=== PATIENT | female | born 1935 | race Caucasian/White ===

== ENCOUNTER 2017-11-15 10:00 | Observation (INO) | payer MEDICARE, OTHER ==
[2017-11-15 10:31] LABS: BASOPHILS # (AUTO) 0.1 10^3/uL (0.0-0.1); BASOPHILS % (AUTO) 0.9 %; EOSINOPHILS # (AUTO) 0.2 10^3/uL (0.0-0.7); EOSINOPHILS % (AUTO) 3.2 %; HGB - HEMOGLOBIN 14.6 g/dL (12.0-16.0); LYMPHOCYTES # (AUTO) 1.4 10^3/uL (1.5-3.5); LYMPHOCYTES % (AUTO) 22.5 %; MEAN CORPUSCULAR HEMOGLOBIN 30.9 pg (27.0-31.0); MEAN CORPUSCULAR HGB CONC 33.9 g/dL (32.0-36.0); MEAN PLATELET VOLUME 9.5 fL (7.9-10.8); MONOCYTES # (AUTO) 0.6 10^3/uL (0.0-1.0); MONOCYTES % (AUTO) 8.9 %; NEUTROPHILS % (AUTO) 64.5 %; PLT - PLATELET COUNT 155 10^3/uL (130-450); RED BLOOD COUNT 4.74 10^6/uL (4.20-5.40); RED CELL DISTRIBUTION WIDTH 14.2 % (12.0-15.0); WHITE BLOOD COUNT 6.2 x10^3/uL (4.8-10.8)
[2017-11-15 10:40] LABS: ALBUMIN/GLOBULIN RATIO 1.3 (1.0-2.2); BILIRUBIN,TOTAL 0.7 mg/dL (0.2-1.0); CREATININE 0.8 mg/dL (0.4-1.0)
--- NOTE | 2017-11-15 10:57 | ED Physician Documentation ---
History of Present Illness - Stated complaint Stated Complaint: CHEST PX - Chief complaint Chief Complaint: Cardiac - Additonal information Additional information: hx from pt 82 female hx PVC palp and ablation but not CAD as i understand her has been seen by cardio at [facility] to ER today with CP onset 9 AM initially a slow throb like painful palp then gradually became a steady constant cell attendant like pain to L ant chest lasting about 25-30 min then subsiding now gone no soa no diaphoresis no NV no leg swelling no fever cough Review of Systems Constitutional: denies: Fever, Chills Cardiac: reports: Chest pain / pressure Respiratory: denies: Dyspnea GI: denies: Abdominal Pain, Nausea, Vomiting, Diarrhea Musculoskeletal: denies: Extremity pain, Extremity swelling Endocrine: denies: Easy bruising / bleeding Immunocompromised: denies: Immunocompromised PD PAST MEDICAL HISTORY - Past Medical History Cardiovascular: High cholesterol, Arrhythmia Neuro: TIA - Past Surgical History Past Surgical History: Yes General: Appendectomy Cardiovascular: Cardiac catheterization, Other - Present Medications Home Medications: Ambulatory Orders Medication Instructions Recorded Confirmed Atorvastatin Calcium [Lipitor] 40 mg PO QPM 01/12/15 11/15/17 Clopidogrel Bisulfate [Plavix] 75 mg PO DAILY 01/12/15 11/15/17 Metoprolol Tartrate [Lopressor] 25 mg PO BID 01/12/15 11/15/17 Cholecalciferol (Vitamin D3) 1,000 unit PO DAILY 08/02/16 11/15/17 [Vitamin D3] Glucosam/Chondr-MSM#6/Manganes 1 cap PO DAILY 08/02/16 11/15/17 [Glucosamine-Chondroitin Sftgl] Calcium Carbonate [Tums (Calcium 500 mg PO DAILY 11/15/17 11/15/17 Carbonate 500mg)] FLUoxetine [PROzac] 10 mg PO DAILY 11/15/17 11/15/17 Fluocinolone/Shower Cap 5 drops EACHEAR BID 11/15/17 11/15/17 [Fluocinolone 0.01% Scalp Oil] Nitroglycerin [Nitrostat] 0.4 mg SL Q5MIN PRN #30 tablet 11/15/17 - Allergies Allergies/Adverse Reactions: Allergies Allergy/AdvReac Type Severity Reaction Status Date / Time No Known Drug Allergies Allergy Verified 08/02/16 14:56 - Social History Does the pt smoke?: No Smoking Status: Never smoker Does the pt drink ETOH?: No Does the pt have substance abuse?: No - Immunizations Immunizations are current?: Yes - POLST Patient has POLST: No PD ED PE NORMAL - Vitals Vital signs reviewed: Yes - HEENT HEENT: Atraumatic - Neck Neck: Supple, no meningeal sign - Cardiac Cardiac: RRR - Respiratory Respiratory: No respiratory distress, Clear bilaterally - Abdomen Abdomen: Soft, Non tender - Derm Derm: Normal color - Extremities Extremities: No tenderness to palpate, Normal ROM s pain, No edema, No calf tenderness / cord - Neuro Neuro: Alert and oriented X 3 Results - Vitals Vitals: Vital Signs - 24 hr 11/15/17 10:14 Temperature 36.8 C Heart Rate 58 L Respiratory 13 Rate Blood Pressure 127/70 O2 Saturation 98 Oxygen O2 Source Room air - EKG (time done) 1007 Rate: Rate (enter#) Rhythm: NSR [place]: Normal Intervals: Normal VA QRS: Normal Ischemia: Normal ST segments - Labs Labs: Laboratory Tests 11/15/17 11/15/17 11/15/17 10:15 10:15 10:15 WBC 6.2 RBC 4.74 Hgb 14.6 Hct 43.1 MCV 91.0 MCH 30.9 MCHC 33.9 RDW 14.2 Plt Count 155 MPV 9.5 Neut # 4.0 Lymph # 1.4 L [place] # 0.6 Eos # 0.2 Baso # 0.1 Absolute Nucleated RBC 0.00 Nucleated RBC % 0.0 Sodium 139 Potassium 4.0 Chloride 101 Carbon Dioxide 26 Anion Gap 12.0 BUN 22 H Creatinine 0.8 Estimated GFR (MDRD) 69 L Glucose 75 Calcium 9.0 Total Bilirubin 0.7 AST 23 ALT 17 Alkaline Phosphatase 44 Troponin I < 0.04 Total Protein 7.0 Albumin 4.0 Globulin 3.0 Albumin/Globulin Ratio 1.3 Lipase 32 PD MEDICAL DECISION MAKING - ED course ED course: 82 female with 25-60 min of l sided chest discomfort this Am EKG neg 1st trop neg HEART score 5 will admit tele obs serial trop at 6hr jaiden abd echo pt hoping all will be well and she can be home by this evening as company is coming to visit Departure - Departure Disposition: ED Place in Observation Clinical Impression: Chest pain Qualifiers: Chest pain type: unspecified Qualified Code(s): R07.9 - Chest pain, unspecified Condition: Good Discharge Date/Time: 11/15/17 11:59
[2017-11-15] MEDS ORDERED: ONDANSETRON 4 MG/2 ML VIAL IVP PRN (11:34)
[2017-11-15] MEDS ORDERED: SODIUM CHLORIDE FLUSH 0.9% 10 ML SYRINGE IVP PRN (11:34)
[2017-11-15] MEDS ORDERED: ONDANSETRON ODT 4 MG TABLET TL PRN (11:34)
[2017-11-15] MEDS ORDERED: ACETAMINOPHEN 325 MG TABLET PO PRN (11:34)
--- NOTE | 2017-11-15 11:42 | HISTORY & PHYSICAL EXAMINATION ---
Chief Complaint - Chief Complaint Chief Complaint: chest pain for an hour between 9 am and 10 am History of Present Illness - Admitted From Admitted From:: ER - History Obtained From [facility] History obtained from: patient and Dr. Alains Exam Limitations: none - History of Present Illness HPI Comment/Other: She presents with intermittent chest pain starting late this morning. She has risk factors for coronary artery disease including previous history of stroke, hypertension, hyperlipidemia, a positive family history, and an ex-smoking history. She is never had chest pain or cardiac problems other than SVT with ablation before. She woke up this morning and had her usual breakfast. About an hour later she was playing a card game in the computer. She noticed 5 sharp pinching sensations in her left anterior chest. Each were fleeting. And then went away. About 10 minutes later they happen again. About 20 minutes after that, the chest pain returned, and this time it was described as a very severe squeezing sensation that would last several longer moments, barely fade away, and then returned. Overall this lasted 20 minutes. There were no palpitations , nausea, diaphoresis, left jaw pain, or left arm pain with this. She came to the emergency room for evaluation where she is normotensive, EKG is nonspecific, and initial troponins are negative. She is willing to be placed in observation but states that she has other things that she needs to do this afternoon. She really wants to be discharged by no later than 3:30 this afternoon. History - Past Medical History Cardiovascular: reports: High cholesterol, Arrhythmia (reentry tachycardia with ablation 2002 . on metoprolol. 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 Fluoxetine started 07/13/17) Musculoskeletal: reports: Osteoporosis (with thoracic and neck pain. 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 mom of old age at 97. 4 brothers: 2 with CAD/CABG in their 60's and with alzheimers, 1 with alzheimers only. 1 alive. 3 sisters, 2 with alzheimers. 6 children are healthy without cancer, heart, lung, GI disease. Living arrangement: At home Living Situation: With spouse/s.o. Social History Notes: born in [place], [place] on a [place], no running water. Moved to [facility] age 15. 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 . Met her second , a [employer] Operator and over 40 years. She moved here with 's deployement. 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 Drinks mainly on weekend and is rare if more than 1. Stopped cigs after 18 years of 1/ 2 ppd. No recreational substance ab use. - Substance History Use: Uses substance without health or social issues: NONE (former smoker of 1/2 ppd for 18 years.), Alcohol (1 drink a day) - POLST Patient has POLST: No Meds/Allgy - Home Medications Home Medications: Ambulatory Orders Medication Instructions Recorded Confirmed Atorvastatin Calcium [Lipitor] 40 mg PO QPM 01/12/15 11/15/17 Clopidogrel Bisulfate [Plavix] 75 mg PO DAILY 01/12/15 11/15/17 Metoprolol Tartrate [Lopressor] 25 mg PO BID 01/12/15 11/15/17 Cholecalciferol (Vitamin D3) 1,000 unit PO DAILY 08/02/16 11/15/17 [Vitamin D] Glucosam/Chondr-MSM#6/Manganes 1 cap PO DAILY 08/02/16 11/15/17 [Glucosamine-Chondroitin Sftgl] Calcium Carbonate [Tums (Calcium 500 mg PO DAILY 11/15/17 11/15/17 Carbonate 500mg)] FLUoxetine [PROzac] 10 mg PO DAILY 11/15/17 11/15/17 Fluocinolone/Shower Cap 5 drops EACHEAR BID 11/15/17 11/15/17 [Fluocinolone 0.01% Scalp Oil] - Allergies Allergies/Adverse Reactions: Allergies Allergy/AdvReac Type Severity Reaction Status Date / Time No Known Drug Allergies Allergy Verified 08/02/16 14:56 Review of Systems - Constitutional Constitutional: reports: Other (she cleans her house, does laundry, changes sheets on bed, mops floors, cooks. no change in status for years now.). denies : Fatigue, Fever, Chills - Eyes Eyes: denies: Pain, Irritation, Amaurosis - Ears, Nose & Throat Ears, Nose & Throat: reports: Ear pain (but more like itching), Nasal congestion , Postnasal drainage - Cardiovascular Cariovascular: reports: Irregular heart rate (gone since ablation 2002). denies : Edema, Syncope, Exertional dyspnea, Orthopnea - Respiratory Respiratory: reports: Cough (with her PND but not chronic), Sputum production ( occaa). denies: Wheezing, Snoring, Hemoptysis, Orthopnea, SOB at rest, SOB with exertion - Gastrointestinal Gastrointestinal: denies: Abdominal pain, Abdominal distention, Constipation, Diarrhea, Bloody stools, Nausea - Genitourinary Genitourinary: denies: Dysuria, Frequency, Urgency, Hematuria, Flank pain - Musculoskeletal Musculoskeletal: reports: Stiffness (mild and goes away by late morning). denies: Muscle pain, Back pain, Muscle aches - Integumentary Integumentary: denies: Rash, Pruritis, Lesions, Hair changes - Neurological Neurological: reports: Memory problems (mild). denies: General weakness, Focal weakness, Headache, Dizziness, Numbness, Incoordination, Slurred speech - Psychiatric Psychiatric: reports: Depression. denies: Suicidal, Delusions, Hallucinations - Endocrine Endocrine: denies: Polyuria, Polydypsia, Intolerance to cold, Intolerance to heat - Hematologic/Lymphatic Hematologic/Lymphatic: denies: Anemia, Bruising, Petechiae, Blood clots, Recurrent infections Exam - Vital Signs Reviewed Vital Signs: Yes Vital Signs: Vital Signs x48h Temp Pulse Resp BP Pulse Ox 11/15/17 10:14 36.8 C 58 L 13 127/70 98 - Physical Exam General Appearance: positive: No acute distress, Alert Eyes Bilateral: positive: PERRL, EOMI ENT: positive: Pharynx nml Neck: positive: No JVD. negative: Lymphadenopathy (R), Lymphadenopathy (L), Stiff neck, Carotid bruit Respiratory: positive: Chest non-tender. negative: Wheezes, Rales, Rhonchi Cardiovascular: positive: Regular rate & rhythm, No murmur. negative: Gallop/S4 , Friction rub Peripheral Pulses: positive: 1+ Abdomen: positive: Non-tender, No organomegaly, Nml bowel sounds, No distention Skin: positive: Warm, Dry Extremities: positive: Non-tender, No pedal edema Neurologic/Psychiatric: positive: Oriented x3, CN's nml (2-12), Motor nml Conclusion/Plan - Problem List (1) Chest pain Conclusion/Plan: in a patient who has significant risk factors. History of pain is no typical. Plan observation with tele and freqent nursing exams troponin at 3 pm plan for outpt stress test and I will call Dr. Leiva to update her so we can schedule expeditiously already on plavix, ASA, statin and betablocker. Qualifiers: Chest pain type: unspecified Qualified Code(s): R07.9 - Chest pain, unspecified (2) HTN (hypertension) Conclusion/Plan: controlled. no change in meds Qualifiers: Hypertension type: essential hypertension Qualified Code(s): I10 - Essential (primary) hypertension - Lab Results Fish Bones: 11/15/17 10:15 11/15/17 10:15 - Diagnostic Imaging Results Diagnostic Imaging Results: positive: Final report reviewed (chest with bibasilar opacities, R>L, either early pneumonia or atelectasis. Hypoventilatory.) - EKG Results EKG Interpreted Independently: No EKG Comparison: No prior EKG EKG Findings: NSR with nondiagnostic Q in III. Very stable ST segments. NPT available for comparison. Core Measures - Anticipated LOS I expect patient to be DC'd or transferred within 96 hours.: Yes - DVT/VTE - Prophylaxis VTE/DVT Device ordered at admit?: No Not Ordered - Low Risk: Very low risk
[2017-11-15] MEDS ORDERED: CLOPIDOGREL 75 MG TABLET PO SCH (12:00)
[2017-11-15] MEDS ORDERED: METOPROLOL TARTRATE 25 MG TABLET PO SCH (12:00)
[2017-11-15] MEDS ORDERED: ATORVASTATIN 40 MG TABLET PO SCH (12:00)
--- NOTE | 2017-11-15 12:01 | XRAY Report ---
EXAM: CHEST RADIOGRAPHY EXAM DATE: 11/15/2017 11:32 AM. CLINICAL HISTORY: Chest pain. COMPARISON: None. TECHNIQUE: 1 view. FINDINGS: Lungs/Pleura: Right greater left bibasilar opacities. Lung volumes are low. No pneumothorax . No vasc ular congestion. Mediastinum: Heart size is normal. Aorta is tortuous. Aortic atherosclerosis. Other: None. IMPRESSION: 1. Hypoventilatory changes with bibasilar opacities, right greater left, scar, atelectasis versus ear ly consolidation. [facility] Referring Provider Line: [phone] SITE ID: [id number]
[2017-11-15] MEDS ORDERED: SODIUM CHLORIDE FLUSH 0.9% 10 ML SYRINGE IVP SCH (14:00)
--- NOTE | 2017-11-15 15:19 | Discharge Plan ---
Discharge Plan Disposition: Home, Self Care Condition: Good Prescriptions: Nitroglycerin [Nitrostat] 0.4 mg SL Q5MIN PRN #30 tablet PRN Reason: Chest Pain Diet: Cardiac Activity Restrictions: Activity as Tolerated Shower Restrictions: No Driving Restrictions: No Additional Instructions or Follow Up instructions: You were placed under observation because you had atypical chest pain on the left side of your chest. Your risk factors for heart disease include age, ex- smoking history, high cholesterol, hypertension, and a very positive family history. While here your EKG was negative and 2 blood tests for heart attack were negative as well. Because you are at higher risk than most, I have already called Dr. Leiva, your primary care provider. She is going to be requesting a treadmill test in the next few days. I know that your daughters are visiting, but this stress test is very important to do. Do not delay doing it. Do not put off doing it. I have prescribed a small bottle of sublingual nitroglycerin to take if you get chest pain. If her chest pain comes back and it is not relieved by the sublingual nitroglycerin you must come back to the emergency room. No Smoking: If you smoke, Please STOP! Call for help. Follow-up with: Ayesha Leiva DO [Primary Care Provider] -
[2017-11-15 15:46] VITALS: BP 135/69
--- NOTE | 2017-11-15 20:26 | DISCHARGE SUMMARY ---
Physician: Sobeida Wright MD DATE OF ADMISSION: 11/15/2017 DATE OF DISCHARGE: 11/15/2017 PRIMARY CARE PROVIDER: Vicki Leiva MD DATE OF ADMISSION: 11/15/2017. DATE OF DISCHARGE: 11/15/2017. DISCHARGE DIAGNOSES 1. Chest pain, unspecified. 2. Essential hypertension. DISCHARGE MEDICATIONS 1. Sublingual nitroglycerin 0.4 mg every 5 minutes as needed for chest pain. 2. Lipitor 40 mg at night. 3. Calcium/Tums 500 mg daily p.r.n. indigestion. 4. Vitamin D 1000 units daily. 5. Plavix 75 mg daily. 6. Fluocinolone 5 drops each ear b.i.d. 7. Prozac 10 mg daily. 8. Glucosamine chondroitin 1 capsule daily. 9. Metoprolol 25 mg p.o. b.i.d. PRINCIPAL PROCEDURES 1. Cardiac enzymes x2 less than 0.04. 2. Chest x-ray with hypoventilatory changes of atelectasis, right greater than left. The patient needs to be encouraged for incentive spirometry or deep breathing to avoid pneumonia. HISTORY: The patient was admitted less than 12 hours. Please refer to the history and physical where she is admitted for chest pain. She has significant risk factors. HOSPITAL COURSE: Two sets of cardiac enzymes were negative. The patient was very adamant that she needed to leave because 2 daughters are arriving from out of town and she needs to leave no later than 3:30 to go pick them up and take them both to [place]. The patient remained completely pain free during her stay. She had no further episodes of chest pain. Because of her high risk, I have strongly encouraged her to follow through with getting an exercise treadmill test. I have spoken to Dr. Lee who will make that arrangement for the patient. She is on a beta efe and that will be held for her to do her treadmill test. She was instructed to do so. Silvia from radiology will be calling to reiterate that. The patient was discharged in stable condition. PHYSICAL EXAMINATION VITAL SIGNS: Temperature 36.5, pulse 60, blood pressure 135/69, respirations 18 , 98% on room air. She is a delightful, elderly woman, accompanied by her . Short stature, mildly overweight. NECK: Supple without carotid bruits. LUNGS: Clear and a slightly kyphotic spine. HEART: She has a regular rate and rhythm. ABDOMEN: Obese, soft, nontender with no organomegaly or masses or tenderness. EXTREMITIES: Without edema. She walks without any ataxia. TD: 11/15/2017 20:25 MTDD
[2017-11-16] MEDS ORDERED: POLYETHYLENE GLYCOL 3350 17 GM PACKET PO SCH (09:00)
[2017-11-16] MEDS ORDERED: CHOLECALCIFEROL 1,000 UNIT TABLET PO SCH (09:00)
== END 2017-11-15 16:05 | disposition home or self-care (01) ==
LOC: ED 10:00 → OBS 11:34
PROVIDERS: ADMIT Specialist; ATTEND Specialist
DX: R07.9 Chest pain, unspecified (principal); I10 Essential (primary) hypertension; I25.10 Atherosclerotic heart disease of native coronary artery without angina pectoris; E78.5 Hyperlipidemia, unspecified; Z87.891 Personal history of nicotine dependence; F32.9 Major depressive disorder, single episode, unspecified; M81.0 Age-related osteoporosis without current pathological fracture; Z79.02 Long term (current) use of antithrombotics/antiplatelets; Z79.899 Other long term (current) drug therapy; Z82.49 Family history of ischemic heart disease and other diseases of the circulatory system; R41.3 Other amnesia; Z86.73 Personal history of transient ischemic attack (TIA), and cerebral infarction without residual deficits
CPT/HCPCS: 36415; 71045; 80053; 83690; 84484; 85025; 93005; 99283; 99284; G0378

== ENCOUNTER 2017-11-16 08:40 | Outpatient (CLI) | payer MEDICARE, OTHER ==
[2017-11-16] MEDS ORDERED: REGADENOSON 0.4 MG/5 ML SYRINGE IVP ONE (09:44)
--- NOTE | 2017-11-16 14:46 | Nuclear Medicine Report ---
EXAM: NUCLEAR MEDICINE MYOCARDIAL PERFUSION STRESS AND REST EXAM DATE: 11/16/2017 01:38 PM. CLINICAL HISTORY: CHEST PAIN. COMPARISON: Chest x-ray 11/15/2017. TECHNIQUE: Patient given 10 mCi technetium 99m sestamibi IV for the rest portion of the study. Non-ga adirán cardiac SPECT scintigraphy performed with multiplanar reformats. After an appropriate delay, patient was exercised on a treadmill protocol. Near peak stress, patient given 41.3 mCi technetium 99m sestamibi IV. Cardiac gated SPECT scintigraphy performed multiplanar re formats, wall motion analysis, and left ventricular ejection fraction estimation. FINDINGS: There is a small focus of mild decreased activity in the apical portion of the anteroseptum which is fixed on stress and rest. There are no reversible stress-related perfusion defects. Otherwise uniform activity in the left vent ricular myocardium. Wall motion is uniform. Left ventricular ejection fraction estimated at 85%. IMPRESSION: 1. Small focus mild fixed decreased activity in the apical anteroseptal wall, breast attenuation xenia fact versus old small infarct. 2. No scintigraphic evidence of inducible ischemia. 3. Left ventricular ejection fraction estimated at 85%. [facility] The call report notification system was initiated by Dr. Anastacio Rosas at 14:39 hrs on 11/16/17. The above findings were discussed with Dr. Abbie Dr by Dr. Anastacio Rosas at 14:44 hrs on 11/16. Referring Provider Line: [phone] SITE ID: [id number]
[2017-11-16 16:47] VITALS: BP 138/82
--- NOTE | 2017-11-16 18:36 | CARDIAC PROCEDURE NOTE ---
DATE OF SERVICE: 11/16/2017 Physician: DAVID Rankin DATE OF SERVICE: 11/16/2017. PRIMARY CARE PHYSICIAN: Dr. Vicki Leiva. PROCEDURE: Myocardial perfusion treadmill. PROCEDURE SYMPTOM: Chest pain with ER visit of 11/15/2017. CARDIAC RISK FACTORS: Include age, hypertension, hyperlipidemia, family history , and ex-smoker. No previous cardiac procedures. CURRENT SYMPTOMATOLOGY: None, "I feel fine." CLINICAL HISTORY: An 82-year-old female without known coronary artery disease. INITIAL RESTING VITAL SIGNS: BP 138/82, heart rate 72, height 64 inches, weight 170 pounds. PROCEDURE AND FINDINGS: The patient's identity and date verified. Consent signed. The patient performed treadmill exercise using a modified Sai protocol, completing 6 minutes 45 seconds and completing a VO2 max of 21.55. Cardiolite radioactive tracer was injected intravenously at maximal heart rate and the patient exercised for 60 seconds longer. Maximal blood pressure was 186/70 with a heart rate of 132 beats per minute or 96% of maximum predicted heart rate for age. The blood pressure response to exercise was within normal limits. The patient stopped because of pains in her bilateral hips and thighs. The modified Sai was held at 5 degrees elevation for the final 45 seconds of the test. The resting ECG demonstrated normal sinus rhythm with no abnormality. A high amount of exercise artifact makes portions of the exercise ECG uninterpretable. No ectopy was seen. There were no ECG changes noted in recovery phase. FINAL IMPRESSIONS 1. Uninterpretable stress electrocardiogram for ischemia. 2. Negative stress test clinically for angina. 3. No ectopy nor arrhythmia was noted. 4. VO2 max consistent with "fair" aerobic fitness for age. 5. Await results of myocardial perfusion scan. TD: 11/16/2017 18:34 LAYA
== END 2017-11-16 08:41 | disposition home or self-care (01) ==
LOC: DI 08:40
PROVIDERS: ATTEND Family Medicine
DX: R07.9 Chest pain, unspecified (principal); I10 Essential (primary) hypertension; E78.5 Hyperlipidemia, unspecified; Z87.891 Personal history of nicotine dependence
CPT/HCPCS: 78452; 93017; A9500

== ENCOUNTER 2018-01-10 10:50 | Emergency (ER) | payer MEDICARE, OTHER ==
[2018-01-10 12:07] LABS: BILIRUBIN,URINE NEGATIVE (NEGATIVE); GLUCOSE, URINE (UA) NEGATIVE (NEGATIVE); KETONES,URINE (UA) NEGATIVE (NEGATIVE); LEUKOCYTE ESTERASE, URINE NEGATIVE (NEGATIVE); NITRITE,URINE NEGATIVE (NEGATIVE); OCCULT BLOOD,URINE TRACE-LYSE (NEGATIVE); PH,URINE 5.5 PH (5.0-7.5); PROTEIN,URINE NEGATIVE (NEGATIVE); UROBILINOGEN,URINE 0.2 (NORMAL) E.U./dL (NORMAL)
[2018-01-10 12:30] LABS: CLARITY,URINE CLEAR (CLEAR)
--- NOTE | 2018-01-10 13:21 | ED Physician Documentation ---
History of Present Illness - Stated complaint Stated Complaint: FEMALE - Chief complaint Chief Complaint: General - Additonal information Additional information: hx from pt 82 f was working in the yard her underwear was rubbing a sore spot so after she showered she used a mirror to look at the abrasion and noted a dark blue black discoloration to her labia majorea no injury to area no abd or back otherwise feels well in on a blood thinner she cannot recall the name of no fever or urinary sx Review of Systems Constitutional: denies: Fever GI: denies: Abdominal Pain : denies: Dysuria, Hematuria Skin: reports: Other (discolored) Musculoskeletal: denies: Back pain PD PAST MEDICAL HISTORY - Past Medical History Cardiovascular: High cholesterol, Arrhythmia Respiratory: None Neuro: TIA Endocrine/Autoimmune: None GI: None 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: Other : None HEENT: Other Psych: Depression Musculoskeletal: Osteoporosis, Other Derm: None - Past Surgical History Past Surgical History: Yes General: Appendectomy Cardiovascular: Cardiac catheterization, Other HEENT: Cataracts - Present Medications Home Medications: Ambulatory Orders Medication Instructions Recorded Confirmed Atorvastatin Calcium [Lipitor] 40 mg PO QPM 01/12/15 11/15/17 Clopidogrel Bisulfate [Plavix] 75 mg PO DAILY 01/12/15 11/15/17 Metoprolol Tartrate [Lopressor] 25 mg PO BID 01/12/15 11/15/17 Cholecalciferol (Vitamin D3) 1,000 unit PO DAILY 08/02/16 11/15/17 [Vitamin D3] Glucosam/Chondr-MSM#6/Manganes 1 cap PO DAILY 08/02/16 11/15/17 [Glucosamine-Chondroitin Sftgl] Calcium Carbonate [Tums (Calcium 500 mg PO DAILY 11/15/17 11/15/17 Carbonate 500mg)] FLUoxetine [PROzac] 10 mg PO DAILY 11/15/17 11/15/17 Fluocinolone/Shower Cap 5 drops EACHEAR BID 11/15/17 11/15/17 [Fluocinolone 0.01% Scalp Oil] Nitroglycerin [Nitrostat] 0.4 mg SL Q5MIN PRN #30 tablet 11/15/17 - Allergies Allergies/Adverse Reactions: Allergies Allergy/AdvReac Type Severity Reaction Status Date / Time No Known Drug Allergies Allergy Verified 01/10/18 10:56 - Social History Does the pt smoke?: No Smoking Status: Never smoker Does the pt drink ETOH?: No Does the pt have substance abuse?: No - Immunizations Immunizations are current?: Yes - POLST Patient has POLST: No PD ED PE NORMAL - Vitals Vital signs reviewed: Yes - Cardiac Cardiac: RRR - Respiratory Respiratory: No respiratory distress, Clear bilaterally - Abdomen Abdomen: Soft, Non tender, Other (no ecchymosis) - Female Female : Other (slight brownish dislcolration to vulvar region externally L > R no redness tenderness warmth, bleeding abrasion tears etc) Results - Vitals Vitals: Vital Signs - 24 hr 01/10/18 10:52 Temperature 36.0 C L Heart Rate 63 Respiratory 16 Rate Blood Pressure 137/67 H O2 Saturation 97 Oxygen O2 Source Room air - Labs Labs: Laboratory Tests 01/10/18 11:55 Urine Color YELLOW Urine Clarity CLEAR Urine pH 5.5 Ur Specific [place] >=1.030 H Urine Protein NEGATIVE Urine Glucose (UA) NEGATIVE Urine Ketones NEGATIVE Urine Occult Blood TRACE-LYSE Urine Nitrite NEGATIVE Urine Bilirubin NEGATIVE Urine Urobilinogen 0.2 (NORMAL) Ur Leukocyte Esterase NEGATIVE Ur Microscopic Review NOT INDICATED Urine Culture Comments NOT INDICATED PD MEDICAL DECISION MAKING - ED course ED course: looks like clearing bruises no blue / black now denies blue black clothes that might have trasnsferred color no abd pelvic process to pool dependently seems to be clearing, will dc Departure - Departure Disposition: 01 Home, Self Care Clinical Impression: Ecchymosis Follow-Up: Ayesha Leiva DO [Primary Care Provider] - Comments: The discoloration seems to be fading No injury was found No back or abdominal process was identified to cause blood to pool in the genital area There was no blood in the urine. I think it is safe for you to go home. Follow up PMD as needed Return if worse
[2018-01-10 13:26] VITALS: BP 128/75
== END 2018-01-10 13:40 | disposition home or self-care (01) ==
LOC: ED 10:50
DX: R58 Hemorrhage, not elsewhere classified (principal); Z79.02 Long term (current) use of antithrombotics/antiplatelets; E78.00 Pure hypercholesterolemia, unspecified; Z86.73 Personal history of transient ischemic attack (TIA), and cerebral infarction without residual deficits
CPT/HCPCS: 81001; 81003; 87086; 99281; 99283

== ENCOUNTER 2018-08-22 08:39 | Outpatient (CLI) | payer MEDICARE, OTHER ==
--- NOTE | 2018-08-22 11:50 | CARDIAC PROCEDURE NOTE ---
DATE OF SERVICE: 08/22/2018 Physician: Bre Morales MD, [facility] INDICATIONS: Chest pain. CARDIAC RISK FACTORS: 1. Advanced age. 2. Elevated cholesterol. 3. Family history of heart disease. 4. Remote ex-smoker. SUMMARY: After signing informed consent, the patient performed exercise stress testing on a Sai treadmill protocol along with having Echo images at rest and peak. Resting heart rate 63, peak heart rate 121 (88% predicted maximum heart rate for age). Resting blood pressure 118/62, peak blood pressure 136/60. Patient exercised for 2 minutes and 16 seconds on a Sai protocol. She achieved a peak heart rate of 121 (81% PMHR), 5 METS. Patient had mild to moderate shortness of breath at peak. She had no chest pain during the test. RESTING EKG: Normal sinus rhythm and within normal limits. PEAK EK mm horizontal ST depressions in leads II, III, aVF, and V5, V6. SUMMARY 1. Fair to poor exercise tolerance. 2. EKG criteria for ischemia are present, at an adequately achieved heart rate. 3. Echo images reported separately. cc: Thai Leiva M.D. TD: 08/22/2018 11:43 MTDD
== END 2018-08-22 08:40 | disposition home or self-care (01) ==
LOC: DI 08:39
PROVIDERS: ATTEND Internal Medicine Cardiovascular Disease
DX: R07.9 Chest pain, unspecified (principal)
CPT/HCPCS: 93351

== ENCOUNTER 2018-08-24 08:54 | Outpatient (CLI) | payer MEDICARE, OTHER ==
[2018-08-24 13:19] LABS: BASOPHILS % (AUTO) 0.9 %; EOSINOPHILS # (AUTO) 0.3 10^3/uL (0.0-0.7); EOSINOPHILS % (AUTO) 5.5 %; HGB - HEMOGLOBIN 13.9 g/dL (12.0-16.0); LYMPHOCYTES # (AUTO) 1.4 10^3/uL (1.5-3.5); LYMPHOCYTES % (AUTO) 30.6 %; MEAN CORPUSCULAR HEMOGLOBIN 30.7 pg (27.0-31.0); MEAN CORPUSCULAR HGB CONC 33.9 g/dL (32.0-36.0); MEAN CORPUSCULAR VOLUME 90.3 fL (81.0-99.0); MEAN PLATELET VOLUME 10.4 fL (7.9-10.8); MONOCYTES # (AUTO) 0.4 10^3/uL (0.0-1.0); NEUTROPHILS # (AUTO) 2.5 10^3/uL (1.5-6.6); PLT - PLATELET COUNT 129 10^3/uL (130-450); RED BLOOD COUNT 4.54 10^6/uL (4.20-5.40); RED CELL DISTRIBUTION WIDTH 13.7 % (12.0-15.0); WHITE BLOOD COUNT 4.6 x10^3/uL (4.8-10.8)
[2018-08-24 13:24] LABS: ALBUMIN 3.8 g/dL (3.2-5.5); ALBUMIN/GLOBULIN RATIO 1.4 (1.0-2.2); ALKALINE PHOSPHATASE 50 IU/L (42-121); ALT ALANINE AMINOTRANSFERASE 14 IU/L (10-60); AST ASPARTATE AMINOTRANSFERASE 17 IU/L (10-42); BILIRUBIN,TOTAL 0.8 mg/dL (0.2-1.0); BUN - BLOOD UREA NITROGEN 12 mg/dL (6-20); CALCIUM 8.8 mg/dL (8.5-10.3); CARBON DIOXIDE - CO2 27 mmol/L (21-32); CHLORIDE 106 mmol/L (101-111); CHOL/HDL RATIO 3.4 (<4.4); CHOLESTEROL 176 mg/dL; CREATININE 0.8 mg/dL (0.4-1.0); GFR - MDRD 68 (>89); GLUCOSE 97 mg/dL (70-100); HDL CHOLESTEROL 52 mg/dL; LDL CHOLESTEROL,CALCULATED 92 mg/dL; LDL/HDL RATIO 1.8 (<4.4); SODIUM 141 mmol/L (135-145); TOTAL PROTEIN 6.6 g/dL (6.7-8.2); VLDL CHOLESTEROL 32 mg/dL
== END 2018-08-24 08:55 | disposition home or self-care (01) ==
LOC: LAB.WCP 08:54
PROVIDERS: ATTEND Family Medicine
DX: G45.9 Transient cerebral ischemic attack, unspecified (principal); E78.5 Hyperlipidemia, unspecified
CPT/HCPCS: 36415; 80053; 80061; 83721; 85025

== ENCOUNTER 2018-09-20 08:36 | Outpatient (CLI) | payer MEDICARE, OTHER ==
[2018-09-20] MEDS ORDERED: AMINOPHYLLINE 250 MG/10 ML VIAL IV ONE (08:37)
[2018-09-20] MEDS ORDERED: REGADENOSON 0.4 MG/5 ML SYRINGE IVP ONE ×2 (10:31→15:41)
--- NOTE | 2018-09-20 12:23 | CARDIAC PROCEDURE NOTE ---
DATE OF SERVICE: 09/20/2018 Physician: Bre Morales MD, [facility] CARDIAC PROCEDURE NOTE INDICATION: Chest pain. CARDIAC RISK FACTORS: Advanced age, elevated cholesterol, family history of heart disease, remote ex-smoker. SUMMARY: After signing informed consent, the patient underwent a Lexiscan stress test with nuclear myocardial perfusion imaging. Resting heart rate: 66, peak heart rate: 98. Resting blood pressure: 130/80, peak blood pressure: 140/65. Lexiscan was infused per protocol. The patient developed "rib cage pain," that she label a 10/10, that subsided in 3-4 minutes. She then developed sternal pain that she rated a 5/10 that lasted less than a minute. When she sat up at the completion of the test, she described discomfort across the chest that she labeled a 2/10, which subsided in 1-2 minutes. In recovery, she developed a headache and Aminophylline 50 mg IV x1 was given for reversal of symptoms. RESTING ELECTROCARDIOGRAM: Normal sinus rhythm, within normal limits. ELECTROCARDIOGRAM AT PEAK: No ischemic changes by EKG criteria. IMPRESSION 1. No ischemic changes by EKG criteria on this pharmaceutical stress test. 2. Nuclear images reported separately. cc: Thai Leiva M.D. TD: 09/20/2018 11:58 MTDDylan
--- NOTE | 2018-09-20 16:32 | Nuclear Medicine Report ---
Reason: CHEST PAIN Procedure Date: 09/20/2018 Accession Number: [id number] / [id number] Procedure: NM - Myocardial Perfusion STR/RST CPT Code: FULL RESULT: EXAM: SINGLE-ISOTOPE PHARMACOLOGICAL STRESS TEST WITH REGADENOSON. SINGLE-ISOTOPE AND ONE-DAY REST/STRESS MYOCARDIAL PERFUSION SCANS WITH TOMOGRAPHIC IMAGING, QUANTITATIVE ANALYSIS, WALL MOTION ANALYSIS AND CALCULATION OF EJECTION FRACTION. EXAM DATE: 09/20/2018 03:47 PM. CLINICAL HISTORY: CHEST PAIN. COMPARISON: MYOCARDIAL PERFUSION 11/16/2017 9:26 AM. TECHNIQUE: After the intravenous administration of 10.8 mCi of Tc-99m sestamibi, a rest myocardial perfusion scan was done with tomography. Motion correction was applied when appropriate. After an appropriate delay, pharmacological stress was performed with the infusion of 0.4 mg regadenoson per protocol. According to protocol, 42 mCi of Tc-99m sestamibi was injected for stress myocardial perfusion scan. Motion correction was applied when appropriate. Gated tomographic images were obtained for wall motion analysis and computation of left ventricular ejection fraction. FINDINGS: Images show a mild fixed defect in the distal anterior and anterolateral clemente. No convincing reversible perfusion defects. Computer analysis: Summed stress score 6 Summed rest score 0 Summed difference score 6 Wall motion analysis demonstrates no focal wall motion abnormality. The left ventricular end-diastolic volume is 45 cc. The left ventricular end-systolic volume is 8 cc. The left ventricular ejection fraction is calculated to be 83%. IMPRESSION: 1. On visual analysis, there is a mild fixed defect in the distal anterior and distal anterolateral clemente. No convincing significant reversible perfusion defects. 2. Left ventricular ejection fraction of 83%. 3. Normal segmental and global wall motion. 4. Normal left ventricular cavity size, no change with stress. 5. Based on computer analysis, mildly abnormal study with moderate ischemia. RADIA
== END 2018-09-20 08:37 | disposition home or self-care (01) ==
LOC: DI 08:36
PROVIDERS: ATTEND Internal Medicine Cardiovascular Disease
DX: R07.9 Chest pain, unspecified (principal)
CPT/HCPCS: 78452; 93017; A9500; J2785

== ENCOUNTER 2018-11-07 20:57 | Outpatient (CLI) | payer MEDICARE, OTHER | END 2018-11-07 20:58 | disposition critical access hospital (66) | LOC: EMS 20:57 | PROVIDERS: ATTEND Surgery | DX: R47.02 Dysphasia (principal) | CPT/HCPCS: A0425; A0427 ==

== ENCOUNTER 2018-11-07 21:17 | Emergency (ER) | payer MEDICARE, OTHER ==
--- NOTE | 2018-11-07 21:28 | ED Physician Documentation ---
PD HPI FOCAL NEURO - Stated complaint Stated Complaint: SPEECH DIFFICULTY, HZ OF TIA - Chief complaint Chief Complaint: Neuro - History obtained from History obtained from: Patient - History of Present Illness Timing - onset: How many hours ago (1), Today Timing - duration: Minutes (10-15) Timing - details: Abrupt onset (She is sitting watching TV with her and they were having, and chat while watching. She noted onset of inability to express words coherently abruptly. She got up and was able to walk around. She did not have any facial droop. She denied loss of vision. There is no headache. There is no one-sided weakness. She is able to walk without ataxia. I called the EMS. The symptoms were improving just after EMS arrival and they are starting to the hospital. Patient estimates duration about 15 minutes total. She had a similar episode a week ago and was seen at [facility] and she states she had tests CT and an MRI done in the emergency room. She had another episode 3 months prior to that and was overnight in the hospital a [facility] with test done of her heart. She has been on Plavix for the last 3 months. She was told that a baby aspirin last week. She just saw her primary care yesterday for follow-up.) Weakness: No: Face, Arm, Leg Numbness: No: Face, Arm, Leg Associated symptoms: Other (expressive aphasia for 10-15 minutes) Contributing factors: negative: Vascular dz, Atrial fibrillation Similar symptoms before: Diagnosis (tia) Recently seen: Emergency Dept (1 week ago at [facility] for the same symptoms and prior to that 3 months ago as well. Each episodes was few minutes up to 15 minutes max.) Review of Systems Constitutional: denies: Fever, Chills, Myalgias Nose: denies: Rhinorrhea / runny nose, Congestion Throat: denies: Sore throat Cardiac: denies: Chest pain / pressure, Palpitations Respiratory: denies: Cough GI: denies: Nausea, Vomiting, Diarrhea Neurologic: reports: Difficulty speaking. 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 HEENT: Other Psych: Depression Musculoskeletal: Osteoporosis, Other Derm: None - Past Surgical History Past Surgical History: Yes General: Appendectomy Cardiovascular: Cardiac catheterization, Other HEENT: Cataracts - Present Medications Home Medications: Ambulatory Orders Medication Instructions Recorded Confirmed Clopidogrel Bisulfate [Plavix] 75 mg PO DAILY 01/12/15 11/07/18 Metoprolol Tartrate [Lopressor] 25 mg PO BID 01/12/15 11/07/18 Cholecalciferol (Vitamin D3) 1,000 unit PO DAILY 08/02/16 11/07/18 [Vitamin D3] Glucosam/Chondr-MSM#6/Manganes 1 cap PO DAILY 08/02/16 11/07/18 [Glucosamine-Chondroitin Sftgl] Calcium Carbonate [Tums (Calcium 500 mg PO DAILY 11/15/17 11/07/18 Carbonate 500mg)] Rosuvastatin Calcium 40 mg PO DAILY 11/07/18 11/07/18 - Allergies Allergies/Adverse Reactions: Allergies Allergy/AdvReac Type Severity Reaction Status Date / Time No Known Drug Allergies Allergy Verified 11/07/18 21:23 - Social History Does the pt smoke?: No Smoking Status: Never smoker Does the pt drink ETOH?: No Does the pt have substance abuse?: No - Immunizations Immunizations are current?: Yes - POLST Patient has POLST: No PD ED PE NORMAL - Vitals Vital signs reviewed: Yes - General General: Alert and oriented X 3, No acute distress, Well developed/nourished - HEENT HEENT: Ears normal, Moist mucous membranes, Pharynx benign - Neck Neck: Supple, no meningeal sign, No adenopathy, No JVD, No bruit - Cardiac Cardiac: RRR, No murmur - Respiratory Respiratory: Clear bilaterally - Abdomen Abdomen: Soft, Non tender - Derm Derm: Normal color, Warm and dry - Extremities Extremities: No tenderness to palpate, Normal ROM s pain, No edema, No calf tenderness / cord - Neuro Neuro: Alert and oriented X 3, flexographic press helper 2-12 intact, No motor deficit, No sensory deficit, Normal speech, Other Eye Opening: Spontaneous Motor: Obeys Commands Verbal: Oriented GCS Score: 15 - Psych Psych: Normal mood, Normal affect NIHSS - Level of Consciousness Level of consciousness: (0) Alert, Keenly responsive LOC Questions: (0) Answers both Q's correct LOC Commands: (0) Performs both correctly - Gaze Best Gaze: (0) Normal - Visual Visual: (0) No loss - Facial Palsy Facial Palsy: (0) Normal, symmetrical movement - Motor Arms (both separate) Motor Arm (right): (0) No drift Motor Arm (left): (0) No drift - Motor Legs (both separate) Motor Leg (right): (0) No drift Motor Leg (left): (0) No drift - Limb Ataxia Limb Ataxia: (0) Absent - Sensory Sensory: (0) Normal - Best Language Best Language: (0) No aphasia - Dysarthria Dysarthria: (0) Normal - Extinction and Inattention (formally neg Extinction and inattention: (0) No abnormality - Total Score/Results Total Score/Result: 0 Results - Vitals Vitals: Vital Signs - 24 hr 11/07/18 11/07/18 21:17 21:23 Temperature 36.6 C Heart Rate 65 62 Respiratory 18 14 Rate Blood Pressure 180/64 H 142/74 H O2 Saturation 99 98 Oxygen O2 Source Room air - Tele (time rhythm occurred) 21:20 Telemetry / rhythm strip: NSR - Rads (name of study) head CT Radiology: Prelim report reviewed (no bleeding nor acute process), See rad report PD MEDICAL DECISION MAKING - ED course Complexity details: considered differential (Recurrent TIA with expressive aphasia and recent workup. Check blood sugar and heart rhythm here. CT done to ensure no bleeding. Her symptoms are resolved at this time. No further workup really needed. I talked with her and her about the potential treatments if persistent symptoms and that she would not be a candidate for TPA as would be too harmful be in or down a blood thinner. There is potential endovascular treatments which are applicable only 2 or 3% of the time. However they should return if persistent symptoms lasting more than the tender 15 minutes she has thompson d with prior episodes. She should return if new symptoms other than the aphasia.I conveyed my awareness of current statistics estimating about an 11% chance of stroke in the next 30 days based on her TIA symptoms.), d/w patient Departure - Departure Disposition: 01 Home, Self Care Clinical Impression: Expressive aphasia, TIA (transient ischemic attack) Condition: Stable Record reviewed to determine appropriate education?: Yes Instructions: ED Transient Ischemic Attack Follow-Up: Ayesha Leiva DO [Primary Care Provider] - Comments: Continue your current Plavix and also a baby aspirin daily. Return if you have recurrent prolonged symptoms. You have had a few episodes like this and so he could see if the symptoms just improve over 10 or 15 minutes or so. Return if persistent symptoms or other focal weaknesses. The blood thinner medicines to take her your best chance of trying to prevent a true stroke. These medicines would preclude you from getting the "clot busting" medicines for stroke (which only improves about 12% of people at the best, anyway and causes bleeding about 6% of the time, and that rate is much higher when you are already taking a blood thinner) but there are potential endovascular treatments (meaning done with a catheter through the blood vessels to try to treat the clot) that are a possibility so you would want to return to the ER if persistent symptoms. Stay well-hydrated.
[2018-11-07 23:13] VITALS: BP 146/75
--- NOTE | 2018-11-07 23:42 | CT Report ---
Reason: brief aphasia, improved Procedure Date: 11/07/2018 Accession Number: [id number] / [id number] Procedure: CT - Head W/O CPT Code: FULL RESULT: EXAM: CT HEAD EXAM DATE: 11/07/2018 10:41 PM. CLINICAL HISTORY: Brief aphasia, improved. COMPARISON: MR brain 02/24/2014. TECHNIQUE: Multiaxial CT images were obtained from the foramen magnum to the vertex. Reformats: Sagittal and coronal. IV contrast: None. In accordance with CT protocol optimization, one or more of the following dose reduction techniques were utilized for this exam: automated exposure control, adjustment of mA and/or KV based on patient size, or use of iterative reconstructive technique. FINDINGS: Parenchyma: No intraparenchymal hemorrhage. No evidence of mass, midline shift, or CT findings of infarction. Mcdonough-white differentiation is distinct. Extraaxial Spaces: Normal for age. No subdural or epidural collections identified. Ventricles: Normal in size and position. Sinuses and Orbits: Imaged paranasal sinuses, orbits, and mastoids show no significant abnormality. Bones: No evidence of fracture or calvarial defect. Other: None. IMPRESSION: No acute or focal intracranial abnormality. RADIA
== END 2018-11-07 23:30 | disposition home or self-care (01) ==
LOC: EDUNIT# → ED 21:17
DX: R47.01 Aphasia (principal); G45.9 Transient cerebral ischemic attack, unspecified; E78.00 Pure hypercholesterolemia, unspecified; Z79.01 Long term (current) use of anticoagulants
CPT/HCPCS: 70450; 99283; 99284

== ENCOUNTER 2018-11-14 18:20 | Outpatient (CLI) | payer MEDICARE, OTHER | END 2018-11-14 18:21 | disposition critical access hospital (66) | LOC: EMS 18:20 | PROVIDERS: ATTEND Surgery | DX: R47.9 Unspecified speech disturbances (principal) | CPT/HCPCS: A0425; A0429 ==

== ENCOUNTER 2018-11-14 18:45 | Emergency (ER) | payer MEDICARE, OTHER ==
--- NOTE | 2018-11-14 19:31 | ED Physician Documentation ---
PD HPI FOCAL NEURO - Stated complaint Stated Complaint: DIFFICULTY SPEAKING - Chief complaint Chief Complaint: Neuro - History obtained from History obtained from: Patient - History of Present Illness Timing - onset: Today (she has had general weakness, nausea, less appetite, cough the past 1-2 days. Has some baseline aphasia from prior CVA and it seemed some worse and then abruptly more this afternoon. She says she does "not feel well". Had some diarrhea today as well.) Timing - details: Gradual onset, Still present Severity of deficit: Moderate Weakness: No: Face Numbness: No: Face Associated symptoms: Nausea / vomiting (nausea but not vomiting, and did have some diarrhea today.). No: Headache, Head injury Contributing factors: positive: Anticoagulated, Atrial fibrillation Baseline status: positive: Cane, Other (some expressive aphasia) Similar symptoms before: Diagnosis (aphasia and left weakness with prior CVAs, and worsened aphasia with TIAs in the past. Caregiver (ex- who now lives with her and primary caregiver) says her speech can vary with how tired she is. Usually gets around with use of cane.) Recently seen: Not recently seen Review of Systems Constitutional: reports: Chills, Myalgias, Fatigue (for couple of days). denies: Fever Nose: denies: Rhinorrhea / runny nose, Congestion Throat: denies: Sore throat Cardiac: denies: Chest pain / pressure Respiratory: reports: Cough. denies: Dyspnea GI: reports: Abdominal Pain (mid to upper abd the past couple days. Gets upper abd pain intermittently over the past few months.), Nausea, Diarrhea. 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 HEENT: Other Psych: Depression Musculoskeletal: Osteoporosis, Other Derm: None - Past Surgical History Past Surgical History: Yes General: Appendectomy Cardiovascular: Cardiac catheterization, Other HEENT: Cataracts - Present Medications Home Medications: Ambulatory Orders Medication Instructions Recorded Confirmed Clopidogrel Bisulfate [Plavix] 75 mg PO DAILY 01/12/15 11/07/18 Metoprolol Tartrate [Lopressor] 25 mg PO BID 01/12/15 11/07/18 Cholecalciferol (Vitamin D3) 1,000 unit PO DAILY 08/02/16 11/07/18 [Vitamin D3] Glucosam/Chondr-MSM#6/Manganes 1 cap PO DAILY 08/02/16 11/07/18 [Glucosamine-Chondroitin Sftgl] Calcium Carbonate [Tums (Calcium 500 mg PO DAILY 11/15/17 11/07/18 Carbonate 500mg)] Rosuvastatin Calcium 40 mg PO DAILY 11/07/18 11/07/18 - Allergies Allergies/Adverse Reactions: Allergies Allergy/AdvReac Type Severity Reaction Status Date / Time No Known Drug Allergies Allergy Verified 11/07/18 21:23 - Social History Does the pt smoke?: No Smoking Status: Never smoker Does the pt drink ETOH?: No Does the pt have substance abuse?: No - Immunizations Immunizations are current?: Yes - POLST Patient has POLST: No PD ED PE NORMAL - Vitals Vital signs reviewed: Yes - General General: Alert and oriented X 3, Well developed/nourished - HEENT HEENT: Atraumatic, Pharynx benign - Neck Neck: Supple, no meningeal sign, No adenopathy - Cardiac Cardiac: RRR, No murmur - Respiratory Respiratory: Clear bilaterally - Abdomen Abdomen: Normal bowel sounds, Soft, Non distended, No organomegaly, Other (some tenderness mid abd and epigastric without guarding. ) - Derm Derm: Normal color, Warm and dry - Extremities Extremities: No edema, No calf tenderness / cord - Neuro Neuro: Alert and oriented X 3, No motor deficit. No: Normal speech (slow to get words out, but content is good. ) NIHSS - Level of Consciousness Level of consciousness: (0) Alert, Keenly responsive LOC Questions: (0) Answers both Q's correct LOC Commands: (0) Performs both correctly - Gaze Best Gaze: (0) Normal - Visual Visual: (0) No loss - Facial Palsy Facial Palsy: (0) Normal, symmetrical movement - Motor Arms (both separate) Motor Arm (right): (0) No drift Motor Arm (left): (0) No drift - Motor Legs (both separate) Motor Leg (right): (0) No drift Motor Leg (left): (0) No drift - Limb Ataxia Limb Ataxia: (0) Absent - Sensory Sensory: (0) Normal - Best Language Best Language: (2) Severe aphasia - Dysarthria Dysarthria: (0) Normal - Extinction and Inattention (formally neg Extinction and inattention: (0) No abnormality - Total Score/Results Total Score/Result: 2 Results - Vitals Vitals: Vital Signs - 24 hr 11/14/18 11/14/18 11/14/18 18:48 20:18 20:41 Temperature 36.9 C Heart Rate 65 60 79 Respiratory 16 18 Rate Blood Pressure 143/92 H 122/71 136/76 H O2 Saturation 98 98 97 Oxygen O2 Source Room air - Rads (name of study) head CT Radiology: Prelim report reviewed (no acute bleeding nor acute process), See rad report chest xray Radiology: Prelim report reviewed (no infiltrates) PD MEDICAL DECISION MAKING - ED course Complexity details: re-evaluated patient (improved speech closer to baseline aphasia per patient and family. I think it is illness and not new CVA. Abd not tender on re-exam.), considered differential, d/w patient, d/w family Departure - Departure Disposition: 01 Home, Self Care Clinical Impression: Expressive aphasia, TIA (transient ischemic attack) Condition: Stable Record reviewed to determine appropriate education?: Yes Follow-Up: Ayesha Leiva DO [Primary Care Provider] - Comments: I talked with the neurologist on-call at [place] and he confirmed with the prior neurologist as well that the current medications seem to be the appropriate ones. Give it given the pattern of these, he did not feel that you needed to come to the ER for evaluation if it resolves within a short time. Follow-up with neurology as planned and you could call them tomorrow and see if they have a sooner appointment given the repeat episodes. The neurologist I talked to suggested they may evaluate for other causes such as focal seizures as opposed to TIA, but to stay on the current medications of aspirin and clopidogrel. Discharge Date/Time: 11/14/18 20:41
[2018-11-14 20:41] VITALS: BP 136/76
== END 2018-11-14 20:41 | disposition home or self-care (01) ==
LOC: EDUNIT# → ED 18:45
DX: G45.9 Transient cerebral ischemic attack, unspecified (principal); R10.816 Epigastric abdominal tenderness; R19.7 Diarrhea, unspecified; R11.0 Nausea; I69.320 Aphasia following cerebral infarction; I69.354 Hemiplegia and hemiparesis following cerebral infarction affecting left non-dominant side; I48.91 Unspecified atrial fibrillation; Z79.02 Long term (current) use of antithrombotics/antiplatelets
CPT/HCPCS: 99283

== ENCOUNTER 2019-02-06 11:14 | Outpatient (CLI) | payer MEDICARE, OTHER ==
--- NOTE | 2019-02-07 12:04 | XRAY Report ---
Reason: SCIATICA,LEFT Procedure Date: 02/06/2019 Accession Number: [id number] / [id number] Procedure: WCP - Lumbar Spine 2 View CPT Code: FULL RESULT: EXAM: LUMBOSACRAL SPINE RADIOGRAPHY EXAM DATE: 02/06/2019 11:35 AM. CLINICAL HISTORY: Left radiculopathy. COMPARISONS: None. TECHNIQUE: 2 views. FINDINGS: Alignment: No scoliosis. Grade 1 anterolisthesis of L4 on L5. Bones: Five [id number] lumbar vertebral bodies are present. No acute fracture or bony lesion. Multifocal degenerative osteophyte formation. Disks: Mild multilevel intervertebral disk space narrowing throughout the lumbar spine. Facets: Mild to moderate lumbar facet arthropathy. Sacroiliac Joints: Mild degenerative changes. Soft Tissues: Vascular calcifications. No bowel obstruction. IMPRESSION: 1. Mild multilevel intervertebral disk degenerative changes in the lumbar spine. 2. Grade 1 anterolisthesis of L4 on L5 likely due to facet arthropathy. RADIA
== END 2019-02-06 11:15 | disposition home or self-care (01) ==
LOC: DI.WCP 11:14
PROVIDERS: ATTEND Family Medicine
DX: M51.36 Other intervertebral disc degeneration, lumbar region (principal); M47.9 Spondylosis, unspecified; M43.16 Spondylolisthesis, lumbar region
CPT/HCPCS: 72100

== ENCOUNTER 2019-02-06 11:15 | Outpatient (CLI) | payer MEDICARE, OTHER | END 2019-02-06 11:16 | disposition home or self-care (01) | LOC: DI.WCP 11:15 | PROVIDERS: ATTEND Family Medicine | DX: Z53.9 Procedure and treatment not carried out, unspecified reason (principal) ==

== ENCOUNTER 2019-02-06 11:17 | Outpatient (CLI) | payer MEDICARE, OTHER ==
--- NOTE | 2019-02-07 15:43 | XRAY Report ---
Reason: HIP PAIN Procedure Date: 02/06/2019 Accession Number: [id number] / [id number] Procedure: WCP - Hip BILAT CPT Code: FULL RESULT: EXAM: BILATERAL HIP RADIOGRAPHY EXAM DATE: 02/06/2019 11:35 AM. CLINICAL HISTORY: Chronic pain COMPARISON: None. TECHNIQUE: Single view pelvis and single view each hip. FINDINGS: Bones: Mild apparent bony demineralization diffusely. No acute fracture identified. Right Hip: Mild to moderate degenerative change with narrowing, subchondral sclerosis and small osteophytes. Left Hip: Mild degenerative change with mild narrowing and subchondral sclerosis. Other: Degenerative change also noted at the pubic symphysis, mildly at the SI joints and visualized lower lumbar spine. Soft Tissues: No radiopaque foreign body. IMPRESSION: 1. Mild apparent bony demineralization. No acute fracture identified. 2. Mild to moderate right hip degenerative changes and mild left hip degenerative change. RADIA
== END 2019-02-06 11:18 | disposition home or self-care (01) ==
LOC: DI.WCP 11:17
PROVIDERS: ATTEND Family Medicine
DX: M16.0 Bilateral primary osteoarthritis of hip (principal); M81.0 Age-related osteoporosis without current pathological fracture; M51.36 Other intervertebral disc degeneration, lumbar region; M47.9 Spondylosis, unspecified; M43.16 Spondylolisthesis, lumbar region
CPT/HCPCS: 72100; 73521

== ENCOUNTER 2019-07-24 07:00 | Outpatient (CLI) | payer MEDICARE, OTHER ==
[2019-07-24 12:19] LABS: BASOPHILS # (AUTO) 0.1 10^3/uL (0.0-0.1); BASOPHILS % (AUTO) 1.4 %; EOSINOPHILS # (AUTO) 0.3 10^3/uL (0.0-0.7); EOSINOPHILS % (AUTO) 5.8 %; HGB - HEMOGLOBIN 13.5 g/dL (12.0-16.0); LYMPHOCYTES # (AUTO) 1.7 10^3/uL (1.5-3.5); LYMPHOCYTES % (AUTO) 33.2 %; MEAN CORPUSCULAR HEMOGLOBIN 29.3 pg (27.0-31.0); MEAN CORPUSCULAR HGB CONC 31.7 g/dL (32.0-36.0); MEAN CORPUSCULAR VOLUME 92.4 fL (81.0-99.0); MONOCYTES # (AUTO) 0.4 10^3/uL (0.0-1.0); MONOCYTES % (AUTO) 8.2 %; NEUTROPHILS # (AUTO) 2.6 10^3/uL (1.5-6.6); NEUTROPHILS % (AUTO) 51.2 %; PLT - PLATELET COUNT 136 10^3/uL (130-450); RED BLOOD COUNT 4.61 10^6/uL (4.20-5.40)
[2019-07-24 13:19] LABS: ALBUMIN 3.8 g/dL (3.2-5.5); ALBUMIN/GLOBULIN RATIO 1.3 (1.0-2.2); ALKALINE PHOSPHATASE 50 IU/L (42-121); ALT ALANINE AMINOTRANSFERASE 15 IU/L (10-60); AST ASPARTATE AMINOTRANSFERASE 16 IU/L (10-42); BILIRUBIN,TOTAL 0.8 mg/dL (0.2-1.0); BUN - BLOOD UREA NITROGEN 14 mg/dL (6-20); CALCIUM 8.9 mg/dL (8.5-10.3); CARBON DIOXIDE - CO2 27 mmol/L (21-32); CHLORIDE 106 mmol/L (101-111); CHOL/HDL RATIO 2.7 (<4.4); CHOLESTEROL 150 mg/dL; CREATININE 0.8 mg/dL (0.4-1.0); GFR - MDRD 68 (>89); GLUCOSE 97 mg/dL (70-100); HDL CHOLESTEROL 56 mg/dL; LDL CHOLESTEROL,CALCULATED 66 mg/dL; LDL/HDL RATIO 1.2 (<4.4); SODIUM 141 mmol/L (135-145); TOTAL PROTEIN 6.7 g/dL (6.7-8.2); VLDL CHOLESTEROL 28 mg/dL
== END 2019-07-24 23:59 | disposition home or self-care (01) ==
LOC: LAB.WCP 07:00
PROVIDERS: ATTEND Family Medicine
DX: G45.9 Transient cerebral ischemic attack, unspecified (principal); F32.9 Major depressive disorder, single episode, unspecified; M81.0 Age-related osteoporosis without current pathological fracture; E78.5 Hyperlipidemia, unspecified; K21.9 Gastro-esophageal reflux disease without esophagitis
CPT/HCPCS: 36415; 80053; 80061; 83721; 84443; 85025

== ENCOUNTER 2020-06-02 11:38 | Outpatient (CLI) | payer MEDICARE, OTHER | END 2020-06-02 11:39 | disposition short-term general hospital (02) | LOC: EMS 11:38 | PROVIDERS: ATTEND Surgery | DX: R47.81 Slurred speech (principal) | CPT/HCPCS: A0425; A0427 ==

== ENCOUNTER 2020-06-24 10:00 | Outpatient (CLI) | payer MEDICARE, OTHER | END 2020-06-24 10:01 | disposition home or self-care (01) | LOC: DI 10:00 | PROVIDERS: ATTEND Family Medicine | DX: G45.9 Transient cerebral ischemic attack, unspecified (principal); Z86.79 Personal history of other diseases of the circulatory system; I08.0 Rheumatic disorders of both mitral and aortic valves | CPT/HCPCS: 93306 ==

== ENCOUNTER 2020-08-31 10:55 | Outpatient (CLI) | payer MEDICARE, OTHER | END 2020-08-31 10:56 | disposition critical access hospital (66) | LOC: EMS 10:55 | PROVIDERS: ATTEND Surgery | DX: R20.0 Anesthesia of skin (principal); R29.810 Facial weakness; R47.81 Slurred speech | CPT/HCPCS: A0425; A0427 ==

== ENCOUNTER 2020-08-31 11:12 | Emergency (ER) | payer MEDICARE, OTHER ==
--- NOTE | 2020-08-31 11:46 | ED Physician Documentation ---
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 she called ems immediately and was found to have FS glu 50 on scene. she was given D50 with improvement then brought to the ed as a stroke code. on arrival Patient was AO x3 with mild word finding difficulty that she endorses to be at her baseline.Otherwise without focal neurological deficit. Discussed with Micah Agudelo neurology who agreed that she is not a TPA or thrombectomy candidate. 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 HEENT: Other Psych: Depression Musculoskeletal: Osteoporosis, Other Derm: None - Past Surgical History Past Surgical History: Yes General: Appendectomy Cardiovascular: Cardiac catheterization, Other HEENT: Cataracts - Present Medications Home Medications: Ambulatory Orders Medication Instructions Recorded Confirmed Clopidogrel Bisulfate [Plavix] 75 mg PO DAILY 01/12/15 02/20/20 Metoprolol Tartrate [Lopressor] 25 mg PO BID 01/12/15 02/20/20 Cholecalciferol (Vitamin D3) 1,000 unit PO DAILY 08/02/16 02/20/20 [Vitamin D3] Glucosam/Chondr-Msm6/Manganese 1 cap PO DAILY 08/02/16 02/20/20 [Glucosamine-Chondroitin Sftgl] Rosuvastatin Calcium 40 mg PO DAILY 11/07/18 02/20/20 Aspirin [Aspirin EC] 81 mg PO DAILY 08/15/19 02/20/20 Calcium Carbonate/Vitamin D3 1 tab PO DAILY 08/15/19 02/20/20 [Calcium 600-Vit D3 400 Tablet] - Allergies Allergies/Adverse Reactions: Allergies Allergy/AdvReac Type Severity Reaction Status Date / Time amoxicillin [From Augmentin] Allergy Unknown Verified 08/31/20 15:51 clavulanic acid Allergy Unknown Verified 08/31/20 15:51 [From Augmentin] oxycodone Allergy Nausea Verified 08/31/20 11:38 - Social History Does the pt smoke?: No Smoking Status: Never smoker Does the pt drink ETOH?: No Does the pt have substance abuse?: No - Immunizations Immunizations are current?: Yes - POLST Patient has POLST: No PD ED PE NORMAL - Vitals Vital signs reviewed: Yes - General General: Alert and oriented X 3 - HEENT HEENT: Atraumatic, PERRL, EOMI - Neck Neck: Supple, no meningeal sign - Cardiac Cardiac: RRR - Respiratory Respiratory: No respiratory distress, Clear bilaterally - Abdomen Abdomen: Non tender, Non distended - Female Female : Deferred - Rectal Rectal: Deferred - Back Back: No spinal TTP - Derm Derm: Normal color, Warm and dry - Extremities Extremities: No edema - Neuro Neuro: Alert and oriented 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, 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, No motor deficit, No sensory deficit, Other (mild word finding difficulty) - Psych Psych: Normal mood, Normal affect Results - Vitals Vitals: Vital Signs - 24 hr 08/31/20 08/31/20 08/31/20 11:12 11:38 12:08 Temperature 36.9 C Heart Rate 55 L 56 L 56 L Respiratory 20 16 11 L Rate Blood Pressure 126/43 L 140/119 H 149/68 H O2 Saturation 100 100 98 08/31/20 08/31/20 08/31/20 12:30 13:00 13:30 Temperature Heart Rate 58 L 53 L 59 L Respiratory 17 16 16 Rate Blood Pressure 153/72 H 167/88 H 167/88 H O2 Saturation 100 100 100 08/31/20 08/31/20 14:00 14:30 Temperature 36.2 C L Heart Rate 66 58 L Respiratory 17 16 Rate Blood Pressure 127/114 H 136/67 H O2 Saturation 100 99 Oxygen O2 Source Room air - Labs Labs: Laboratory Tests 08/31/20 08/31/20 08/31/20 11:22 11:43 11:43 WBC 4.8 RBC 4.32 Hgb 13.3 Hct 40.0 MCV 92.6 MCH 30.8 MCHC 33.3 RDW 13.6 Plt Count 135 MPV 10.9 H Neut # (Auto) 2.8 Lymph # (Auto) 1.3 L [place] # (Auto) 0.4 Eos # (Auto) 0.2 Baso # (Auto) 0.0 Absolute Nucleated RBC 0.00 Nucleated RBC % 0.0 PT 13.6 H INR 1.2 APTT 25.6 Sodium Potassium Chloride Carbon Dioxide Anion Gap BUN Creatinine Estimated GFR (MDRD) Glucose Calcium Total Bilirubin AST ALT Alkaline Phosphatase Troponin I High Sens Total Protein Albumin Globulin Albumin/Globulin Ratio Urine Color Urine Clarity Urine pH Ur Specific [place] Urine Protein Urine Glucose (UA) Urine Ketones Urine Occult Blood Urine Nitrite Urine Bilirubin Urine Urobilinogen Ur Leukocyte Esterase Ur Microscopic Review Urine Culture Comments Serum Ketones NEGATIVE 08/31/20 08/31/20 08/31/20 11:43 11:43 13:27 WBC RBC Hgb Hct MCV MCH MCHC RDW Plt Count MPV Neut # (Auto) Lymph # (Auto) [place] # (Auto) Eos # (Auto) Baso # (Auto) Absolute Nucleated RBC Nucleated RBC % PT INR APTT Sodium 135 Potassium 4.2 Chloride 105 Carbon Dioxide 25 Anion Gap 5.0 L BUN 15 Creatinine < 0.3 L Estimated GFR (MDRD) Glucose 79 Calcium 8.3 L Total Bilirubin 0.6 AST 18 ALT 16 Alkaline Phosphatase 38 L Troponin I High Sens 9.9 Total Protein 6.2 L Albumin 3.4 Globulin 2.8 Albumin/Globulin Ratio 1.2 Urine Color YELLOW Urine Clarity CLEAR Urine pH 7.5 Ur Specific [place] 1.010 Urine Protein NEGATIVE Urine Glucose (UA) NEGATIVE Urine Ketones NEGATIVE Urine Occult Blood NEGATIVE Urine Nitrite NEGATIVE Urine Bilirubin NEGATIVE Urine Urobilinogen 0.2 (NORMAL) Ur Leukocyte Esterase NEGATIVE Ur Microscopic Review NOT INDICATED Urine Culture Comments NOT INDICATED Serum Ketones PD MEDICAL DECISION MAKING - ED course ED course: On arrival to ed, patient is without any acute neuro deficits, and fingerstick glucose in 80s. Fingerstick was 52 in field with improvement in neuro symptoms with D50. Given her rapid improvement in mental status she is not a tpa candidate at this time. will have telestroke see her. Telestroke evaluated patient and agreed that she is not a TPA or thrombectomy candidate given given her low NIHSS with no acute symptoms. Discussed with her primary doctor Dr. Keller will see her in clinic this week. Discussed with patient and patient's who is agreeable. Departure - Departure Disposition: 01 Home, Self Care Clinical Impression: Hypoglycemia, Slurred speech, Weakness Condition: Good Instructions: ED Blood Sugar Low Non Diabetic Follow-Up: Ayesha Leiva DO [Primary Care Provider] - Comments: You have been seen in the emergency department for low blood sugar. When EMS took your sugar on scene, it was 53. This improved after giving you dextrose (a sugar solution). This was likely the cause of your weakness, difficulty speaking, and dizziness. It looks like your CT and CTA of the head was normal. I discussed your case with a stroke neurologist who agreed this is likely not a stroke requiring clot busting medication or other intervention. You do not have a urinary tract infection and your blood work also did not show any cause for this episode. I spoke with Dr. Leiva who says you should come in for an appointment this week to investigate further. Please return to the ed for any worsening of symptoms or other concerns. Discharge Date/Time: 08/31/20 14:44
[2020-08-31 11:51] LABS: BASOPHILS % (AUTO) 0.8 %; EOSINOPHILS # (AUTO) 0.2 10^3/uL (0.0-0.7); EOSINOPHILS % (AUTO) 4.6 %; HGB - HEMOGLOBIN 13.3 g/dL (12.0-16.0); LYMPHOCYTES # (AUTO) 1.3 10^3/uL (1.5-3.5); LYMPHOCYTES % (AUTO) 27.4 %; MEAN CORPUSCULAR HEMOGLOBIN 30.8 pg (27.0-31.0); MEAN CORPUSCULAR HGB CONC 33.3 g/dL (32.0-36.0); MEAN CORPUSCULAR VOLUME 92.6 fL (81.0-99.0); MEAN PLATELET VOLUME 10.9 fL (7.9-10.8); MONOCYTES # (AUTO) 0.4 10^3/uL (0.0-1.0); MONOCYTES % (AUTO) 8.3 %; NEUTROPHILS # (AUTO) 2.8 10^3/uL (1.5-6.6); NEUTROPHILS % (AUTO) 58.7 %; PLT - PLATELET COUNT 135 10^3/uL (130-450); RED BLOOD COUNT 4.32 10^6/uL (4.20-5.40); RED CELL DISTRIBUTION WIDTH 13.6 % (12.0-15.0); WHITE BLOOD COUNT 4.8 x10^3/uL (4.8-10.8)
[2020-08-31 12:07] LABS: INR 1.2 (0.8-1.2); PT - PROTHROMBIN TIME 13.6 secs (9.9-12.6)
[2020-08-31 12:15] LABS: PARTIAL THROMBOPLASTIN TIME 25.6 secs (24.9-33.3)
--- NOTE | 2020-08-31 12:21 | CT Report ---
PROCEDURE: ANGIO HEAD W/WO INDICATIONS: weakness, slurred speech CONTRAST: IV CONTRAST: Optiray 320 ml: 100 PO CONTRAST: *NO PO CONTRAST TECHNIQUE: Precontrast 4.5 mm thick angled axial sections acquired from the foramen magnum to the vertex. Afte r the administration of intravenous contrast, 1 mm thick sections acquired through the [place] of [place] is. Postcontrast 4.5 mm thick sections then re-acquired from the foramen magnum to the vertex. 3-di mensional ykesrth-gkxzkemkq-uevumbfvme (MIP) and/or volume rendering reformats were acquired of the c entral intracranial vasculature. For radiation dose reduction, the following was used: automated ex posure control, adjustment of mA and/or kV according to patient size. COMPARISON: CT head 11/07/2018 FINDINGS: Image quality: Excellent. The ventricular system and cortical sulci demonstrate atrophy, consistent for patient's stated age. There are areas of hypodensity in the periventricular and subcortical white matter. There is no acut e intra or extra-axial fluid collection. No acute hemorrhage, mass lesion or midline shift. Brainst em is unremarkable. Globes are symmetrical. Sinuses are aerated. Osseous structures are intact. The posterior circulation demonstrates vertebral artery codominance. Basilar artery and posterior cer ebral arteries demonstrate no areas of hemodynamically significant stenosis, vascular occlusion or an eurysmal dilation. Posterior communicating arteries are within normal limits. No areas of hemodynamically significant stenosis, vascular occlusion or aneurysmal dilation within t he anterior circulation. IMPRESSION: 1. No acute intracranial process. 2. Moderate atrophy and chronic microvascular ischemic changes. 3. No areas of hemodynamically significant stenosis, vascular occlusion or aneurysmal dilation withi n the anterior or posterior circulation. Reviewed by: Lexis Evangelista MD on 08/31/2020 11:19 AM [facility] Approved by: Lexis Evangelista MD on 08/31/2020 11:19 AM [facility] Station ID: [id number]
--- NOTE | 2020-08-31 12:22 | CT Report ---
PROCEDURE: ANGIO NECK W INDICATIONS: stroke code CONTRAST: IV CONTRAST: Optiray 320 ml: 100 PO CONTRAST: *NO PO CONTRAST TECHNIQUE: After the administration of intravenous contrast, 1.5 mm axial sections acquired from the aortic arch to the [place] of [place]. Coronal 3-D maximum intensity projection (MIP) and/or volume rendering ref ormats were then performed. For radiation dose reduction, the following was used: automated exposur e control, adjustment of mA and/or kV according to patient size. COMPARISON: CTA head 08/31/2020 FINDINGS: Image quality: Excellent. The origins of the left and right common, internal and external carotid arteries demonstrate no areas of hemodynamically significant stenosis, vascular occlusion or aneurysmal dilation. Origin of the le ft vertebral artery and right vertebral artery demonstrate no areas of hemodynamically significant st enosis, vascular occlusion or aneurysmal dilation. Aortic arch demonstrates conventional anatomy. Solares ited, visualized portions of the subclavian vasculature are unremarkable. IMPRESSION: 1. There are no areas of hemodynamically significant stenosis, vascular occlusion or aneurysmal dilat ion within the neck vasculature. The estimate of stenosis included in the report of the imaging study was calculated using the NASCET method Reviewed by: Lexis Evangelista MD on 08/31/2020 11:21 AM [facility] Approved by: Lexis Evangelista MD on 08/31/2020 11:21 AM [facility] Station ID: [id number]
[2020-08-31 12:50] LABS: ALBUMIN 3.4 g/dL (3.2-5.5); ALBUMIN/GLOBULIN RATIO 1.2 (1.0-2.2); ALKALINE PHOSPHATASE 38 IU/L (42-121); ALT ALANINE AMINOTRANSFERASE 16 IU/L (10-60); AST ASPARTATE AMINOTRANSFERASE 18 IU/L (10-42); BILIRUBIN,TOTAL 0.6 mg/dL (0.2-1.0); BUN - BLOOD UREA NITROGEN 15 mg/dL (6-20); CALCIUM 8.3 mg/dL (8.5-10.3); CARBON DIOXIDE - CO2 25 mmol/L (21-32); CHLORIDE 105 mmol/L (101-111); GLUCOSE 79 mg/dL (70-100); SODIUM 135 mmol/L (135-145); TOTAL PROTEIN 6.2 g/dL (6.7-8.2)
[2020-08-31 12:51] LABS: CREATININE < 0.3 mg/dL (0.4-1.0)
[2020-08-31 13:44] LABS: BILIRUBIN,URINE NEGATIVE (NEGATIVE); GLUCOSE, URINE (UA) NEGATIVE (NEGATIVE); KETONES,URINE (UA) NEGATIVE (NEGATIVE); LEUKOCYTE ESTERASE, URINE NEGATIVE (NEGATIVE); NITRITE,URINE NEGATIVE (NEGATIVE); OCCULT BLOOD,URINE NEGATIVE (NEGATIVE); PH,URINE 7.5 PH (5.0-7.5); PROTEIN,URINE NEGATIVE (NEGATIVE); UROBILINOGEN,URINE 0.2 (NORMAL) E.U./dL (NORMAL)
[2020-08-31 13:45] LABS: CLARITY,URINE CLEAR (CLEAR)
[2020-08-31 14:33] VITALS: BP 136/67
[2020-08-31] MEDS: IOVERSOL 320 100 ML VIAL IVP ONE (15:05)
== END 2020-08-31 14:44 | disposition home or self-care (01) ==
LOC: EDUNIT# → ED 11:12
DX: E16.2 Hypoglycemia, unspecified (principal); R47.81 Slurred speech; R53.1 Weakness; Z86.73 Personal history of transient ischemic attack (TIA), and cerebral infarction without residual deficits; Z98.61 Coronary angioplasty status
CPT/HCPCS: 70496; 70498; 80053; 81003; 82009; 84484; 85025; 85610; 85730; 93005; 99284; Q9967; 36415; 81001; 87086

== ENCOUNTER 2020-09-04 08:00 | Outpatient (CLI) | payer MEDICARE, OTHER ==
[2020-09-04 13:29] LABS: ALBUMIN 3.9 g/dL (3.2-5.5); ALBUMIN/GLOBULIN RATIO 1.3 (1.0-2.2); ALKALINE PHOSPHATASE 38 IU/L (42-121); ALT ALANINE AMINOTRANSFERASE 15 IU/L (10-60); AST ASPARTATE AMINOTRANSFERASE 15 IU/L (10-42); BILIRUBIN,TOTAL 0.4 mg/dL (0.2-1.0); BUN - BLOOD UREA NITROGEN 19 mg/dL (6-20); CALCIUM 8.4 mg/dL (8.5-10.3); CARBON DIOXIDE - CO2 27 mmol/L (21-32); CHLORIDE 106 mmol/L (101-111); CREATININE 0.8 mg/dL (0.4-1.0); GLUCOSE 92 mg/dL (70-100); SODIUM 137 mmol/L (135-145); TOTAL PROTEIN 6.8 g/dL (6.7-8.2)
[2020-09-04 13:32] LABS: CRP - C-REACTIVE PROTEIN < 1.0 mg/dL (0-1.0)
== END 2020-09-04 23:59 | disposition home or self-care (01) ==
LOC: LAB.WCP 08:00
PROVIDERS: ATTEND Family Medicine
DX: M81.0 Age-related osteoporosis without current pathological fracture (principal); E16.2 Hypoglycemia, unspecified; R51.9 Headache, unspecified
CPT/HCPCS: 36415; 80053; 81599; 83525; 84206; 84681; 85651; 86140

== ENCOUNTER 2020-09-11 13:24 | Outpatient (CLI) | payer MEDICARE, OTHER | END 2020-09-11 13:25 | disposition critical access hospital (66) | LOC: EMS 13:24 | PROVIDERS: ATTEND Surgery | DX: R47.01 Aphasia (principal) | CPT/HCPCS: A0425; A0427 ==

== ENCOUNTER 2020-09-11 13:40 | Observation (INO) | payer MEDICARE, OTHER ==
--- NOTE | 2020-09-11 13:55 | ED Physician Documentation ---
PD HPI FOCAL NEURO - Stated complaint Stated Complaint: poss stroke - Chief complaint Chief Complaint: Neuro - History obtained from History obtained from: Patient, EMS - History of Present Illness Timing - onset: How many hours ago (1) Timing - duration: Hours (1) Timing - details: Abrupt onset Severity of deficit: Moderate Weakness: No: Face, Arm, Hand, Leg, Foot, Right, Left Numbness: No: Face, Arm, Hand, Leg, Foot, Right, Left Associated symptoms: No: Headache, Nausea / vomiting, Seizure, Syncope, Fall, Head injury, Chest pain, Neck pain, Back pain Contributing factors: negative: Anticoagulated Baseline status: positive: A&OX3, ambulatory, indep - Additional information Additional information: 85-year-old female was found to be slurring her speech today. 911 was called for possible stroke. They found her with a blood sugar of 60. They gave her D50 and she is now improving. Similar episode 2 weeks ago. She is not diabetic. She states she is on no medications at home. 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: Other Psych: Depression Musculoskeletal: Osteoporosis, Other Derm: None - Past Surgical History Past Surgical History: Yes General: Appendectomy Cardiovascular: Cardiac catheterization, Other HEENT: Cataracts - Present Medications Home Medications: Ambulatory Orders Medication Instructions Recorded Confirmed Clopidogrel Bisulfate [Plavix] 75 mg PO DAILY 01/12/15 02/20/20 Metoprolol Tartrate [Lopressor] 25 mg PO BID 01/12/15 02/20/20 Cholecalciferol (Vitamin D3) 1,000 unit PO DAILY 08/02/16 02/20/20 [Vitamin D3] Glucosam/Chondr-Msm6/Manganese 1 cap PO DAILY 08/02/16 02/20/20 [Glucosamine-Chondroitin Sftgl] Rosuvastatin Calcium 40 mg PO DAILY 11/07/18 02/20/20 Aspirin [Aspirin EC] 81 mg PO DAILY 08/15/19 02/20/20 Calcium Carbonate/Vitamin D3 1 tab PO DAILY 08/15/19 02/20/20 [Calcium 600-Vit D3 400 Tablet] - Allergies Allergies/Adverse Reactions: Allergies Allergy/AdvReac Type Severity Reaction Status Date / Time amoxicillin [From Augmentin] Allergy Unknown Verified 09/11/20 13:47 clavulanic acid Allergy Unknown Verified 09/11/20 13:47 [From Augmentin] oxycodone Allergy Nausea Verified 09/11/20 13:47 - Social History Does the pt smoke?: No Smoking Status: Never smoker Does the pt drink ETOH?: No Does the pt have substance abuse?: No - Immunizations Immunizations are current?: Yes - POLST Patient has POLST: No PD ED PE NORMAL - Vitals Vital signs reviewed: Yes - General General: Alert and oriented X 3, No acute distress, Well developed/nourished - HEENT HEENT: PERRL, Moist mucous membranes, Other (mild word finding difficulty, patient states this feels normal for her.) - Neck Neck: Supple, no meningeal sign - Cardiac Cardiac: RRR, Strong equal pulses - Respiratory Respiratory: No respiratory distress, Clear bilaterally - Abdomen Abdomen: Soft, Non tender, Non distended - Derm Derm: Warm and dry - Extremities Extremities: No edema, No calf tenderness / cord - Neuro Neuro: Alert and oriented X 3 - Psych Psych: Normal mood, Normal affect NIHSS - Time Time: 13:45 - Level of Consciousness Level of consciousness: (0) Alert, Keenly responsive LOC Questions: (0) Answers both Q's correct LOC Commands: (0) Performs both correctly - Gaze Best Gaze: (0) Normal - Visual Visual: (0) No loss - Facial Palsy Facial Palsy: (0) Normal, symmetrical movement - Motor Arms (both separate) Motor Arm (right): (0) No drift Motor Arm (left): (0) No drift - Motor Legs (both separate) Motor Leg (right): (0) No drift Motor Leg (left): (0) No drift - Limb Ataxia Limb Ataxia: (0) Absent - Sensory Sensory: (0) Normal - Best Language Best Language: (0) No aphasia - Dysarthria Dysarthria: (0) Normal - Extinction and Inattention (formally neg Extinction and inattention: (0) No abnormality - Total Score/Results Total Score/Result: 0 Results - Vitals Vitals: Vital Signs - 24 hr 09/11/20 09/11/20 13:40 14:24 Temperature 36.7 C Heart Rate 62 60 Respiratory 18 15 Rate Blood Pressure 158/77 H 162/78 H O2 Saturation 100 99 Oxygen O2 Source Room air - EKG (time done) 1549 Rate: Rate (enter#) (64) Rhythm: NSR [place]: Normal Intervals: Normal ND QRS: Normal, LVH Ischemia: Normal ST segments - Labs Labs: Laboratory Tests 09/11/20 09/11/20 09/11/20 14:12 14:34 14:34 WBC 5.7 RBC 4.72 Hgb 14.3 Hct 43.3 MCV 91.7 MCH 30.3 MCHC 33.0 RDW 13.6 Plt Count 145 MPV 11.2 H Neut # (Auto) 3.4 Lymph # (Auto) 1.6 [place] # (Auto) 0.4 Eos # (Auto) 0.2 Baso # (Auto) 0.0 Absolute Nucleated RBC 0.00 Nucleated RBC % 0.0 PT 13.3 H INR 1.2 APTT 25.5 Sodium Potassium Chloride Carbon Dioxide Anion Gap BUN Creatinine Estimated GFR (MDRD) Glucose Calcium Total Bilirubin AST ALT Alkaline Phosphatase Total Protein Albumin Globulin Albumin/Globulin Ratio Urine Color YELLOW Urine Clarity CLEAR Urine pH 5.5 Ur Specific [place] 1.020 Urine Protein NEGATIVE Urine Glucose (UA) NEGATIVE Urine Ketones NEGATIVE Urine Occult Blood TRACE-LYSE Urine Nitrite NEGATIVE Urine Bilirubin NEGATIVE Urine Urobilinogen 0.2 (NORMAL) Ur Leukocyte Esterase NEGATIVE Ur Microscopic Review NOT INDICATED Urine Culture Comments NOT INDICATED 09/11/20 14:34 WBC RBC Hgb Hct MCV MCH MCHC RDW Plt Count MPV Neut # (Auto) Lymph # (Auto) [place] # (Auto) Eos # (Auto) Baso # (Auto) Absolute Nucleated RBC Nucleated RBC % PT INR APTT Sodium 139 Potassium 4.1 Chloride 103 Carbon Dioxide 28 Anion Gap 8.0 BUN 19 Creatinine 0.8 Estimated GFR (MDRD) 68 L Glucose 86 Calcium 9.4 Total Bilirubin 0.5 AST 16 ALT 12 Alkaline Phosphatase 40 L Total Protein 7.3 Albumin 4.1 Globulin 3.2 Albumin/Globulin Ratio 1.3 Urine Color Urine Clarity Urine pH Ur Specific [place] Urine Protein Urine Glucose (UA) Urine Ketones Urine Occult Blood Urine Nitrite Urine Bilirubin Urine Urobilinogen Ur Leukocyte Esterase Ur Microscopic Review Urine Culture Comments - Rads (name of study) head cT Radiology: Prelim report reviewed, EMP read contemporaneously, See rad report PD MEDICAL DECISION MAKING - ED course Complexity details: reviewed old records, reviewed results, re-evaluated patient, considered differential, d/w patient, d/w product consultant ED course: Patient is an 85-year-old female who presents to the emergency department with expressive aphasia earlier today. This was accompanied by hypoglycemia. She is not diabetic. She states that this is occurred 6 or 7 times over many years. Most recently was 2 weeks ago. No acute findings on CT angiogram of the head and neck at that point. She did improve with glucose administration with EMS. Unclear if this represents true hypoglycemic aphasia or if there is a stroke/TIA component. 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 She is on Plavix. Currently is back to her normal baseline. Her is diabetic and does take Metformin, she does not believe she has taken any of his pills by mistake. Given her 2 episodes of expressive aphasia within 2 weeks, we will place her in observation for MRI and further work-up. Discussed the case with Dr. Morales, hospitalist who accepts This document was made in part using voice recognition software. While efforts are made to proofread this document, sound alike and grammatical errors may occur. 1. Age-related volume loss and small vessel ischemic change. 2. No evidence acute stroke, hemorrhage, or mass. Departure - Departure Disposition: ED Place in Observation Clinical Impression: Expressive aphasia, Hypoglycemia, TIA (transient ischemic attack) Condition: Stable
--- NOTE | 2020-09-11 14:12 | CT Report ---
PROCEDURE: HEAD WO INDICATIONS: expressive aphasia, resolving. TECHNIQUE: Noncontrast 4.5 mm thick angled axial sections acquired from the foramen magnum to the vertex. For r adiation dose reduction, the following was used: automated exposure control, adjustment of mA and/or kV according to patient size. COMPARISON: CT angiogram of the head and neck dated 08/31/2020, head CT dated 10/11/2018. FINDINGS: Image quality: Excellent. CSF spaces: Basal cisterns are patent. No extra-axial fluid collections. Ventricles are normal in size and shape. Brain: No midline shift. No intracranial masses or hemorrhage. Mcdonough-white matter interface is norm al. Age-related volume loss, mild small vessel ischemic change. Intracranial carotid and vertebral ar rob calcifications. Skull and face: Calvarium and visualized facial bones are intact, without suspicious lesions. Sinuses: Visualized sinuses and mastoids are clear. IMPRESSION: 1. Age-related volume loss and small vessel ischemic change. 2. No evidence acute stroke, hemorrhage, or mass. Reviewed by: Reynaldo Leo MD on 09/11/2020 2:11 PM PST Approved by: Reynaldo Leo MD on 09/11/2020 2:11 PM PST Station ID: [id number]
[2020-09-11 14:18] LABS: BILIRUBIN,URINE NEGATIVE (NEGATIVE); GLUCOSE, URINE (UA) NEGATIVE (NEGATIVE); KETONES,URINE (UA) NEGATIVE (NEGATIVE); LEUKOCYTE ESTERASE, URINE NEGATIVE (NEGATIVE); NITRITE,URINE NEGATIVE (NEGATIVE); OCCULT BLOOD,URINE TRACE-LYSE (NEGATIVE); PH,URINE 5.5 PH (5.0-7.5); PROTEIN,URINE NEGATIVE (NEGATIVE); UROBILINOGEN,URINE 0.2 (NORMAL) E.U./dL (NORMAL)
[2020-09-11 14:20] LABS: CLARITY,URINE CLEAR (CLEAR)
[2020-09-11 14:43] LABS: BASOPHILS % (AUTO) 0.7 %; EOSINOPHILS # (AUTO) 0.2 10^3/uL (0.0-0.7); EOSINOPHILS % (AUTO) 3.4 %; HGB - HEMOGLOBIN 14.3 g/dL (12.0-16.0); LYMPHOCYTES # (AUTO) 1.6 10^3/uL (1.5-3.5); LYMPHOCYTES % (AUTO) 27.5 %; MEAN CORPUSCULAR HEMOGLOBIN 30.3 pg (27.0-31.0); MEAN CORPUSCULAR VOLUME 91.7 fL (81.0-99.0); MEAN PLATELET VOLUME 11.2 fL (7.9-10.8); MONOCYTES # (AUTO) 0.4 10^3/uL (0.0-1.0); MONOCYTES % (AUTO) 7.6 %; NEUTROPHILS # (AUTO) 3.4 10^3/uL (1.5-6.6); NEUTROPHILS % (AUTO) 60.6 %; PLT - PLATELET COUNT 145 10^3/uL (130-450); RED BLOOD COUNT 4.72 10^6/uL (4.20-5.40); RED CELL DISTRIBUTION WIDTH 13.6 % (12.0-15.0); WHITE BLOOD COUNT 5.7 x10^3/uL (4.8-10.8)
[2020-09-11 14:51] LABS: INR 1.2 (0.8-1.2); PT - PROTHROMBIN TIME 13.3 secs (9.9-12.6)
[2020-09-11 14:58] LABS: PARTIAL THROMBOPLASTIN TIME 25.5 secs (24.9-33.3)
[2020-09-11 15:00] LABS: ALBUMIN 4.1 g/dL (3.2-5.5); ALBUMIN/GLOBULIN RATIO 1.3 (1.0-2.2); BILIRUBIN,TOTAL 0.5 mg/dL (0.2-1.0); CALCIUM 9.4 mg/dL (8.5-10.3); CREATININE 0.8 mg/dL (0.4-1.0); TOTAL PROTEIN 7.3 g/dL (6.7-8.2)
[2020-09-11] MEDS ORDERED: SODIUM CHLORIDE FLUSH 0.9% 10 ML SYRINGE IVP PRN (16:55)
[2020-09-11] MEDS ORDERED: ONDANSETRON 4 MG/2 ML VIAL IVP PRN (16:55)
[2020-09-11] MEDS ORDERED: ACETAMINOPHEN 325 MG TABLET PO PRN (16:55)
[2020-09-11] MEDS ORDERED: ASPIRIN CHEW 81 MG TABLET PO SCH (17:06)
[2020-09-11] MEDS ORDERED: CLOPIDOGREL 75 MG TABLET PO SCH (17:07)
--- NOTE | 2020-09-11 17:10 | HISTORY & PHYSICAL EXAMINATION ---
Chief Complaint - Chief Complaint Chief Complaint: expressive aphasia History of Present Illness - Admitted From Admitted From:: ER - History Obtained From Records Reviewed: [facility] History obtained from: pt - History of Present Illness HPI Comment/Other: This is an 85-year-old female with a PMH significant for Hypertension, hyperlipidemia, CAD with cardiac stent, arrhythmia, history of hypoglycemia, TIA who presents to the emergency department complain of expressive aphasia earlier today. At the time Patient was found to have 64 glucose in the ER. But She is not diabetic. She report she had Most recently event which was 2 weeks ago, expressive aphasia with hypoglycemia. She states that this is occurred 7-8 times over recently two years. after pt's glucose was up to 112 in today. She did improve with her expressive aphasia. pt also report she had right arm number with whole mouth numbness as well on today. she report she had expressive aphasia two weeks ago with left arm numbness with left mouth numbness and left facial numbness. she state her expressive aphasia remained about 3-5 minutes. It is Unclear if this represents true hypoglycemic aphasia or there is a stroke/TIA component. CT Of head show no evidence acute stroke, hemorrhage, or mass. Routine laboratory testing in the ER was unremarkable. Patient is afebrile, slightly elevated blood pressure in ER. Patient denies chest pain, palpitation, fever, shortness breathing, headache. Given pt's two episodes of expressive aphasia within two weeks, we will place her in observation for MRI and other TIA work-up. 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 mom of old age at 97. 4 brothers: 2 with CAD/CABG in their 60's and with alzheimers, 1 with alzheimers only. 1 alive. 3 sisters, 2 with alzheimers. 6 children are healthy without cancer, heart, lung, GI disease. Social History Notes: born in [place], [place] on a farm, no running water. Moved to [facility] age 15. 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 . 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 She moved here with [place] [employer]. 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 Drinks mainly on weekend and is rare if more than 1. Stopped cigs after 18 years of 1/2 ppd. No recreational substance ab use. - Substance History Use: Uses substance without health or social issues: NONE (former smoker of 1/2 ppd for 18 years.), Alcohol (1 drink a day) - POLST Patient has POLST: No Meds/Allgy - Home Medications Home Medications: Ambulatory Orders Medication Instructions Recorded Confirmed Metoprolol Tartrate [Lopressor] 25 mg PO BID 01/12/15 02/20/20 Rosuvastatin Calcium 40 mg PO QPM 11/07/18 02/20/20 Aspirin [Aspirin EC] 81 mg PO DAILY 08/15/19 02/20/20 Clopidogrel [Plavix] 75 mg ORAL DAILY 09/11/20 - Allergies Allergies/Adverse Reactions: Allergies Allergy/AdvReac Type Severity Reaction Status Date / Time amoxicillin [From Augmentin] Allergy Unknown Verified 09/11/20 13:47 clavulanic acid Allergy Unknown Verified 09/11/20 13:47 [From Augmentin] oxycodone Allergy Nausea Verified 09/11/20 13:47 Review of Systems - Constitutional Constitutional: denies: Fatigue, Fever, Chills, Weakness, Poor appetite, Diapho resis, Night sweats - Eyes Eyes: denies: Pain, Blurred vision, Field loss, Vision loss, Dipolpia - Ears, Nose & Throat Ears, Nose & Throat: denies: Ear pain, Vertigo, Nosebleeds, Sore throat, Bleeding gums - Cardiovascular Cariovascular: denies: Irregular heart rate, Palpitations, Chest pain, Edema, Lightheadedness, Syncope, Exertional dyspnea, Decr. exercise tolerance - Respiratory Respiratory: denies: Cough, Sputum production, Hemoptysis, Orthopnea, SOB at rest, SOB with exertion - Gastrointestinal Gastrointestinal: denies: Abdominal pain, Diarrhea, Rectal bleeding, Black stools, Bloody stools, Nausea, Vomiting - Genitourinary Genitourinary: denies: Dysuria, Urgency, Incontinence - Musculoskeletal Musculoskeletal: denies: Muscle pain, Muscle aches, Limited range of motion - Integumentary Integumentary: denies: Rash, Lesions, Lumps - Neurological Neurological: reports: Slurred speech. denies: General weakness, Focal weakness, Headache, Dizziness, Numbness, Memory problems, Pre-existing deficit, Seizures, Incoordination - Psychiatric Psychiatric: denies: Depression, Suicidal, Delusions, Hallucinations - Endocrine Endocrine: denies: Polyuria, Polyphagia - Hematologic/Lymphatic Hematologic/Lymphatic: denies: Anemia, Blood clots Exam - Vital Signs Vital Signs: Vital Signs x48h Temp Pulse Resp BP Pulse Ox 09/11/20 16:00 67 18 112/70 99 09/11/20 14:24 60 15 162/78 H 99 09/11/20 13:40 36.7 C 62 18 158/77 H 100 - Physical Exam General Appearance: positive: No acute distress, Alert. negative: Lethargic Eyes Bilateral: positive: Normal inspection, PERRL, No lid inflammation ENT: positive: ENT inspection nml, No signs of dehydration. negative: Purulent nasal drainage, Dry mucous membranes Neck: positive: Nml inspection, Thyroid nml, Trachea midline. negative: Thyromegaly, Tracheal deviation Respiratory: positive: Chest non-tender, No respiratory distress, Breath sounds nml. negative: Wheezes, Rales, Rhonchi Cardiovascular: positive: Regular rate & rhythm, No murmur. negative: Tachycardia, Bradycardia, Systolic murmur, Diastolic murmur Peripheral Pulses: positive: 2+ Abdomen: positive: Non-tender, Nml bowel sounds, No distention. negative: Tenderness, Guarding, Rebound Back: positive: Nml inspection Skin: positive: Color nml, No rash, Warm, Dry. negative: Cyanosis, Diaphoresis, Pallor Extremities: positive: Non-tender, Full ROM, Nml appearance. negative: Calf tenderness Neurologic/Psychiatric: positive: Oriented x3, Motor nml, Sensation nml, Mood/affect nml. negative: Weakness, Sensory loss, Facial droop, Slurred/abnml speech, Depressed mood/affect Conclusion/Plan - Problem List (1) Expressive aphasia Conclusion/Plan: This had twice Expressive aphasia in 2 weeks, at the same time patient had hypoglycemia. pt had similar 7-8 times episodes in two years. Patient E xpressive aphasia is resolved now, and remain about 3-5 minutes which also happened with hypoglycemia at the same time. It is unclear if it is due to hypoglycemia or true TIA. Given repeat happens in 2 weeks we will have TIA work- up. We will order MRI of the brain, CTA of the neck and head, and echo. start aspirin, add statin, resume home meds after confirmed by pharmacy. Lipid panel test, Allow to rise of patient blood pressure. (2) Hypoglycemia Conclusion/Plan: it is Unclear why patient has repeated hypoglycemia although has no hx of diabetes, we will check A1c, we will have consult of steelscope operator (3) HTN (hypertension) Conclusion/Plan: Stable, we will allow blood pressure to rise now. Vital signs monitor Qualifiers: Hypertension type: essential hypertension Qualified Code(s): I10 - Essential (primary) hypertension (4) HLD (hyperlipidemia) Conclusion/Plan: We will have statin for pt and Check lipid panel (5) History of palpitations Conclusion/Plan: Patient reported she has history of severe symptomatic palpitation, She did have cardiac ablation in the past. She reported she take twice daily metoprolol in the home. we will resume her home meds Metoprolol, and pharmacy will confirm - Lab Results Fish Bones: 09/11/20 14:34 09/11/20 14:34 Core Measures - Anticipated LOS I expect patient to be DC'd or transferred within 96 hours.: Yes - DVT/VTE - Prophylaxis VTE/DVT Device ordered at admit?: Yes VTE/DVT Prophylaxis med ordered at admit?: Yes
[2020-09-11] MEDS ORDERED: IOVERSOL 320 100 ML VIAL IVP ONE ×2 (17:17→17:29)
[2020-09-11 17:43] LABS: C. PNEUMONIAE- RESP PCR PANEL NOT DETECTED
[2020-09-11] MEDS ORDERED: hydrALAZINE INJ 20 MG/ML VIAL IVP PRN (18:29)
--- NOTE | 2020-09-11 18:39 | CT Report ---
PROCEDURE: ANGIO HEAD W/WO INDICATIONS: TIA CONTRAST: IV CONTRAST: Optiray 320 ml: 80 PO CONTRAST: *NO PO CONTRAST TECHNIQUE: Precontrast 4.5 mm thick angled axial sections acquired from the foramen magnum to the vertex. Afte r the administration of intravenous contrast, 1 mm thick sections acquired through the [place] of [place] is. Postcontrast 4.5 mm thick sections then re-acquired from the foramen magnum to the vertex. 3-di mensional fbjblrz-arbzyvfuj-cqmofxyxjk (MIP) and/or volume rendering reformats were acquired of the c entral intracranial vasculature. For radiation dose reduction, the following was used: automated ex posure control, adjustment of mA and/or kV according to patient size. COMPARISON: Correlation is made with the accompanying neck angiogram, 09/11/2020. Comparison is made to prior brain head CT examinations, 08/31/2020, 10/11/2018. Correlation is also made with brain MRI, 02/21/2014. FINDINGS: Image quality: Diagnostic Anterior circulation: Intracranial internal carotid arteries demonstrate generalized atherosclerotic calcification and irregularity, with approximately 50% narrowing on each side. The flow within the p aired anterior cerebral arteries is normal and symmetric. The flow within the middle cerebral arteri es is normal and symmetric. The anterior communicating artery is seen. No aneurysms are seen. Posterior circulation: Visualized portions of the vertebral arteries demonstrate normal caliber, and join to form a normal appearing basilar artery. Incidental note is made of a prominent right consultant intern ior communicating artery, with a diminutive right P1 segment. 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 Flow within the posterior cerebral arteries is normal and symmetric. No aneurysms are seen. CSF spaces: Ventricles are normal in size and shape. Basal cisterns are patent. No extra-axial flu id collections. Brain: No midline shift. No intracranial bleeds or masses. Mcdonough-white matter interface appears int act. Skull and face: Calvarium and facial bones appear intact, without suspicious lesions. Hyperostosis frontalis is incidentally noted, which is not frankly abnormal for a female patient of this age. Sinuses: Visualized sinuses and mastoids are clear. Bilateral estelita bullosa are incidentally noted . IMPRESSION: No intracranial hemorrhage is seen. No significant intracranial abnormality is seen. No significant intracranial arterial abnormalities are seen. Reviewed by: Wilberto Hernandez MD on 09/11/2020 5:37 PM [facility] Approved by: Wilberto Hernandez MD on 09/11/2020 5:37 PM [facility] Station ID: [id number]
--- NOTE | 2020-09-11 18:41 | CT Report ---
PROCEDURE: ANGIO NECK W INDICATIONS: TIA CONTRAST: IV CONTRAST: Optiray 320 ml: 80 PO CONTRAST: *NO PO CONTRAST TECHNIQUE: After the administration of intravenous contrast, 1.5 mm axial sections acquired from the aortic arch to the [place]. Coronal 3-D maximum intensity projection (MIP) and/or volume rendering ref ormats were then performed. For radiation dose reduction, the following was used: automated exposur e control, adjustment of mA and/or kV according to patient size. COMPARISON: Prior neck CT angiogram, 08/31/2020. Correlation is made with accompanying head CT ang iogram, 09/11/2020. FINDINGS: Image quality: Excellent. Carotid system: The great vessels demonstrate a conventional anatomy as they arise from the aortic a rch. The origins of the common carotid arteries appear patent. The common carotid arteries demonstr ate normal calibers and courses. The bifurcation regions appear normal bilaterally. The internal ca rotid arteries demonstrate normal caliber and course. Posterior circulation: The origins of the vertebral arteries appear patent. The more superior porti ons of the vertebral arteries demonstrate normal course and caliber. They join to form a normal appe aring basilar artery. Soft tissues: Visualized neck soft tissues demonstrate no suspicious abnormalities. The thyroid gla nd is normal in size. Bones: No suspicious bony lesions. Relatively prominent lower cervical spine degenerative changes a re seen. IMPRESSION: No hemodynamically significant stenosis can be seen within the arteries of the neck. No significant change from the prior. Lower cervical spine degenerative changes are noted. The estimate of stenosis included in the report of the imaging study was calculated using the NASCET method Reviewed by: Wilberto Hernandez MD on 09/11/2020 5:40 PM [facility] Approved by: Wilberto Hernandez MD on 09/11/2020 5:40 PM [facility] Station ID: [id number]
--- NOTE | 2020-09-11 18:55 | PHARMACY PROGRESS NOTE ---
- Best Possible Medication History Admit Date and Time: 09/11/20 1738 Processed by: Pharmacy Medication History completed: Yes Patient Interview: Completed Secondary Source(s): Physician records (PATIENT INTERVIEWED BY PHARMACY. PATIENT ABLE TO CONFIRM HOME MEDICATIONS ), Pharmacy records, Insurance records As the person ultimately responsible for medication therapy, providers are able to order a medication from an existing home medication list in [facility] via the "Reconcile Routine" prior to Confirmation of that medication by product support rep. Such practice is discouraged except when the physician, in their clinical judgment, deems that a medical need exists for a medication without regard to previous use.
[2020-09-11] MEDS: SODIUM CHLORIDE FLUSH 0.9% 10 ML SYRINGE IVP SCH (19:00)
[2020-09-11 19:40] LABS: HEMOGLOBIN A1c% 5.5 % (4.27-6.07)
[2020-09-11] MEDS: METOPROLOL TARTRATE 25 MG TABLET PO SCH (20:35)
[2020-09-11] MEDS ORDERED: ATORVASTATIN 40 MG TABLET PO SCH (21:00)
[2020-09-12] MEDS: SODIUM CHLORIDE FLUSH 0.9% 10 ML SYRINGE IVP SCH ×2 (00:42→09:55)
[2020-09-12 05:16] LABS: BASOPHILS % (AUTO) 0.7 %; EOSINOPHILS # (AUTO) 0.3 10^3/uL (0.0-0.7); EOSINOPHILS % (AUTO) 4.9 %; HGB - HEMOGLOBIN 13.2 g/dL (12.0-16.0); LYMPHOCYTES # (AUTO) 1.9 10^3/uL (1.5-3.5); LYMPHOCYTES % (AUTO) 35.3 %; MEAN CORPUSCULAR HEMOGLOBIN 29.6 pg (27.0-31.0); MEAN CORPUSCULAR HGB CONC 32.4 g/dL (32.0-36.0); MEAN CORPUSCULAR VOLUME 91.5 fL (81.0-99.0); MEAN PLATELET VOLUME 11.5 fL (7.9-10.8); MONOCYTES # (AUTO) 0.5 10^3/uL (0.0-1.0); MONOCYTES % (AUTO) 8.4 %; NEUTROPHILS # (AUTO) 2.7 10^3/uL (1.5-6.6); NEUTROPHILS % (AUTO) 50.3 %; PLT - PLATELET COUNT 141 10^3/uL (130-450); RED BLOOD COUNT 4.46 10^6/uL (4.20-5.40); RED CELL DISTRIBUTION WIDTH 13.6 % (12.0-15.0); WHITE BLOOD COUNT 5.4 x10^3/uL (4.8-10.8)
[2020-09-12 05:26] LABS: CALCIUM 8.8 mg/dL (8.5-10.3); CREATININE 0.8 mg/dL (0.4-1.0); MAGNESIUM 1.9 mg/dL (1.7-2.8); PHOSPHORUS 3.5 mg/dL (2.5-4.6)
[2020-09-12 05:30] LABS: CHOL/HDL RATIO 3.2 (<4.4); CHOLESTEROL 164 mg/dL; HDL CHOLESTEROL 51 mg/dL; LDL CHOLESTEROL,CALCULATED 96 mg/dL; LDL/HDL RATIO 1.9 (<4.4); VLDL CHOLESTEROL 17 mg/dL
[2020-09-12] MEDS ORDERED: PANTOPRAZOLE 40 MG TABLET PO SCH (07:00)
[2020-09-12 08:51] VITALS: BP 121/61
[2020-09-12] MEDS ORDERED: CLOPIDOGREL 75 MG TABLET PO SCH (09:00)
[2020-09-12] MEDS ORDERED: ENOXAPARIN 40 MG/0.4 ML SYRINGE SUBQ SCH (09:00)
[2020-09-12] MEDS: METOPROLOL TARTRATE 25 MG TABLET PO SCH (09:54)
--- NOTE | 2020-09-12 12:59 | MRI Report ---
PROCEDURE: Brain W/O INDICATIONS: TIA TECHNIQUE: Noncontrast axial T1 spin echo, axial T2 fast spin echo, sagittal and axial FLAIR, coronal T2 fast sp in echo, axial gradient echo, axial diffusion and ADC through the brain. COMPARISON: Prior brain MRI 02/24/2014. Correlation is made with CT head and neck imaging, 020, 08/31/2020, 11/08/2018. FINDINGS: Image quality: Diagnostic, with note made of motion artifact. CSF Spaces: Basal cisterns are patent. No extra-axial fluid collections. Ventricles are normal in size and shape. Brain: No intracranial masses or hemorrhage. Mcdonough/white matter interface is normal. Brainstem appe ars normal. Diffusion-weighted images demonstrate no acute ischemic insult. No chronic ischemic ins ults. Normal intravascular flow voids are present. Skull and face: Calvarium has normal marrow signal. Orbits appear normal. Incidental note is made of bilateral lens replacements. Sinuses: Sinuses and mastoids are clear. IMPRESSION: No findings of acute or subacute infarction are seen. Age-appropriate brain parenchymal volume loss and chronic small vessel ischemic change can be seen. Reviewed by: Wilberto Hernandez MD on 09/12/2020 11:58 AM [facility] Approved by: Wilberto Hernandez MD on 09/12/2020 11:58 AM [facility] Station ID: [id number]
--- NOTE | 2020-09-12 13:42 | Discharge Plan ---
Discharge Plan Problem Reviewed?: Yes Disposition: Home, Self Care Condition: Fair Diet: Regular Activity Restrictions: Activity as Tolerated Shower Restrictions: No Driving Restrictions: Yes (No driving until these episodes of cannot speak are evaluated by Neurology) Instruction Topics: ED Cervical Radiculopathy, TIA Health Concerns: You were in Observation status to evaluate if your symptoms were a stroke. The brain MRI showed no evidence of a stroke and no prior stroke. Your symptom of inability to speak are probably TIAs (mini strokes that resolve and cuase no brain damage). The vice-like pain in both arms is not a TIA, it is possibly symptoms of a pinched nerve in your neck. You should have your CP refer you to a Neurologist (brain and lean specialist) to evaluate these recurrent symptoms. Plan of Treatment: Resume all your usual medications. Make sure you are not taking somebody's Diabetic medicines. Please see your Primary Care Provider in the next 5 to 10 days; you need a referral to a Neurology specialist. Care Goals: Improvement in symptoms and stabilization are the goals. Assessment: Written instructions were provided at discharge for a reminder. No Smoking: If you smoke, Please STOP! Call for help. Follow-up with: Ayesha Leiva DO [Primary Care Provider] -
--- NOTE | 2020-09-12 13:45 | DISCHARGE SUMMARY ---
Discharge Summary Admit Date: 09/11/20 Discharge Date: 09/12/20 Discharging Provider: Dr Bre Morales Primary Care Provider: Dr Ayesha Leiva Code Status: Attempt Resuscitation Condition at Discharge: Fair Discharge Disposition: 01 Home, Self Care - HPI History of Present Illness: From the admission H&P of Gus Frost NP: This is an 85-year-old female with a PMH significant for Hypertension, hyperlipidemia, CAD with cardiac stent, arrhythmia, history of hypoglycemia, TIA who presents to the emergency department complain of expressive aphasia earlier today. At the time Patient was found to have 64 glucose in the ER. But She is not diabetic. She report she had Most recently event which was 2 weeks ago, expressive aphasia with hypoglycemia. She states that this is occurred 7-8 times over recently two years. after pt's glucose was up to 112 in today. She did improve with her expressive aphasia. pt also report she had right arm number with whole mouth numbness as well on today. she report she had expressive aphasia two weeks ago with left arm numbness with left mouth numbness and left facial numbness. she state her expressive aphasia remained about 3-5 minutes. It is Unclear if this represents true hypoglycemic aphasia or there is a stroke/TIA component. CT Of head show no evidence acute stroke, hemorrhage, or mass. Routine laboratory testing in the ER was unremarkable. Patient is afebrile, slightly elevated blood pressure in ER. Patient denies chest pain, palpitation, fever, shortness breathing, headache. Given pt's two episodes of expressive aphasia within two weeks, we will place her in observation for MRI and other TIA work-up. Discussed the care goal with the patient, patient request full code - HOSPITAL COURSE Hospital Course: (1) Expressive aphasia This pt had expressive aphasia twice in 2 weeks, at the same time patient had hypoglycemia. She had similar 7-8 times episodes over two years. The current expressive aphasia resolved and did not recur while here. It is still unclear if this is due to hypoglycemia or a true TIA. CTA of the neck and head were unremarkable. She had a brain MRI that also showed no acute or old stroke. We continued her anti-platelet meds and resumed home meds. She did not undergo an Echo (there is no Echo services available here on the weekend and she was admitted Monday night and discharged Monday afternoon). Neurology evaluation was advised. (2) Hypoglycemia It is unclear why patient has repeated hypoglycemia episodes, with no hx of diabetes. Her A1c was 5.5. We requested consult of air surveillance operator, but there is no air surveillance operator available here Monday night and into Monday. She was advised repeatedly to be sure she is not taking her 's diabetic treatment. Consider Endocrine evaluation. (3) Arm pain She told the discharging Hospitalist that her episodes of expressive aphasia are associated with vice-like pain in one arm or the other. Pain is not a stroke- like symptom; this was explained to the patient. She may have a pinched nerve. C-spine evaluation was advised. (4) HTN (hypertension) We continued her home meds. BP was stable. (5) HLD (hyperlipidemia) We continued statin and checked a lipid panel that showed good control. (6) History of palpitations Patient reported she has history of severe symptomatic palpitation, and she did have cardiac ablation in the past. She reported she takes twice daily metoprolol in the home, we continued that. No dysrhythmias on telemetry, specifically no A. fib - ALLERGIES Allergies/Adverse Reactions: Allergies Allergy/AdvReac Type Severity Reaction Status Date / Time amoxicillin [From Augmentin] Allergy Unknown Verified 09/11/20 13:47 clavulanic acid Allergy Unknown Verified 09/11/20 13:47 [From Augmentin] cyanocobalamin (vitamin B12) Allergy Rash Verified 09/11/20 20:36 oxycodone Allergy Nausea Verified 09/11/20 13:47 - MEDICATIONS Home Medications: Ambulatory Orders Medication Instructions Recorded Confirmed Metoprolol Tartrate [Lopressor] 25 mg PO BID 01/12/15 09/11/20 Rosuvastatin Calcium 40 mg PO QPM 11/07/18 09/11/20 Aspirin [Aspirin EC] 81 mg PO DAILY 08/15/19 09/11/20 Clopidogrel [Plavix] 75 mg ORAL DAILY 09/11/20 09/11/20 - PHYSICAL EXAM AT DISCHARGE General Appearance: positive: No acute distress, Alert Eyes Bilateral: positive: Normal inspection, EOMI ENT: positive: ENT inspection nml, No signs of dehydration Neck: positive: Nml inspection, No JVD Respiratory: positive: No respiratory distress, Breath sounds nml Cardiovascular: positive: Regular rate & rhythm, No murmur Abdomen: positive: Non-tender, Nml bowel sounds, No distention Skin: positive: Warm, Dry Extremities: positive: No pedal edema Neurologic/Psychiatric: positive: CN's nml (2-12), Motor nml - LABS Result Diagrams: 09/12/20 04:47 09/12/20 04:47 - DIAGNOSTIC IMAGING Diagnostic Imaging Results: Final report reviewed - FOLLOW UP Follow Up: See PCP for referral to Neurology, also consider back specialist and endocrinology. - TIME SPENT Time Spent in Discharge (Minutes): 35
== END 2020-09-12 14:40 | disposition home or self-care (01) ==
LOC: EDUNIT# → ED 13:40 → MS2 17:38
PROVIDERS: ADMIT Nurse Practitioner Gerontology; ATTEND Internal Medicine
DX: R47.01 Aphasia (principal); E16.2 Hypoglycemia, unspecified; R20.0 Anesthesia of skin; M79.602 Pain in left arm; M79.601 Pain in right arm; I10 Essential (primary) hypertension; E78.5 Hyperlipidemia, unspecified; Z86.73 Personal history of transient ischemic attack (TIA), and cerebral infarction without residual deficits; I25.10 Atherosclerotic heart disease of native coronary artery without angina pectoris; Z95.5 Presence of coronary angioplasty implant and graft; Z87.891 Personal history of nicotine dependence; Z86.79 Personal history of other diseases of the circulatory system; Z79.899 Other long term (current) drug therapy
CPT/HCPCS: 36415; 70450; 70496; 70498; 70551; 80048; 80053; 80061; 81003; 83036; 83735; 84100; 85025; 85610; 85730; 87631; 93005; 99285; A9270; Q9967; 0202U; 81001; 83721; 87086

== ENCOUNTER 2020-12-15 08:00 | Outpatient (CLI) | payer MEDICARE, OTHER ==
[2020-12-15 18:04] LABS: BASOPHILS % (AUTO) 0.5 %; EOSINOPHILS # (AUTO) 0.2 10^3/uL (0.0-0.7); EOSINOPHILS % (AUTO) 3.5 %; HCT - HEMATOCRIT 41.3 % (37.0-47.0); HGB - HEMOGLOBIN 13.3 g/dL (12.0-16.0); LYMPHOCYTES # (AUTO) 2.3 10^3/uL (1.5-3.5); LYMPHOCYTES % (AUTO) 36.7 %; MEAN CORPUSCULAR HGB CONC 32.2 g/dL (32.0-36.0); MEAN PLATELET VOLUME 11.6 fL (7.9-10.8); MONOCYTES # (AUTO) 0.6 10^3/uL (0.0-1.0); MONOCYTES % (AUTO) 9.2 %; NEUTROPHILS # (AUTO) 3.1 10^3/uL (1.5-6.6); NEUTROPHILS % (AUTO) 49.8 %; PLT - PLATELET COUNT 142 10^3/uL (130-450); RED BLOOD COUNT 4.44 10^6/uL (4.20-5.40); RED CELL DISTRIBUTION WIDTH 13.2 % (12.0-15.0); WHITE BLOOD COUNT 6.2 x10^3/uL (4.8-10.8)
[2020-12-15 18:38] LABS: ALBUMIN 3.9 g/dL (3.2-5.5); ALBUMIN/GLOBULIN RATIO 1.7 (1.0-2.2); ALKALINE PHOSPHATASE 44 IU/L (42-121); ALT ALANINE AMINOTRANSFERASE 15 IU/L (10-60); AST ASPARTATE AMINOTRANSFERASE 19 IU/L (10-42); BILIRUBIN,TOTAL 0.7 mg/dL (0.2-1.0); BUN - BLOOD UREA NITROGEN 20 mg/dL (6-20); CALCIUM 9.1 mg/dL (8.5-10.3); CARBON DIOXIDE - CO2 26 mmol/L (21-32); CHLORIDE 105 mmol/L (101-111); CHOL/HDL RATIO 2.7 (<4.4); CHOLESTEROL 144 mg/dL; CREATININE 0.8 mg/dL (0.4-1.0); GFR - MDRD 68 (>89); GLUCOSE 70 mg/dL (70-100); HDL CHOLESTEROL 53 mg/dL; LDL CHOLESTEROL,CALCULATED 43 mg/dL; LDL/HDL RATIO 0.8 (<4.4); POTASSIUM 4.3 mmol/L (3.5-5.0); SODIUM 139 mmol/L (135-145); TOTAL PROTEIN 6.2 g/dL (6.7-8.2); TRIGLYCERIDES 240 mg/dL; VLDL CHOLESTEROL 48 mg/dL
== END 2020-12-15 23:59 | disposition home or self-care (01) ==
LOC: LAB.WCP 08:00
PROVIDERS: ATTEND Family Medicine
DX: R07.89 Other chest pain (principal)
CPT/HCPCS: 36415; 80053; 80061; 83721; 84484; 85025

== ENCOUNTER 2021-07-09 08:35 | Outpatient (CLI) | payer MEDICARE, OTHER ==
[2021-07-09 12:07] LABS: BASOPHILS % (AUTO) 0.9 %; EOSINOPHILS # (AUTO) 0.2 10^3/uL (0.0-0.7); EOSINOPHILS % (AUTO) 4.8 %; HCT - HEMATOCRIT 39.4 % (37.0-47.0); HGB - HEMOGLOBIN 12.2 g/dL (12.0-16.0); LYMPHOCYTES # (AUTO) 1.7 10^3/uL (1.5-3.5); LYMPHOCYTES % (AUTO) 37.8 %; MEAN CORPUSCULAR VOLUME 90.4 fL (81.0-99.0); MEAN PLATELET VOLUME 12.5 fL (7.9-10.8); MONOCYTES # (AUTO) 0.3 10^3/uL (0.0-1.0); MONOCYTES % (AUTO) 7.6 %; NEUTROPHILS # (AUTO) 2.1 10^3/uL (1.5-6.6); NEUTROPHILS % (AUTO) 48.7 %; PLT - PLATELET COUNT 158 10^3/uL (130-450); RED BLOOD COUNT 4.36 10^6/uL (4.20-5.40); RED CELL DISTRIBUTION WIDTH 14.9 % (12.0-15.0); WHITE BLOOD COUNT 4.4 x10^3/uL (4.8-10.8)
[2021-07-09 12:18] LABS: ALBUMIN 3.9 g/dL (3.2-5.5); ALBUMIN/GLOBULIN RATIO 1.4 (1.0-2.2); ALKALINE PHOSPHATASE 55 IU/L (42-121); ALT ALANINE AMINOTRANSFERASE 14 IU/L (10-60); AST ASPARTATE AMINOTRANSFERASE 16 IU/L (10-42); BILIRUBIN,TOTAL 0.8 mg/dL (0.2-1.0); BUN - BLOOD UREA NITROGEN 14 mg/dL (6-20); CARBON DIOXIDE - CO2 27 mmol/L (21-32); CHLORIDE 106 mmol/L (101-111); CHOL/HDL RATIO 2.7 (<4.4); CHOLESTEROL 151 mg/dL; CREATININE 0.9 mg/dL (0.4-1.0); GFR - MDRD 59 (>89); GLUCOSE 93 mg/dL (70-100); HDL CHOLESTEROL 55 mg/dL; LDL CHOLESTEROL,CALCULATED 73 mg/dL; LDL/HDL RATIO 1.3 (<4.4); POTASSIUM 4.1 mmol/L (3.5-5.0); SODIUM 141 mmol/L (135-145); TOTAL PROTEIN 6.6 g/dL (6.7-8.2); TRIGLYCERIDES 113 mg/dL; VLDL CHOLESTEROL 23 mg/dL
== END 2021-07-09 23:59 | disposition home or self-care (01) ==
LOC: LAB.WCP 08:35
PROVIDERS: ATTEND Family Medicine
DX: G45.9 Transient cerebral ischemic attack, unspecified (principal)
CPT/HCPCS: 36415; 80053; 80061; 83721; 85025

== ENCOUNTER 2021-07-21 15:01 | Outpatient (CLI) | payer MEDICARE, OTHER ==
--- NOTE | 2021-07-21 16:33 | XRAY Report ---
PROCEDURE: Knee 4 View RT INDICATIONS: R KNEE PX TECHNIQUE: 4 views of the right knee(s) were acquired. COMPARISON: None. FINDINGS: Bones: No fractures or dislocations. Moderate medial femoral tibial compartment osteoarthritic iniguez ges are noted. No suspicious bony lesions. Soft tissues: Small to moderate suprapatellar joint effusion is seen. No suspicious soft tissue calc ifications. IMPRESSION: Moderate medial femoral tibial compartment osteophyte is. No right knee fracture or disl ocation. Small to moderate joint effusion. Reviewed by: Chilango Almanzar MD on 07/21/2021 4:32 PM PDT Approved by: Chilango Almanzar MD on 07/21/2021 4:32 PM PDT Station ID: [id number]
== END 2021-07-21 15:02 | disposition home or self-care (01) ==
LOC: DI.N 15:01
PROVIDERS: ATTEND Family Medicine
DX: M25.761 Osteophyte, right knee (principal); M25.461 Effusion, right knee

== ENCOUNTER 2021-11-16 12:09 | Outpatient (CLI) | payer MEDICARE, OTHER ==
--- NOTE | 2021-11-16 16:33 | XRAY Report ---
PROCEDURE: Cervical Spine 2 View INDICATIONS: NECK AND ARM PX TECHNIQUE: 3 view(s) of the cervical spine were acquired. COMPARISON: September 28, 2017. FINDINGS: Bones: No fractures or dislocations to the C7 level. The lateral masses of C1 appear intact on the odontoid view. Redemonstrated fusion of C2-3 with rudimentary disc. Minimal grade 1 anterolisthesis a t C4-5. Moderate disc height loss with endplate osteophytosis at C5 7. No suspicious bony lesions. Soft tissues: No prevertebral soft tissue swelling. IMPRESSION: Degeneration of the cervical spine as detailed above. Reviewed by: Lee Bryson MD on 11/16/2021 4:32 PM [facility] Approved by: Lee Bryson MD on 11/16/2021 4:32 PM [facility] Station ID: [id number]
--- NOTE | 2021-11-16 16:34 | XRAY Report ---
PROCEDURE: Thoracic Spine 2 View INDICATIONS: BACK AND ARM PX TECHNIQUE: 3 views of the thoracic spine were acquired. COMPARISON: None. FINDINGS: Bones: No fractures or dislocations. No suspicious bony lesions. Multilevel disc space narrowing an d endplate osteophyte formation. Visualized ribs are intact. Soft tissues: No paravertebral stripe t hickening. IMPRESSION: Multilevel degenerative disc disease. No acute fracture. No osseous lesion. If symptoms and/or clinic al suspicion for pathology continue, further assessment with repeat plain films, or advanced imaging (e.g., CT, MRI, or bone scan) is recommended for further assessment. Reviewed by: Dwight Sierra MD on 11/16/2021 4:33 PM PST Approved by: Dwight Sierra MD on 11/16/2021 4:33 PM PST Station ID: [id number]
== END 2021-11-16 12:10 | disposition home or self-care (01) ==
LOC: DI.N 12:09
PROVIDERS: ATTEND Nurse Practitioner Family
DX: M51.34 Other intervertebral disc degeneration, thoracic region (principal); M50.321 Other cervical disc degeneration at C4-C5 level; M43.12 Spondylolisthesis, cervical region; Z98.1 Arthrodesis status

== ENCOUNTER 2021-12-07 09:13 | Outpatient (CLI) | payer MEDICARE, OTHER ==
--- NOTE | 2021-12-07 16:13 | MRI Report ---
PROCEDURE: Thoracic Spine W/O INDICATIONS: DEGENERATIVE DISC DISEASE THORACIC AND TECHNIQUE: Noncontrast sagittal T1 spine echo and T2 fast spin echo, sagittal STIR, axial T1 and T2 fast spin ec ho through the thoracic spine. COMPARISON: X-ray thoracic spine 11/16/2021 FINDINGS: Image quality: Excellent. Alignment and Curvature: There is normal bony alignment. Bone Marrow: Marrow is of normal overall signal. No acute vertebral body compression fractures. Spinal Cord: Visualized spinal cord is normal in size and signal. Paraspinous Soft Tissues: No paravertebral masses. Bilateral simple renal cysts are present most ugarte ggestive of parapelvic cysts. Focus of increased T2 signal measuring 5 mm noted within the posterior liver most suggestive of cyst. Miscellaneous: On axial images, central canal and foramina appear widely patent at all scanned level s. Multilevel disc desiccation is present. Multiple levels demonstrate increased T2 signal within th e exiting nerve roots most severe on the left at T6-7, bilateral T9-10. Minimal disc bulge is present at T6-7, T7-8, T10-11, T11-12. IMPRESSION: Multilevel minimal disc bulges. No spinal stenosis. Multilevel increased T2 signal within the exiting nerve roots suggestive of nerve root sleeve cysts. Schwannomas cannot be definitively excluded and as clinically indicated, further evaluation with cont rast study may be obtained. Reviewed by: Lexis Evangelista MD on 12/07/2021 4:12 PM PST Approved by: Lexis Evangelista MD on 12/07/2021 4:12 PM PST Station ID: [id number]
--- NOTE | 2021-12-07 17:48 | MRI Report ---
PROCEDURE: Cervical Spine W/O INDICATIONS: DEGENERATIVE DISC DISEASE THORACIC AND TECHNIQUE: Noncontrast sagittal T1 spin echo and T2 fast spin echo, sagittal STIR, foraminal oblique sagittal T2 fast spin echo, and axial gradient echo or T2 fast spin echo through the cervical spine. COMPARISON: Cervical spine x-ray series 11/16/2021. FINDINGS: Image quality: Excellent. Alignment and Curvature: There is normal bony alignment. Bones: Near-complete C2-C3 vertebral body fusion. There is partial posterior left fusion of the C7 an d T1 vertebral bodies. Modic type I reactive endplate changes noted adjacent to the CT finding-C6 dis c. Modic type II reactive endplate changes noted adjacent to the C4-C5 and C6-7 C7 disc. Benign, intr aosseous hemangioma noted in the T7 vertebral body. Spinal Cord: Visualized spinal cord has normal size and signal. No cerebellar tonsillar herniation. Paraspinous Soft Tissues: No paravertebral masses. Prevertebral soft tissues are normal in thicknes s. C2-C3: Complete loss of disc substance with vertebral body fusion. No central stenosis. No neural for aminal narrowing. No neural compression. C3-C4: Loss of disc signal. Minimal, diffuse disc bulge. Mild right and moderate left facet hypertrop hy. Mild ligamentum flavum flavum hypertrophy. Mild narrowing of the central canal. Severe right and mild left neural foraminal narrowing with compression of the exiting right C4 nerve root. C4-C5: Loss of disc signal. Mild to moderate diffuse disc bulge. Mild ligamentum flavum hypertrophy. Moderate right and mild left facet hypertrophy. Mild right uncovertebral joint hypertrophy. Mild narr owing of the central canal. Severe right and mild left neural foraminal narrowing with compression of the exiting right C5 nerve root. C5-C6: Loss of disc signal and height. Moderate, diffuse disc bulge. Mild bilateral facet hypertrophy . Moderate right uncovertebral joint hypertrophy. Severe narrowing of the central canal with compress ion of the cervical spinal cord. Severe right neural foraminal narrowing with compression of the exit ing right C6 nerve root. C6-C7: Loss of disc signal and height. Moderate, diffuse disc bulge. Mild bilateral facet hypertrophy . Moderate bilateral uncovertebral joint hypertrophy. Severe narrowing of the central canal with slig ht compression of the cervical spinal cord. Severe bilateral neural foraminal narrowing with compress ion of the C7 nerve roots. C7-T1: Near-complete loss of disc substance with partial vertebral body fusion. Mild bilateral facet hypertrophy. No central stenosis. No neural foraminal narrowing. No neural compression. IMPRESSION: 1. Multilevel degenerative disc disease. 2. Multilevel facet and uncovertebral arthropathy. 3. Severe C5-C6 and C6-7 C7 central canal narrowing with mild compression of the cervical spinal cord . 4. Severe right C4-C5 and C5-C6 neural foraminal narrowing with compression of the exiting right C5 a nd C6 nerve roots. Severe bilateral C6-7 C7 neural foraminal narrowing with compression of the exitin g bilateral C7 nerve roots. Reviewed by: Justine Swift MD, PhD on 12/07/2021 5:46 PM PST Approved by: Justine Swift MD, PhD on 12/07/2021 5:46 PM PST Station ID: [id number]
== END 2021-12-07 09:14 | disposition home or self-care (01) ==
LOC: DI 09:13
PROVIDERS: ATTEND Nurse Practitioner Family
DX: M51.34 Other intervertebral disc degeneration, thoracic region (principal); M50.11 Cervical disc disorder with radiculopathy, high cervical region; M48.02 Spinal stenosis, cervical region; M47.22 Other spondylosis with radiculopathy, cervical region

== ENCOUNTER 2021-12-07 19:01 | Emergency (ER) | payer MEDICARE, OTHER ==
--- NOTE | 2021-12-07 21:18 | ED Physician Documentation ---
History of Present Illness - Stated complaint Stated Complaint: BODY PX - Chief complaint Chief Complaint: Abd Pain - History obtained from History obtained from: Patient - History of Present Illness Timing: How many weeks ago (3) Pain level now: 8 Improved by: no ameliorating factors Worsened by: sometimes exacerbated with movement but not reliably/predictably - Additonal information Additional information: chief complaint is back and neck pain, ongoing for at least 3 weeks , no trauma. she also c/o generalized headache. She says symptoms began approximately 3 weeks ago with left arm pain, both forearm and upper arm, has progressed to pain in neck and upper/mid back (worst in upper/mid back but she goes on to say my whole back hurts). She has had recent tests performed, including in [facility] ED as well as outpatient setting, with testing including cardiac-oriented testing and xrays of cervical and throacic spine followed by recent MRI of cervical and thoracic spine (which shows multilevel cervical foraminal narrowing, cervical nerve compression, and mild central cervical compression). She presents at this time due to increased pain in mid/upper back and neck Review of Systems Constitutional: reports: Reviewed and negative Cardiac: reports: Reviewed and negative Respiratory: reports: Reviewed and negative GI: reports: Reviewed and negative : denies: Unable to Void, Incontinent Musculoskeletal: reports: Neck pain, Back pain Neurologic: reports: Headache. 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 HEENT: Other Psych: Depression Musculoskeletal: Osteoporosis, Other Derm: None - Past Surgical History Past Surgical History: Yes General: Appendectomy Cardiovascular: Cardiac catheterization, Other HEENT: Cataracts - Present Medications Home Medications: Ambulatory Orders Medication Instructions Recorded Confirmed Metoprolol Tartrate [Lopressor] 25 mg PO BID 01/12/15 12/07/21 Rosuvastatin Calcium 40 mg PO QPM 11/07/18 12/07/21 Aspirin [Aspirin EC] 81 mg PO DAILY 08/15/19 12/07/21 Clopidogrel [Plavix] 75 mg ORAL DAILY 09/11/20 12/07/21 Gabapentin [Neurontin] 100 mg PO DAILY #20 cap 12/07/21 traMADol [Ultram] 50 mg PO Q6H PRN #14 tablet 12/07/21 - Allergies Allergies/Adverse Reactions: Allergies Allergy/AdvReac Type Severity Reaction Status Date / Time amoxicillin [From Augmentin] Allergy Unknown Verified 12/07/21 19:21 clavulanic acid Allergy Unknown Verified 12/07/21 19:21 [From Augmentin] cyanocobalamin (vitamin B12) Allergy Rash Verified 12/07/21 19:21 oxycodone Allergy Nausea Verified 12/07/21 19:21 - Social History Does the pt smoke?: No Smoking Status: Never smoker Does the pt drink ETOH?: No Does the pt have substance abuse?: No - Immunizations Immunizations are current?: Yes - POLST Patient has POLST: No PD ED PE NORMAL - Vitals Vital signs reviewed: Yes - General General: Alert and oriented X 3, No acute distress, Well developed/nourished - HEENT HEENT: PERRL, EOMI - Neck Neck: Supple, no meningeal sign, No bony TTP - Cardiac Cardiac: RRR - Respiratory Respiratory: No respiratory distress, Clear bilaterally - Abdomen Abdomen: Soft, Non tender - Back Back: No spinal TTP - Neuro Neuro: Alert and oriented X 3, 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, No motor deficit (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 strength bilateral 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 intern, bilateral dorsi/plantarflexion), No sensory deficit (LTS intact BUE, BLE), Normal speech, Other (2+/4 DTR bilateral bicep, bilateral patela without clonus) Eye Opening: Spontaneous Motor: Obeys Commands Verbal: Oriented GCS Score: 15 Results - Vitals Vitals: Oxygen O2 Source Room air PD MEDICAL DECISION MAKING - ED course Complexity details: reviewed results (reviewed recent MRI results (outpatient)), considered differential, d/w patient, d/w family ( (in ED at bedside)) ED course: After extensive discussion with both patient and her spouse (in ED at bedside), it seems there are no new symptoms and that patients chief concern for this visit is inadequate pain control for her ongoing symptoms (neck and back pain). The work up for etiology of this pain is ongoing and she has had a recent MRI of cerrvical/thoracic spine with findings that might suggest a contributing or causative etiology (multi-level foramanel narrowing with nerve impingement as well as central narrowing with mild cord impingement). However, she has no weakness or numbness on exam and is able to stand and ambulate without assistance. She denies bowel/bladder incontinence. At this time , emegent testing, emergent consult and/or transfer is not indicated. will focus on pain control until she can be reevaluated in outpatient setting. She is on a very low dose gabapentin (100mg PO QHS), and I will increase this to BID dosing as well as adding short course of tramadol. She is also given a one-time dose of decadron in ED. She is in NAD at time of discharge. Departure - Departure Disposition: Home, Self Care Clinical Impression: Chronic neck and back pain Condition: Good Instructions: ED Neck Back Pain General Follow-Up: Patsy aBker ARNP [Primary Care Provider] - Prescriptions: Gabapentin [Neurontin] 100 mg PO DAILY #20 cap traMADol [Ultram] 50 mg PO Q6H PRN #14 tablet PRN Reason: Pain Comments: Prescriptions for gabapentin and tramadol have been electronically submitted to the [facility] pharmacy in [place]. Continue the gabapentin one tablet by mouth each night, but I want you to also take one tablet by mouth each morning (the new prescription is for the morning dose; use your current prescription for the evening dose). Discharge Date/Time: 12/07/21 23:36
[2021-12-07] MEDS ORDERED: DEXAMETHASONE 10 MG/ML VIAL PO STA (21:43)
[2021-12-07] MEDS ORDERED: CHERRY SYRUP 10 ML UDC PO ONE (21:43)
[2021-12-07] MEDS ORDERED: traMADol 50 MG TABLET PO STA (21:43)
[2021-12-07] MEDS ORDERED: GABAPENTIN 100 MG CAPSULE PO STA (21:44)
[2021-12-07 23:36] VITALS: BP 128/76
== END 2021-12-07 23:36 | disposition home or self-care (01) ==
LOC: ED 19:01
DX: M51.34 Other intervertebral disc degeneration, thoracic region (principal); M50.11 Cervical disc disorder with radiculopathy, high cervical region; M48.02 Spinal stenosis, cervical region; M47.22 Other spondylosis with radiculopathy, cervical region; G89.29 Other chronic pain
CPT/HCPCS: 72141; 72146; 99282; 99284; A9270

== ENCOUNTER 2022-02-24 09:11 | Outpatient (CLI) | payer MEDICARE, OTHER ==
[2022-02-24 12:05] LABS: BASOPHILS # (AUTO) 0.1 10^3/uL (0.0-0.1); BASOPHILS % (AUTO) 1.3 %; EOSINOPHILS # (AUTO) 0.1 10^3/uL (0.0-0.7); EOSINOPHILS % (AUTO) 3.5 %; HCT - HEMATOCRIT 30.3 % (37.0-47.0); HGB - HEMOGLOBIN 8.8 g/dL (12.0-16.0); LYMPHOCYTES # (AUTO) 1.3 10^3/uL (1.5-3.5); LYMPHOCYTES % (AUTO) 33.2 %; MEAN CORPUSCULAR HEMOGLOBIN 21.1 pg (27.0-31.0); MEAN CORPUSCULAR VOLUME 72.7 fL (81.0-99.0); MEAN PLATELET VOLUME 11.6 fL (7.9-10.8); MONOCYTES # (AUTO) 0.4 10^3/uL (0.0-1.0); MONOCYTES % (AUTO) 8.9 %; NEUTROPHILS # (AUTO) 2.1 10^3/uL (1.5-6.6); NEUTROPHILS % (AUTO) 52.8 %; PLT - PLATELET COUNT 213 10^3/uL (130-450); RED BLOOD COUNT 4.17 10^6/uL (4.20-5.40); RED CELL DISTRIBUTION WIDTH 18.2 % (12.0-15.0)
[2022-02-24 12:27] LABS: ALBUMIN 3.8 g/dL (3.2-5.5); ALBUMIN/GLOBULIN RATIO 1.3 (1.0-2.2); BILIRUBIN,TOTAL 0.7 mg/dL (0.2-1.0); CALCIUM 8.9 mg/dL (8.5-10.3); CREATININE 0.9 mg/dL (0.4-1.0); POTASSIUM 4.1 mmol/L (3.5-5.0); TOTAL PROTEIN 6.8 g/dL (6.7-8.2)
[2022-02-25 09:39] LABS: % IRON SATURATION 3 % (20-50); IRON 16 ug/dL (28-170); TOTAL IRON BINDING CAPACITY 466 ug/dL (250-450); TRANSFERRIN 333 mg/dL (192-382)
== END 2022-02-24 09:12 | disposition home or self-care (01) ==
LOC: LAB.N 09:11
PROVIDERS: ATTEND Nurse Practitioner Family
DX: E55.9 Vitamin D deficiency, unspecified (principal); D50.9 Iron deficiency anemia, unspecified; Z79.899 Other long term (current) drug therapy
CPT/HCPCS: 36415; 80053; 82306; 82728; 83540; 83735; 84466; 85025

== ENCOUNTER 2022-08-26 07:00 | Outpatient (CLI) | payer MEDICARE, OTHER ==
[2022-08-29 09:03] LABS: FECAL OCCULT BLOOD (FIT) POSITIVE (NEGATIVE)
== END 2022-08-26 23:59 | disposition home or self-care (01) ==
LOC: LAB.WCP 07:00
PROVIDERS: ATTEND Nurse Practitioner Family
DX: Z12.11 Encounter for screening for malignant neoplasm of colon (principal)
CPT/HCPCS: 82274

== ENCOUNTER 2022-10-01 12:27 | Emergency (ER) | payer MEDICARE, OTHER ==
[2022-10-01 13:14] VITALS: BP 108/86
[2022-10-01 14:00] LABS: BASOPHILS # (AUTO) 0.1 10^3/uL (0.0-0.1); BASOPHILS % (AUTO) 1.2 %; EOSINOPHILS # (AUTO) 0.2 10^3/uL (0.0-0.7); EOSINOPHILS % (AUTO) 2.6 %; HCT - HEMATOCRIT 31.2 % (37.0-47.0); HGB - HEMOGLOBIN 9.2 g/dL (12.0-16.0); LYMPHOCYTES # (AUTO) 1.7 10^3/uL (1.5-3.5); LYMPHOCYTES % (AUTO) 30.5 %; MEAN CORPUSCULAR HEMOGLOBIN 20.9 pg (27.0-31.0); MEAN CORPUSCULAR HGB CONC 29.5 g/dL (32.0-36.0); MEAN CORPUSCULAR VOLUME 70.7 fL (81.0-99.0); MEAN PLATELET VOLUME 10.6 fL (7.9-10.8); MONOCYTES # (AUTO) 0.5 10^3/uL (0.0-1.0); MONOCYTES % (AUTO) 9.3 %; NEUTROPHILS # (AUTO) 3.2 10^3/uL (1.5-6.6); PLT - PLATELET COUNT 255 10^3/uL (130-450); RED BLOOD COUNT 4.41 10^6/uL (4.20-5.40); RED CELL DISTRIBUTION WIDTH 21.9 % (12.0-15.0); WHITE BLOOD COUNT 5.7 x10^3/uL (4.8-10.8)
[2022-10-01 14:03] LABS: SLIDE REVIEW? Indicated
[2022-10-01 14:06] LABS: BILIRUBIN,URINE NEGATIVE (NEGATIVE); GLUCOSE, URINE (UA) NEGATIVE (NEGATIVE); KETONES,URINE (UA) NEGATIVE (NEGATIVE); LEUKOCYTE ESTERASE, URINE NEGATIVE (NEGATIVE); NITRITE,URINE NEGATIVE (NEGATIVE); OCCULT BLOOD,URINE NEGATIVE (NEGATIVE); PROTEIN,URINE NEGATIVE (NEGATIVE); UROBILINOGEN,URINE 0.2 (NORMAL) E.U./dL (NORMAL)
[2022-10-01 14:09] LABS: CLARITY,URINE CLEAR (CLEAR)
[2022-10-01 14:13] LABS: ALBUMIN 3.8 g/dL (3.2-5.5); ALBUMIN/GLOBULIN RATIO 1.3 (1.0-2.2); BILIRUBIN,TOTAL 0.7 mg/dL (0.2-1.0); CALCIUM 8.9 mg/dL (8.5-10.3); CREATININE 0.8 mg/dL (0.4-1.0); POTASSIUM 4.2 mmol/L (3.5-5.0); TOTAL PROTEIN 6.8 g/dL (6.7-8.2)
[2022-10-01 15:09] LABS: PLATELET ESTIMATE, MANUAL NORMAL (130-450,000) (NORMAL); PLATELET MORPHOLOGY NORMAL APPEARANCE (NORMAL); WBC MORPHOLOGY (MULTIPLE) NORMAL APPEARANCE (NORMAL)
[2022-10-01] MEDS ORDERED: iohexoL-300 100 ML VIAL ONE (16:12)
[2022-10-01] MEDS ORDERED: iohexoL-300 100 ML VIAL IVP ONE (16:45)
--- NOTE | 2022-10-01 16:47 | ED Physician Documentation ---
History of Present Illness - Stated complaint Stated Complaint: ABD PX - Chief complaint Chief Complaint: Abd Pain - Additonal information Additional information: 87-year-old female presents to the emergency department for concerns of anemia and abdominal pain. She reports that yesterday she had a sharp pain in her upper abdomen and then began to get bloated. She called the nurse advice line who advised her to come to the ER if the symptoms did not improve. Overnight the symptoms got better but again today she had the same pain though this time lower in her abdomen. She denies any melena or hematochezia. No chest pain or shortness of air. No urinary symptoms. She has previously been seen by Dr. Frost for iron deficiency anemia and has received INFeD in March. She also has a positive stool guaiac and has been referred for colonoscopy on November 07 at [facility]. Review of Systems Constitutional: reports: Reviewed and negative Nose: reports: Reviewed and negative Throat: reports: Reviewed and negative Cardiac: reports: Reviewed and negative Respiratory: reports: Reviewed and negative GI: reports: Abdominal Pain. 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 HEENT: Other Psych: Depression Musculoskeletal: Osteoporosis, Other Derm: None - Past Surgical History Past Surgical History: Yes General: Appendectomy Cardiovascular: Cardiac catheterization, Other HEENT: Cataracts - Present Medications Home Medications: Ambulatory Orders Medication Instructions Recorded Confirmed Metoprolol Tartrate [Lopressor] 25 mg PO BID 01/12/15 09/27/22 Rosuvastatin Calcium 40 mg PO QPM 11/07/18 09/27/22 Aspirin [Aspirin EC] 81 mg PO DAILY 08/15/19 09/27/22 Clopidogrel [Plavix] 75 mg ORAL DAILY 09/11/20 09/27/22 traMADol [Ultram] 50 mg PO Q6H PRN #14 tablet 12/07/21 09/27/22 Cholecalciferol (Vitamin D3) 1,000 mcg PO DAILY 03/10/22 09/27/22 [Vitamin D3] Magnesium 250 mg PO DAILY 03/10/22 09/27/22 Gabapentin [Neurontin] 100 mg PO BID 09/27/22 09/27/22 methocarbamoL [Methocarbamol] 500 mg PO DAILY 09/27/22 09/27/22 - Allergies Allergies/Adverse Reactions: Allergies Allergy/AdvReac Type Severity Reaction Status Date / Time amoxicillin [From Augmentin] Allergy Unknown Verified 03/10/22 09:34 clavulanic acid Allergy Unknown Verified 03/10/22 09:34 [From Augmentin] cyanocobalamin (vitamin B12) Allergy Rash Verified 03/10/22 09:34 oxycodone Allergy Nausea Verified 03/10/22 09:34 - Social History Does the pt smoke?: No Smoking Status: Never smoker Does the pt drink ETOH?: No Does the pt have substance abuse?: No - Immunizations Immunizations are current?: Yes - POLST Patient has POLST: No PD ED PE NORMAL - General General: Alert and oriented X 3, No acute distress - HEENT HEENT: Atraumatic, Ears normal - Neck Neck: Supple, no meningeal sign, No adenopathy - Cardiac Cardiac: RRR, No murmur (2/6 systolic murmur), Strong equal pulses - Respiratory Respiratory: No respiratory distress, Clear bilaterally - Abdomen Abdomen: Normal bowel sounds, Soft. No: Non tender (Mild tenderness elicited with palpation of the left lower abdomen. No guarding or rebound. Negative McBurney's. 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 Eye Opening: Spontaneous Motor: Obeys Commands Verbal: Oriented GCS Score: 15 Results - Vitals Vitals: Vital Signs - 24 hr 10/01/22 13:12 Temperature 37.0 C Heart Rate 63 Respiratory 22 Rate Blood Pressure 108/86 H O2 Saturation 98 Oxygen O2 Source Room air - Labs Labs: Laboratory Tests 10/01/22 10/01/22 10/01/22 13:45 13:51 13:51 WBC 5.7 RBC 4.41 Hgb 9.2 L Hct 31.2 L MCV 70.7 L MCH 20.9 L MCHC 29.5 L RDW 21.9 H Plt Count 255 MPV 10.6 Neut # (Auto) 3.2 Lymph # (Auto) 1.7 [place] # (Auto) 0.5 Eos # (Auto) 0.2 Baso # (Auto) 0.1 Absolute Nucleated RBC 0.00 Nucleated RBC % 0.0 Manual Slide Review Indicated WBC Morphology NORMAL APPEARANCE Platelet Estimate NORMAL (130-450,000) Platelet Morphology NORMAL APPEARANCE RBC Morph Micro Appear 1+ OVALOCYTES Sodium 137 Potassium 4.2 Chloride 104 Carbon Dioxide 25 Anion Gap 8.0 BUN 17 Creatinine 0.8 Estimated GFR (MDRD) 68 L Glucose 91 Calcium 8.9 Total Bilirubin 0.7 AST 14 ALT 10 Alkaline Phosphatase 58 Total Protein 6.8 Albumin 3.8 Globulin 3.0 Albumin/Globulin Ratio 1.3 Lipase 39 Urine Color YELLOW Urine Clarity CLEAR Urine pH 6.0 Ur Specific [place] 1.010 Urine Protein NEGATIVE Urine Glucose (UA) NEGATIVE Urine Ketones NEGATIVE Urine Occult Blood NEGATIVE Urine Nitrite NEGATIVE Urine Bilirubin NEGATIVE Urine Urobilinogen 0.2 (NORMAL) Ur Leukocyte Esterase NEGATIVE Ur Microscopic Review NOT INDICATED Urine Culture Comments NOT INDICATED - Rads (name of study) CT abd Radiology: Final report received (No significant bowel abnormality seen. 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 Thickened endometrial stripe.) PD Medical Decision Making - ED course Complexity details: reviewed results, considered differential, d/w patient ED course: 87-year-old female who has a known history of iron deficiency anemia as well as a positive stool guaiac who is scheduled for colonoscopy at the end of October presents to the ER with some abdominal pain that has come and gone for the last 24 hours. She does report some bloating. There have been no fevers or vomiting. No melena or hematochezia. Here in the emergency department we did obtain a CBC which shows a persistent anemia though improved from recent with a hemoglobin today of 9.2. No worrisome leukocytosis or thrombocytopenia. Her electrolytes did not show any worrisome findings. We did elect to do a CT of the abdomen with contrast. There were no acute intra-abdominal abnormalities noted however there were a number of incidental findings which include a 2.6 cm mid abdominal aortic aneurysm without findings to suggest dissection. Incidental finding is made of a liver cyst as well as a thickened endometrial stripe. I have discussed these findings with the patient. She is advised to follow closely with her primary care provider. She should obtain referral to a vascular surgeon for longer-term evaluation of this aneurysm. The thickened en dometrial stripe could be concerning for uterine cancer and is advised close follow-up with a pelvic ultrasound as an outpatient and consideration of referral to [facility]. I discussed these findings with the patient and her . She is discharged home in stable condition. Departure - Departure Disposition: 01 Home, Self Care Clinical Impression: Abdominal aneurysm, Liver cyst, Thickened endometrium Iron deficiency anemia Qualifiers: Iron deficiency anemia type: chronic blood loss Qualified Code(s): D50.0 - Iron deficiency anemia secondary to blood loss (chronic) Condition: Stable Record reviewed to determine appropriate education?: Yes Instructions: Aneurysm Abdominal Aortic Comments: You were seen today in the emergency department because you have had some abdominal pain and bloating for the last few days. You also have a history of iron deficiency anemia and are scheduled to undergo a colonoscopy on November 07. Your hemoglobin today is 9.2. Though it is low it is better than it was a few days ago. We did do a CT of your abdomen and do make note of multiple incidental findings. The first is a large liver cyst. This is not affecting your liver function at all and you need no further evaluation or treatment of it. The second incidental finding today was a 2.6 cm saccular aneurysm of your abdominal aorta. Typically aneurysms less than 5 cm are simply followed with routine repeat imaging every 6 months to a year. I encourage you to discuss this finding with your primary care doctor. If at any point you find that you have sudden severe back pain or a tearing sensation in your chest you should return immediately to the ER. Third incidental finding today was that of a thickened endometrium within your uterus. This can be concerning for uterine cancer in postmenopausal women. To know for certain you should have a pelvic ultrasound performed as an outpatient and based on those results may need referral to a funeral director and embalmer/oncologist.
--- NOTE | 2022-10-01 17:04 | CT Report ---
PROCEDURE: ABDOMEN/PELVIS W INDICATIONS: lower abd pain CONTRAST: 100ml omni 300 TECHNIQUE: After the administration of IV contrast, 5 mm thick sections acquired from the diaphragms to the symp hysis. 5 mm thick coronal and sagittal reformats were acquired. For radiation dose reduction, the f ollowing was used: automated exposure control, adjustment of mA and/or kV according to patient size. COMPARISON: None. FINDINGS: Image quality: Excellent. ABDOMEN: Lung bases: Streaky opacities are seen at the lung bases. Heart size is normal. Solid organs: A nonenhancing water density cyst measuring 9 cm is seen at the inferior aspect of the right liver. Smaller presumed cysts are seen elsewhere within the liver. The liver demonstrates norm al size and demonstrates no suspicious lesions. Gallbladder wall does not appear thickened. Biliary system is non dilated. Pancreas enhances norm ally. The spleen demonstrates normal size and demonstrates no suspicious lesions. No adrenal nodules . Kidneys demonstrate normal size and enhancement, without hydronephrosis. Peritoneum and bowel: Bowel loops demonstrate normal wall thickness and caliber. No free fluid or a ir. Nodes and vessels: No retroperitoneal or mesenteric adenopathy by size criteria. Aorta and inferior vena cava are normal in size. However, there is a mild saccular type aneurysm seen involving the mi d aorta on the right, as on series 3 image 36 and on series 6 image 29, measuring up to 2.6 cm. Ather osclerotic calcification is seen. Miscellaneous: No ventral hernias. PELVIS: Genitourinary: Bladder wall thickness is normal. The endometrial stripe appears thickened, as seen on series 7 image 41, measuring 7 mm. No adnexal masses are seen. Miscellaneous: No inguinal hernias or adenopathy. Bones: No suspicious bony lesions. No vertebral body compression fractures. Mild levoconvex scolio tic curvature is seen. Age-appropriate degenerative changes are seen. IMPRESSION: No significant bowel abnormality is seen. There is a 2.6 cm saccular mid abdominal aortic aneurysm. Note is made of a thickened endometrial stripe. In this postmenopausal woman, differential diagnosis includes endometrial hyperplasia and endometrial neoplasm. Please consider a follow-up pelvic ultraso und for further evaluation. Nonspecific streaky opacities are seen at the lung bases, which have the appearance of scarring versu s atelectasis. Reviewed by: Wilberto Hernandez MD on 10/01/2022 4:03 PM [facility] Approved by: Wilberto Hernandez MD on 10/01/2022 4:03 PM [facility] Station ID: [id number]
== END 2022-10-01 17:39 | disposition home or self-care (01) ==
LOC: ED 12:27
DX: D50.0 Iron deficiency anemia secondary to blood loss (chronic) (principal); I71.40 Abdominal aortic aneurysm, without rupture, unspecified; K76.89 Other specified diseases of liver
CPT/HCPCS: 36415; 74177; 80053; 81003; 83690; 85025; 99284; Q9967; 81001; 87086

== ENCOUNTER 2022-11-21 08:16 | Outpatient (CLI) | payer MEDICARE, OTHER | END 2022-11-21 08:17 | disposition home or self-care (01) | LOC: LAB.N 08:16 | PROVIDERS: ATTEND Internal Medicine Hematology & Oncology | DX: Z53.9 Procedure and treatment not carried out, unspecified reason (principal) ==

== ENCOUNTER 2023-03-09 13:28 | Emergency (ER) | payer MEDICARE, OTHER ==
[2023-03-09 13:35] VITALS: BP 132/73
--- OUTSIDE RECORDS SUMMARY | 2023-03-09 13:49 | EXTERNAL MEDICAL SUMMARY RPT | Continuity of Care Document ---
Author Name Unknown Address [address] [place] [address] Phone Organization [place] Address [address] [place] [address] Phone Care Team Providers Care Cae Engineer Name Role Phone Unavailable Unavailable Unavailable Ayesha Leiva Unavailable Unavailable Allergies and Intolerances date description facility type (no date) Opioids - Morphine Analogues [facility] (unknown) (no date) amoxicillin [facility] (unknown) (no date) clavulanic acid [facility] (unknown) Problems date description facility 2022-12-10 16:00 Malignant neoplasm of ascending colon [facility] 2022-12-10 16:00 Malignant neoplasm of colon, un specified [facility] 2022-12-10 16:00 Unspecified intestin al obstruction, unspecified as to [facility] 2022-12-10 16:00 Ileus, unspecified [facility] 2022-12-10 16:00 Other postprocedural complications and disorders of [facility] 2022-12-13 10:32 Malignant neoplasm of ascending colon [facility] 2022-12-13 10:32 Malignant neoplasm of colon, un specified [facility] 2022-12-13 10:32 Unspecified intestin al obstruction, unspecified as to [facility] 2022-12-13 10:32 Ileus, unspecified [facility] 2022-12-13 10:32 Other postprocedural complications and disorders of [facility] 2022-12-13 10:59 Malignant neoplasm of ascending colon [facility] 2022-12-13 10:59 Malignant neoplasm of colon, un specified [facility] 2022-12-13 10:59 Unspecified intestin al obstruction, unspecified as to [facility] 2022-12-13 10:59 Ileus, unspecified [facility] 2022-12-13 10:59 Other postprocedural complications and disorders of [facility] 2022-12-13 11:28 Malignant neoplasm of ascending colon [facility] 2022-12-13 11:28 Malignant neoplasm of colon, un specified [facility] 2022-12-13 11:28 Unspecified intestin al obstruction, unspecified as to [facility] 2022-12-13 11:28 Ileus, unspecified [facility] 2022-12-13 11:28 Other postprocedural complications and disorders of [facility] 2022-12-13 13:30 Malignant neoplasm of ascending colon [facility] 2022-12-13 13:30 Malignant neoplasm of colon, un specified [facility] 2022-12-13 13:30 Unspecified intestin al obstruction, unspecified as to [facility] 2022-12-13 13:30 Ileus, unspecified [facility] 2022-12-13 13:30 Other postprocedural complications and disorders of [facility] 2022-12-15 09:55 Malignant neoplasm of ascending colon [facility] 2022-12-15 09:55 Malignant neoplasm of colon, un specified [facility] 2022-12-15 09:55 Unspecified intestin al obstruction, unspecified as to [facility] 2022-12-15 09:55 Ileus, unspecified [facility] 2022-12-15 09:55 Other postprocedural complications and disorders of [facility] 2023-02-07 11:08 Malignant neoplasm of ascending colon [facility] 2023-02-07 11:08 Malignant neoplasm of colon, un specified [facility] 2023-02-07 11:08 Unspecified intestin al obstruction, unspecified as to [facility] 2023-02-07 11:08 Ileus, unspecified [facility] 2023-02-07 11:08 Other specified diseases of [facility] 2023-02-07 11:08 Other postprocedural complications and disorders of [facility] 2023-02-07 11:08 Encounter for follow -up examination after completed treatment for conditions other than malignant neoplasm [facility] Procedures date description facility 2022-12-09 00:00 X-ray of chest, single [facility] Results/Labs test date author facility value unit interpretation Result panel 1 (unknown) (no date) (unknown) [facility] (no value) (units unknown) (unknown) Result panel 2 (unknown) (no date) (unknown) [facility] (no value) (units unknown) (unknown) Result panel 3 (unknown) (no date) (unknown) [facility] (no value) (units unknown) (unknown) Result panel 4 (unknown) (no date) (unknown) [facility] (no value) (units unknown) (unknown) Result panel 5 (unknown) (no date) (unknown) [facility] (no value) (units unknown) (unknown) Result panel 6 (unknown) (no date) (unknown) [facility] (no value) (units unknown) (unknown) Result panel 7 (unknown) (no date) (unknown) [facility] (no value) (units unknown) (unknown) Result panel 8 (unknown) (no date) (unknown) [facility] (no value) (units unknown) (unknown) Result panel 9 (unknown) (no date) (unknown) [facility] (no value) (units unknown) (unknown) Result panel 10 (unknown) (no date) (unknown) [facility] (no value) (units unknown) (unknown) Result panel 11 (unknown) (no date) (unknown) [facility] (no value) (units unknown) (unknown) Result panel 12 (unknown) (no date) (unknown) [facility] (no value) (units unknown) (unknown) Result panel 13 (unknown) (no date) (unknown) [facility] (no value) (units unknown) (unknown) Result panel 14 (unknown) (no date) (unknown) [facility] (no value) (units unknown) (unknown) Result panel 15 (unknown) (no date) (unknown) [facility] (no value) (units unknown) (unknown) Result panel 16 (unknown) (no date) (unknown) [facility] (no value) (units unknown) (unknown) Result panel 17 (unknown) (no date) (unknown) [facility] (no value) (units unknown) (unknown) Result panel 18 (unknown) (no date) (unknown) [facility] (no value) (units unknown) (unknown) Result panel 19 (unknown) (no date) (unknown) [facility] (no value) (units unknown) (unknown) Result panel 20 (unknown) (no date) (unknown) [facility] (no value) (units unknown) (unknown) Result panel 21 (unknown) (no date) (unknown) [facility] (no value) (units unknown) (unknown) Result panel 22 (unknown) (no date) (unknown) [facility] (no value) (units unknown) (unknown) Result panel 23 (unknown) (no date) (unknown) [facility] (no value) (units unknown) (unknown) Result panel 24 (unknown) (no date) (unknown) [facility] (no value) (units unknown) (unknown) Result panel 25 (unknown) (no date) (unknown) [facility] (no value) (units unknown) (unknown) Result panel 26 (unknown) (no date) (unknown) [facility] (no value) (units unknown) (unknown) Result panel 27 (unknown) (no date) (unknown) [facility] (no value) (units unknown) (unknown) Result panel 28 (unknown) (no date) (unknown) [facility] (no value) (units unknown) (unknown) Result panel 29 (unknown) (no date) (unknown) [facility] (no value) (units unknown) (unknown) Result panel 30 (unknown) (no date) (unknown) [facility] (no value) (units unknown) (unknown) Result panel 31 (unknown) (no date) (unknown) [facility] (no value) (units unknown) (unknown) Result panel 32 (unknown) (no date) (unknown) [facility] (no value) (units unknown) (unknown) Result panel 33 (unknown) (no date) (unknown) [facility] (no value) (units unknown) (unknown) Result panel 34 (unknown) (no date) (unknown) [facility] (no value) (units unknown) (unknown) Result panel 35 (unknown) (no date) (unknown) [facility] (no value) (units unknown) (unknown) Result panel 36 (unknown) (no date) (unknown) [facility] (no value) (units unknown) (unknown) Result panel 37 (unknown) (no date) (unknown) [facility] (no value) (units unknown) (unknown) Result panel 38 (unknown) (no date) (unknown) [facility] (no value) (units unknown) (unknown) Result panel 39 (unknown) (no date) (unknown) [facility] (no value) (units unknown) (unknown) Result panel 40 (unknown) (no date) (unknown) [facility] (no value) (units unknown) (unknown) Result panel 41 (unknown) (no date) (unknown) [facility] (no value) (units unknown) (unknown) Result panel 42 (unknown) (no date) (unknown) [facility] (no value) (units unknown) (unknown) Result panel 43 (unknown) (no date) (unknown) [facility] (no value) (units unknown) (unknown) Result panel 44 (unknown) (no date) (unknown) [facility] (no value) (units unknown) (unknown) Result panel 45 (unknown) (no date) (unknown) [facility] (no value) (units unknown) (unknown) Result panel 46 (unknown) (no date) (unknown) [facility] (no value) (units unknown) (unknown) Result panel 47 (unknown) (no date) (unknown) [facility] (no value) (units unknown) (unknown) Result panel 48 (unknown) (no date) (unknown) [facility] (no value) (units unknown) (unknown) Result panel 49 (unknown) (no date) (unknown) [facility] (no value) (units unknown) (unknown) Result panel 50 (unknown) (no date) (unknown) [facility] (no value) (units unknown) (unknown) Result panel 51 (unknown) (no date) (unknown) [facility] (no value) (units unknown) (unknown) Result panel 52 (unknown) (no date) (unknown) [facility] (no value) (units unknown) (unknown) Result panel 53 (unknown) (no date) (unknown) [facility] (no value) (units unknown) (unknown) Result panel 54 (unknown) (no date) (unknown) [facility] (no value) (units unknown) (unknown) Result panel 55 (unknown) (no date) (unknown) [facility] (no value) (units unknown) (unknown) Result panel 56 (unknown) (no date) (unknown) [facility] (no value) (units unknown) (unknown) Result panel 57 (unknown) (no date) (unknown) [facility] (no value) (units unknown) (unknown) Result panel 58 (unknown) (no date) (unknown) [facility] (no value) (units unknown) (unknown) Result panel 59 (unknown) (no date) (unknown) [facility] (no value) (units unknown) (unknown) Result panel 60 (unknown) (no date) (unknown) [facility] (no value) (units unknown) (unknown) Result panel 61 (unknown) (no date) (unknown) [facility] (no value) (units unknown) (unknown) Result panel 62 (unknown) (no date) (unknown) [facility] (no value) (units unknown) (unknown) Result panel 63 (unknown) (no date) (unknown) [facility] (no value) (units unknown) (unknown) Result panel 64 (unknown) (no date) (unknown) [facility] (no value) (units unknown) (unknown) Result panel 65 (unknown) (no date) (unknown) [facility] (no value) (units unknown) (unknown) Result panel 66 (unknown) (no date) (unknown) [facility] (no value) (units unknown) (unknown) Result panel 67 (unknown) (no date) (unknown) [facility] (no value) (units unknown) (unknown) Result panel 68 (unknown) (no date) (unknown) [facility] (no value) (units unknown) (unknown) Result panel 69 (unknown) (no date) (unknown) [facility] (no value) (units unknown) (unknown) Result panel 70 (unknown) (no date) (unknown) [facility] (no value) (units unknown) (unknown) Result panel 71 (unknown) (no date) (unknown) [facility] (no value) (units unknown) (unknown) Result panel 72 (unknown) (no date) (unknown) [facility] (no value) (units unknown) (unknown) Result panel 73 (unknown) (no date) (unknown) [facility] (no value) (units unknown) (unknown) Result panel 74 (unknown) (no date) (unknown) [facility] (no value) (units unknown) (unknown) Result panel 75 (unknown) (no date) (unknown) [facility] (no value) (units unknown) (unknown) Result panel 76 (unknown) (no date) (unknown) [facility] (no value) (units unknown) (unknown) Result panel 77 (unknown) (no date) (unknown) [facility] (no value) (units unknown) (unknown) Result panel 78 (unknown) (no date) (unknown) [facility] (no value) (units unknown) (unknown) Result panel 79 (unknown) (no date) (unknown) [facility] (no value) (units unknown) (unknown) Result panel 80 (unknown) (no date) (unknown) [facility] (no value) (units unknown) (unknown) Result panel 81 (unknown) (no date) (unknown) [facility] (no value) (units unknown) (unknown) Result panel 82 (unknown) (no date) (unknown) [facility] (no value) (units unknown) (unknown) Result panel 83 (unknown) (no date) (unknown) [facility] (no value) (units unknown) (unknown) Result panel 84 (unknown) (no date) (unknown) [facility] (no value) (units unknown) (unknown) Result panel 85 (unknown) (no date) (unknown) [facility] (no value) (units unknown) (unknown) Result panel 86 (unknown) (no date) (unknown) [facility] (no value) (units unknown) (unknown) Result panel 87 (unknown) (no date) (unknown) [facility] (no value) (units unknown) (unknown) Result panel 88 (unknown) (no date) (unknown) [facility] (no value) (units unknown) (unknown) Result panel 89 (unknown) (no date) (unknown) [facility] (no value) (units unknown) (unknown) Result panel 90 (unknown) (no date) (unknown) [facility] (no value) (units unknown) (unknown) Result panel 91 (unknown) (no date) (unknown) [facility] (no value) (units unknown) (unknown) Result panel 92 (unknown) (no date) (unknown) [facility] (no value) (units unknown) (unknown) Result panel 93 (unknown) (no date) (unknown) [facility] (no value) (units unknown) (unknown) Result panel 94 (unknown) (no date) (unknown) [facility] (no value) (units unknown) (unknown) Result panel 95 (unknown) (no date) (unknown) [facility] (no value) (units unknown) (unknown) Result panel 96 (unknown) (no date) (unknown) [facility] (no value) (units unknown) (unknown) Result panel 97 (unknown) (no date) (unknown) [facility] (no value) (units unknown) (unknown) Result panel 98 (unknown) (no date) (unknown) [facility] (no value) (units unknown) (unknown) Result panel 99 (unknown) (no date) (unknown) [facility] (no value) (units unknown) (unknown) Result panel 100 (unknown) (no date) (unknown) [facility] (no value) (units unknown) (unknown) Result panel 101 (unknown) (no date) (unknown) [facility] (no value) (units unknown) (unknown) Result panel 102 (unknown) (no date) (unknown) [facility] (no value) (units unknown) (unknown) Result panel 103 (unknown) (no date) (unknown) [facility] (no value) (units unknown) (unknown) Result panel 104 (unknown) (no date) (unknown) [facility] (no value) (units unknown) (unknown) Result panel 105 (unknown) (no date) (unknown) [facility] (no value) (units unknown) (unknown) Result panel 106 (unknown) (no date) (unknown) [facility] (no value) (units unknown) (unknown) Result panel 107 (unknown) (no date) (unknown) [facility] (no value) (units unknown) (unknown) Result panel 108 (unknown) (no date) (unknown) [facility] (no value) (units unknown) (unknown) Result panel 109 (unknown) (no date) (unknown) [facility] (no value) (units unknown) (unknown) Result panel 110 (unknown) (no date) (unknown) [facility] (no value) (units unknown) (unknown) Result panel 111 (unknown) (no date) (unknown) [facility] (no value) (units unknown) (unknown) Result panel 112 (unknown) (no date) (unknown) [facility] (no value) (units unknown) (unknown) Result panel 113 (unknown) (no date) (unknown) [facility] (no value) (units unknown) (unknown) Result panel 114 (unknown) (no date) (unknown) [facility] (no value) (units unknown) (unknown) Result panel 115 (unknown) (no date) (unknown) [facility] (no value) (units unknown) (unknown) Result panel 116 (unknown) (no date) (unknown) [facility] (no value) (units unknown) (unknown) Result panel 117 (unknown) (no date) (unknown) [facility] (no value) (units unknown) (unknown) Result panel 118 (unknown) (no date) (unknown) [facility] (no value) (units unknown) (unknown) Result panel 119 (unknown) (no date) (unknown) [facility] (no value) (units unknown) (unknown) Result panel 120 (unknown) (no date) (unknown) [facility] (no value) (units unknown) (unknown) Result panel 121 (unknown) (no date) (unknown) [facility] (no value) (units unknown) (unknown) Result panel 122 (unknown) (no date) (unknown) [facility] (no value) (units unknown) (unknown) Result panel 123 (unknown) (no date) (unknown) [facility] (no value) (units unknown) (unknown) Result panel 124 (unknown) (no date) (unknown) [facility] (no value) (units unknown) (unknown) Result panel 125 (unknown) (no date) (unknown) [facility] (no value) (units unknown) (unknown) Result panel 126 (unknown) (no date) (unknown) [facility] (no value) (units unknown) (unknown) Result panel 127 (unknown) (no date) (unknown) [facility] (no value) (units unknown) (unknown) Result panel 128 (unknown) (no date) (unknown) [facility] (no value) (units unknown) (unknown) Result panel 129 (unknown) (no date) (unknown) [facility] (no value) (units unknown) (unknown) Result panel 130 (unknown) (no date) (unknown) [facility] (no value) (units unknown) (unknown) Result panel 131 (unknown) (no date) (unknown) [facility] (no value) (units unknown) (unknown) Result panel 132 (unknown) (no date) (unknown) [facility] (no value) (units unknown) (unknown) Result panel 133 (unknown) (no date) (unknown) [facility] (no value) (units unknown) (unknown) Result panel 134 (unknown) (no date) (unknown) [facility] (no value) (units unknown) (unknown) Result panel 135 (unknown) (no date) (unknown) [facility] (no value) (units unknown) (unknown) Result panel 136 (unknown) (no date) (unknown) [facility] (no value) (units unknown) (unknown) Result panel 137 (unknown) (no date) (unknown) [facility] (no value) (units unknown) (unknown) Result panel 138 (unknown) (no date) (unknown) [facility] (no value) (units unknown) (unknown) Result panel 139 (unknown) (no date) (unknown) [facility] (no value) (units unknown) (unknown) Result panel 140 (unknown) (no date) (unknown) [facility] (no value) (units unknown) (unknown) Result panel 141 (unknown) (no date) (unknown) [facility] (no value) (units unknown) (unknown) Result panel 142 (unknown) (no date) (unknown) [facility] (no value) (units unknown) (unknown) Result panel 143 (unknown) (no date) (unknown) [facility] (no value) (units unknown) (unknown) Result panel 144 (unknown) (no date) (unknown) [facility] (no value) (units unknown) (unknown) Result panel 145 (unknown) (no date) (unknown) [facility] (no value) (units unknown) (unknown) Result panel 146 (unknown) (no date) (unknown) [facility] (no value) (units unknown) (unknown) Result panel 147 (unknown) (no date) (unknown) [facility] (no value) (units unknown) (unknown) Result panel 148 (unknown) (no date) (unknown) [facility] (no value) (units unknown) (unknown) Result panel 149 (unknown) (no date) (unknown) [facility] (no value) (units unknown) (unknown) Result panel 150 (unknown) (no date) (unknown) [facility] (no value) (units unknown) (unknown) Result panel 151 (unknown) (no date) (unknown) [facility] (no value) (units unknown) (unknown) Result panel 152 (unknown) (no date) (unknown) [facility] (no value) (units unknown) (unknown) Result panel 153 (unknown) (no date) (unknown) [facility] (no value) (units unknown) (unknown) Result panel 154 (unknown) (no date) (unknown) [facility] (no value) (units unknown) (unknown) Result panel 155 (unknown) (no date) (unknown) [facility] (no value) (units unknown) (unknown) Result panel 156 (unknown) (no date) (unknown) [facility] (no value) (units unknown) (unknown) Result panel 157 (unknown) (no date) (unknown) [facility] (no value) (units unknown) (unknown) Result panel 158 (unknown) (no date) (unknown) [facility] (no value) (units unknown) (unknown) Result panel 159 (unknown) (no date) (unknown) [facility] (no value) (units unknown) (unknown) Result panel 160 (unknown) (no date) (unknown) [facility] (no value) (units unknown) (unknown) Result panel 161 (unknown) (no date) (unknown) [facility] (no value) (units unknown) (unknown) Result panel 162 (unknown) (no date) (unknown) [facility] (no value) (units unknown) (unknown) Result panel 163 (unknown) (no date) (unknown) [facility] (no value) (units unknown) (unknown) Result panel 164 (unknown) (no date) (unknown) [facility] (no value) (units unknown) (unknown) Result panel 165 (unknown) (no date) (unknown) [facility] (no value) (units unknown) (unknown) Result panel 166 (unknown) (no date) (unknown) [facility] (no value) (units unknown) (unknown) Result panel 167 (unknown) (no date) (unknown) [facility] (no value) (units unknown) (unknown) Result panel 168 (unknown) (no date) (unknown) [facility] (no value) (units unknown) (unknown) Result panel 169 (unknown) (no date) (unknown) [facility] (no value) (units unknown) (unknown) Result panel 170 (unknown) (no date) (unknown) [facility] (no value) (units unknown) (unknown) Result panel 171 (unknown) (no date) (unknown) [facility] (no value) (units unknown) (unknown) Result panel 172 (unknown) (no date) (unknown) [facility] (no value) (units unknown) (unknown) Result panel 173 (unknown) (no date) (unknown) [facility] (no value) (units unknown) (unknown) Result panel 174 (unknown) (no date) (unknown) [facility] (no value) (units unknown) (unknown) Result panel 175 (unknown) (no date) (unknown) [facility] (no value) (units unknown) (unknown) Result panel 176 (unknown) (no date) (unknown) [facility] (no value) (units unknown) (unknown) Result panel 177 (unknown) (no date) (unknown) [facility] (no value) (units unknown) (unknown) Result panel 178 (unknown) (no date) (unknown) [facility] (no value) (units unknown) (unknown) Result panel 179 (unknown) (no date) (unknown) [facility] (no value) (units unknown) (unknown) Result panel 180 (unknown) (no date) (unknown) [facility] (no value) (units unknown) (unknown) Result panel 181 (unknown) (no date) (unknown) [facility] (no value) (units unknown) (unknown) Result panel 182 (unknown) (no date) (unknown) [facility] (no value) (units unknown) (unknown) Result panel 183 (unknown) (no date) (unknown) [facility] (no value) (units unknown) (unknown) Result panel 184 (unknown) (no date) (unknown) [facility] (no value) (units unknown) (unknown) Result panel 185 (unknown) (no date) (unknown) [facility] (no value) (units unknown) (unknown) Result panel 186 (unknown) (no date) (unknown) [facility] (no value) (units unknown) (unknown) Result panel 187 (unknown) (no date) (unknown) [facility] (no value) (units unknown) (unknown) Result panel 188 (unknown) (no date) (unknown) [facility] (no value) (units unknown) (unknown) Result panel 189 (unknown) (no date) (unknown) [facility] (no value) (units unknown) (unknown) Result panel 190 (unknown) (no date) (unknown) [facility] (no value) (units unknown) (unknown) Result panel 191 (unknown) (no date) (unknown) [facility] (no value) (units unknown) (unknown) Result panel 192 (unknown) (no date) (unknown) [facility] (no value) (units unknown) (unknown) Result panel 193 (unknown) (no date) (unknown) [facility] (no value) (units unknown) (unknown) Result panel 194 (unknown) (no date) (unknown) [facility] (no value) (units unknown) (unknown) Result panel 195 (unknown) (no date) (unknown) [facility] (no value) (units unknown) (unknown) Result panel 196 (unknown) (no date) (unknown) [facility] (no value) (units unknown) (unknown) Result panel 197 (unknown) (no date) (unknown) [facility] (no value) (units unknown) (unknown) Result panel 198 (unknown) (no date) (unknown) [facility] (no value) (units unknown) (unknown) Result panel 199 (unknown) (no date) (unknown) (unknown) 0 /ul (unknown ) (unknown) (no date) (unknown) (unknown) 0.6 % (unknown ) (unknown) (no date) (unknown) (unknown) 100 /ul (unknown ) (unknown) (no date) (unknown) (unknown) 150 x10 3/ul (unknow n) (unknown) (no date) (unknown) (unknown) 16.0 % (unknown ) (unknown) (no date) (unknown) (unknown) 2.6 % (unknown ) (unknown) (no date) (unknown) (unknown) 26.6 % (unknown ) (unknown) (no date) (unknown) (unknown) 27.8 pg (unknown ) (unknown) (no date) (unknown) (unknown) 28.8 % (unknown ) (unknown) (no date) (unknown) (unknown) 3.49 x10 6/ul (unknow n) (unknown) (no date) (unknown) (unknown) 33.7 % (unknown ) (unknown) (no date) (unknown) (unknown) 3500 /ul (unknown ) (unknown) (no date) (unknown) (unknown) 4.9 x10 3/ul (unknow n) (unknown) (no date) (unknown) (unknown) 400 /ul (unknown ) (unknown) (no date) (unknown) (unknown) 72.4 % (unknown ) (unknown) (no date) (unknown) (unknown) 8.4 % (unknown ) (unknown) (no date) (unknown) (unknown) 800 /ul (unknown ) (unknown) (no date) (unknown) (unknown) 82.5 fl (unknown ) (unknown) (no date) (unknown) (unknown) 9.7 g/dl (unknown ) Result panel 200 (unknown) (no date) (unknown) (unknown) 0 /ul (unknown ) (unknown) (no date) (unknown) (unknown) 0.6 % (unknown ) (unknown) (no date) (unknown) (unknown) 1 (units unknown) (unknown) (unknown) (no date) (unknown) (unknown) 100 /ul (unknown ) (unknown) (no date) (unknown) (unknown) 150 x10 3/ul (unknow n) (unknown) (no date) (unknown) (unknown) 16.0 % (unknown ) (unknown) (no date) (unknown) (unknown) 2 (units unknown) (unknown) (unknown) (no date) (unknown) (unknown) 2.6 % (unknown ) (unknown) (no date) (unknown) (unknown) 26.6 % (unknown ) (unknown) (no date) (unknown) (unknown) 27.8 pg (unknown ) (unknown) (no date) (unknown) (unknown) 28.8 % (unknown ) (unknown) (no date) (unknown) (unknown) 3.49 x10 6/ul (unknow n) (unknown) (no date) (unknown) (unknown) 33.7 % (unknown ) (unknown) (no date) (unknown) (unknown) 3500 /ul (unknown ) (unknown) (no date) (unknown) (unknown) 4.9 x10 3/ul (unknow n) (unknown) (no date) (unknown) (unknown) 400 /ul (unknown ) (unknown) (no date) (unknown) (unknown) 72.4 % (unknown ) (unknown) (no date) (unknown) (unknown) 8.4 % (unknown ) (unknown) (no date) (unknown) (unknown) 800 /ul (unknown ) (unknown) (no date) (unknown) (unknown) 82.5 fl (unknown ) (unknown) (no date) (unknown) (unknown) 9.7 g/dl (unknown ) (unknown) (no date) (unknown) (unknown) See Below (units unknown) (unknown) Result panel 201 (unknown) (no date) (unknown) (unknown) > 60 ml/min (unknown ) (unknown) (no date) (unknown) (unknown) > 60 ml/min (unknown ) (unknown) (no date) (unknown) (unknown) 0.50 mg/dl (unknown ) (unknown) (no date) (unknown) (unknown) 1.8 mg/dl (unknown ) (unknown) (no date) (unknown) (unknown) 10.0 (units unknown) (unknown) (unknown) (no date) (unknown) (unknown) 104 mmol/l (unknown ) (unknown) (no date) (unknown) (unknown) 135 mmol/l (unknown ) (unknown) (no date) (unknown) (unknown) 26 mmol/l (unknown ) (unknown) (no date) (unknown) (unknown) 3.5 mmol/l (unknown ) (unknown) (no date) (unknown) (unknown) 5 mg/dl (unknown ) (unknown) (no date) (unknown) (unknown) 7.5 mg/dl (unknown ) (unknown) (no date) (unknown) (unknown) 83 mg/dl (unknown ) (unknown) (no date) (unknown) (unknown) 83 mg/dl (unknown ) Result panel 202 (unknown) (no date) (unknown) (unknown) (no value) (units unknown) (unknown) (unknown) (no date) (unknown) (unknown) [id number] (units unknown) (unknown) (unknown) (no date) (unknown) (unknown) 12/09/22 (units unknown) (unknown) (unknown) (no date) (unknown) (unknown) [address] [place] [address] (un its unknown) (unknown) (unknown) (no date) (unknown) (unknown) Accession Numb er: [id number] (units unknown) (unknown) (unknown) (no date) (unknown) (unknown) Age/Sex: 87 / F Date of Service: (units unknown) (unknown) (unknown) (no date) (unknown) (unknown) YULIA Mccoy [id number] (units unknown) (unknown) (unknown) (no date) (unknown) (unknown) Approved by: Spencer Sierra M.D. on 12/09/2022 at 13:11 (units unknown) (unknown) (unknown) (no date) (unknown) (unknown) Bones and ches t wall: No suspicious bony lesions. Overlying soft tissues (units unknown) (unknown) (unknown) (no date) (unknown) (unknown) COMPARISON: [facility], CR, XR CHEST 1V, 11/15/2021, 12:44. (units unknown) (unknown) (unknown) (no date) (unknown) (unknown) : 4 Acct:[id number] (units unknown) (unknown) (unknown) (no date) (unknown) (unknown) Dictated by: Spencer Sierra M.D. on 12/09/2022 at 13:11 (units unknown) (unknown) (unknown) (no date) (unknown) (unknown) FINDINGS: (units unknown) (unknown) (unknown) (no date) (unknown) (unknown) IMPRESSION: Bibasilar atelectasis versus pneumonia. (units unknown) (unknown) (unknown) (no date) (unknown) (unknown) INDICATIONS: N G tube placement. (units unknown) (unknown) (unknown) (no date) (unknown) (unknown) [facility] (uni ts unknown) (unknown) (unknown) (no date) (unknown) (unknown) Loc: AC 211-1 (units unknown) (unknown) (unknown) (no date) (unknown) (unknown) Lungs and pleu ra: There is mild bibasilar airspace opacity. No pleural (units unknown) (unknown) (unknown) (no date) (unknown) (unknown) Mediastinum: Mediastinal contours appear normal. Heart size is normal. (units unknown) (unknown) (unknown) (no date) (unknown) (unknown) Ordering Provi lionel: Presley Oliver MD (units unknown) (unknown) (unknown) (no date) (unknown) (unknown) PROCEDURE: XR CHEST 1V (units unknown) (unknown) (unknown) (no date) (unknown) (unknown) Patient: Patricia Castañeda MR#: [id number] (units unknown) (unknown) (unknown) (no date) (unknown) (unknown) Procedure: XR chest 1V (units unknown) (unknown) (unknown) (no date) (unknown) (unknown) Signed (units unknown) (unknown) (unknown) (no date) (unknown) (unknown) Surgical campos es and devices: NGT is present, tip of which is in the gastric (units unknown) (unknown) (unknown) (no date) (unknown) (unknown) TECHNIQUE: One view of the chest was acquired. (units unknown) (unknown) (unknown) (no date) (unknown) (unknown) XRay Report (units unknown) (unknown) (unknown) (no date) (unknown) (unknown) appear (units unknown) (unknown) (unknown) (no date) (unknown) (unknown) effusions or (units unknown) (unknown) (unknown) (no date) (unknown) (unknown) lumen. (units unknown) (unknown) (unknown) (no date) (unknown) (unknown) pneumothorax. (units unknown) (unknown) (unknown) (no date) (unknown) (unknown) unremarkable. (units unknown) (unknown) Result panel 203 (unknown) (no date) (unknown) (unknown) (no value) (units unknown) (unknown) (unknown) (no date) (unknown) (unknown) (past 8 hours): (uni ts unknown) (unknown) (unknown) (no date) (unknown) (unknown) 12/09/22 12/09/22 (u nits unknown) (unknown) (unknown) (no date) (unknown) (unknown) 12/09/22 05:44 (unit s unknown) (unknown) (unknown) (no date) (unknown) (unknown) 12/09/22 (units unknown) (unknown) (unknown) (no date) (unknown) (unknown) 05:44 05:44 (units unknown) (unknown) (unknown) (no date) (unknown) (unknown) 09:00 12/09/22 (unit s unknown) (unknown) (unknown) (no date) (unknown) (unknown) 09:27 12/09/22 (unit s unknown) (unknown) (unknown) (no date) (unknown) (unknown) 13:00 (units unknown) (unknown) (unknown) (no date) (unknown) (unknown) [id number] (units unknown) (unknown) (unknown) (no date) (unknown) (unknown) 87-year-old wo man 1 week status post laparoscopic assisted right hemicolectomy (units unknown) (unknown) (unknown) (no date) (unknown) (unknown) Age/Sex: 87 / F (uni ts unknown) (unknown) (unknown) (no date) (unknown) (unknown) Anisocytosis 2+ H (u nits unknown) (unknown) (unknown) (no date) (unknown) (unknown) Assessment + Plan (u nits unknown) (unknown) (unknown) (no date) (unknown) (unknown) BUN 5 L (units unknown) (unknown) (unknown) (no date) (unknown) (unknown) BUN/Creatinine Ratio 10.0 (units unknown) (unknown) (unknown) (no date) (unknown) (unknown) Back pain (units unknown) (unknown) (unknown) (no date) (unknown) (unknown) Baso # (Auto) 0 (uni ts unknown) (unknown) (unknown) (no date) (unknown) (unknown) Baso % (Auto) 0.6 (u nits unknown) (unknown) (unknown) (no date) (unknown) (unknown) Blood Pressure 152/71 H (units unknown) (unknown) (unknown) (no date) (unknown) (unknown) Blood Pressure 158/67 H (units unknown) (unknown) (unknown) (no date) (unknown) (unknown) Calcium 7.5 L (units unknown) (unknown) (unknown) (no date) (unknown) (unknown) Carbon Dioxide 26 (u nits unknown) (unknown) (unknown) (no date) (unknown) (unknown) Cataract (units unknown) (unknown) (unknown) (no date) (unknown) (unknown) Chloride 104 (units unknown) (unknown) (unknown) (no date) (unknown) (unknown) Creatinine 0.50 L (u nits unknown) (unknown) (unknown) (no date) (unknown) (unknown) Critical Care time: (units unknown) (unknown) (unknown) (no date) (unknown) (unknown) : 4 Acct:[id number] (units unknown) (unknown) (unknown) (no date) (unknown) (unknown) Date Patient S een: 12/09/22 (units unknown) (unknown) (unknown) (no date) (unknown) (unknown) Date of Servic e: 12/07/22 (units unknown) (unknown) (unknown) (no date) (unknown) (unknown) Deep Vein Thrombosis/Pulmonar y Embolism Present on Admission: No (units unknown) (unknown) (unknown) (no date) (unknown) (unknown) Eos # (Auto) 100 (un its unknown) (unknown) (unknown) (no date) (unknown) (unknown) Eos % (Auto) 2.6 (un its unknown) (unknown) (unknown) (no date) (unknown) (unknown) Estimated GFR > 60 ( units unknown) (unknown) (unknown) (no date) (unknown) (unknown) Exam (units unknown) (unknown) (unknown) (no date) (unknown) (unknown) Family History (units unknown) (unknown) (unknown) (no date) (unknown) (unknown) Father d Pedestrian crushed by rolling stock (units unknown) (unknown) (unknown) (no date) (unknown) (unknown) Finger amputat ion, traumatic (units unknown) (unknown) (unknown) (no date) (unknown) (unknown) Glucose 83 (units unknown) (unknown) (unknown) (no date) (unknown) (unknown) H/O prior abla tion treatment (units unknown) (unknown) (unknown) (no date) (unknown) (unknown) Hct 28.8 L (units unknown) (unknown) (unknown) (no date) (unknown) (unknown) Hgb 9.7 L (units unknown) (unknown) (unknown) (no date) (unknown) (unknown) History of appendectomy (units unknown) (unknown) (unknown) (no date) (unknown) (unknown) History of radiofrequency ablation procedure for cardiac arrhythmia (units unknown) (unknown) (unknown) (no date) (unknown) (unknown) Hx of bilatera l cataract extraction (units unknown) (unknown) (unknown) (no date) (unknown) (unknown) Hyperlipemia (units unknown) (unknown) (unknown) (no date) (unknown) (unknown) Hypertension (units unknown) (unknown) (unknown) (no date) (unknown) (unknown) I spent a tota l of [] minutes of critical care time on this patient's care (units unknown) (unknown) (unknown) (no date) (unknown) (unknown) Interval history: (u nits unknown) (unknown) (unknown) (no date) (unknown) (unknown) [facility] [address] [place] [id number] (units unknown) (unknown) (unknown) (no date) (unknown) (unknown) Laboratory Res ults - last 24 hr (units unknown) (unknown) (unknown) (no date) (unknown) (unknown) Labs (units unknown) (unknown) (unknown) (no date) (unknown) (unknown) Labs: (units unknown) (unknown) (unknown) (no date) (unknown) (unknown) Lymph # (Auto) 800 L (units unknown) (unknown) (unknown) (no date) (unknown) (unknown) Lymph % (Auto) 16.0 L (units unknown) (unknown) (unknown) (no date) (unknown) (unknown) MCH 27.8 (units unknown) (unknown) (unknown) (no date) (unknown) (unknown) MCHC 33.7 (units unknown) (unknown) (unknown) (no date) (unknown) (unknown) MCV 82.5 (units unknown) (unknown) (unknown) (no date) (unknown) (unknown) Magnesium 1.8 (units unknown) (unknown) (unknown) (no date) (unknown) (unknown) Medical Histor y (units unknown) (unknown) (unknown) (no date) (unknown) (unknown) Ferry # (Auto) 400 (u nits unknown) (unknown) (unknown) (no date) (unknown) (unknown) Ferry % (Auto) 8.4 (u nits unknown) (unknown) (unknown) (no date) (unknown) (unknown) Mother d Old age (units unknown) (unknown) (unknown) (no date) (unknown) (unknown) Neut # (Auto) 3500 ( units unknown) (unknown) (unknown) (no date) (unknown) (unknown) Neut % (Auto) 72.4 ( units unknown) (unknown) (unknown) (no date) (unknown) (unknown) Objective (units unknown) (unknown) (unknown) (no date) (unknown) (unknown) Ovalocytes 1+ H (uni ts unknown) (unknown) (unknown) (no date) (unknown) (unknown) Oxygen Deliver y Method Room Air Room Air (units unknown) (unknown) (unknown) (no date) (unknown) (unknown) Oxygen Deliver y Method Room Air (units unknown) (unknown) (unknown) (no date) (unknown) (unknown) Oxygen Deliver y Method (units unknown) (unknown) (unknown) (no date) (unknown) (unknown) Oxygen Flow Rate 0 ( units unknown) (unknown) (unknown) (no date) (unknown) (unknown) PFSH (units unknown) (unknown) (unknown) (no date) (unknown) (unknown) PVC's (prematu re ventricular contractions) (units unknown) (unknown) (unknown) (no date) (unknown) (unknown) Patient: Patricia Castañeda MR#: [id number] (units unknown) (unknown) (unknown) (no date) (unknown) (unknown) Plt Count 150 (units unknown) (unknown) (unknown) (no date) (unknown) (unknown) Poikilocytosis 1+ H (units unknown) (unknown) (unknown) (no date) (unknown) (unknown) Potassium 3.5 (units unknown) (unknown) (unknown) (no date) (unknown) (unknown) Progress Note (units unknown) (unknown) (unknown) (no date) (unknown) (unknown) Provider: Presley Oliver MD (units unknown) (unknown) (unknown) (no date) (unknown) (unknown) Pulse Oximetry 96 (u nits unknown) (unknown) (unknown) (no date) (unknown) (unknown) Pulse Rate 76 (units unknown) (unknown) (unknown) (no date) (unknown) (unknown) Pulse Rate 97 H (uni ts unknown) (unknown) (unknown) (no date) (unknown) (unknown) Quality (units unknown) (unknown) (unknown) (no date) (unknown) (unknown) RBC 3.49 L (units unknown) (unknown) (unknown) (no date) (unknown) (unknown) RBC Morphology See below (units unknown) (unknown) (unknown) (no date) (unknown) (unknown) RDW 26.6 H (units unknown) (unknown) (unknown) (no date) (unknown) (unknown) Respiratory Rate 16 (units unknown) (unknown) (unknown) (no date) (unknown) (unknown) Respiratory Rate 18 (units unknown) (unknown) (unknown) (no date) (unknown) (unknown) Signed By: (units unknown) (unknown) (unknown) (no date) (unknown) (unknown) Smoking Status : Former smoker (units unknown) (unknown) (unknown) (no date) (unknown) (unknown) Social History (units unknown) (unknown) (unknown) (no date) (unknown) (unknown) Sodium 135 L (units unknown) (unknown) (unknown) (no date) (unknown) (unknown) Subjective (units unknown) (unknown) (unknown) (no date) (unknown) (unknown) Surgical Histo ry (units unknown) (unknown) (unknown) (no date) (unknown) (unknown) TIA (transient ischemic attack) (units unknown) (unknown) (unknown) (no date) (unknown) (unknown) Temperature 98.7 F ( units unknown) (unknown) (unknown) (no date) (unknown) (unknown) Temperature 98.8 F ( units unknown) (unknown) (unknown) (no date) (unknown) (unknown) Time Patient S een: 14:54 (units unknown) (unknown) (unknown) (no date) (unknown) (unknown) Time Spent Wit h Patient (units unknown) (unknown) (unknown) (no date) (unknown) (unknown) VTE (units unknown) (unknown) (unknown) (no date) (unknown) (unknown) Vital Signs (units unknown) (unknown) (unknown) (no date) (unknown) (unknown) WBC 4.9 (units unknown) (unknown) (unknown) (no date) (unknown) (unknown) [Embedded Imag e Not Available] (units unknown) (unknown) (unknown) (no date) (unknown) (unknown) alcohol intake : current (units unknown) (unknown) (unknown) (no date) (unknown) (unknown) colon cancer. She is readmitted with a postoperative ileus. She continues to (units unknown) (unknown) (unknown) (no date) (unknown) (unknown) have significa nt abdominal pain despite having some bowel function and is not (units unknown) (unknown) (unknown) (no date) (unknown) (unknown) household memb ers: spouse (units unknown) (unknown) (unknown) (no date) (unknown) (unknown) lives independently: Yes (units unknown) (unknown) (unknown) (no date) (unknown) (unknown) marital status : (units unknown) (unknown) (unknown) (no date) (unknown) (unknown) substance use type: does not use (units unknown) (unknown) (unknown) (no date) (unknown) (unknown) today; this ti me is exclusive of procedural time. (units unknown) (unknown) (unknown) (no date) (unknown) (unknown) tolerating rigoberto ar liquids. (units unknown) (unknown) Result panel 204 (unknown) (no date) (unknown) (unknown) (no value) (units unknown) (unknown) (unknown) (no date) (unknown) (unknown) (1) Ileus, postoperative: (units unknown) (unknown) (unknown) (no date) (unknown) (unknown) (past 8 hours): (uni ts unknown) (unknown) (unknown) (no date) (unknown) (unknown) -NPO until abdominal bloating improves (units unknown) (unknown) (unknown) (no date) (unknown) (unknown) -await complet e return of bowel function (units unknown) (unknown) (unknown) (no date) (unknown) (unknown) -nasogastric t ube and IV fluids (units unknown) (unknown) (unknown) (no date) (unknown) (unknown) -okay for sips of clears and ice chips. (units unknown) (unknown) (unknown) (no date) (unknown) (unknown) -trial of Regl an to improve motility (units unknown) (unknown) (unknown) (no date) (unknown) (unknown) 12/09/22 12/09/22 (u nits unknown) (unknown) (unknown) (no date) (unknown) (unknown) 12/09/22 05:44 (unit s unknown) (unknown) (unknown) (no date) (unknown) (unknown) 12/09/22 1505 (units unknown) (unknown) (unknown) (no date) (unknown) (unknown) 12/09/22 (units unknown) (unknown) (unknown) (no date) (unknown) (unknown) 05:44 05:44 (units unknown) (unknown) (unknown) (no date) (unknown) (unknown) 09:00 12/09/22 (unit s unknown) (unknown) (unknown) (no date) (unknown) (unknown) 09:27 12/09/22 (unit s unknown) (unknown) (unknown) (no date) (unknown) (unknown) 13:00 (units unknown) (unknown) (unknown) (no date) (unknown) (unknown) [id number] (units unknown) (unknown) (unknown) (no date) (unknown) (unknown) 87-year-old wo man 1 week status post laparoscopic assisted right hemicolectomy (units unknown) (unknown) (unknown) (no date) (unknown) (unknown) 87-year-old wo man status post recent laparoscopic right hemicolectomy with (units unknown) (unknown) (unknown) (no date) (unknown) (unknown) Abdomen disten ded no peritonitis (units unknown) (unknown) (unknown) (no date) (unknown) (unknown) Age/Sex: 87 / F (uni ts unknown) (unknown) (unknown) (no date) (unknown) (unknown) Anisocytosis 2+ H (u nits unknown) (unknown) (unknown) (no date) (unknown) (unknown) Assessment + P ana narrative: (units unknown) (unknown) (unknown) (no date) (unknown) (unknown) Assessment + Plan (u nits unknown) (unknown) (unknown) (no date) (unknown) (unknown) Assessment and plan (units unknown) (unknown) (unknown) (no date) (unknown) (unknown) BUN 5 L (units unknown) (unknown) (unknown) (no date) (unknown) (unknown) BUN/Creatinine Ratio 10.0 (units unknown) (unknown) (unknown) (no date) (unknown) (unknown) Back pain (units unknown) (unknown) (unknown) (no date) (unknown) (unknown) Baso # (Auto) 0 (uni ts unknown) (unknown) (unknown) (no date) (unknown) (unknown) Baso % (Auto) 0.6 (u nits unknown) (unknown) (unknown) (no date) (unknown) (unknown) Blood Pressure 152/71 H (units unknown) (unknown) (unknown) (no date) (unknown) (unknown) Blood Pressure 158/67 H (units unknown) (unknown) (unknown) (no date) (unknown) (unknown) Calcium 7.5 L (units unknown) (unknown) (unknown) (no date) (unknown) (unknown) Carbon Dioxide 26 (u nits unknown) (unknown) (unknown) (no date) (unknown) (unknown) Cataract (units unknown) (unknown) (unknown) (no date) (unknown) (unknown) Chloride 104 (units unknown) (unknown) (unknown) (no date) (unknown) (unknown) Creatinine 0.50 L (u nits unknown) (unknown) (unknown) (no date) (unknown) (unknown) Critical Care time: (units unknown) (unknown) (unknown) (no date) (unknown) (unknown) : 4 Acct:[id number] (units unknown) (unknown) (unknown) (no date) (unknown) (unknown) Date Patient S een: 12/09/22 (units unknown) (unknown) (unknown) (no date) (unknown) (unknown) Date of Servic e: 12/07/22 (units unknown) (unknown) (unknown) (no date) (unknown) (unknown) Deep Vein Thrombosis/Pulmonar y Embolism Present on Admission: No (units unknown) (unknown) (unknown) (no date) (unknown) (unknown) Eos # (Auto) 100 (un its unknown) (unknown) (unknown) (no date) (unknown) (unknown) Eos % (Auto) 2.6 (un its unknown) (unknown) (unknown) (no date) (unknown) (unknown) Estimated GFR > 60 ( units unknown) (unknown) (unknown) (no date) (unknown) (unknown) Exam Narrative: (uni ts unknown) (unknown) (unknown) (no date) (unknown) (unknown) Exam (units unknown) (unknown) (unknown) (no date) (unknown) (unknown) Family History (units unknown) (unknown) (unknown) (no date) (unknown) (unknown) Father d Pedestrian crushed by rolling stock (units unknown) (unknown) (unknown) (no date) (unknown) (unknown) Finger amputat ion, traumatic (units unknown) (unknown) (unknown) (no date) (unknown) (unknown) General elderl y woman alert oriented no acute distress (units unknown) (unknown) (unknown) (no date) (unknown) (unknown) Glucose 83 (units unknown) (unknown) (unknown) (no date) (unknown) (unknown) H/O prior abla tion treatment (units unknown) (unknown) (unknown) (no date) (unknown) (unknown) Hct 28.8 L (units unknown) (unknown) (unknown) (no date) (unknown) (unknown) Hgb 9.7 L (units unknown) (unknown) (unknown) (no date) (unknown) (unknown) History of appendectomy (units unknown) (unknown) (unknown) (no date) (unknown) (unknown) History of radiofrequency ablation procedure for cardiac arrhythmia (units unknown) (unknown) (unknown) (no date) (unknown) (unknown) Hx of bilatera l cataract extraction (units unknown) (unknown) (unknown) (no date) (unknown) (unknown) Hyperlipemia (units unknown) (unknown) (unknown) (no date) (unknown) (unknown) Hypertension (units unknown) (unknown) (unknown) (no date) (unknown) (unknown) I spent a tota l of [] minutes of critical care time on this patient's care (units unknown) (unknown) (unknown) (no date) (unknown) (unknown) Interval history: (u nits unknown) (unknown) (unknown) (no date) (unknown) (unknown) [address] [address] (units unknown) (unknown) (unknown) (no date) (unknown) (unknown) Laboratory Res ults - last 24 hr (units unknown) (unknown) (unknown) (no date) (unknown) (unknown) Laboratory doris dies and CT abdomen pelvis personally reviewed. She is without (units unknown) (unknown) (unknown) (no date) (unknown) (unknown) Labs (units unknown) (unknown) (unknown) (no date) (unknown) (unknown) Labs: (units unknown) (unknown) (unknown) (no date) (unknown) (unknown) Lymph # (Auto) 800 L (units unknown) (unknown) (unknown) (no date) (unknown) (unknown) Lymph % (Auto) 16.0 L (units unknown) (unknown) (unknown) (no date) (unknown) (unknown) MCH 27.8 (units unknown) (unknown) (unknown) (no date) (unknown) (unknown) MCHC 33.7 (units unknown) (unknown) (unknown) (no date) (unknown) (unknown) MCV 82.5 (units unknown) (unknown) (unknown) (no date) (unknown) (unknown) Magnesium 1.8 (units unknown) (unknown) (unknown) (no date) (unknown) (unknown) Medical Histor y (units unknown) (unknown) (unknown) (no date) (unknown) (unknown) Ferry # (Auto) 400 (u nits unknown) (unknown) (unknown) (no date) (unknown) (unknown) Ferry % (Auto) 8.4 (u nits unknown) (unknown) (unknown) (no date) (unknown) (unknown) Mother d Old age (units unknown) (unknown) (unknown) (no date) (unknown) (unknown) Narrative (units unknown) (unknown) (unknown) (no date) (unknown) (unknown) Neut # (Auto) 3500 ( units unknown) (unknown) (unknown) (no date) (unknown) (unknown) Neut % (Auto) 72.4 ( units unknown) (unknown) (unknown) (no date) (unknown) (unknown) Objective (units unknown) (unknown) (unknown) (no date) (unknown) (unknown) Out of bed and ambulate as able (units unknown) (unknown) (unknown) (no date) (unknown) (unknown) Ovalocytes 1+ H (uni ts unknown) (unknown) (unknown) (no date) (unknown) (unknown) Oxygen Deliver y Method Room Air Room Air (units unknown) (unknown) (unknown) (no date) (unknown) (unknown) Oxygen Deliver y Method Room Air (units unknown) (unknown) (unknown) (no date) (unknown) (unknown) Oxygen Deliver y Method (units unknown) (unknown) (unknown) (no date) (unknown) (unknown) Oxygen Flow Rate 0 ( units unknown) (unknown) (unknown) (no date) (unknown) (unknown) PFSH (units unknown) (unknown) (unknown) (no date) (unknown) (unknown) PVC's (prematu re ventricular contractions) (units unknown) (unknown) (unknown) (no date) (unknown) (unknown) Patient: Patricia Castañeda MR#: [id number] (units unknown) (unknown) (unknown) (no date) (unknown) (unknown) Plt Count 150 (units unknown) (unknown) (unknown) (no date) (unknown) (unknown) Poikilocytosis 1+ H (units unknown) (unknown) (unknown) (no date) (unknown) (unknown) Potassium 3.5 (units unknown) (unknown) (unknown) (no date) (unknown) (unknown) Problem details: (un its unknown) (unknown) (unknown) (no date) (unknown) (unknown) Progress Note (units unknown) (unknown) (unknown) (no date) (unknown) (unknown) Provider: Presley Oliver MD (units unknown) (unknown) (unknown) (no date) (unknown) (unknown) Pulse Oximetry 96 (u nits unknown) (unknown) (unknown) (no date) (unknown) (unknown) Pulse Rate 76 (units unknown) (unknown) (unknown) (no date) (unknown) (unknown) Pulse Rate 97 H (uni ts unknown) (unknown) (unknown) (no date) (unknown) (unknown) Quality (units unknown) (unknown) (unknown) (no date) (unknown) (unknown) RBC 3.49 L (units unknown) (unknown) (unknown) (no date) (unknown) (unknown) RBC Morphology See below (units unknown) (unknown) (unknown) (no date) (unknown) (unknown) RDW 26.6 H (units unknown) (unknown) (unknown) (no date) (unknown) (unknown) Respiratory Rate 16 (units unknown) (unknown) (unknown) (no date) (unknown) (unknown) Respiratory Rate 18 (units unknown) (unknown) (unknown) (no date) (unknown) (unknown) Signed By:<Electronically signed by Presley Oliver MD> (units unknown) (unknown) (unknown) (no date) (unknown) (unknown) Smoking Status : Former smoker (units unknown) (unknown) (unknown) (no date) (unknown) (unknown) Social History (units unknown) (unknown) (unknown) (no date) (unknown) (unknown) Sodium 135 L (units unknown) (unknown) (unknown) (no date) (unknown) (unknown) Status: Acute (units unknown) (unknown) (unknown) (no date) (unknown) (unknown) Subjective (units unknown) (unknown) (unknown) (no date) (unknown) (unknown) Surgical Histo ry (units unknown) (unknown) (unknown) (no date) (unknown) (unknown) TIA (transient ischemic attack) (units unknown) (unknown) (unknown) (no date) (unknown) (unknown) Temperature 98.7 F ( units unknown) (unknown) (unknown) (no date) (unknown) (unknown) Temperature 98.8 F ( units unknown) (unknown) (unknown) (no date) (unknown) (unknown) Time Patient S een: 14:54 (units unknown) (unknown) (unknown) (no date) (unknown) (unknown) Time Spent Wit h Patient (units unknown) (unknown) (unknown) (no date) (unknown) (unknown) VTE (units unknown) (unknown) (unknown) (no date) (unknown) (unknown) Vital Signs (units unknown) (unknown) (unknown) (no date) (unknown) (unknown) WBC 4.9 (units unknown) (unknown) (unknown) (no date) (unknown) (unknown) [Embedded Imag e Not Available] (units unknown) (unknown) (unknown) (no date) (unknown) (unknown) abdominal absc ess. She does have dilated small bowel but she is having bowel (units unknown) (unknown) (unknown) (no date) (unknown) (unknown) alcohol intake : current (units unknown) (unknown) (unknown) (no date) (unknown) (unknown) colon cancer. She is readmitted with a postoperative ileus. She continues to (units unknown) (unknown) (unknown) (no date) (unknown) (unknown) for colon canc er pT3 N0. She is readmitted to the hospital for a postoperative (units unknown) (unknown) (unknown) (no date) (unknown) (unknown) have significa nt abdominal pain despite having some bowel function and is not (units unknown) (unknown) (unknown) (no date) (unknown) (unknown) household memb ers: spouse (units unknown) (unknown) (unknown) (no date) (unknown) (unknown) hypokalemia wh ich contributed to her ileus. (units unknown) (unknown) (unknown) (no date) (unknown) (unknown) ileus. (units unknown) (unknown) (unknown) (no date) (unknown) (unknown) lives independently: Yes (units unknown) (unknown) (unknown) (no date) (unknown) (unknown) marital status : (units unknown) (unknown) (unknown) (no date) (unknown) (unknown) movements and this picture is consistent with postoperative ileus more likely (units unknown) (unknown) (unknown) (no date) (unknown) (unknown) peritonitis, n o leukocytosis and no evidence of anastomotic leak or intra (units unknown) (unknown) (unknown) (no date) (unknown) (unknown) postoperative ileus. (units unknown) (unknown) (unknown) (no date) (unknown) (unknown) substance use type: does not use (units unknown) (unknown) (unknown) (no date) (unknown) (unknown) than a small-b owel obstruction. I suspect her ongoing diarrhea resulted in (units unknown) (unknown) (unknown) (no date) (unknown) (unknown) today; this ti me is exclusive of procedural time. (units unknown) (unknown) (unknown) (no date) (unknown) (unknown) tolerating rigoberto ar liquids. (units unknown) (unknown) Result panel 205 (unknown) (no date) (unknown) (unknown) (no value) (units unknown) (unknown) (unknown) (no date) (unknown) (unknown) (past 8 hours): (uni ts unknown) (unknown) (unknown) (no date) (unknown) (unknown) - likely due t o volume losses. (units unknown) (unknown) (unknown) (no date) (unknown) (unknown) -NG tube place d per surgery, failed CLD yesterday. (units unknown) (unknown) (unknown) (no date) (unknown) (unknown) -appreciate ge neral surgery assistance. (units unknown) (unknown) (unknown) (no date) (unknown) (unknown) -hold anti-hypertensives for now, possible restart tomorrow depending on BP. (units unknown) (unknown) (unknown) (no date) (unknown) (unknown) -hold anti-dena telet medications for now, if improving tomorrow can resume. (units unknown) (unknown) (unknown) (no date) (unknown) (unknown) -hold statin f or now (units unknown) (unknown) (unknown) (no date) (unknown) (unknown) -management an d follow up per surgery (units unknown) (unknown) (unknown) (no date) (unknown) (unknown) 12/09/22 12/09/22 (u nits unknown) (unknown) (unknown) (no date) (unknown) (unknown) 12/09/22 05:44 (unit s unknown) (unknown) (unknown) (no date) (unknown) (unknown) 12/09/22 1518 (units unknown) (unknown) (unknown) (no date) (unknown) (unknown) 12/09/22 (units unknown) (unknown) (unknown) (no date) (unknown) (unknown) 05:44 05:44 (units unknown) (unknown) (unknown) (no date) (unknown) (unknown) 09:00 12/09/22 (unit s unknown) (unknown) (unknown) (no date) (unknown) (unknown) 09:27 12/09/22 (unit s unknown) (unknown) (unknown) (no date) (unknown) (unknown) 1. Possible sm all bowel obstruction or post op ileus (units unknown) (unknown) (unknown) (no date) (unknown) (unknown) 13:00 (units unknown) (unknown) (unknown) (no date) (unknown) (unknown) [id number] (units unknown) (unknown) (unknown) (no date) (unknown) (unknown) 2. Colonic adenocarcinoma s/p lap hemicolectomy (units unknown) (unknown) (unknown) (no date) (unknown) (unknown) 4. TIA (units unknown) (unknown) (unknown) (no date) (unknown) (unknown) 5. HTN (units unknown) (unknown) (unknown) (no date) (unknown) (unknown) 6. HLD (units unknown) (unknown) (unknown) (no date) (unknown) (unknown) 7. Hypokalemia (unit s unknown) (unknown) (unknown) (no date) (unknown) (unknown) 87 F with post operative ileus. Did not tolerate clears overnight. (units unknown) (unknown) (unknown) (no date) (unknown) (unknown) ABD: soft, distended moreso in upper quadrants, tender in right lower quadrant (units unknown) (unknown) (unknown) (no date) (unknown) (unknown) Age/Sex: 87 / F (uni ts unknown) (unknown) (unknown) (no date) (unknown) (unknown) Anisocytosis 2+ H (u nits unknown) (unknown) (unknown) (no date) (unknown) (unknown) Assessment + P ana narrative: (units unknown) (unknown) (unknown) (no date) (unknown) (unknown) Assessment + Plan (u nits unknown) (unknown) (unknown) (no date) (unknown) (unknown) BUN 5 L (units unknown) (unknown) (unknown) (no date) (unknown) (unknown) BUN/Creatinine Ratio 10.0 (units unknown) (unknown) (unknown) (no date) (unknown) (unknown) Back pain (units unknown) (unknown) (unknown) (no date) (unknown) (unknown) Baso # (Auto) 0 (uni ts unknown) (unknown) (unknown) (no date) (unknown) (unknown) Baso % (Auto) 0.6 (u nits unknown) (unknown) (unknown) (no date) (unknown) (unknown) Blood Pressure 152/71 H (units unknown) (unknown) (unknown) (no date) (unknown) (unknown) Blood Pressure 158/67 H (units unknown) (unknown) (unknown) (no date) (unknown) (unknown) CODE: Full (units unknown) (unknown) (unknown) (no date) (unknown) (unknown) CV: regular ra te and rhythm, no murmurs (units unknown) (unknown) (unknown) (no date) (unknown) (unknown) Calcium 7.5 L (units unknown) (unknown) (unknown) (no date) (unknown) (unknown) Carbon Dioxide 26 (u nits unknown) (unknown) (unknown) (no date) (unknown) (unknown) Cataract (units unknown) (unknown) (unknown) (no date) (unknown) (unknown) Chloride 104 (units unknown) (unknown) (unknown) (no date) (unknown) (unknown) Creatinine 0.50 L (u nits unknown) (unknown) (unknown) (no date) (unknown) (unknown) Critical Care time: (units unknown) (unknown) (unknown) (no date) (unknown) (unknown) : 4 Acct:[id number] (units unknown) (unknown) (unknown) (no date) (unknown) (unknown) Date of Servic e: 12/07/22 (units unknown) (unknown) (unknown) (no date) (unknown) (unknown) Deep Vein Thrombosis/Pulmonar y Embolism Present on Admission: No (units unknown) (unknown) (unknown) (no date) (unknown) (unknown) Discussed with patient's surgeon today. (units unknown) (unknown) (unknown) (no date) (unknown) (unknown) Dispo: probabl e home when tolerating a diet without additional pain, suspect 1-2 (units unknown) (unknown) (unknown) (no date) (unknown) (unknown) EXT: warm and well perfused with no edema (units unknown) (unknown) (unknown) (no date) (unknown) (unknown) Eos # (Auto) 100 (un its unknown) (unknown) (unknown) (no date) (unknown) (unknown) Eos % (Auto) 2.6 (un its unknown) (unknown) (unknown) (no date) (unknown) (unknown) Estimated GFR > 60 ( units unknown) (unknown) (unknown) (no date) (unknown) (unknown) Exam Narrative: (uni ts unknown) (unknown) (unknown) (no date) (unknown) (unknown) Exam (units unknown) (unknown) (unknown) (no date) (unknown) (unknown) Family History (units unknown) (unknown) (unknown) (no date) (unknown) (unknown) Father d Pedestrian crushed by rolling stock (units unknown) (unknown) (unknown) (no date) (unknown) (unknown) Finger amputat ion, traumatic (units unknown) (unknown) (unknown) (no date) (unknown) (unknown) GEN: appears t o be in distress from pain (units unknown) (unknown) (unknown) (no date) (unknown) (unknown) Glucose 83 (units unknown) (unknown) (unknown) (no date) (unknown) (unknown) H/O prior abla tion treatment (units unknown) (unknown) (unknown) (no date) (unknown) (unknown) HEENT: moist m ucous membranes, PERRL (units unknown) (unknown) (unknown) (no date) (unknown) (unknown) Hct 28.8 L (units unknown) (unknown) (unknown) (no date) (unknown) (unknown) Hgb 9.7 L (units unknown) (unknown) (unknown) (no date) (unknown) (unknown) History of appendectomy (units unknown) (unknown) (unknown) (no date) (unknown) (unknown) History of radiofrequency ablation procedure for cardiac arrhythmia (units unknown) (unknown) (unknown) (no date) (unknown) (unknown) Hx of bilatera l cataract extraction (units unknown) (unknown) (unknown) (no date) (unknown) (unknown) Hyperlipemia (units unknown) (unknown) (unknown) (no date) (unknown) (unknown) Hypertension (units unknown) (unknown) (unknown) (no date) (unknown) (unknown) I spent a tota l of [] minutes of critical care time on this patient's care (units unknown) (unknown) (unknown) (no date) (unknown) (unknown) Interval history: (u nits unknown) (unknown) (unknown) (no date) (unknown) (unknown) [address] [place] [address] (units unknown) (unknown) (unknown) (no date) (unknown) (unknown) Laboratory Res ults - last 24 hr (units unknown) (unknown) (unknown) (no date) (unknown) (unknown) Labs (units unknown) (unknown) (unknown) (no date) (unknown) (unknown) Labs: (units unknown) (unknown) (unknown) (no date) (unknown) (unknown) Lymph # (Auto) 800 L (units unknown) (unknown) (unknown) (no date) (unknown) (unknown) Lymph % (Auto) 16.0 L (units unknown) (unknown) (unknown) (no date) (unknown) (unknown) MCH 27.8 (units unknown) (unknown) (unknown) (no date) (unknown) (unknown) MCHC 33.7 (units unknown) (unknown) (unknown) (no date) (unknown) (unknown) MCV 82.5 (units unknown) (unknown) (unknown) (no date) (unknown) (unknown) Magnesium 1.8 (units unknown) (unknown) (unknown) (no date) (unknown) (unknown) Medical Histor y (units unknown) (unknown) (unknown) (no date) (unknown) (unknown) [place]erry # (Auto) 400 (u nits unknown) (unknown) (unknown) (no date) (unknown) (unknown) [place] % (Auto) 8.4 (u nits unknown) (unknown) (unknown) (no date) (unknown) (unknown) Mother d Old age (units unknown) (unknown) (unknown) (no date) (unknown) (unknown) NECK: trachea midline, no JVD (units unknown) (unknown) (unknown) (no date) (unknown) (unknown) NEURO: awake, alert, oriented, no focal deficits (units unknown) (unknown) (unknown) (no date) (unknown) (unknown) Narrative (units unknown) (unknown) (unknown) (no date) (unknown) (unknown) Neut # (Auto) 3500 ( units unknown) (unknown) (unknown) (no date) (unknown) (unknown) Neut % (Auto) 72.4 ( units unknown) (unknown) (unknown) (no date) (unknown) (unknown) Objective (units unknown) (unknown) (unknown) (no date) (unknown) (unknown) Ovalocytes 1+ H (uni ts unknown) (unknown) (unknown) (no date) (unknown) (unknown) Oxygen Deliver y Method Room Air Room Air (units unknown) (unknown) (unknown) (no date) (unknown) (unknown) Oxygen Deliver y Method Room Air (units unknown) (unknown) (unknown) (no date) (unknown) (unknown) Oxygen Deliver y Method (units unknown) (unknown) (unknown) (no date) (unknown) (unknown) Oxygen Flow Rate 0 ( units unknown) (unknown) (unknown) (no date) (unknown) (unknown) PFSH (units unknown) (unknown) (unknown) (no date) (unknown) (unknown) PULM: clear bilaterally, no wheezes, rhonchi, rales (units unknown) (unknown) (unknown) (no date) (unknown) (unknown) PVC's (prematu re ventricular contractions) (units unknown) (unknown) (unknown) (no date) (unknown) (unknown) Patient: Patricia Castañeda MR#: [id number] (units unknown) (unknown) (unknown) (no date) (unknown) (unknown) Plt Count 150 (units unknown) (unknown) (unknown) (no date) (unknown) (unknown) Poikilocytosis 1+ H (units unknown) (unknown) (unknown) (no date) (unknown) (unknown) Potassium 3.5 (units unknown) (unknown) (unknown) (no date) (unknown) (unknown) Progress Note (units unknown) (unknown) (unknown) (no date) (unknown) (unknown) Provider: Antoine Poole D.O. (units unknown) (unknown) (unknown) (no date) (unknown) (unknown) Proxy: yina De La Cruz (units unknown) (unknown) (unknown) (no date) (unknown) (unknown) Pulse Oximetry 96 (u nits unknown) (unknown) (unknown) (no date) (unknown) (unknown) Pulse Rate 76 (units unknown) (unknown) (unknown) (no date) (unknown) (unknown) Pulse Rate 97 H (uni ts unknown) (unknown) (unknown) (no date) (unknown) (unknown) Quality (units unknown) (unknown) (unknown) (no date) (unknown) (unknown) RBC 3.49 L (units unknown) (unknown) (unknown) (no date) (unknown) (unknown) RBC Morphology See below (units unknown) (unknown) (unknown) (no date) (unknown) (unknown) RDW 26.6 H (units unknown) (unknown) (unknown) (no date) (unknown) (unknown) Respiratory Rate 16 (units unknown) (unknown) (unknown) (no date) (unknown) (unknown) Respiratory Rate 18 (units unknown) (unknown) (unknown) (no date) (unknown) (unknown) Signed By:<Electronically signed by Antoine Poole D.O.> (units unknown) (unknown) (unknown) (no date) (unknown) (unknown) Smoking Status : Former smoker (units unknown) (unknown) (unknown) (no date) (unknown) (unknown) Social History (units unknown) (unknown) (unknown) (no date) (unknown) (unknown) Sodium 135 L (units unknown) (unknown) (unknown) (no date) (unknown) (unknown) Subjective (units unknown) (unknown) (unknown) (no date) (unknown) (unknown) Surgical Histo ry (units unknown) (unknown) (unknown) (no date) (unknown) (unknown) TIA (transient ischemic attack) (units unknown) (unknown) (unknown) (no date) (unknown) (unknown) Temperature 98.7 F ( units unknown) (unknown) (unknown) (no date) (unknown) (unknown) Temperature 98.8 F ( units unknown) (unknown) (unknown) (no date) (unknown) (unknown) Time Spent Wit h Patient (units unknown) (unknown) (unknown) (no date) (unknown) (unknown) VTE (units unknown) (unknown) (unknown) (no date) (unknown) (unknown) Vital Signs (units unknown) (unknown) (unknown) (no date) (unknown) (unknown) WBC 4.9 (units unknown) (unknown) (unknown) (no date) (unknown) (unknown) [Embedded Imag e Not Available] (units unknown) (unknown) (unknown) (no date) (unknown) (unknown) alcohol intake : current (units unknown) (unknown) (unknown) (no date) (unknown) (unknown) and central abdomen, no rebound/guarding (units unknown) (unknown) (unknown) (no date) (unknown) (unknown) days. (units unknown) (unknown) (unknown) (no date) (unknown) (unknown) household memb ers: spouse (units unknown) (unknown) (unknown) (no date) (unknown) (unknown) lives independently: Yes (units unknown) (unknown) (unknown) (no date) (unknown) (unknown) marital status : (units unknown) (unknown) (unknown) (no date) (unknown) (unknown) substance use type: does not use (units unknown) (unknown) (unknown) (no date) (unknown) (unknown) today; this ti me is exclusive of procedural time. (units unknown) (unknown) Result panel 206 (unknown) (no date) (unknown) (unknown) 0 /ul (unknown ) (unknown) (no date) (unknown) (unknown) 0 /ul (unknown ) (unknown) (no date) (unknown) (unknown) 0.5 % (unknown ) (unknown) (no date) (unknown) (unknown) 0.7 % (unknown ) (unknown) (no date) (unknown) (unknown) 10.8 g/dl (unknown ) (unknown) (no date) (unknown) (unknown) 180 x10 3/ul (unknow n) (unknown) (no date) (unknown) (unknown) 26.3 % (unknown ) (unknown) (no date) (unknown) (unknown) 28.2 pg (unknown ) (unknown) (no date) (unknown) (unknown) 3.84 x10 6/ul (unknow n) (unknown) (no date) (unknown) (unknown) 31.8 % (unknown ) (unknown) (no date) (unknown) (unknown) 34.1 % (unknown ) (unknown) (no date) (unknown) (unknown) 500 /ul (unknown ) (unknown) (no date) (unknown) (unknown) 5600 /ul (unknown ) (unknown) (no date) (unknown) (unknown) 6.8 x10 3/ul (unknow n) (unknown) (no date) (unknown) (unknown) 600 /ul (unknown ) (unknown) (no date) (unknown) (unknown) 7.3 % (unknown ) (unknown) (no date) (unknown) (unknown) 82.5 % (unknown ) (unknown) (no date) (unknown) (unknown) 82.6 fl (unknown ) (unknown) (no date) (unknown) (unknown) 9.0 % (unknown ) Result panel 207 (unknown) (no date) (unknown) (unknown) > 60 ml/min (unknown ) (unknown) (no date) (unknown) (unknown) > 60 ml/min (unknown ) (unknown) (no date) (unknown) (unknown) 0.56 mg/dl (unknown ) (unknown) (no date) (unknown) (unknown) 1.9 mg/dl (unknown ) (unknown) (no date) (unknown) (unknown) 103 mmol/l (unknown ) (unknown) (no date) (unknown) (unknown) 138 mmol/l (unknown ) (unknown) (no date) (unknown) (unknown) 16.1 (units unknown) (unknown) (unknown) (no date) (unknown) (unknown) 25 mmol/l (unknown ) (unknown) (no date) (unknown) (unknown) 3.3 mmol/l (unknown ) (unknown) (no date) (unknown) (unknown) 7.9 mg/dl (unknown ) (unknown) (no date) (unknown) (unknown) 72 mg/dl (unknown ) (unknown) (no date) (unknown) (unknown) 72 mg/dl (unknown ) (unknown) (no date) (unknown) (unknown) 9 mg/dl (unknown ) Result panel 208 (unknown) (no date) (unknown) (unknown) 0 /ul (unknown ) (unknown) (no date) (unknown) (unknown) 0 /ul (unknown ) (unknown) (no date) (unknown) (unknown) 0.5 % (unknown ) (unknown) (no date) (unknown) (unknown) 0.7 % (unknown ) (unknown) (no date) (unknown) (unknown) 1 (units unknown) (unknown) (unknown) (no date) (unknown) (unknown) 10.8 g/dl (unknown ) (unknown) (no date) (unknown) (unknown) 180 x10 3/ul (unknow n) (unknown) (no date) (unknown) (unknown) 2 (units unknown) (unknown) (unknown) (no date) (unknown) (unknown) 26.3 % (unknown ) (unknown) (no date) (unknown) (unknown) 28.2 pg (unknown ) (unknown) (no date) (unknown) (unknown) 3.84 x10 6/ul (unknow n) (unknown) (no date) (unknown) (unknown) 31.8 % (unknown ) (unknown) (no date) (unknown) (unknown) 34.1 % (unknown ) (unknown) (no date) (unknown) (unknown) 500 /ul (unknown ) (unknown) (no date) (unknown) (unknown) 5600 /ul (unknown ) (unknown) (no date) (unknown) (unknown) 6.8 x10 3/ul (unknow n) (unknown) (no date) (unknown) (unknown) 600 /ul (unknown ) (unknown) (no date) (unknown) (unknown) 7.3 % (unknown ) (unknown) (no date) (unknown) (unknown) 82.5 % (unknown ) (unknown) (no date) (unknown) (unknown) 82.6 fl (unknown ) (unknown) (no date) (unknown) (unknown) 9.0 % (unknown ) Result panel 209 (unknown) (no date) (unknown) (unknown) (no value) (units unknown) (unknown) (unknown) (no date) (unknown) (unknown) (past 8 hours): (uni ts unknown) (unknown) (unknown) (no date) (unknown) (unknown) 12/10/22 12/10/22 (u nits unknown) (unknown) (unknown) (no date) (unknown) (unknown) 12/10/22 05:45 (unit s unknown) (unknown) (unknown) (no date) (unknown) (unknown) 12/10/22 (units unknown) (unknown) (unknown) (no date) (unknown) (unknown) 04:00 12/10/22 (unit s unknown) (unknown) (unknown) (no date) (unknown) (unknown) 05:00 12/10/22 (unit s unknown) (unknown) (unknown) (no date) (unknown) (unknown) 05:45 05:45 (units unknown) (unknown) (unknown) (no date) (unknown) (unknown) 09:00 (units unknown) (unknown) (unknown) (no date) (unknown) (unknown) [id number] (units unknown) (unknown) (unknown) (no date) (unknown) (unknown) 87 F with post operative ileus. Nursing concerned for coffee ground emesis. (units unknown) (unknown) (unknown) (no date) (unknown) (unknown) ABD: soft, distended moreso in upper quadrants, tender in right lower quadrant (units unknown) (unknown) (unknown) (no date) (unknown) (unknown) Advise to test for blood and will start IV protonix 40 mg BID. (units unknown) (unknown) (unknown) (no date) (unknown) (unknown) Age/Sex: 87 / F (uni ts unknown) (unknown) (unknown) (no date) (unknown) (unknown) Anisocytosis 2+ H (u nits unknown) (unknown) (unknown) (no date) (unknown) (unknown) Assessment + Plan (u nits unknown) (unknown) (unknown) (no date) (unknown) (unknown) BUN 9 (units unknown) (unknown) (unknown) (no date) (unknown) (unknown) BUN/Creatinine Ratio 16.1 (units unknown) (unknown) (unknown) (no date) (unknown) (unknown) Back pain (units unknown) (unknown) (unknown) (no date) (unknown) (unknown) Baso # (Auto) 0 (uni ts unknown) (unknown) (unknown) (no date) (unknown) (unknown) Baso % (Auto) 0.5 (u nits unknown) (unknown) (unknown) (no date) (unknown) (unknown) Blood Pressure 146/78 H (units unknown) (unknown) (unknown) (no date) (unknown) (unknown) CV: regular ra te and rhythm, no murmurs (units unknown) (unknown) (unknown) (no date) (unknown) (unknown) Calcium 7.9 L (units unknown) (unknown) (unknown) (no date) (unknown) (unknown) Carbon Dioxide 25 (u nits unknown) (unknown) (unknown) (no date) (unknown) (unknown) Cataract (units unknown) (unknown) (unknown) (no date) (unknown) (unknown) Chloride 103 (units unknown) (unknown) (unknown) (no date) (unknown) (unknown) Creatinine 0.56 (uni ts unknown) (unknown) (unknown) (no date) (unknown) (unknown) Critical Care time: (units unknown) (unknown) (unknown) (no date) (unknown) (unknown) : 4 Acct:[id number] (units unknown) (unknown) (unknown) (no date) (unknown) (unknown) Date of Servic e: 12/07/22 (units unknown) (unknown) (unknown) (no date) (unknown) (unknown) Deep Vein Thrombosis/Pulmonar y Embolism Present on Admission: No (units unknown) (unknown) (unknown) (no date) (unknown) (unknown) EXT: warm and well perfused with no edema (units unknown) (unknown) (unknown) (no date) (unknown) (unknown) Eos # (Auto) 0 (unit s unknown) (unknown) (unknown) (no date) (unknown) (unknown) Eos % (Auto) 0.7 L ( units unknown) (unknown) (unknown) (no date) (unknown) (unknown) Estimated GFR > 60 ( units unknown) (unknown) (unknown) (no date) (unknown) (unknown) Exam Narrative: (uni ts unknown) (unknown) (unknown) (no date) (unknown) (unknown) Exam (units unknown) (unknown) (unknown) (no date) (unknown) (unknown) Family History (units unknown) (unknown) (unknown) (no date) (unknown) (unknown) Father d Pedestrian crushed by rolling stock (units unknown) (unknown) (unknown) (no date) (unknown) (unknown) Finger amputat ion, traumatic (units unknown) (unknown) (unknown) (no date) (unknown) (unknown) GEN: appears t o be in distress from pain (units unknown) (unknown) (unknown) (no date) (unknown) (unknown) Glucose 72 L (units unknown) (unknown) (unknown) (no date) (unknown) (unknown) H/O prior abla tion treatment (units unknown) (unknown) (unknown) (no date) (unknown) (unknown) HEENT: moist m ucous membranes, PERRL (units unknown) (unknown) (unknown) (no date) (unknown) (unknown) Hct 31.8 L (units unknown) (unknown) (unknown) (no date) (unknown) (unknown) Hgb 10.8 L (units unknown) (unknown) (unknown) (no date) (unknown) (unknown) History of appendectomy (units unknown) (unknown) (unknown) (no date) (unknown) (unknown) History of radiofrequency ablation procedure for cardiac arrhythmia (units unknown) (unknown) (unknown) (no date) (unknown) (unknown) Hx of bilatera l cataract extraction (units unknown) (unknown) (unknown) (no date) (unknown) (unknown) Hyperlipemia (units unknown) (unknown) (unknown) (no date) (unknown) (unknown) Hypertension (units unknown) (unknown) (unknown) (no date) (unknown) (unknown) I spent a tota l of [] minutes of critical care time on this patient's care (units unknown) (unknown) (unknown) (no date) (unknown) (unknown) Interval history: (u nits unknown) (unknown) (unknown) (no date) (unknown) (unknown) [address] [address] (units unknown) (unknown) (unknown) (no date) (unknown) (unknown) Laboratory Res ults - last 24 hr (units unknown) (unknown) (unknown) (no date) (unknown) (unknown) Labs (units unknown) (unknown) (unknown) (no date) (unknown) (unknown) Labs: (units unknown) (unknown) (unknown) (no date) (unknown) (unknown) Lymph # (Auto) 600 L (units unknown) (unknown) (unknown) (no date) (unknown) (unknown) Lymph % (Auto) 9.0 L (units unknown) (unknown) (unknown) (no date) (unknown) (unknown) MCH 28.2 (units unknown) (unknown) (unknown) (no date) (unknown) (unknown) MCHC 34.1 (units unknown) (unknown) (unknown) (no date) (unknown) (unknown) MCV 82.6 (units unknown) (unknown) (unknown) (no date) (unknown) (unknown) Magnesium 1.9 (units unknown) (unknown) (unknown) (no date) (unknown) (unknown) Medical Histor y (units unknown) (unknown) (unknown) (no date) (unknown) (unknown) Ferry # (Auto) 500 (u nits unknown) (unknown) (unknown) (no date) (unknown) (unknown) Ferry % (Auto) 7.3 (u nits unknown) (unknown) (unknown) (no date) (unknown) (unknown) Mother d Old age (units unknown) (unknown) (unknown) (no date) (unknown) (unknown) NECK: trachea midline, no JVD (units unknown) (unknown) (unknown) (no date) (unknown) (unknown) NEURO: awake, alert, oriented, no focal deficits (units unknown) (unknown) (unknown) (no date) (unknown) (unknown) Narrative (units unknown) (unknown) (unknown) (no date) (unknown) (unknown) Neut # (Auto) 5600 ( units unknown) (unknown) (unknown) (no date) (unknown) (unknown) Neut % (Auto) 82.5 H (units unknown) (unknown) (unknown) (no date) (unknown) (unknown) Objective (units unknown) (unknown) (unknown) (no date) (unknown) (unknown) Oxygen Deliver y Method Room Air Room Air (units unknown) (unknown) (unknown) (no date) (unknown) (unknown) Oxygen Deliver y Method Room Air (units unknown) (unknown) (unknown) (no date) (unknown) (unknown) Oxygen Flow Ra te 0 0 (units unknown) (unknown) (unknown) (no date) (unknown) (unknown) Oxygen Flow Rate 0 ( units unknown) (unknown) (unknown) (no date) (unknown) (unknown) PFSH (units unknown) (unknown) (unknown) (no date) (unknown) (unknown) PULM: clear bilaterally, no wheezes, rhonchi, rales (units unknown) (unknown) (unknown) (no date) (unknown) (unknown) PVC's (prematu re ventricular contractions) (units unknown) (unknown) (unknown) (no date) (unknown) (unknown) Patient: Patricia Castañeda MR#: [id number] (units unknown) (unknown) (unknown) (no date) (unknown) (unknown) Plt Count 180 (units unknown) (unknown) (unknown) (no date) (unknown) (unknown) Poikilocytosis 1+ H (units unknown) (unknown) (unknown) (no date) (unknown) (unknown) Polychromasia 1+ H ( units unknown) (unknown) (unknown) (no date) (unknown) (unknown) Potassium 3.3 L (uni ts unknown) (unknown) (unknown) (no date) (unknown) (unknown) Progress Note (units unknown) (unknown) (unknown) (no date) (unknown) (unknown) Provider: Taya Galicia MD (units unknown) (unknown) (unknown) (no date) (unknown) (unknown) Pulse Oximetry 96 96 96 (units unknown) (unknown) (unknown) (no date) (unknown) (unknown) Pulse Rate 85 (units unknown) (unknown) (unknown) (no date) (unknown) (unknown) Quality (units unknown) (unknown) (unknown) (no date) (unknown) (unknown) RBC 3.84 L (units unknown) (unknown) (unknown) (no date) (unknown) (unknown) RBC Morphology Not Reportable (units unknown) (unknown) (unknown) (no date) (unknown) (unknown) RDW 26.3 H (units unknown) (unknown) (unknown) (no date) (unknown) (unknown) Respiratory Rate 18 (units unknown) (unknown) (unknown) (no date) (unknown) (unknown) Signed By: (units unknown) (unknown) (unknown) (no date) (unknown) (unknown) Smoking Status : Former smoker (units unknown) (unknown) (unknown) (no date) (unknown) (unknown) Social History (units unknown) (unknown) (unknown) (no date) (unknown) (unknown) Sodium 138 (units unknown) (unknown) (unknown) (no date) (unknown) (unknown) Subjective (units unknown) (unknown) (unknown) (no date) (unknown) (unknown) Surgical Histo ry (units unknown) (unknown) (unknown) (no date) (unknown) (unknown) TIA (transient ischemic attack) (units unknown) (unknown) (unknown) (no date) (unknown) (unknown) Temperature 98.4 F ( units unknown) (unknown) (unknown) (no date) (unknown) (unknown) Time Spent Wit h Patient (units unknown) (unknown) (unknown) (no date) (unknown) (unknown) VTE (units unknown) (unknown) (unknown) (no date) (unknown) (unknown) Vital Signs (units unknown) (unknown) (unknown) (no date) (unknown) (unknown) WBC 6.8 (units unknown) (unknown) (unknown) (no date) (unknown) (unknown) [Embedded Imag e Not Available] (units unknown) (unknown) (unknown) (no date) (unknown) (unknown) alcohol intake : current (units unknown) (unknown) (unknown) (no date) (unknown) (unknown) and central abdomen, no rebound/guarding (units unknown) (unknown) (unknown) (no date) (unknown) (unknown) household memb ers: spouse (units unknown) (unknown) (unknown) (no date) (unknown) (unknown) lives independently: Yes (units unknown) (unknown) (unknown) (no date) (unknown) (unknown) marital status : (units unknown) (unknown) (unknown) (no date) (unknown) (unknown) substance use type: does not use (units unknown) (unknown) (unknown) (no date) (unknown) (unknown) today; this ti me is exclusive of procedural time. (units unknown) (unknown) Result panel 210 (unknown) (no date) (unknown) (unknown) (no value) (units unknown) (unknown) (unknown) (no date) (unknown) (unknown) (past 8 hours): (uni ts unknown) (unknown) (unknown) (no date) (unknown) (unknown) 12/10/22 12/10/22 (u nits unknown) (unknown) (unknown) (no date) (unknown) (unknown) 12/10/22 05:45 (unit s unknown) (unknown) (unknown) (no date) (unknown) (unknown) 12/10/22 (units unknown) (unknown) (unknown) (no date) (unknown) (unknown) 04:00 12/10/22 (unit s unknown) (unknown) (unknown) (no date) (unknown) (unknown) 05:00 12/10/22 (unit s unknown) (unknown) (unknown) (no date) (unknown) (unknown) 05:45 05:45 (units unknown) (unknown) (unknown) (no date) (unknown) (unknown) 09:00 (units unknown) (unknown) (unknown) (no date) (unknown) (unknown) [id number] (units unknown) (unknown) (unknown) (no date) (unknown) (unknown) ABD: soft, distended more so in upper quadrants, tender in right lower quadrant (units unknown) (unknown) (unknown) (no date) (unknown) (unknown) Age/Sex: 87 / F (uni ts unknown) (unknown) (unknown) (no date) (unknown) (unknown) Anisocytosis 2+ H (u nits unknown) (unknown) (unknown) (no date) (unknown) (unknown) Assessment + Plan (u nits unknown) (unknown) (unknown) (no date) (unknown) (unknown) BUN 9 (units unknown) (unknown) (unknown) (no date) (unknown) (unknown) BUN/Creatinine Ratio 16.1 (units unknown) (unknown) (unknown) (no date) (unknown) (unknown) Back pain (units unknown) (unknown) (unknown) (no date) (unknown) (unknown) Baso # (Auto) 0 (uni ts unknown) (unknown) (unknown) (no date) (unknown) (unknown) Baso % (Auto) 0.5 (u nits unknown) (unknown) (unknown) (no date) (unknown) (unknown) Blood Pressure 146/78 H (units unknown) (unknown) (unknown) (no date) (unknown) (unknown) CV: regular ra te and rhythm, no murmurs (units unknown) (unknown) (unknown) (no date) (unknown) (unknown) Calcium 7.9 L (units unknown) (unknown) (unknown) (no date) (unknown) (unknown) Carbon Dioxide 25 (u nits unknown) (unknown) (unknown) (no date) (unknown) (unknown) Cataract (units unknown) (unknown) (unknown) (no date) (unknown) (unknown) Chloride 103 (units unknown) (unknown) (unknown) (no date) (unknown) (unknown) Creatinine 0.56 (uni ts unknown) (unknown) (unknown) (no date) (unknown) (unknown) Critical Care time: (units unknown) (unknown) (unknown) (no date) (unknown) (unknown) : 4 Acct:[id number] (units unknown) (unknown) (unknown) (no date) (unknown) (unknown) Date of Servic e: 12/07/22 (units unknown) (unknown) (unknown) (no date) (unknown) (unknown) Deep Vein Thrombosis/Pulmonar y Embolism Present on Admission: No (units unknown) (unknown) (unknown) (no date) (unknown) (unknown) EXT: warm and well perfused with no edema (units unknown) (unknown) (unknown) (no date) (unknown) (unknown) Eos # (Auto) 0 (unit s unknown) (unknown) (unknown) (no date) (unknown) (unknown) Eos % (Auto) 0.7 L ( units unknown) (unknown) (unknown) (no date) (unknown) (unknown) Estimated GFR > 60 ( units unknown) (unknown) (unknown) (no date) (unknown) (unknown) Exam Narrative: (uni ts unknown) (unknown) (unknown) (no date) (unknown) (unknown) Exam (units unknown) (unknown) (unknown) (no date) (unknown) (unknown) Family History (units unknown) (unknown) (unknown) (no date) (unknown) (unknown) Father d Pedestrian crushed by rolling stock (units unknown) (unknown) (unknown) (no date) (unknown) (unknown) Finger amputat ion, traumatic (units unknown) (unknown) (unknown) (no date) (unknown) (unknown) GEN: appears t o be in distress from pain (units unknown) (unknown) (unknown) (no date) (unknown) (unknown) Glucose 72 L (units unknown) (unknown) (unknown) (no date) (unknown) (unknown) H/O prior abla tion treatment (units unknown) (unknown) (unknown) (no date) (unknown) (unknown) HEENT: moist m ucous membranes, PERRL, NG inplace and draining dark fluid (units unknown) (unknown) (unknown) (no date) (unknown) (unknown) Hct 31.8 L (units unknown) (unknown) (unknown) (no date) (unknown) (unknown) Hgb 10.8 L (units unknown) (unknown) (unknown) (no date) (unknown) (unknown) History of appendectomy (units unknown) (unknown) (unknown) (no date) (unknown) (unknown) History of radiofrequency ablation procedure for cardiac arrhythmia (units unknown) (unknown) (unknown) (no date) (unknown) (unknown) Hx of bilatera l cataract extraction (units unknown) (unknown) (unknown) (no date) (unknown) (unknown) Hyperlipemia (units unknown) (unknown) (unknown) (no date) (unknown) (unknown) Hypertension (units unknown) (unknown) (unknown) (no date) (unknown) (unknown) I spent a tota l of [] minutes of critical care time on this patient's care (units unknown) (unknown) (unknown) (no date) (unknown) (unknown) Interval history: (u nits unknown) (unknown) (unknown) (no date) (unknown) (unknown) [address] [address] (units unknown) (unknown) (unknown) (no date) (unknown) (unknown) Laboratory Res ults - last 24 hr (units unknown) (unknown) (unknown) (no date) (unknown) (unknown) Labs (units unknown) (unknown) (unknown) (no date) (unknown) (unknown) Labs: (units unknown) (unknown) (unknown) (no date) (unknown) (unknown) Lymph # (Auto) 600 L (units unknown) (unknown) (unknown) (no date) (unknown) (unknown) Lymph % (Auto) 9.0 L (units unknown) (unknown) (unknown) (no date) (unknown) (unknown) MCH 28.2 (units unknown) (unknown) (unknown) (no date) (unknown) (unknown) MCHC 34.1 (units unknown) (unknown) (unknown) (no date) (unknown) (unknown) MCV 82.6 (units unknown) (unknown) (unknown) (no date) (unknown) (unknown) Magnesium 1.9 (units unknown) (unknown) (unknown) (no date) (unknown) (unknown) Medical Histor y (units unknown) (unknown) (unknown) (no date) (unknown) (unknown) Ferry # (Auto) 500 (u nits unknown) (unknown) (unknown) (no date) (unknown) (unknown) Ferry % (Auto) 7.3 (u nits unknown) (unknown) (unknown) (no date) (unknown) (unknown) Mother d Old age (units unknown) (unknown) (unknown) (no date) (unknown) (unknown) Ms. Castañeda is a n 87-year-old woman who is status post laparoscopic assisted (units unknown) (unknown) (unknown) (no date) (unknown) (unknown) NECK: trachea midline, no JVD (units unknown) (unknown) (unknown) (no date) (unknown) (unknown) NEURO: awake, alert, oriented, no focal deficits (units unknown) (unknown) (unknown) (no date) (unknown) (unknown) Narrative (units unknown) (unknown) (unknown) (no date) (unknown) (unknown) Neut # (Auto) 5600 ( units unknown) (unknown) (unknown) (no date) (unknown) (unknown) Neut % (Auto) 82.5 H (units unknown) (unknown) (unknown) (no date) (unknown) (unknown) Objective (units unknown) (unknown) (unknown) (no date) (unknown) (unknown) Oxygen Deliver y Method Room Air Room Air (units unknown) (unknown) (unknown) (no date) (unknown) (unknown) Oxygen Deliver y Method Room Air (units unknown) (unknown) (unknown) (no date) (unknown) (unknown) Oxygen Flow Ra te 0 0 (units unknown) (unknown) (unknown) (no date) (unknown) (unknown) Oxygen Flow Rate 0 ( units unknown) (unknown) (unknown) (no date) (unknown) (unknown) PFSH (units unknown) (unknown) (unknown) (no date) (unknown) (unknown) PULM: clear bilaterally, no wheezes, rhonchi, rales (units unknown) (unknown) (unknown) (no date) (unknown) (unknown) PVC's (prematu re ventricular contractions) (units unknown) (unknown) (unknown) (no date) (unknown) (unknown) Patient: Patricia Castañeda MR#: [id number] (units unknown) (unknown) (unknown) (no date) (unknown) (unknown) Plt Count 180 (units unknown) (unknown) (unknown) (no date) (unknown) (unknown) Poikilocytosis 1+ H (units unknown) (unknown) (unknown) (no date) (unknown) (unknown) Polychromasia 1+ H ( units unknown) (unknown) (unknown) (no date) (unknown) (unknown) Potassium 3.3 L (uni ts unknown) (unknown) (unknown) (no date) (unknown) (unknown) Progress Note (units unknown) (unknown) (unknown) (no date) (unknown) (unknown) Provider: Taya Galicia MD (units unknown) (unknown) (unknown) (no date) (unknown) (unknown) Pulse Oximetry 96 96 96 (units unknown) (unknown) (unknown) (no date) (unknown) (unknown) Pulse Rate 85 (units unknown) (unknown) (unknown) (no date) (unknown) (unknown) Quality (units unknown) (unknown) (unknown) (no date) (unknown) (unknown) RBC 3.84 L (units unknown) (unknown) (unknown) (no date) (unknown) (unknown) RBC Morphology Not Reportable (units unknown) (unknown) (unknown) (no date) (unknown) (unknown) RDW 26.3 H (units unknown) (unknown) (unknown) (no date) (unknown) (unknown) Respiratory Rate 18 (units unknown) (unknown) (unknown) (no date) (unknown) (unknown) Signed By: (units unknown) (unknown) (unknown) (no date) (unknown) (unknown) Smoking Status : Former smoker (units unknown) (unknown) (unknown) (no date) (unknown) (unknown) Social History (units unknown) (unknown) (unknown) (no date) (unknown) (unknown) Sodium 138 (units unknown) (unknown) (unknown) (no date) (unknown) (unknown) Subjective (units unknown) (unknown) (unknown) (no date) (unknown) (unknown) Surgical Histo ry (units unknown) (unknown) (unknown) (no date) (unknown) (unknown) TIA (transient ischemic attack) (units unknown) (unknown) (unknown) (no date) (unknown) (unknown) Temperature 98.4 F ( units unknown) (unknown) (unknown) (no date) (unknown) (unknown) Time Spent Wit h Patient (units unknown) (unknown) (unknown) (no date) (unknown) (unknown) VTE (units unknown) (unknown) (unknown) (no date) (unknown) (unknown) Vital Signs (units unknown) (unknown) (unknown) (no date) (unknown) (unknown) WBC 6.8 (units unknown) (unknown) (unknown) (no date) (unknown) (unknown) [Embedded Imag e Not Available] (units unknown) (unknown) (unknown) (no date) (unknown) (unknown) alcohol intake : current (units unknown) (unknown) (unknown) (no date) (unknown) (unknown) and central abdomen, no rebound/guarding (units unknown) (unknown) (unknown) (no date) (unknown) (unknown) blood and will start IV protonix 40 mg BID. (units unknown) (unknown) (unknown) (no date) (unknown) (unknown) household memb ers: spouse (units unknown) (unknown) (unknown) (no date) (unknown) (unknown) lives independently: Yes (units unknown) (unknown) (unknown) (no date) (unknown) (unknown) marital status : (units unknown) (unknown) (unknown) (no date) (unknown) (unknown) right hemicole ctomy for colon cancer pT3 N0. Has a ileus with NG tube. Concern (units unknown) (unknown) (unknown) (no date) (unknown) (unknown) substance use type: does not use (units unknown) (unknown) (unknown) (no date) (unknown) (unknown) today from [facility] about coffec grounds in NG tube. Advised nursing to test for (units unknown) (unknown) (unknown) (no date) (unknown) (unknown) today; this ti me is exclusive of procedural time. (units unknown) (unknown) Result panel 211 (unknown) (no date) (unknown) (unknown) (no value) (units unknown) (unknown) (unknown) (no date) (unknown) (unknown) (past 8 hours): (uni ts unknown) (unknown) (unknown) (no date) (unknown) (unknown) - Magic mouth wash prn every 4 hours (units unknown) (unknown) (unknown) (no date) (unknown) (unknown) -NG tube place d per surgery, failed CLD.. (units unknown) (unknown) (unknown) (no date) (unknown) (unknown) -appreciate ge neral surgery assistance. (units unknown) (unknown) (unknown) (no date) (unknown) (unknown) -hold anti-hypertensives for now initially, restarted metoprolol today (units unknown) (unknown) (unknown) (no date) (unknown) (unknown) -hold anti-dena telet medications for now, concern for old blood in NG drainage. (units unknown) (unknown) (unknown) (no date) (unknown) (unknown) -hold statin f or now (units unknown) (unknown) (unknown) (no date) (unknown) (unknown) -management an d follow up per surgery (units unknown) (unknown) (unknown) (no date) (unknown) (unknown) 12/10/22 12/10/22 (u nits unknown) (unknown) (unknown) (no date) (unknown) (unknown) 12/10/22 05:45 (unit s unknown) (unknown) (unknown) (no date) (unknown) (unknown) 12/10/22 1244 (units unknown) (unknown) (unknown) (no date) (unknown) (unknown) 12/10/22 (units unknown) (unknown) (unknown) (no date) (unknown) (unknown) 04:00 12/10/22 (unit s unknown) (unknown) (unknown) (no date) (unknown) (unknown) 05:00 12/10/22 (unit s unknown) (unknown) (unknown) (no date) (unknown) (unknown) 05:45 05:45 (units unknown) (unknown) (unknown) (no date) (unknown) (unknown) 09:00 (units unknown) (unknown) (unknown) (no date) (unknown) (unknown) 1. Possible sm all bowel obstruction or post op ileus (units unknown) (unknown) (unknown) (no date) (unknown) (unknown) [id number] (units unknown) (unknown) (unknown) (no date) (unknown) (unknown) 2. Colonic adenocarcinoma s/p lap hemicolectomy (units unknown) (unknown) (unknown) (no date) (unknown) (unknown) 4. TIA (units unknown) (unknown) (unknown) (no date) (unknown) (unknown) 5. HTN (units unknown) (unknown) (unknown) (no date) (unknown) (unknown) 6. HLD (units unknown) (unknown) (unknown) (no date) (unknown) (unknown) 7. Hypokalemia (unit s unknown) (unknown) (unknown) (no date) (unknown) (unknown) 8. Complaint o f irritated throat (units unknown) (unknown) (unknown) (no date) (unknown) (unknown) ?- likely due to volume losses. Pharmacy replacing (units unknown) (unknown) (unknown) (no date) (unknown) (unknown) ABD: soft, distended more so in upper quadrants, tender in right lower quadrant (units unknown) (unknown) (unknown) (no date) (unknown) (unknown) Age/Sex: 87 / F (uni ts unknown) (unknown) (unknown) (no date) (unknown) (unknown) Anisocytosis 2+ H (u nits unknown) (unknown) (unknown) (no date) (unknown) (unknown) Assessment + P ana narrative: (units unknown) (unknown) (unknown) (no date) (unknown) (unknown) Assessment + Plan (u nits unknown) (unknown) (unknown) (no date) (unknown) (unknown) BUN 9 (units unknown) (unknown) (unknown) (no date) (unknown) (unknown) BUN/Creatinine Ratio 16.1 (units unknown) (unknown) (unknown) (no date) (unknown) (unknown) Back pain (units unknown) (unknown) (unknown) (no date) (unknown) (unknown) Baso # (Auto) 0 (uni ts unknown) (unknown) (unknown) (no date) (unknown) (unknown) Baso % (Auto) 0.5 (u nits unknown) (unknown) (unknown) (no date) (unknown) (unknown) Blood Pressure 146/78 H (units unknown) (unknown) (unknown) (no date) (unknown) (unknown) CODE: Full (units unknown) (unknown) (unknown) (no date) (unknown) (unknown) CV: regular ra te and rhythm, no murmurs (units unknown) (unknown) (unknown) (no date) (unknown) (unknown) Calcium 7.9 L (units unknown) (unknown) (unknown) (no date) (unknown) (unknown) Carbon Dioxide 25 (u nits unknown) (unknown) (unknown) (no date) (unknown) (unknown) Cataract (units unknown) (unknown) (unknown) (no date) (unknown) (unknown) Chloride 103 (units unknown) (unknown) (unknown) (no date) (unknown) (unknown) Creatinine 0.56 (uni ts unknown) (unknown) (unknown) (no date) (unknown) (unknown) Critical Care time: (units unknown) (unknown) (unknown) (no date) (unknown) (unknown) : 4 Acct:[id number] (units unknown) (unknown) (unknown) (no date) (unknown) (unknown) Date of Servic e: 12/07/22 (units unknown) (unknown) (unknown) (no date) (unknown) (unknown) Deep Vein Thrombosis/Pulmonar y Embolism Present on Admission: No (units unknown) (unknown) (unknown) (no date) (unknown) (unknown) Discussed with patient's surgeon rounding today. (units unknown) (unknown) (unknown) (no date) (unknown) (unknown) Dispo: probabl e home when tolerating a diet without additional pain, suspect 1-2 (units unknown) (unknown) (unknown) (no date) (unknown) (unknown) EXT: warm and well perfused with no edema (units unknown) (unknown) (unknown) (no date) (unknown) (unknown) Eos # (Auto) 0 (unit s unknown) (unknown) (unknown) (no date) (unknown) (unknown) Eos % (Auto) 0.7 L ( units unknown) (unknown) (unknown) (no date) (unknown) (unknown) Estimated GFR > 60 ( units unknown) (unknown) (unknown) (no date) (unknown) (unknown) Exam Narrative: (uni ts unknown) (unknown) (unknown) (no date) (unknown) (unknown) Exam (units unknown) (unknown) (unknown) (no date) (unknown) (unknown) Family History (units unknown) (unknown) (unknown) (no date) (unknown) (unknown) Father d Pedestrian crushed by rolling stock (units unknown) (unknown) (unknown) (no date) (unknown) (unknown) Finger amputat ion, traumatic (units unknown) (unknown) (unknown) (no date) (unknown) (unknown) Follow labs an d clinically. (units unknown) (unknown) (unknown) (no date) (unknown) (unknown) GEN: appears t o be in distress from pain (units unknown) (unknown) (unknown) (no date) (unknown) (unknown) Glucose 72 L (units unknown) (unknown) (unknown) (no date) (unknown) (unknown) H/O prior abla tion treatment (units unknown) (unknown) (unknown) (no date) (unknown) (unknown) HEENT: moist m ucous membranes, PERRL, NG inplace and draining dark fluid (units unknown) (unknown) (unknown) (no date) (unknown) (unknown) Hct 31.8 L (units unknown) (unknown) (unknown) (no date) (unknown) (unknown) Hgb 10.8 L (units unknown) (unknown) (unknown) (no date) (unknown) (unknown) History of appendectomy (units unknown) (unknown) (unknown) (no date) (unknown) (unknown) History of radiofrequency ablation procedure for cardiac arrhythmia (units unknown) (unknown) (unknown) (no date) (unknown) (unknown) Hx of bilatera l cataract extraction (units unknown) (unknown) (unknown) (no date) (unknown) (unknown) Hyperlipemia (units unknown) (unknown) (unknown) (no date) (unknown) (unknown) Hypertension (units unknown) (unknown) (unknown) (no date) (unknown) (unknown) I spent a tota l of [] minutes of critical care time on this patient's care (units unknown) (unknown) (unknown) (no date) (unknown) (unknown) Interval history: (u nits unknown) (unknown) (unknown) (no date) (unknown) (unknown) [address] [address] (units unknown) (unknown) (unknown) (no date) (unknown) (unknown) Laboratory Res ults - last 24 hr (units unknown) (unknown) (unknown) (no date) (unknown) (unknown) Labs (units unknown) (unknown) (unknown) (no date) (unknown) (unknown) Labs: (units unknown) (unknown) (unknown) (no date) (unknown) (unknown) Lymph # (Auto) 600 L (units unknown) (unknown) (unknown) (no date) (unknown) (unknown) Lymph % (Auto) 9.0 L (units unknown) (unknown) (unknown) (no date) (unknown) (unknown) MCH 28.2 (units unknown) (unknown) (unknown) (no date) (unknown) (unknown) MCHC 34.1 (units unknown) (unknown) (unknown) (no date) (unknown) (unknown) MCV 82.6 (units unknown) (unknown) (unknown) (no date) (unknown) (unknown) Magnesium 1.9 (units unknown) (unknown) (unknown) (no date) (unknown) (unknown) Medical Histor y (units unknown) (unknown) (unknown) (no date) (unknown) (unknown) Ferry # (Auto) 500 (u nits unknown) (unknown) (unknown) (no date) (unknown) (unknown) Ferry % (Auto) 7.3 (u nits unknown) (unknown) (unknown) (no date) (unknown) (unknown) Mother d Old age (units unknown) (unknown) (unknown) (no date) (unknown) (unknown) Ms. Castañeda is a n 87-year-old woman who is status post laparoscopic assisted (units unknown) (unknown) (unknown) (no date) (unknown) (unknown) NECK: trachea midline, no JVD (units unknown) (unknown) (unknown) (no date) (unknown) (unknown) NEURO: awake, alert, oriented, no focal deficits (units unknown) (unknown) (unknown) (no date) (unknown) (unknown) Narrative (units unknown) (unknown) (unknown) (no date) (unknown) (unknown) Neut # (Auto) 5600 ( units unknown) (unknown) (unknown) (no date) (unknown) (unknown) Neut % (Auto) 82.5 H (units unknown) (unknown) (unknown) (no date) (unknown) (unknown) Objective (units unknown) (unknown) (unknown) (no date) (unknown) (unknown) Oxygen Deliver y Method Room Air Room Air (units unknown) (unknown) (unknown) (no date) (unknown) (unknown) Oxygen Deliver y Method Room Air (units unknown) (unknown) (unknown) (no date) (unknown) (unknown) Oxygen Flow Ra te 0 0 (units unknown) (unknown) (unknown) (no date) (unknown) (unknown) Oxygen Flow Rate 0 ( units unknown) (unknown) (unknown) (no date) (unknown) (unknown) PFSH (units unknown) (unknown) (unknown) (no date) (unknown) (unknown) PULM: clear bilaterally, no wheezes, rhonchi, rales (units unknown) (unknown) (unknown) (no date) (unknown) (unknown) PVC's (prematu re ventricular contractions) (units unknown) (unknown) (unknown) (no date) (unknown) (unknown) Patient: Patricia Castañeda MR#: [id number] (units unknown) (unknown) (unknown) (no date) (unknown) (unknown) Plt Count 180 (units unknown) (unknown) (unknown) (no date) (unknown) (unknown) Poikilocytosis 1+ H (units unknown) (unknown) (unknown) (no date) (unknown) (unknown) Polychromasia 1+ H ( units unknown) (unknown) (unknown) (no date) (unknown) (unknown) Potassium 3.3 L (uni ts unknown) (unknown) (unknown) (no date) (unknown) (unknown) Progress Note (units unknown) (unknown) (unknown) (no date) (unknown) (unknown) Provider: Taya Galicia MD (units unknown) (unknown) (unknown) (no date) (unknown) (unknown) Proxy: Ahmet Castañeda, (units unknown) (unknown) (unknown) (no date) (unknown) (unknown) Pulse Oximetry 96 96 96 (units unknown) (unknown) (unknown) (no date) (unknown) (unknown) Pulse Rate 85 (units unknown) (unknown) (unknown) (no date) (unknown) (unknown) Quality (units unknown) (unknown) (unknown) (no date) (unknown) (unknown) RBC 3.84 L (units unknown) (unknown) (unknown) (no date) (unknown) (unknown) RBC Morphology Not Reportable (units unknown) (unknown) (unknown) (no date) (unknown) (unknown) RDW 26.3 H (units unknown) (unknown) (unknown) (no date) (unknown) (unknown) Respiratory Rate 18 (units unknown) (unknown) (unknown) (no date) (unknown) (unknown) Signed By:<Electronically signed by Taya Galicia MD> (units unknown) (unknown) (unknown) (no date) (unknown) (unknown) Smoking Status : Former smoker (units unknown) (unknown) (unknown) (no date) (unknown) (unknown) Social History (units unknown) (unknown) (unknown) (no date) (unknown) (unknown) Sodium 138 (units unknown) (unknown) (unknown) (no date) (unknown) (unknown) Subjective (units unknown) (unknown) (unknown) (no date) (unknown) (unknown) Surgical Histo ry (units unknown) (unknown) (unknown) (no date) (unknown) (unknown) TIA (transient ischemic attack) (units unknown) (unknown) (unknown) (no date) (unknown) (unknown) Temperature 98.4 F ( units unknown) (unknown) (unknown) (no date) (unknown) (unknown) Time Spent Wit h Patient (units unknown) (unknown) (unknown) (no date) (unknown) (unknown) VTE (units unknown) (unknown) (unknown) (no date) (unknown) (unknown) Vital Signs (units unknown) (unknown) (unknown) (no date) (unknown) (unknown) WBC 6.8 (units unknown) (unknown) (unknown) (no date) (unknown) (unknown) [Embedded Imag e Not Available] (units unknown) (unknown) (unknown) (no date) (unknown) (unknown) alcohol intake : current (units unknown) (unknown) (unknown) (no date) (unknown) (unknown) and central abdomen, no rebound/guarding (units unknown) (unknown) (unknown) (no date) (unknown) (unknown) blood and will start IV protonix 40 mg BID. Complaining of irritated throt. (units unknown) (unknown) (unknown) (no date) (unknown) (unknown) days. (units unknown) (unknown) (unknown) (no date) (unknown) (unknown) household memb ers: spouse (units unknown) (unknown) (unknown) (no date) (unknown) (unknown) lives independently: Yes (units unknown) (unknown) (unknown) (no date) (unknown) (unknown) marital status : (units unknown) (unknown) (unknown) (no date) (unknown) (unknown) right hemicole ctomy for colon cancer pT3 N0. Has a ileus with NG tube. Concern (units unknown) (unknown) (unknown) (no date) (unknown) (unknown) substance use type: does not use (units unknown) (unknown) (unknown) (no date) (unknown) (unknown) today from [facility] about coffec grounds in NG tube. Advised nursing to test for (units unknown) (unknown) (unknown) (no date) (unknown) (unknown) today; this ti me is exclusive of procedural time. (units unknown) (unknown) Result panel 212 (unknown) (no date) (unknown) (unknown) (no value) (units unknown) (unknown) (unknown) (no date) (unknown) (unknown) (1) Ileus, postoperative: (units unknown) (unknown) (unknown) (no date) (unknown) (unknown) (2) Colon cancer: (u nits unknown) (unknown) (unknown) (no date) (unknown) (unknown) (past 8 hours): (uni ts unknown) (unknown) (unknown) (no date) (unknown) (unknown) -NPO until abdominal bloating improves (units unknown) (unknown) (unknown) (no date) (unknown) (unknown) -trial of Regl an to improve motility (units unknown) (unknown) (unknown) (no date) (unknown) (unknown) 12/10/22 12/10/22 (u nits unknown) (unknown) (unknown) (no date) (unknown) (unknown) 12/10/22 05:45 (unit s unknown) (unknown) (unknown) (no date) (unknown) (unknown) 12/10/22 (units unknown) (unknown) (unknown) (no date) (unknown) (unknown) 05:45 05:45 (units unknown) (unknown) (unknown) (no date) (unknown) (unknown) 08:00 12/10/22 (unit s unknown) (unknown) (unknown) (no date) (unknown) (unknown) 09:00 12/10/22 (unit s unknown) (unknown) (unknown) (no date) (unknown) (unknown) 12:34 (units unknown) (unknown) (unknown) (no date) (unknown) (unknown) 13:00 (units unknown) (unknown) (unknown) (no date) (unknown) (unknown) [id number] (units unknown) (unknown) (unknown) (no date) (unknown) (unknown) 87-year-old wo man 1 week status post laparoscopic assisted right hemicolectomy (units unknown) (unknown) (unknown) (no date) (unknown) (unknown) Age/Sex: 87 / F (uni ts unknown) (unknown) (unknown) (no date) (unknown) (unknown) Anisocytosis 2+ H (u nits unknown) (unknown) (unknown) (no date) (unknown) (unknown) Assessment + P ana narrative: (units unknown) (unknown) (unknown) (no date) (unknown) (unknown) Assessment + Plan (u nits unknown) (unknown) (unknown) (no date) (unknown) (unknown) Assessment and plan (units unknown) (unknown) (unknown) (no date) (unknown) (unknown) BUN 9 (units unknown) (unknown) (unknown) (no date) (unknown) (unknown) BUN/Creatinine Ratio 16.1 (units unknown) (unknown) (unknown) (no date) (unknown) (unknown) Back pain (units unknown) (unknown) (unknown) (no date) (unknown) (unknown) Baso # (Auto) 0 (uni ts unknown) (unknown) (unknown) (no date) (unknown) (unknown) Baso % (Auto) 0.5 (u nits unknown) (unknown) (unknown) (no date) (unknown) (unknown) Blood Pressure 139/74 147/79 H (units unknown) (unknown) (unknown) (no date) (unknown) (unknown) Blood Pressure (unit s unknown) (unknown) (unknown) (no date) (unknown) (unknown) Calcium 7.9 L (units unknown) (unknown) (unknown) (no date) (unknown) (unknown) Carbon Dioxide 25 (u nits unknown) (unknown) (unknown) (no date) (unknown) (unknown) Cataract (units unknown) (unknown) (unknown) (no date) (unknown) (unknown) Chloride 103 (units unknown) (unknown) (unknown) (no date) (unknown) (unknown) Colon location : ascending Qualified Code(s): C18.2 - Malignant neoplasm (units unknown) (unknown) (unknown) (no date) (unknown) (unknown) Creatinine 0.56 (uni ts unknown) (unknown) (unknown) (no date) (unknown) (unknown) Critical Care time: (units unknown) (unknown) (unknown) (no date) (unknown) (unknown) : 4 Acct:[id number] (units unknown) (unknown) (unknown) (no date) (unknown) (unknown) Date of Servic e: 12/07/22 (units unknown) (unknown) (unknown) (no date) (unknown) (unknown) Deep Vein Thrombosis/Pulmonar y Embolism Present on Admission: No (units unknown) (unknown) (unknown) (no date) (unknown) (unknown) Eos # (Auto) 0 (unit s unknown) (unknown) (unknown) (no date) (unknown) (unknown) Eos % (Auto) 0.7 L ( units unknown) (unknown) (unknown) (no date) (unknown) (unknown) Estimated GFR > 60 ( units unknown) (unknown) (unknown) (no date) (unknown) (unknown) Exam Narrative: (uni ts unknown) (unknown) (unknown) (no date) (unknown) (unknown) Exam (units unknown) (unknown) (unknown) (no date) (unknown) (unknown) Family History (units unknown) (unknown) (unknown) (no date) (unknown) (unknown) Father d Pedestrian crushed by rolling stock (units unknown) (unknown) (unknown) (no date) (unknown) (unknown) Finger amputat ion, traumatic (units unknown) (unknown) (unknown) (no date) (unknown) (unknown) Glucose 72 L (units unknown) (unknown) (unknown) (no date) (unknown) (unknown) H/O prior abla tion treatment (units unknown) (unknown) (unknown) (no date) (unknown) (unknown) Hct 31.8 L (units unknown) (unknown) (unknown) (no date) (unknown) (unknown) Her abdomen is soft and tender around the incision and especially tender in the (units unknown) (unknown) (unknown) (no date) (unknown) (unknown) Hgb 10.8 L (units unknown) (unknown) (unknown) (no date) (unknown) (unknown) History of appendectomy (units unknown) (unknown) (unknown) (no date) (unknown) (unknown) History of radiofrequency ablation procedure for cardiac arrhythmia (units unknown) (unknown) (unknown) (no date) (unknown) (unknown) Hx of bilatera l cataract extraction (units unknown) (unknown) (unknown) (no date) (unknown) (unknown) Hyperlipemia (units unknown) (unknown) (unknown) (no date) (unknown) (unknown) Hypertension (units unknown) (unknown) (unknown) (no date) (unknown) (unknown) I spent a tota l of [] minutes of critical care time on this patient's care (units unknown) (unknown) (unknown) (no date) (unknown) (unknown) Interval history: (u nits unknown) (unknown) (unknown) (no date) (unknown) (unknown) [address] [address] (units unknown) (unknown) (unknown) (no date) (unknown) (unknown) Laboratory Res ults - last 24 hr (units unknown) (unknown) (unknown) (no date) (unknown) (unknown) Laboratory doris dies and CT abdomen pelvis personally reviewed. She is without (units unknown) (unknown) (unknown) (no date) (unknown) (unknown) Labs (units unknown) (unknown) (unknown) (no date) (unknown) (unknown) Labs: (units unknown) (unknown) (unknown) (no date) (unknown) (unknown) Lymph # (Auto) 600 L (units unknown) (unknown) (unknown) (no date) (unknown) (unknown) Lymph % (Auto) 9.0 L (units unknown) (unknown) (unknown) (no date) (unknown) (unknown) MCH 28.2 (units unknown) (unknown) (unknown) (no date) (unknown) (unknown) MCHC 34.1 (units unknown) (unknown) (unknown) (no date) (unknown) (unknown) MCV 82.6 (units unknown) (unknown) (unknown) (no date) (unknown) (unknown) Magnesium 1.9 (units unknown) (unknown) (unknown) (no date) (unknown) (unknown) [place] of c[place] (units unknown) (unknown) (unknown) (no date) (unknown) (unknown) Medical Histor y (Updated 12/10/22 @ 14:15 by Safia Champagne MD) (units unknown) (unknown) (unknown) (no date) (unknown) (unknown) Mild edema of the extremities (units unknown) (unknown) (unknown) (no date) (unknown) (unknown) Ferry # (Auto) 500 (u nits unknown) (unknown) (unknown) (no date) (unknown) (unknown) Ferry % (Auto) 7.3 (u nits unknown) (unknown) (unknown) (no date) (unknown) (unknown) Mother d Old age (units unknown) (unknown) (unknown) (no date) (unknown) (unknown) Ms. Castañeda is a n 87-year-old female who has a T3 N0 colon cancer status post (units unknown) (unknown) (unknown) (no date) (unknown) (unknown) Narrative (units unknown) (unknown) (unknown) (no date) (unknown) (unknown) Neut # (Auto) 5600 ( units unknown) (unknown) (unknown) (no date) (unknown) (unknown) Neut % (Auto) 82.5 H (units unknown) (unknown) (unknown) (no date) (unknown) (unknown) No new complai nts today. She still is having pain in her abdomen and around her (units unknown) (unknown) (unknown) (no date) (unknown) (unknown) Objective (units unknown) (unknown) (unknown) (no date) (unknown) (unknown) Out of bed and ambulate as able (units unknown) (unknown) (unknown) (no date) (unknown) (unknown) Oxygen Deliver y Method Room Air (units unknown) (unknown) (unknown) (no date) (unknown) (unknown) Oxygen Flow Ra te 0 0 (units unknown) (unknown) (unknown) (no date) (unknown) (unknown) Oxygen Flow Rate 0 ( units unknown) (unknown) (unknown) (no date) (unknown) (unknown) PFSH (units unknown) (unknown) (unknown) (no date) (unknown) (unknown) PVC's (prematu re ventricular contractions) (units unknown) (unknown) (unknown) (no date) (unknown) (unknown) Patient is jas ke alert and oriented. She seems tired and is supine in bed. (units unknown) (unknown) (unknown) (no date) (unknown) (unknown) Patient: Patricia Castañeda MR#: [id number] (units unknown) (unknown) (unknown) (no date) (unknown) (unknown) Plt Count 180 (units unknown) (unknown) (unknown) (no date) (unknown) (unknown) Poikilocytosis 1+ H (units unknown) (unknown) (unknown) (no date) (unknown) (unknown) Polychromasia 1+ H ( units unknown) (unknown) (unknown) (no date) (unknown) (unknown) Potassium 3.3 L (uni ts unknown) (unknown) (unknown) (no date) (unknown) (unknown) Problem details: (un its unknown) (unknown) (unknown) (no date) (unknown) (unknown) Progress Note (units unknown) (unknown) (unknown) (no date) (unknown) (unknown) Provider: Pretty Champagne (units unknown) (unknown) (unknown) (no date) (unknown) (unknown) Pulse Oximetry 95 (u nits unknown) (unknown) (unknown) (no date) (unknown) (unknown) Pulse Oximetry 96 95 95 (units unknown) (unknown) (unknown) (no date) (unknown) (unknown) Pulse Rate 84 86 (un its unknown) (unknown) (unknown) (no date) (unknown) (unknown) Pulse Rate (units unknown) (unknown) (unknown) (no date) (unknown) (unknown) Qualifiers: (units unknown) (unknown) (unknown) (no date) (unknown) (unknown) Quality (units unknown) (unknown) (unknown) (no date) (unknown) (unknown) RBC 3.84 L (units unknown) (unknown) (unknown) (no date) (unknown) (unknown) RBC Morphology Not Reportable (units unknown) (unknown) (unknown) (no date) (unknown) (unknown) RDW 26.3 H (units unknown) (unknown) (unknown) (no date) (unknown) (unknown) Respiratory Ra te 18 17 (units unknown) (unknown) (unknown) (no date) (unknown) (unknown) Respiratory Rate (un its unknown) (unknown) (unknown) (no date) (unknown) (unknown) She has an NG tube in her left naris that has bloody output. The amount of (units unknown) (unknown) (unknown) (no date) (unknown) (unknown) Signed By: (units unknown) (unknown) (unknown) (no date) (unknown) (unknown) Smoking Status : Former smoker (units unknown) (unknown) (unknown) (no date) (unknown) (unknown) Social History (units unknown) (unknown) (unknown) (no date) (unknown) (unknown) Sodium 138 (units unknown) (unknown) (unknown) (no date) (unknown) (unknown) Status: Acute (units unknown) (unknown) (unknown) (no date) (unknown) (unknown) Subjective (units unknown) (unknown) (unknown) (no date) (unknown) (unknown) Surgical Histo ry (units unknown) (unknown) (unknown) (no date) (unknown) (unknown) TIA (transient ischemic attack) (units unknown) (unknown) (unknown) (no date) (unknown) (unknown) Temperature 98.6 F ( units unknown) (unknown) (unknown) (no date) (unknown) (unknown) Temperature (units unknown) (unknown) (unknown) (no date) (unknown) (unknown) Time Spent Wit h Patient (units unknown) (unknown) (unknown) (no date) (unknown) (unknown) VTE (units unknown) (unknown) (unknown) (no date) (unknown) (unknown) Vital Signs (units unknown) (unknown) (unknown) (no date) (unknown) (unknown) WBC 6.8 (units unknown) (unknown) (unknown) (no date) (unknown) (unknown) [Embedded Imag e Not Available] (units unknown) (unknown) (unknown) (no date) (unknown) (unknown) abdominal absc ess. She does have dilated small bowel but she is having bowel (units unknown) (unknown) (unknown) (no date) (unknown) (unknown) alcohol intake : current (units unknown) (unknown) (unknown) (no date) (unknown) (unknown) distended. (units unknown) (unknown) (unknown) (no date) (unknown) (unknown) for colon canc er pT3 N0. She is readmitted to the hospital for a postoperative (units unknown) (unknown) (unknown) (no date) (unknown) (unknown) household memb ers: spouse (units unknown) (unknown) (unknown) (no date) (unknown) (unknown) hue to it toda y. He is not had any bowel movement and denies passing flatus. (units unknown) (unknown) (unknown) (no date) (unknown) (unknown) hypokalemia wh ich contributed to her ileus. (units unknown) (unknown) (unknown) (no date) (unknown) (unknown) ileus. (units unknown) (unknown) (unknown) (no date) (unknown) (unknown) incisions she has an NG-tube in place and is complaining of some pain in her (units unknown) (unknown) (unknown) (no date) (unknown) (unknown) lives independently: Yes (units unknown) (unknown) (unknown) (no date) (unknown) (unknown) marital status : (units unknown) (unknown) (unknown) (no date) (unknown) (unknown) movements and this picture is consistent with postoperative ileus more likely (units unknown) (unknown) (unknown) (no date) (unknown) (unknown) of ascending colon ( units unknown) (unknown) (unknown) (no date) (unknown) (unknown) output appears to be a decent amount. (units unknown) (unknown) (unknown) (no date) (unknown) (unknown) peritonitis, n o leukocytosis and no evidence of anastomotic leak or intra (units unknown) (unknown) (unknown) (no date) (unknown) (unknown) resection. (units unknown) (unknown) (unknown) (no date) (unknown) (unknown) right lower quadrant there are no peritoneal signs. The abdomen is mildly (units unknown) (unknown) (unknown) (no date) (unknown) (unknown) substance use type: does not use (units unknown) (unknown) (unknown) (no date) (unknown) (unknown) than a small-b owel obstruction. 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 (units unknown) (unknown) Result panel 213 (unknown) (no date) (unknown) (unknown) (no value) (units unknown) (unknown) (unknown) (no date) (unknown) (unknown) (1) Ileus, postoperative: (units unknown) (unknown) (unknown) (no date) (unknown) (unknown) (2) Colon cancer: (u nits unknown) (unknown) (unknown) (no date) (unknown) (unknown) (past 8 hours): (uni ts unknown) (unknown) (unknown) (no date) (unknown) (unknown) -NPO until abdominal bloating improves (units unknown) (unknown) (unknown) (no date) (unknown) (unknown) -trial of Regl an to improve motility (units unknown) (unknown) (unknown) (no date) (unknown) (unknown) 12/10/22 12/10/22 (u nits unknown) (unknown) (unknown) (no date) (unknown) (unknown) 12/10/22 05:45 (unit s unknown) (unknown) (unknown) (no date) (unknown) (unknown) 12/10/22 (units unknown) (unknown) (unknown) (no date) (unknown) (unknown) 05:45 05:45 (units unknown) (unknown) (unknown) (no date) (unknown) (unknown) 08:00 12/10/22 (unit s unknown) (unknown) (unknown) (no date) (unknown) (unknown) 09:00 12/10/22 (unit s unknown) (unknown) (unknown) (no date) (unknown) (unknown) 12:34 (units unknown) (unknown) (unknown) (no date) (unknown) (unknown) 13:00 (units unknown) (unknown) (unknown) (no date) (unknown) (unknown) [id number] (units unknown) (unknown) (unknown) (no date) (unknown) (unknown) 87-year-old wo man 1 week status post laparoscopic assisted right hemicolectomy (units unknown) (unknown) (unknown) (no date) (unknown) (unknown) Age/Sex: 87 / F (uni ts unknown) (unknown) (unknown) (no date) (unknown) (unknown) Anisocytosis 2+ H (u nits unknown) (unknown) (unknown) (no date) (unknown) (unknown) Assessment + P ana narrative: (units unknown) (unknown) (unknown) (no date) (unknown) (unknown) Assessment + Plan (u nits unknown) (unknown) (unknown) (no date) (unknown) (unknown) Assessment and plan (units unknown) (unknown) (unknown) (no date) (unknown) (unknown) BUN 9 (units unknown) (unknown) (unknown) (no date) (unknown) (unknown) BUN/Creatinine Ratio 16.1 (units unknown) (unknown) (unknown) (no date) (unknown) (unknown) Back pain (units unknown) (unknown) (unknown) (no date) (unknown) (unknown) Baso # (Auto) 0 (uni ts unknown) (unknown) (unknown) (no date) (unknown) (unknown) Baso % (Auto) 0.5 (u nits unknown) (unknown) (unknown) (no date) (unknown) (unknown) Blood Pressure 139/74 147/79 H (units unknown) (unknown) (unknown) (no date) (unknown) (unknown) Blood Pressure (unit s unknown) (unknown) (unknown) (no date) (unknown) (unknown) Calcium 7.9 L (units unknown) (unknown) (unknown) (no date) (unknown) (unknown) Carbon Dioxide 25 (u nits unknown) (unknown) (unknown) (no date) (unknown) (unknown) Cataract (units unknown) (unknown) (unknown) (no date) (unknown) (unknown) Chloride 103 (units unknown) (unknown) (unknown) (no date) (unknown) (unknown) Colon location : ascending Qualified Code(s): C18.2 - Malignant neoplasm (units unknown) (unknown) (unknown) (no date) (unknown) (unknown) Creatinine 0.56 (uni ts unknown) (unknown) (unknown) (no date) (unknown) (unknown) Critical Care time: (units unknown) (unknown) (unknown) (no date) (unknown) (unknown) : 4 Acct:[id number] (units unknown) (unknown) (unknown) (no date) (unknown) (unknown) Date of Servic e: 12/07/22 (units unknown) (unknown) (unknown) (no date) (unknown) (unknown) Deep Vein Thrombosis/Pulmonar y Embolism Present on Admission: No (units unknown) (unknown) (unknown) (no date) (unknown) (unknown) Eos # (Auto) 0 (unit s unknown) (unknown) (unknown) (no date) (unknown) (unknown) Eos % (Auto) 0.7 L ( units unknown) (unknown) (unknown) (no date) (unknown) (unknown) Estimated GFR > 60 ( units unknown) (unknown) (unknown) (no date) (unknown) (unknown) Exam Narrative: (uni ts unknown) (unknown) (unknown) (no date) (unknown) (unknown) Exam (units unknown) (unknown) (unknown) (no date) (unknown) (unknown) Family History (units unknown) (unknown) (unknown) (no date) (unknown) (unknown) Father d Pedestrian crushed by rolling stock (units unknown) (unknown) (unknown) (no date) (unknown) (unknown) Finger amputat ion, traumatic (units unknown) (unknown) (unknown) (no date) (unknown) (unknown) Glucose 72 L (units unknown) (unknown) (unknown) (no date) (unknown) (unknown) H/O prior abla tion treatment (units unknown) (unknown) (unknown) (no date) (unknown) (unknown) Hct 31.8 L (units unknown) (unknown) (unknown) (no date) (unknown) (unknown) Her abdomen is soft and tender around the incision and especially tender in the (units unknown) (unknown) (unknown) (no date) (unknown) (unknown) Hgb 10.8 L (units unknown) (unknown) (unknown) (no date) (unknown) (unknown) History of appendectomy (units unknown) (unknown) (unknown) (no date) (unknown) (unknown) History of radiofrequency ablation procedure for cardiac arrhythmia (units unknown) (unknown) (unknown) (no date) (unknown) (unknown) Hx of bilatera l cataract extraction (units unknown) (unknown) (unknown) (no date) (unknown) (unknown) Hyperlipemia (units unknown) (unknown) (unknown) (no date) (unknown) (unknown) Hypertension (units unknown) (unknown) (unknown) (no date) (unknown) (unknown) I spent a tota l of [] minutes of critical care time on this patient's care (units unknown) (unknown) (unknown) (no date) (unknown) (unknown) Interval history: (u nits unknown) (unknown) (unknown) (no date) (unknown) (unknown) [place] [id number] [place] [id number] (units unknown) (unknown) (unknown) (no date) (unknown) (unknown) Laboratory Res ults - last 24 hr (units unknown) (unknown) (unknown) (no date) (unknown) (unknown) Laboratory doris dies and CT abdomen pelvis personally reviewed. She is without (units unknown) (unknown) (unknown) (no date) (unknown) (unknown) Labs (units unknown) (unknown) (unknown) (no date) (unknown) (unknown) Labs: (units unknown) (unknown) (unknown) (no date) (unknown) (unknown) Lymph # (Auto) 600 L (units unknown) (unknown) (unknown) (no date) (unknown) (unknown) Lymph % (Auto) 9.0 L (units unknown) (unknown) (unknown) (no date) (unknown) (unknown) MCH 28.2 (units unknown) (unknown) (unknown) (no date) (unknown) (unknown) MCHC 34.1 (units unknown) (unknown) (unknown) (no date) (unknown) (unknown) MCV 82.6 (units unknown) (unknown) (unknown) (no date) (unknown) (unknown) Magnesium 1.9 (units unknown) (unknown) (unknown) (no date) (unknown) (unknown) [place] of c[place] (units unknown) (unknown) (unknown) (no date) (unknown) (unknown) Medical Histor y (Updated 12/10/22 @ 14:15 by Safia Champagne MD) (units unknown) (unknown) (unknown) (no date) (unknown) (unknown) Mild edema of the extremities (units unknown) (unknown) (unknown) (no date) (unknown) (unknown) Ferry # (Auto) 500 (u nits unknown) (unknown) (unknown) (no date) (unknown) (unknown) Ferry % (Auto) 7.3 (u nits unknown) (unknown) (unknown) (no date) (unknown) (unknown) Mother d Old age (units unknown) (unknown) (unknown) (no date) (unknown) (unknown) Ms. Castañeda is a n 87-year-old female who has a T3 N0 colon cancer status post (units unknown) (unknown) (unknown) (no date) (unknown) (unknown) Narrative (units unknown) (unknown) (unknown) (no date) (unknown) (unknown) Neut # (Auto) 5600 ( units unknown) (unknown) (unknown) (no date) (unknown) (unknown) Neut % (Auto) 82.5 H (units unknown) (unknown) (unknown) (no date) (unknown) (unknown) No new complai nts today. She still is having pain in her abdomen and around her (units unknown) (unknown) (unknown) (no date) (unknown) (unknown) Objective (units unknown) (unknown) (unknown) (no date) (unknown) (unknown) Out of bed and ambulate as able (units unknown) (unknown) (unknown) (no date) (unknown) (unknown) Oxygen Deliver y Method Room Air (units unknown) (unknown) (unknown) (no date) (unknown) (unknown) Oxygen Flow Ra te 0 0 (units unknown) (unknown) (unknown) (no date) (unknown) (unknown) Oxygen Flow Rate 0 ( units unknown) (unknown) (unknown) (no date) (unknown) (unknown) PFSH (units unknown) (unknown) (unknown) (no date) (unknown) (unknown) PVC's (prematu re ventricular contractions) (units unknown) (unknown) (unknown) (no date) (unknown) (unknown) Patient is jas ke alert and oriented. She seems tired and is supine in bed. (units unknown) (unknown) (unknown) (no date) (unknown) (unknown) Patient: Patricia Castañeda MR#: [id number] (units unknown) (unknown) (unknown) (no date) (unknown) (unknown) Plt Count 180 (units unknown) (unknown) (unknown) (no date) (unknown) (unknown) Poikilocytosis 1+ H (units unknown) (unknown) (unknown) (no date) (unknown) (unknown) Polychromasia 1+ H ( units unknown) (unknown) (unknown) (no date) (unknown) (unknown) Potassium 3.3 L (uni ts unknown) (unknown) (unknown) (no date) (unknown) (unknown) Problem details: (un its unknown) (unknown) (unknown) (no date) (unknown) (unknown) Progress Note (units unknown) (unknown) (unknown) (no date) (unknown) (unknown) Provider: Pretty Champagne (units unknown) (unknown) (unknown) (no date) (unknown) (unknown) Pulse Oximetry 95 (u nits unknown) (unknown) (unknown) (no date) (unknown) (unknown) Pulse Oximetry 96 95 95 (units unknown) (unknown) (unknown) (no date) (unknown) (unknown) Pulse Rate 84 86 (un its unknown) (unknown) (unknown) (no date) (unknown) (unknown) Pulse Rate (units unknown) (unknown) (unknown) (no date) (unknown) (unknown) Qualifiers: (units unknown) (unknown) (unknown) (no date) (unknown) (unknown) Quality (units unknown) (unknown) (unknown) (no date) (unknown) (unknown) RBC 3.84 L (units unknown) (unknown) (unknown) (no date) (unknown) (unknown) RBC Morphology Not Reportable (units unknown) (unknown) (unknown) (no date) (unknown) (unknown) RDW 26.3 H (units unknown) (unknown) (unknown) (no date) (unknown) (unknown) Respiratory Ra te 18 17 (units unknown) (unknown) (unknown) (no date) (unknown) (unknown) Respiratory Rate (un its unknown) (unknown) (unknown) (no date) (unknown) (unknown) She has an NG tube in her left naris that has bloody output. The amount of (units unknown) (unknown) (unknown) (no date) (unknown) (unknown) Signed By: (units unknown) (unknown) (unknown) (no date) (unknown) (unknown) Smoking Status : Former smoker (units unknown) (unknown) (unknown) (no date) (unknown) (unknown) Social History (units unknown) (unknown) (unknown) (no date) (unknown) (unknown) Sodium 138 (units unknown) (unknown) (unknown) (no date) (unknown) (unknown) Status: Acute (units unknown) (unknown) (unknown) (no date) (unknown) (unknown) Subjective (units unknown) (unknown) (unknown) (no date) (unknown) (unknown) Surgical Histo ry (units unknown) (unknown) (unknown) (no date) (unknown) (unknown) TIA (transient ischemic attack) (units unknown) (unknown) (unknown) (no date) (unknown) (unknown) Temperature 98.6 F ( units unknown) (unknown) (unknown) (no date) (unknown) (unknown) Temperature (units unknown) (unknown) (unknown) (no date) (unknown) (unknown) Time Spent Wit h Patient (units unknown) (unknown) (unknown) (no date) (unknown) (unknown) VTE (units unknown) (unknown) (unknown) (no date) (unknown) (unknown) Vital Signs (units unknown) (unknown) (unknown) (no date) (unknown) (unknown) WBC 6.8 (units unknown) (unknown) (unknown) (no date) (unknown) (unknown) [Embedded Imag e Not Available] (units unknown) (unknown) (unknown) (no date) (unknown) (unknown) abdominal absc ess. She does have dilated small bowel but she is having bowel (units unknown) (unknown) (unknown) (no date) (unknown) (unknown) alcohol intake : current (units unknown) (unknown) (unknown) (no date) (unknown) (unknown) distended. (units unknown) (unknown) (unknown) (no date) (unknown) (unknown) for colon canc er pT3 N0. She is readmitted to the hospital for a postoperative (units unknown) (unknown) (unknown) (no date) (unknown) (unknown) household memb ers: spouse (units unknown) (unknown) (unknown) (no date) (unknown) (unknown) hue to it toda y. He is not had any bowel movement and denies passing flatus. (units unknown) (unknown) (unknown) (no date) (unknown) (unknown) hypokalemia wh ich contributed to her ileus. (units unknown) (unknown) (unknown) (no date) (unknown) (unknown) ileus. (units unknown) (unknown) (unknown) (no date) (unknown) (unknown) incisions she has an NG-tube in place and is complaining of some pain in her (units unknown) (unknown) (unknown) (no date) (unknown) (unknown) lives independently: Yes (units unknown) (unknown) (unknown) (no date) (unknown) (unknown) marital status : (units unknown) (unknown) (unknown) (no date) (unknown) (unknown) movements and this picture is consistent with postoperative ileus more likely (units unknown) (unknown) (unknown) (no date) (unknown) (unknown) of ascending colon ( units unknown) (unknown) (unknown) (no date) (unknown) (unknown) output appears to be a decent amount. (units unknown) (unknown) (unknown) (no date) (unknown) (unknown) peritonitis, n o leukocytosis and no evidence of anastomotic leak or intra (units unknown) (unknown) (unknown) (no date) (unknown) (unknown) resection. (units unknown) (unknown) (unknown) (no date) (unknown) (unknown) right lower quadrant there are no peritoneal signs. The abdomen is mildly (units unknown) (unknown) (unknown) (no date) (unknown) (unknown) substance use type: does not use (units unknown) (unknown) (unknown) (no date) (unknown) (unknown) than a small-b owel obstruction. 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 (units unknown) (unknown) Result panel 214 (unknown) (no date) (unknown) (unknown) (no value) (units unknown) (unknown) (unknown) (no date) (unknown) (unknown) (1) Ileus, postoperative: (units unknown) (unknown) (unknown) (no date) (unknown) (unknown) (2) Colon cancer: (u nits unknown) (unknown) (unknown) (no date) (unknown) (unknown) (past 8 hours): (uni ts unknown) (unknown) (unknown) (no date) (unknown) (unknown) -NPO until abdominal bloating improves (units unknown) (unknown) (unknown) (no date) (unknown) (unknown) -trial of Regl an to improve motility (units unknown) (unknown) (unknown) (no date) (unknown) (unknown) 12/10/22 12/10/22 (u nits unknown) (unknown) (unknown) (no date) (unknown) (unknown) 12/10/22 05:45 (unit s unknown) (unknown) (unknown) (no date) (unknown) (unknown) 12/10/22 (units unknown) (unknown) (unknown) (no date) (unknown) (unknown) 05:45 05:45 (units unknown) (unknown) (unknown) (no date) (unknown) (unknown) 08:00 12/10/22 (unit s unknown) (unknown) (unknown) (no date) (unknown) (unknown) 09:00 12/10/22 (unit s unknown) (unknown) (unknown) (no date) (unknown) (unknown) 12:34 (units unknown) (unknown) (unknown) (no date) (unknown) (unknown) 13:00 (units unknown) (unknown) (unknown) (no date) (unknown) (unknown) [id number] (units unknown) (unknown) (unknown) (no date) (unknown) (unknown) 87-year-old wo man 1 week status post laparoscopic assisted right hemicolectomy (units unknown) (unknown) (unknown) (no date) (unknown) (unknown) Age/Sex: 87 / F (uni ts unknown) (unknown) (unknown) (no date) (unknown) (unknown) Anisocytosis 2+ H (u nits unknown) (unknown) (unknown) (no date) (unknown) (unknown) Assessment + P ana narrative: (units unknown) (unknown) (unknown) (no date) (unknown) (unknown) Assessment + Plan (u nits unknown) (unknown) (unknown) (no date) (unknown) (unknown) Assessment and plan (units unknown) (unknown) (unknown) (no date) (unknown) (unknown) BUN 9 (units unknown) (unknown) (unknown) (no date) (unknown) (unknown) BUN/Creatinine Ratio 16.1 (units unknown) (unknown) (unknown) (no date) (unknown) (unknown) Back pain (units unknown) (unknown) (unknown) (no date) (unknown) (unknown) Baso # (Auto) 0 (uni ts unknown) (unknown) (unknown) (no date) (unknown) (unknown) Baso % (Auto) 0.5 (u nits unknown) (unknown) (unknown) (no date) (unknown) (unknown) Blood Pressure 139/74 147/79 H (units unknown) (unknown) (unknown) (no date) (unknown) (unknown) Blood Pressure (unit s unknown) (unknown) (unknown) (no date) (unknown) (unknown) Calcium 7.9 L (units unknown) (unknown) (unknown) (no date) (unknown) (unknown) Carbon Dioxide 25 (u nits unknown) (unknown) (unknown) (no date) (unknown) (unknown) Cataract (units unknown) (unknown) (unknown) (no date) (unknown) (unknown) Chloride 103 (units unknown) (unknown) (unknown) (no date) (unknown) (unknown) Colon location : ascending Qualified Code(s): C18.2 - Malignant neoplasm (units unknown) (unknown) (unknown) (no date) (unknown) (unknown) Creatinine 0.56 (uni ts unknown) (unknown) (unknown) (no date) (unknown) (unknown) Critical Care time: (units unknown) (unknown) (unknown) (no date) (unknown) (unknown) : 4 Acct:[id number] (units unknown) (unknown) (unknown) (no date) (unknown) (unknown) Date of Servic e: 12/07/22 (units unknown) (unknown) (unknown) (no date) (unknown) (unknown) Deep Vein Thrombosis/Pulmonar y Embolism Present on Admission: No (units unknown) (unknown) (unknown) (no date) (unknown) (unknown) Eos # (Auto) 0 (unit s unknown) (unknown) (unknown) (no date) (unknown) (unknown) Eos % (Auto) 0.7 L ( units unknown) (unknown) (unknown) (no date) (unknown) (unknown) Estimated GFR > 60 ( units unknown) (unknown) (unknown) (no date) (unknown) (unknown) Exam Narrative: (uni ts unknown) (unknown) (unknown) (no date) (unknown) (unknown) Exam (units unknown) (unknown) (unknown) (no date) (unknown) (unknown) Family History (units unknown) (unknown) (unknown) (no date) (unknown) (unknown) Father d Pedestrian crushed by rolling stock (units unknown) (unknown) (unknown) (no date) (unknown) (unknown) Finger amputat ion, traumatic (units unknown) (unknown) (unknown) (no date) (unknown) (unknown) Glucose 72 L (units unknown) (unknown) (unknown) (no date) (unknown) (unknown) H/O prior abla tion treatment (units unknown) (unknown) (unknown) (no date) (unknown) (unknown) Hct 31.8 L (units unknown) (unknown) (unknown) (no date) (unknown) (unknown) Her abdomen is soft and tender around the incision and especially tender in the (units unknown) (unknown) (unknown) (no date) (unknown) (unknown) Hgb 10.8 L (units unknown) (unknown) (unknown) (no date) (unknown) (unknown) History of appendectomy (units unknown) (unknown) (unknown) (no date) (unknown) (unknown) History of radiofrequency ablation procedure for cardiac arrhythmia (units unknown) (unknown) (unknown) (no date) (unknown) (unknown) Hx of bilatera l cataract extraction (units unknown) (unknown) (unknown) (no date) (unknown) (unknown) Hyperlipemia (units unknown) (unknown) (unknown) (no date) (unknown) (unknown) Hypertension (units unknown) (unknown) (unknown) (no date) (unknown) (unknown) I spent a tota l of [] minutes of critical care time on this patient's care (units unknown) (unknown) (unknown) (no date) (unknown) (unknown) Interval history: (u nits unknown) (unknown) (unknown) (no date) (unknown) (unknown) [address] [address] (units unknown) (unknown) (unknown) (no date) (unknown) (unknown) Laboratory Res ults - last 24 hr (units unknown) (unknown) (unknown) (no date) (unknown) (unknown) Laboratory doris dies and CT abdomen pelvis personally reviewed. She is without (units unknown) (unknown) (unknown) (no date) (unknown) (unknown) Labs (units unknown) (unknown) (unknown) (no date) (unknown) (unknown) Labs: (units unknown) (unknown) (unknown) (no date) (unknown) (unknown) Lymph # (Auto) 600 L (units unknown) (unknown) (unknown) (no date) (unknown) (unknown) Lymph % (Auto) 9.0 L (units unknown) (unknown) (unknown) (no date) (unknown) (unknown) MCH 28.2 (units unknown) (unknown) (unknown) (no date) (unknown) (unknown) MCHC 34.1 (units unknown) (unknown) (unknown) (no date) (unknown) (unknown) MCV 82.6 (units unknown) (unknown) (unknown) (no date) (unknown) (unknown) Magnesium 1.9 (units unknown) (unknown) (unknown) (no date) (unknown) (unknown) Mass of c[place]um (units unknown) (unknown) (unknown) (no date) (unknown) (unknown) Medical Histor y (Updated 12/10/22 @ 14:15 by Safia Champagne MD) (units unknown) (unknown) (unknown) (no date) (unknown) (unknown) Mild edema of the extremities (units unknown) (unknown) (unknown) (no date) (unknown) (unknown) Ferry # (Auto) 500 (u nits unknown) (unknown) (unknown) (no date) (unknown) (unknown) Ferry % (Auto) 7.3 (u nits unknown) (unknown) (unknown) (no date) (unknown) (unknown) Mother d Old age (units unknown) (unknown) (unknown) (no date) (unknown) (unknown) Ms. Castañeda is a n 87-year-old female who has a T3 N0 colon cancer status post (units unknown) (unknown) (unknown) (no date) (unknown) (unknown) Narrative (units unknown) (unknown) (unknown) (no date) (unknown) (unknown) Neut # (Auto) 5600 ( units unknown) (unknown) (unknown) (no date) (unknown) (unknown) Neut % (Auto) 82.5 H (units unknown) (unknown) (unknown) (no date) (unknown) (unknown) No new complai nts today. She still is having pain in her abdomen and around her (units unknown) (unknown) (unknown) (no date) (unknown) (unknown) Objective (units unknown) (unknown) (unknown) (no date) (unknown) (unknown) Out of bed and ambulate as able (units unknown) (unknown) (unknown) (no date) (unknown) (unknown) Oxygen Deliver y Method Room Air (units unknown) (unknown) (unknown) (no date) (unknown) (unknown) Oxygen Flow Ra te 0 0 (units unknown) (unknown) (unknown) (no date) (unknown) (unknown) Oxygen Flow Rate 0 ( units unknown) (unknown) (unknown) (no date) (unknown) (unknown) PFSH (units unknown) (unknown) (unknown) (no date) (unknown) (unknown) PVC's (prematu re ventricular contractions) (units unknown) (unknown) (unknown) (no date) (unknown) (unknown) Patient is jas ke alert and oriented. She seems tired and is supine in bed. (units unknown) (unknown) (unknown) (no date) (unknown) (unknown) Patient: Patricia Castañeda MR#: [id number] (units unknown) (unknown) (unknown) (no date) (unknown) (unknown) Plt Count 180 (units unknown) (unknown) (unknown) (no date) (unknown) (unknown) Poikilocytosis 1+ H (units unknown) (unknown) (unknown) (no date) (unknown) (unknown) Polychromasia 1+ H ( units unknown) (unknown) (unknown) (no date) (unknown) (unknown) Potassium 3.3 L (uni ts unknown) (unknown) (unknown) (no date) (unknown) (unknown) Problem details: (un its unknown) (unknown) (unknown) (no date) (unknown) (unknown) Progress Note (units unknown) (unknown) (unknown) (no date) (unknown) (unknown) Provider: Pretty Champagne (units unknown) (unknown) (unknown) (no date) (unknown) (unknown) Pulse Oximetry 95 (u nits unknown) (unknown) (unknown) (no date) (unknown) (unknown) Pulse Oximetry 96 95 95 (units unknown) (unknown) (unknown) (no date) (unknown) (unknown) Pulse Rate 84 86 (un its unknown) (unknown) (unknown) (no date) (unknown) (unknown) Pulse Rate (units unknown) (unknown) (unknown) (no date) (unknown) (unknown) Qualifiers: (units unknown) (unknown) (unknown) (no date) (unknown) (unknown) Quality (units unknown) (unknown) (unknown) (no date) (unknown) (unknown) RBC 3.84 L (units unknown) (unknown) (unknown) (no date) (unknown) (unknown) RBC Morphology Not Reportable (units unknown) (unknown) (unknown) (no date) (unknown) (unknown) RDW 26.3 H (units unknown) (unknown) (unknown) (no date) (unknown) (unknown) Respiratory Ra te 18 17 (units unknown) (unknown) (unknown) (no date) (unknown) (unknown) Respiratory Rate (un its unknown) (unknown) (unknown) (no date) (unknown) (unknown) She has an NG tube in her left naris that has bloody output. The amount of (units unknown) (unknown) (unknown) (no date) (unknown) (unknown) Signed By: (units unknown) (unknown) (unknown) (no date) (unknown) (unknown) Smoking Status : Former smoker (units unknown) (unknown) (unknown) (no date) (unknown) (unknown) Social History (units unknown) (unknown) (unknown) (no date) (unknown) (unknown) Sodium 138 (units unknown) (unknown) (unknown) (no date) (unknown) (unknown) Status: Acute (units unknown) (unknown) (unknown) (no date) (unknown) (unknown) Subjective (units unknown) (unknown) (unknown) (no date) (unknown) (unknown) Surgical Histo ry (units unknown) (unknown) (unknown) (no date) (unknown) (unknown) TIA (transient ischemic attack) (units unknown) (unknown) (unknown) (no date) (unknown) (unknown) Temperature 98.6 F ( units unknown) (unknown) (unknown) (no date) (unknown) (unknown) Temperature (units unknown) (unknown) (unknown) (no date) (unknown) (unknown) Time Spent Wit h Patient (units unknown) (unknown) (unknown) (no date) (unknown) (unknown) VTE (units unknown) (unknown) (unknown) (no date) (unknown) (unknown) Vital Signs (units unknown) (unknown) (unknown) (no date) (unknown) (unknown) WBC 6.8 (units unknown) (unknown) (unknown) (no date) (unknown) (unknown) [Embedded Imag e Not Available] (units unknown) (unknown) (unknown) (no date) (unknown) (unknown) abdominal absc ess. She does have dilated small bowel but she is having bowel (units unknown) (unknown) (unknown) (no date) (unknown) (unknown) alcohol intake : current (units unknown) (unknown) (unknown) (no date) (unknown) (unknown) distended. (units unknown) (unknown) (unknown) (no date) (unknown) (unknown) for colon canc er pT3 N0. She is readmitted to the hospital for a postoperative (units unknown) (unknown) (unknown) (no date) (unknown) (unknown) household memb ers: spouse (units unknown) (unknown) (unknown) (no date) (unknown) (unknown) hue to it toda y. He is not had any bowel movement and denies passing flatus. (units unknown) (unknown) (unknown) (no date) (unknown) (unknown) hypokalemia wh ich contributed to her ileus. (units unknown) (unknown) (unknown) (no date) (unknown) (unknown) ileus. (units unknown) (unknown) (unknown) (no date) (unknown) (unknown) incisions she has an NG-tube in place and is complaining of some pain in her (units unknown) (unknown) (unknown) (no date) (unknown) (unknown) lives independently: Yes (units unknown) (unknown) (unknown) (no date) (unknown) (unknown) marital status : (units unknown) (unknown) (unknown) (no date) (unknown) (unknown) movements and this picture is consistent with postoperative ileus more likely (units unknown) (unknown) (unknown) (no date) (unknown) (unknown) of ascending colon ( units unknown) (unknown) (unknown) (no date) (unknown) (unknown) output appears to be a decent amount. (units unknown) (unknown) (unknown) (no date) (unknown) (unknown) peritonitis, n o leukocytosis and no evidence of anastomotic leak or intra (units unknown) (unknown) (unknown) (no date) (unknown) (unknown) resection on 11/30/22. She was (units unknown) (unknown) (unknown) (no date) (unknown) (unknown) right lower quadrant there are no peritoneal signs. The abdomen is mildly (units unknown) (unknown) (unknown) (no date) (unknown) (unknown) substance use type: does not use (units unknown) (unknown) (unknown) (no date) (unknown) (unknown) than a small-b owel obstruction. 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 (units unknown) (unknown) Result panel 215 (unknown) (no date) (unknown) (unknown) (no value) (units unknown) (unknown) (unknown) (no date) (unknown) (unknown) (1) Ileus, postoperative: (units unknown) (unknown) (unknown) (no date) (unknown) (unknown) (2) Colon cancer: (u nits unknown) (unknown) (unknown) (no date) (unknown) (unknown) (past 8 hours): (uni ts unknown) (unknown) (unknown) (no date) (unknown) (unknown) -NPO until abdominal bloating improves (units unknown) (unknown) (unknown) (no date) (unknown) (unknown) -trial of Regl an to improve motility (units unknown) (unknown) (unknown) (no date) (unknown) (unknown) 12/10/22 12/10/22 (u nits unknown) (unknown) (unknown) (no date) (unknown) (unknown) 12/10/22 05:45 (unit s unknown) (unknown) (unknown) (no date) (unknown) (unknown) 12/10/22 (units unknown) (unknown) (unknown) (no date) (unknown) (unknown) 05:45 05:45 (units unknown) (unknown) (unknown) (no date) (unknown) (unknown) 08:00 12/10/22 (unit s unknown) (unknown) (unknown) (no date) (unknown) (unknown) 09:00 12/10/22 (unit s unknown) (unknown) (unknown) (no date) (unknown) (unknown) 12:34 (units unknown) (unknown) (unknown) (no date) (unknown) (unknown) 13:00 (units unknown) (unknown) (unknown) (no date) (unknown) (unknown) [id number] (units unknown) (unknown) (unknown) (no date) (unknown) (unknown) 87-year-old wo man 1 week status post laparoscopic assisted right hemicolectomy (units unknown) (unknown) (unknown) (no date) (unknown) (unknown) Age/Sex: 87 / F (uni ts unknown) (unknown) (unknown) (no date) (unknown) (unknown) Anisocytosis 2+ H (u nits unknown) (unknown) (unknown) (no date) (unknown) (unknown) Assessment + P ana narrative: (units unknown) (unknown) (unknown) (no date) (unknown) (unknown) Assessment + Plan (u nits unknown) (unknown) (unknown) (no date) (unknown) (unknown) Assessment and plan (units unknown) (unknown) (unknown) (no date) (unknown) (unknown) BUN 9 (units unknown) (unknown) (unknown) (no date) (unknown) (unknown) BUN/Creatinine Ratio 16.1 (units unknown) (unknown) (unknown) (no date) (unknown) (unknown) Back pain (units unknown) (unknown) (unknown) (no date) (unknown) (unknown) Baso # (Auto) 0 (uni ts unknown) (unknown) (unknown) (no date) (unknown) (unknown) Baso % (Auto) 0.5 (u nits unknown) (unknown) (unknown) (no date) (unknown) (unknown) Blood Pressure 139/74 147/79 H (units unknown) (unknown) (unknown) (no date) (unknown) (unknown) Blood Pressure (unit s unknown) (unknown) (unknown) (no date) (unknown) (unknown) Calcium 7.9 L (units unknown) (unknown) (unknown) (no date) (unknown) (unknown) Carbon Dioxide 25 (u nits unknown) (unknown) (unknown) (no date) (unknown) (unknown) Cataract (units unknown) (unknown) (unknown) (no date) (unknown) (unknown) Chloride 103 (units unknown) (unknown) (unknown) (no date) (unknown) (unknown) Colon location : ascending Qualified Code(s): C18.2 - Malignant neoplasm (units unknown) (unknown) (unknown) (no date) (unknown) (unknown) Creatinine 0.56 (uni ts unknown) (unknown) (unknown) (no date) (unknown) (unknown) Critical Care time: (units unknown) (unknown) (unknown) (no date) (unknown) (unknown) : 4 Acct:[id number] (units unknown) (unknown) (unknown) (no date) (unknown) (unknown) Date of Servic e: 12/07/22 (units unknown) (unknown) (unknown) (no date) (unknown) (unknown) Deep Vein Thrombosis/Pulmonar y Embolism Present on Admission: No (units unknown) (unknown) (unknown) (no date) (unknown) (unknown) Eos # (Auto) 0 (unit s unknown) (unknown) (unknown) (no date) (unknown) (unknown) Eos % (Auto) 0.7 L ( units unknown) (unknown) (unknown) (no date) (unknown) (unknown) Estimated GFR > 60 ( units unknown) (unknown) (unknown) (no date) (unknown) (unknown) Exam Narrative: (uni ts unknown) (unknown) (unknown) (no date) (unknown) (unknown) Exam (units unknown) (unknown) (unknown) (no date) (unknown) (unknown) Family History (units unknown) (unknown) (unknown) (no date) (unknown) (unknown) Father d Pedestrian crushed by rolling stock (units unknown) (unknown) (unknown) (no date) (unknown) (unknown) Finger amputat ion, traumatic (units unknown) (unknown) (unknown) (no date) (unknown) (unknown) Glucose 72 L (units unknown) (unknown) (unknown) (no date) (unknown) (unknown) H/O prior abla tion treatment (units unknown) (unknown) (unknown) (no date) (unknown) (unknown) Hct 31.8 L (units unknown) (unknown) (unknown) (no date) (unknown) (unknown) Her abdomen is soft and tender around the incision and especially tender in the (units unknown) (unknown) (unknown) (no date) (unknown) (unknown) Hgb 10.8 L (units unknown) (unknown) (unknown) (no date) (unknown) (unknown) History of appendectomy (units unknown) (unknown) (unknown) (no date) (unknown) (unknown) History of radiofrequency ablation procedure for cardiac arrhythmia (units unknown) (unknown) (unknown) (no date) (unknown) (unknown) Hx of bilatera l cataract extraction (units unknown) (unknown) (unknown) (no date) (unknown) (unknown) Hyperlipemia (units unknown) (unknown) (unknown) (no date) (unknown) (unknown) Hypertension (units unknown) (unknown) (unknown) (no date) (unknown) (unknown) I spent a tota l of [] minutes of critical care time on this patient's care (units unknown) (unknown) (unknown) (no date) (unknown) (unknown) Interval history: (u nits unknown) (unknown) (unknown) (no date) (unknown) (unknown) Semaj Abernathy [address] [place] [id number] (units unknown) (unknown) (unknown) (no date) (unknown) (unknown) Laboratory Res ults - last 24 hr (units unknown) (unknown) (unknown) (no date) (unknown) (unknown) Laboratory doris dies and CT abdomen pelvis personally reviewed. She is without (units unknown) (unknown) (unknown) (no date) (unknown) (unknown) Labs (units unknown) (unknown) (unknown) (no date) (unknown) (unknown) Labs: (units unknown) (unknown) (unknown) (no date) (unknown) (unknown) Lymph # (Auto) 600 L (units unknown) (unknown) (unknown) (no date) (unknown) (unknown) Lymph % (Auto) 9.0 L (units unknown) (unknown) (unknown) (no date) (unknown) (unknown) MCH 28.2 (units unknown) (unknown) (unknown) (no date) (unknown) (unknown) MCHC 34.1 (units unknown) (unknown) (unknown) (no date) (unknown) (unknown) MCV 82.6 (units unknown) (unknown) (unknown) (no date) (unknown) (unknown) Magnesium 1.9 (units unknown) (unknown) (unknown) (no date) (unknown) (unknown) Mass of cecum (units unknown) (unknown) (unknown) (no date) (unknown) (unknown) Medical Histor y (Updated 12/10/22 @ 14:15 by Safia Champagne MD) (units unknown) (unknown) (unknown) (no date) (unknown) (unknown) Mild edema of the extremities (units unknown) (unknown) (unknown) (no date) (unknown) (unknown) Ferry # (Auto) 500 (u nits unknown) (unknown) (unknown) (no date) (unknown) (unknown) Ferry % (Auto) 7.3 (u nits unknown) (unknown) (unknown) (no date) (unknown) (unknown) Mother d Old age (units unknown) (unknown) (unknown) (no date) (unknown) (unknown) Ms. Castañeda is a n 87-year-old female who has a T3 N0 colon cancer status post (units unknown) (unknown) (unknown) (no date) (unknown) (unknown) Narrative (units unknown) (unknown) (unknown) (no date) (unknown) (unknown) Neut # (Auto) 5600 ( units unknown) (unknown) (unknown) (no date) (unknown) (unknown) Neut % (Auto) 82.5 H (units unknown) (unknown) (unknown) (no date) (unknown) (unknown) No new complai nts today. She still is having pain in her abdomen and around her (units unknown) (unknown) (unknown) (no date) (unknown) (unknown) Objective (units unknown) (unknown) (unknown) (no date) (unknown) (unknown) Out of bed and ambulate as able (units unknown) (unknown) (unknown) (no date) (unknown) (unknown) Oxygen Deliver y Method Room Air (units unknown) (unknown) (unknown) (no date) (unknown) (unknown) Oxygen Flow Ra te 0 0 (units unknown) (unknown) (unknown) (no date) (unknown) (unknown) Oxygen Flow Rate 0 ( units unknown) (unknown) (unknown) (no date) (unknown) (unknown) PFSH (units unknown) (unknown) (unknown) (no date) (unknown) (unknown) PVC's (prematu re ventricular contractions) (units unknown) (unknown) (unknown) (no date) (unknown) (unknown) Patient is jas ke alert and oriented. She seems tired and is supine in bed. (units unknown) (unknown) (unknown) (no date) (unknown) (unknown) Patient: Patricia Castañeda MR#: [id number] (units unknown) (unknown) (unknown) (no date) (unknown) (unknown) Plt Count 180 (units unknown) (unknown) (unknown) (no date) (unknown) (unknown) Poikilocytosis 1+ H (units unknown) (unknown) (unknown) (no date) (unknown) (unknown) Polychromasia 1+ H ( units unknown) (unknown) (unknown) (no date) (unknown) (unknown) Potassium 3.3 L (uni ts unknown) (unknown) (unknown) (no date) (unknown) (unknown) Problem details: (un its unknown) (unknown) (unknown) (no date) (unknown) (unknown) Progress Note (units unknown) (unknown) (unknown) (no date) (unknown) (unknown) Provider: Pretty Champagne (units unknown) (unknown) (unknown) (no date) (unknown) (unknown) Pulse Oximetry 95 (u nits unknown) (unknown) (unknown) (no date) (unknown) (unknown) Pulse Oximetry 96 95 95 (units unknown) (unknown) (unknown) (no date) (unknown) (unknown) Pulse Rate 84 86 (un its unknown) (unknown) (unknown) (no date) (unknown) (unknown) Pulse Rate (units unknown) (unknown) (unknown) (no date) (unknown) (unknown) Qualifiers: (units unknown) (unknown) (unknown) (no date) (unknown) (unknown) Quality (units unknown) (unknown) (unknown) (no date) (unknown) (unknown) RBC 3.84 L (units unknown) (unknown) (unknown) (no date) (unknown) (unknown) RBC Morphology Not Reportable (units unknown) (unknown) (unknown) (no date) (unknown) (unknown) RDW 26.3 H (units unknown) (unknown) (unknown) (no date) (unknown) (unknown) Respiratory Ra te 18 17 (units unknown) (unknown) (unknown) (no date) (unknown) (unknown) Respiratory Rate (un its unknown) (unknown) (unknown) (no date) (unknown) (unknown) She has an NG tube in her left naris that has bloody output. The amount of (units unknown) (unknown) (unknown) (no date) (unknown) (unknown) Signed By: (units unknown) (unknown) (unknown) (no date) (unknown) (unknown) Smoking Status : Former smoker (units unknown) (unknown) (unknown) (no date) (unknown) (unknown) Social History (units unknown) (unknown) (unknown) (no date) (unknown) (unknown) Sodium 138 (units unknown) (unknown) (unknown) (no date) (unknown) (unknown) Status: Acute (units unknown) (unknown) (unknown) (no date) (unknown) (unknown) Subjective (units unknown) (unknown) (unknown) (no date) (unknown) (unknown) Surgical Histo ry (units unknown) (unknown) (unknown) (no date) (unknown) (unknown) TIA (transient ischemic attack) (units unknown) (unknown) (unknown) (no date) (unknown) (unknown) Temperature 98.6 F ( units unknown) (unknown) (unknown) (no date) (unknown) (unknown) Temperature (units unknown) (unknown) (unknown) (no date) (unknown) (unknown) Time Spent Wit h Patient (units unknown) (unknown) (unknown) (no date) (unknown) (unknown) VTE (units unknown) (unknown) (unknown) (no date) (unknown) (unknown) Vital Signs (units unknown) (unknown) (unknown) (no date) (unknown) (unknown) WBC 6.8 (units unknown) (unknown) (unknown) (no date) (unknown) (unknown) [Embedded Imag e Not Available] (units unknown) (unknown) (unknown) (no date) (unknown) (unknown) abdominal absc ess. She does have dilated small bowel but she is having bowel (units unknown) (unknown) (unknown) (no date) (unknown) (unknown) alcohol intake : current (units unknown) (unknown) (unknown) (no date) (unknown) (unknown) distended. (units unknown) (unknown) (unknown) (no date) (unknown) (unknown) for colon canc er pT3 N0. She is readmitted to the hospital for a postoperative (units unknown) (unknown) (unknown) (no date) (unknown) (unknown) for illeus and was nauseated asn vomiting and had an NGT placed 12/09/22. (units unknown) (unknown) (unknown) (no date) (unknown) (unknown) household memb ers: spouse (units unknown) (unknown) (unknown) (no date) (unknown) (unknown) hue to it toda y. He is not had any bowel movement and denies passing flatus. (units unknown) (unknown) (unknown) (no date) (unknown) (unknown) hypokalemia wh ich contributed to her ileus. (units unknown) (unknown) (unknown) (no date) (unknown) (unknown) ileus. (units unknown) (unknown) (unknown) (no date) (unknown) (unknown) incisions she has an NG-tube in place and is complaining of some pain in her (units unknown) (unknown) (unknown) (no date) (unknown) (unknown) lives independently: Yes (units unknown) (unknown) (unknown) (no date) (unknown) (unknown) marital status : (units unknown) (unknown) (unknown) (no date) (unknown) (unknown) movements and this picture is consistent with postoperative ileus more likely (units unknown) (unknown) (unknown) (no date) (unknown) (unknown) of ascending colon ( units unknown) (unknown) (unknown) (no date) (unknown) (unknown) output appears to be a decent amount. (units unknown) (unknown) (unknown) (no date) (unknown) (unknown) peritonitis, n o leukocytosis and no evidence of anastomotic leak or intra (units unknown) (unknown) (unknown) (no date) (unknown) (unknown) resection on 11/30/22. She was discharged on 12/05 from that hospitalization. She (units unknown) (unknown) (unknown) (no date) (unknown) (unknown) returned to [facility] ER on 12/07 with abdominal pain and distension. She was treated (units unknown) (unknown) (unknown) (no date) (unknown) (unknown) right lower quadrant there are no peritoneal signs. The abdomen is mildly (units unknown) (unknown) (unknown) (no date) (unknown) (unknown) substance use type: does not use (units unknown) (unknown) (unknown) (no date) (unknown) (unknown) than a small-b owel obstruction. I suspect her ongoing diarrhea resulted in (units unknown) (unknown) (unknown) (no date) (unknown) (unknown) throat with [facility] staff pharmacist hospital notes that the output from the NG tube has a bloody (units unknown) (unknown) (unknown) (no date) (unknown) (unknown) today; this ti me is exclusive of procedural time. (units unknown) (unknown) Result panel 216 (unknown) (no date) (unknown) (unknown) (no value) (units unknown) (unknown) (unknown) (no date) (unknown) (unknown) (1) Ileus, postoperative: (units unknown) (unknown) (unknown) (no date) (unknown) (unknown) (2) Colon cancer: (u nits unknown) (unknown) (unknown) (no date) (unknown) (unknown) (past 8 hours): (uni ts unknown) (unknown) (unknown) (no date) (unknown) (unknown) -NPO until abdominal bloating improves (units unknown) (unknown) (unknown) (no date) (unknown) (unknown) -trial of Regl an to improve motility (units unknown) (unknown) (unknown) (no date) (unknown) (unknown) 12/10/22 12/10/22 (u nits unknown) (unknown) (unknown) (no date) (unknown) (unknown) 12/10/22 05:45 (unit s unknown) (unknown) (unknown) (no date) (unknown) (unknown) 12/10/22 (units unknown) (unknown) (unknown) (no date) (unknown) (unknown) 05:45 05:45 (units unknown) (unknown) (unknown) (no date) (unknown) (unknown) 08:00 12/10/22 (unit s unknown) (unknown) (unknown) (no date) (unknown) (unknown) 09:00 12/10/22 (unit s unknown) (unknown) (unknown) (no date) (unknown) (unknown) 12:34 (units unknown) (unknown) (unknown) (no date) (unknown) (unknown) 13:00 (units unknown) (unknown) (unknown) (no date) (unknown) (unknown) [id number] (units unknown) (unknown) (unknown) (no date) (unknown) (unknown) 87-year-old wo man 1 week status post laparoscopic assisted right hemicolectomy (units unknown) (unknown) (unknown) (no date) (unknown) (unknown) Age/Sex: 87 / F (uni ts unknown) (unknown) (unknown) (no date) (unknown) (unknown) Anisocytosis 2+ H (u nits unknown) (unknown) (unknown) (no date) (unknown) (unknown) Assessment + P ana narrative: (units unknown) (unknown) (unknown) (no date) (unknown) (unknown) Assessment + Plan (u nits unknown) (unknown) (unknown) (no date) (unknown) (unknown) Assessment and plan (units unknown) (unknown) (unknown) (no date) (unknown) (unknown) BUN 9 (units unknown) (unknown) (unknown) (no date) (unknown) (unknown) BUN/Creatinine Ratio 16.1 (units unknown) (unknown) (unknown) (no date) (unknown) (unknown) Back pain (units unknown) (unknown) (unknown) (no date) (unknown) (unknown) Baso # (Auto) 0 (uni ts unknown) (unknown) (unknown) (no date) (unknown) (unknown) Baso % (Auto) 0.5 (u nits unknown) (unknown) (unknown) (no date) (unknown) (unknown) Blood Pressure 139/74 147/79 H (units unknown) (unknown) (unknown) (no date) (unknown) (unknown) Blood Pressure (unit s unknown) (unknown) (unknown) (no date) (unknown) (unknown) Calcium 7.9 L (units unknown) (unknown) (unknown) (no date) (unknown) (unknown) Carbon Dioxide 25 (u nits unknown) (unknown) (unknown) (no date) (unknown) (unknown) Cataract (units unknown) (unknown) (unknown) (no date) (unknown) (unknown) Chloride 103 (units unknown) (unknown) (unknown) (no date) (unknown) (unknown) Colon location : ascending Qualified Code(s): C18.2 - Malignant neoplasm (units unknown) (unknown) (unknown) (no date) (unknown) (unknown) Creatinine 0.56 (uni ts unknown) (unknown) (unknown) (no date) (unknown) (unknown) Critical Care time: (units unknown) (unknown) (unknown) (no date) (unknown) (unknown) : 4 Acct:[id number] (units unknown) (unknown) (unknown) (no date) (unknown) (unknown) Date of Servic e: 12/07/22 (units unknown) (unknown) (unknown) (no date) (unknown) (unknown) Deep Vein Thrombosis/Pulmonar y Embolism Present on Admission: No (units unknown) (unknown) (unknown) (no date) (unknown) (unknown) Eos # (Auto) 0 (unit s unknown) (unknown) (unknown) (no date) (unknown) (unknown) Eos % (Auto) 0.7 L ( units unknown) (unknown) (unknown) (no date) (unknown) (unknown) Estimated GFR > 60 ( units unknown) (unknown) (unknown) (no date) (unknown) (unknown) Exam Narrative: (uni ts unknown) (unknown) (unknown) (no date) (unknown) (unknown) Exam (units unknown) (unknown) (unknown) (no date) (unknown) (unknown) Family History (units unknown) (unknown) (unknown) (no date) (unknown) (unknown) Father d Pedestrian crushed by rolling stock (units unknown) (unknown) (unknown) (no date) (unknown) (unknown) Finger amputat ion, traumatic (units unknown) (unknown) (unknown) (no date) (unknown) (unknown) Glucose 72 L (units unknown) (unknown) (unknown) (no date) (unknown) (unknown) H/O prior abla tion treatment (units unknown) (unknown) (unknown) (no date) (unknown) (unknown) Hct 31.8 L (units unknown) (unknown) (unknown) (no date) (unknown) (unknown) Her abdomen is soft and tender around the incision and especially tender in the (units unknown) (unknown) (unknown) (no date) (unknown) (unknown) Hgb 10.8 L (units unknown) (unknown) (unknown) (no date) (unknown) (unknown) History of appendectomy (units unknown) (unknown) (unknown) (no date) (unknown) (unknown) History of radiofrequency ablation procedure for cardiac arrhythmia (units unknown) (unknown) (unknown) (no date) (unknown) (unknown) Hx of bilatera l cataract extraction (units unknown) (unknown) (unknown) (no date) (unknown) (unknown) Hyperlipemia (units unknown) (unknown) (unknown) (no date) (unknown) (unknown) Hypertension (units unknown) (unknown) (unknown) (no date) (unknown) (unknown) I spent a tota l of [] minutes of critical care time on this patient's care (units unknown) (unknown) (unknown) (no date) (unknown) (unknown) Interval history: (u nits unknown) (unknown) (unknown) (no date) (unknown) (unknown) [facility] [address] [place] [id number] (units unknown) (unknown) (unknown) (no date) (unknown) (unknown) Laboratory Res ults - last 24 hr (units unknown) (unknown) (unknown) (no date) (unknown) (unknown) Laboratory doris dies and CT abdomen pelvis personally reviewed. She is without (units unknown) (unknown) (unknown) (no date) (unknown) (unknown) Labs (units unknown) (unknown) (unknown) (no date) (unknown) (unknown) Labs: (units unknown) (unknown) (unknown) (no date) (unknown) (unknown) Lymph # (Auto) 600 L (units unknown) (unknown) (unknown) (no date) (unknown) (unknown) Lymph % (Auto) 9.0 L (units unknown) (unknown) (unknown) (no date) (unknown) (unknown) MCH 28.2 (units unknown) (unknown) (unknown) (no date) (unknown) (unknown) MCHC 34.1 (units unknown) (unknown) (unknown) (no date) (unknown) (unknown) MCV 82.6 (units unknown) (unknown) (unknown) (no date) (unknown) (unknown) Magnesium 1.9 (units unknown) (unknown) (unknown) (no date) (unknown) (unknown) Mass of cecum (units unknown) (unknown) (unknown) (no date) (unknown) (unknown) Medical Histor y (Updated 12/10/22 @ 14:15 by Safia Champagne MD) (units unknown) (unknown) (unknown) (no date) (unknown) (unknown) Mild edema of the extremities (units unknown) (unknown) (unknown) (no date) (unknown) (unknown) Ferry # (Auto) 500 (u nits unknown) (unknown) (unknown) (no date) (unknown) (unknown) Ferry % (Auto) 7.3 (u nits unknown) (unknown) (unknown) (no date) (unknown) (unknown) Mother d Old age (units unknown) (unknown) (unknown) (no date) (unknown) (unknown) Ms. Castañeda is a n 87-year-old female who has a T3 N0 colon cancer status post (units unknown) (unknown) (unknown) (no date) (unknown) (unknown) Narrative (units unknown) (unknown) (unknown) (no date) (unknown) (unknown) Neut # (Auto) 5600 ( units unknown) (unknown) (unknown) (no date) (unknown) (unknown) Neut % (Auto) 82.5 H (units unknown) (unknown) (unknown) (no date) (unknown) (unknown) No new complai nts today. She still is having pain in her abdomen and around her (units unknown) (unknown) (unknown) (no date) (unknown) (unknown) Objective (units unknown) (unknown) (unknown) (no date) (unknown) (unknown) Out of bed and ambulate as able (units unknown) (unknown) (unknown) (no date) (unknown) (unknown) Oxygen Deliver y Method Room Air (units unknown) (unknown) (unknown) (no date) (unknown) (unknown) Oxygen Flow Ra te 0 0 (units unknown) (unknown) (unknown) (no date) (unknown) (unknown) Oxygen Flow Rate 0 ( units unknown) (unknown) (unknown) (no date) (unknown) (unknown) PFSH (units unknown) (unknown) (unknown) (no date) (unknown) (unknown) PVC's (prematu re ventricular contractions) (units unknown) (unknown) (unknown) (no date) (unknown) (unknown) Patient is jas ke alert and oriented. She seems tired and is supine in bed. (units unknown) (unknown) (unknown) (no date) (unknown) (unknown) Patient: Patricia Castañeda MR#: [id number] (units unknown) (unknown) (unknown) (no date) (unknown) (unknown) Plt Count 180 (units unknown) (unknown) (unknown) (no date) (unknown) (unknown) Poikilocytosis 1+ H (units unknown) (unknown) (unknown) (no date) (unknown) (unknown) Polychromasia 1+ H ( units unknown) (unknown) (unknown) (no date) (unknown) (unknown) Potassium 3.3 L (uni ts unknown) (unknown) (unknown) (no date) (unknown) (unknown) Problem details: (un its unknown) (unknown) (unknown) (no date) (unknown) (unknown) Progress Note (units unknown) (unknown) (unknown) (no date) (unknown) (unknown) Provider: Pretty Champagne (units unknown) (unknown) (unknown) (no date) (unknown) (unknown) Pulse Oximetry 95 (u nits unknown) (unknown) (unknown) (no date) (unknown) (unknown) Pulse Oximetry 96 95 95 (units unknown) (unknown) (unknown) (no date) (unknown) (unknown) Pulse Rate 84 86 (un its unknown) (unknown) (unknown) (no date) (unknown) (unknown) Pulse Rate (units unknown) (unknown) (unknown) (no date) (unknown) (unknown) Qualifiers: (units unknown) (unknown) (unknown) (no date) (unknown) (unknown) Quality (units unknown) (unknown) (unknown) (no date) (unknown) (unknown) RBC 3.84 L (units unknown) (unknown) (unknown) (no date) (unknown) (unknown) RBC Morphology Not Reportable (units unknown) (unknown) (unknown) (no date) (unknown) (unknown) RDW 26.3 H (units unknown) (unknown) (unknown) (no date) (unknown) (unknown) Respiratory Ra te 18 17 (units unknown) (unknown) (unknown) (no date) (unknown) (unknown) Respiratory Rate (un its unknown) (unknown) (unknown) (no date) (unknown) (unknown) She has an NG tube in her left naris that has bloody output. The amount of (units unknown) (unknown) (unknown) (no date) (unknown) (unknown) Signed By: (units unknown) (unknown) (unknown) (no date) (unknown) (unknown) Smoking Status : Former smoker (units unknown) (unknown) (unknown) (no date) (unknown) (unknown) Social History (units unknown) (unknown) (unknown) (no date) (unknown) (unknown) Sodium 138 (units unknown) (unknown) (unknown) (no date) (unknown) (unknown) Status: Acute (units unknown) (unknown) (unknown) (no date) (unknown) (unknown) Subjective (units unknown) (unknown) (unknown) (no date) (unknown) (unknown) Surgical Histo ry (units unknown) (unknown) (unknown) (no date) (unknown) (unknown) TIA (transient ischemic attack) (units unknown) (unknown) (unknown) (no date) (unknown) (unknown) Temperature 98.6 F ( units unknown) (unknown) (unknown) (no date) (unknown) (unknown) Temperature (units unknown) (unknown) (unknown) (no date) (unknown) (unknown) Time Spent Wit h Patient (units unknown) (unknown) (unknown) (no date) (unknown) (unknown) VTE (units unknown) (unknown) (unknown) (no date) (unknown) (unknown) Vital Signs (units unknown) (unknown) (unknown) (no date) (unknown) (unknown) WBC 6.8 (units unknown) (unknown) (unknown) (no date) (unknown) (unknown) [Embedded Imag e Not Available] (units unknown) (unknown) (unknown) (no date) (unknown) (unknown) abdominal absc ess. She does have dilated small bowel but she is having bowel (units unknown) (unknown) (unknown) (no date) (unknown) (unknown) alcohol intake : current (units unknown) (unknown) (unknown) (no date) (unknown) (unknown) distended. (units unknown) (unknown) (unknown) (no date) (unknown) (unknown) for colon canc er pT3 N0. She is readmitted to the hospital for a postoperative (units unknown) (unknown) (unknown) (no date) (unknown) (unknown) having diarrhe a and was hypokalemic. She was treated for illeus and was (units unknown) (unknown) (unknown) (no date) (unknown) (unknown) household memb ers: spouse (units unknown) (unknown) (unknown) (no date) (unknown) (unknown) hue to it tonick y. He is not had any bowel movement and denies passing flatus. (units unknown) (unknown) (unknown) (no date) (unknown) (unknown) hypokalemia wh ich contributed to her ileus. (units unknown) (unknown) (unknown) (no date) (unknown) (unknown) ileus. (units unknown) (unknown) (unknown) (no date) (unknown) (unknown) incisions she has an NG-tube in place and is complaining of some pain in her (units unknown) (unknown) (unknown) (no date) (unknown) (unknown) lives independently: Yes (units unknown) (unknown) (unknown) (no date) (unknown) (unknown) marital status : (units unknown) (unknown) (unknown) (no date) (unknown) (unknown) movements and this picture is consistent with postoperative ileus more likely (units unknown) (unknown) (unknown) (no date) (unknown) (unknown) nauseated vomi ting and had an NGT placed 12/09/22. (units unknown) (unknown) (unknown) (no date) (unknown) (unknown) of ascending colon ( units unknown) (unknown) (unknown) (no date) (unknown) (unknown) output appears to be a decent amount. (units unknown) (unknown) (unknown) (no date) (unknown) (unknown) peritonitis, n o leukocytosis and no evidence of anastomotic leak or intra (units unknown) (unknown) (unknown) (no date) (unknown) (unknown) resection on 11/30/22. She was discharged on 12/05 from that hospitalization. She (units unknown) (unknown) (unknown) (no date) (unknown) (unknown) returned to [facility] ER on 12/07 with abdominal pain and distension. She had been (units unknown) (unknown) (unknown) (no date) (unknown) (unknown) right lower quadrant there are no peritoneal signs. The abdomen is mildly (units unknown) (unknown) (unknown) (no date) (unknown) (unknown) substance use type: does not use (units unknown) (unknown) (unknown) (no date) (unknown) (unknown) than a small-b owel obstruction. 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 (units unknown) (unknown) Result panel 217 (unknown) (no date) (unknown) (unknown) (no value) (units unknown) (unknown) (unknown) (no date) (unknown) (unknown) (1) Ileus, postoperative: (units unknown) (unknown) (unknown) (no date) (unknown) (unknown) (2) Colon cancer: (u nits unknown) (unknown) (unknown) (no date) (unknown) (unknown) (past 8 hours): (uni ts unknown) (unknown) (unknown) (no date) (unknown) (unknown) -NPO until abdominal bloating improves (units unknown) (unknown) (unknown) (no date) (unknown) (unknown) -trial of Regl an to improve motility (units unknown) (unknown) (unknown) (no date) (unknown) (unknown) 12/10/22 12/10/22 (u nits unknown) (unknown) (unknown) (no date) (unknown) (unknown) 12/10/22 05:45 (unit s unknown) (unknown) (unknown) (no date) (unknown) (unknown) 12/10/22 1446 (units unknown) (unknown) (unknown) (no date) (unknown) (unknown) 12/10/22 (units unknown) (unknown) (unknown) (no date) (unknown) (unknown) 05:45 05:45 (units unknown) (unknown) (unknown) (no date) (unknown) (unknown) 08:00 12/10/22 (unit s unknown) (unknown) (unknown) (no date) (unknown) (unknown) 09:00 12/10/22 (unit s unknown) (unknown) (unknown) (no date) (unknown) (unknown) 12:34 (units unknown) (unknown) (unknown) (no date) (unknown) (unknown) 13:00 (units unknown) (unknown) (unknown) (no date) (unknown) (unknown) [id number] (units unknown) (unknown) (unknown) (no date) (unknown) (unknown) 87-year-old wo man 1 week status post laparoscopic assisted right hemicolectomy (units unknown) (unknown) (unknown) (no date) (unknown) (unknown) Additionally t taiwo there is not leukocytosis, there is a left shift today. He (units unknown) (unknown) (unknown) (no date) (unknown) (unknown) Age/Sex: 87 / F (uni ts unknown) (unknown) (unknown) (no date) (unknown) (unknown) Anisocytosis 2+ H (u nits unknown) (unknown) (unknown) (no date) (unknown) (unknown) Assessment + P ana narrative: (units unknown) (unknown) (unknown) (no date) (unknown) (unknown) Assessment + Plan (u nits unknown) (unknown) (unknown) (no date) (unknown) (unknown) Assessment and plan (units unknown) (unknown) (unknown) (no date) (unknown) (unknown) BUN 9 (units unknown) (unknown) (unknown) (no date) (unknown) (unknown) BUN/Creatinine Ratio 16.1 (units unknown) (unknown) (unknown) (no date) (unknown) (unknown) Back pain (units unknown) (unknown) (unknown) (no date) (unknown) (unknown) Baso # (Auto) 0 (uni ts unknown) (unknown) (unknown) (no date) (unknown) (unknown) Baso % (Auto) 0.5 (u nits unknown) (unknown) (unknown) (no date) (unknown) (unknown) Blood Pressure 139/74 147/79 H (units unknown) (unknown) (unknown) (no date) (unknown) (unknown) Blood Pressure (unit s unknown) (unknown) (unknown) (no date) (unknown) (unknown) Calcium 7.9 L (units unknown) (unknown) (unknown) (no date) (unknown) (unknown) Carbon Dioxide 25 (u nits unknown) (unknown) (unknown) (no date) (unknown) (unknown) Cataract (units unknown) (unknown) (unknown) (no date) (unknown) (unknown) Chloride 103 (units unknown) (unknown) (unknown) (no date) (unknown) (unknown) Colon location : ascending Qualified Code(s): C18.2 - Malignant neoplasm (units unknown) (unknown) (unknown) (no date) (unknown) (unknown) Creatinine 0.56 (uni ts unknown) (unknown) (unknown) (no date) (unknown) (unknown) Critical Care time: (units unknown) (unknown) (unknown) (no date) (unknown) (unknown) : 4 Acct:[id number] (units unknown) (unknown) (unknown) (no date) (unknown) (unknown) Date of Servic e: 12/07/22 (units unknown) (unknown) (unknown) (no date) (unknown) (unknown) Deep Vein Thrombosis/Pulmonar y Embolism Present on Admission: No (units unknown) (unknown) (unknown) (no date) (unknown) (unknown) Eos # (Auto) 0 (unit s unknown) (unknown) (unknown) (no date) (unknown) (unknown) Eos % (Auto) 0.7 L ( units unknown) (unknown) (unknown) (no date) (unknown) (unknown) Estimated GFR > 60 ( units unknown) (unknown) (unknown) (no date) (unknown) (unknown) Exam Narrative: (uni ts unknown) (unknown) (unknown) (no date) (unknown) (unknown) Exam (units unknown) (unknown) (unknown) (no date) (unknown) (unknown) Family History (units unknown) (unknown) (unknown) (no date) (unknown) (unknown) Father d Pedestrian crushed by rolling stock (units unknown) (unknown) (unknown) (no date) (unknown) (unknown) Finger amputat ion, traumatic (units unknown) (unknown) (unknown) (no date) (unknown) (unknown) Glucose 72 L (units unknown) (unknown) (unknown) (no date) (unknown) (unknown) H/O prior abla tion treatment (units unknown) (unknown) (unknown) (no date) (unknown) (unknown) Hct 31.8 L (units unknown) (unknown) (unknown) (no date) (unknown) (unknown) Her abdomen is soft and tender around the incision and especially tender in the (units unknown) (unknown) (unknown) (no date) (unknown) (unknown) Hgb 10.8 L (units unknown) (unknown) (unknown) (no date) (unknown) (unknown) History of appendectomy (units unknown) (unknown) (unknown) (no date) (unknown) (unknown) History of radiofrequency ablation procedure for cardiac arrhythmia (units unknown) (unknown) (unknown) (no date) (unknown) (unknown) Hx of bilatera l cataract extraction (units unknown) (unknown) (unknown) (no date) (unknown) (unknown) Hyperlipemia (units unknown) (unknown) (unknown) (no date) (unknown) (unknown) Hypertension (units unknown) (unknown) (unknown) (no date) (unknown) (unknown) I spent a tota l of [] minutes of critical care time on this patient's care (units unknown) (unknown) (unknown) (no date) (unknown) (unknown) If she has liq uid BM, should send for c.diff. Continue IVF, NGT and DVT ppx. (units unknown) (unknown) (unknown) (no date) (unknown) (unknown) Interval history: (u nits unknown) (unknown) (unknown) (no date) (unknown) (unknown) [address] [address] (units unknown) (unknown) (unknown) (no date) (unknown) (unknown) Laboratory Res ults - last 24 hr (units unknown) (unknown) (unknown) (no date) (unknown) (unknown) Laboratory doris dies and CT abdomen pelvis personally reviewed. She is without (units unknown) (unknown) (unknown) (no date) (unknown) (unknown) Labs (units unknown) (unknown) (unknown) (no date) (unknown) (unknown) Labs: (units unknown) (unknown) (unknown) (no date) (unknown) (unknown) Lymph # (Auto) 600 L (units unknown) (unknown) (unknown) (no date) (unknown) (unknown) Lymph % (Auto) 9.0 L (units unknown) (unknown) (unknown) (no date) (unknown) (unknown) MCH 28.2 (units unknown) (unknown) (unknown) (no date) (unknown) (unknown) MCHC 34.1 (units unknown) (unknown) (unknown) (no date) (unknown) (unknown) MCV 82.6 (units unknown) (unknown) (unknown) (no date) (unknown) (unknown) Magnesium 1.9 (units unknown) (unknown) (unknown) (no date) (unknown) (unknown) Mass of cecum (units unknown) (unknown) (unknown) (no date) (unknown) (unknown) Medical Histor y (Updated 12/10/22 @ 14:15 by Safia Champagne MD) (units unknown) (unknown) (unknown) (no date) (unknown) (unknown) Mild edema of the extremities (units unknown) (unknown) (unknown) (no date) (unknown) (unknown) Ferry # (Auto) 500 (u nits unknown) (unknown) (unknown) (no date) (unknown) (unknown) [place]erry % (Auto) 7.3 (u nits unknown) (unknown) (unknown) (no date) (unknown) (unknown) Mother d Old age (units unknown) (unknown) (unknown) (no date) (unknown) (unknown) Ms. Castañeda is a n 87-year-old female who has a T3 N0 colon cancer status post (units unknown) (unknown) (unknown) (no date) (unknown) (unknown) NGT output is bloody and I suspect stress gastritis. Starting protonix and (units unknown) (unknown) (unknown) (no date) (unknown) (unknown) Narrative (units unknown) (unknown) (unknown) (no date) (unknown) (unknown) Neut # (Auto) 5600 ( units unknown) (unknown) (unknown) (no date) (unknown) (unknown) Neut % (Auto) 82.5 H (units unknown) (unknown) (unknown) (no date) (unknown) (unknown) No new complai nts today. She still is having pain in her abdomen and around her (units unknown) (unknown) (unknown) (no date) (unknown) (unknown) Objective (units unknown) (unknown) (unknown) (no date) (unknown) (unknown) Out of bed and ambulate as able (units unknown) (unknown) (unknown) (no date) (unknown) (unknown) Oxygen Deliver y Method Room Air (units unknown) (unknown) (unknown) (no date) (unknown) (unknown) Oxygen Flow Ra te 0 0 (units unknown) (unknown) (unknown) (no date) (unknown) (unknown) Oxygen Flow Rate 0 ( units unknown) (unknown) (unknown) (no date) (unknown) (unknown) PFSH (units unknown) (unknown) (unknown) (no date) (unknown) (unknown) PVC's (prematu re ventricular contractions) (units unknown) (unknown) (unknown) (no date) (unknown) (unknown) Patient is jas ke alert and oriented. She seems tired and is supine in bed. (units unknown) (unknown) (unknown) (no date) (unknown) (unknown) Patient: Patricia Castañeda MR#: [id number] (units unknown) (unknown) (unknown) (no date) (unknown) (unknown) Plt Count 180 (units unknown) (unknown) (unknown) (no date) (unknown) (unknown) Poikilocytosis 1+ H (units unknown) (unknown) (unknown) (no date) (unknown) (unknown) Polychromasia 1+ H ( units unknown) (unknown) (unknown) (no date) (unknown) (unknown) Potassium 3.3 L (uni ts unknown) (unknown) (unknown) (no date) (unknown) (unknown) Problem details: (un its unknown) (unknown) (unknown) (no date) (unknown) (unknown) Progress Note (units unknown) (unknown) (unknown) (no date) (unknown) (unknown) Provider: Pretty Champagne (units unknown) (unknown) (unknown) (no date) (unknown) (unknown) Pulse Oximetry 95 (u nits unknown) (unknown) (unknown) (no date) (unknown) (unknown) Pulse Oximetry 96 95 95 (units unknown) (unknown) (unknown) (no date) (unknown) (unknown) Pulse Rate 84 86 (un its unknown) (unknown) (unknown) (no date) (unknown) (unknown) Pulse Rate (units unknown) (unknown) (unknown) (no date) (unknown) (unknown) Qualifiers: (units unknown) (unknown) (unknown) (no date) (unknown) (unknown) Quality (units unknown) (unknown) (unknown) (no date) (unknown) (unknown) RBC 3.84 L (units unknown) (unknown) (unknown) (no date) (unknown) (unknown) RBC Morphology Not Reportable (units unknown) (unknown) (unknown) (no date) (unknown) (unknown) RDW 26.3 H (units unknown) (unknown) (unknown) (no date) (unknown) (unknown) Respiratory Ra te 18 17 (units unknown) (unknown) (unknown) (no date) (unknown) (unknown) Respiratory Rate (un its unknown) (unknown) (unknown) (no date) (unknown) (unknown) She has an NG tube in her left naris that has bloody output. The amount of (units unknown) (unknown) (unknown) (no date) (unknown) (unknown) Signed By:<Electronically signed by Safia Champagne> (units unknown) (unknown) (unknown) (no date) (unknown) (unknown) Smoking Status : Former smoker (units unknown) (unknown) (unknown) (no date) (unknown) (unknown) Social History (units unknown) (unknown) (unknown) (no date) (unknown) (unknown) Sodium 138 (units unknown) (unknown) (unknown) (no date) (unknown) (unknown) Status: Acute (units unknown) (unknown) (unknown) (no date) (unknown) (unknown) Subjective (units unknown) (unknown) (unknown) (no date) (unknown) (unknown) Surgical Histo ry (units unknown) (unknown) (unknown) (no date) (unknown) (unknown) TIA (transient ischemic attack) (units unknown) (unknown) (unknown) (no date) (unknown) (unknown) Temperature 98.6 F ( units unknown) (unknown) (unknown) (no date) (unknown) (unknown) Temperature (units unknown) (unknown) (unknown) (no date) (unknown) (unknown) Time Spent Wit h Patient (units unknown) (unknown) (unknown) (no date) (unknown) (unknown) Today she has some hypokalemia that has been treated by hospital service. (units unknown) (unknown) (unknown) (no date) (unknown) (unknown) VTE (units unknown) (unknown) (unknown) (no date) (unknown) (unknown) Vital Signs (units unknown) (unknown) (unknown) (no date) (unknown) (unknown) WBC 6.8 (units unknown) (unknown) (unknown) (no date) (unknown) (unknown) Will follow. (units unknown) (unknown) (unknown) (no date) (unknown) (unknown) [Embedded Imag e Not Available] (units unknown) (unknown) (unknown) (no date) (unknown) (unknown) abdominal absc ess. She does have dilated small bowel but she is having bowel (units unknown) (unknown) (unknown) (no date) (unknown) (unknown) alcohol intake : current (units unknown) (unknown) (unknown) (no date) (unknown) (unknown) distended. (units unknown) (unknown) (unknown) (no date) (unknown) (unknown) for colon canc er pT3 N0. She is readmitted to the hospital for a postoperative (units unknown) (unknown) (unknown) (no date) (unknown) (unknown) having diarrhe a and was hypokalemic. She was treated for illeus and was (units unknown) (unknown) (unknown) (no date) (unknown) (unknown) household memb ers: spouse (units unknown) (unknown) (unknown) (no date) (unknown) (unknown) hue to it toda y. He is not had any bowel movement and denies passing flatus. (units unknown) (unknown) (unknown) (no date) (unknown) (unknown) hypokalemia wh ich contributed to her ileus. (units unknown) (unknown) (unknown) (no date) (unknown) (unknown) ileus. (units unknown) (unknown) (unknown) (no date) (unknown) (unknown) incisions she has an NG-tube in place and is complaining of some pain in her (units unknown) (unknown) (unknown) (no date) (unknown) (unknown) lives independently: Yes (units unknown) (unknown) (unknown) (no date) (unknown) (unknown) marital status : (units unknown) (unknown) (unknown) (no date) (unknown) (unknown) monitoring. (units unknown) (unknown) (unknown) (no date) (unknown) (unknown) movements and this picture is consistent with postoperative ileus more likely (units unknown) (unknown) (unknown) (no date) (unknown) (unknown) nauseated and not tolerating clear liquids so an NGT placed 12/09/22. (units unknown) (unknown) (unknown) (no date) (unknown) (unknown) of ascending colon ( units unknown) (unknown) (unknown) (no date) (unknown) (unknown) output appears to be a decent amount. (units unknown) (unknown) (unknown) (no date) (unknown) (unknown) peritonitis, n o leukocytosis and no evidence of anastomotic leak or intra (units unknown) (unknown) (unknown) (no date) (unknown) (unknown) resection on 11/30/22. She was discharged on 12/05 from that hospitalization. She (units unknown) (unknown) (unknown) (no date) (unknown) (unknown) returned to [facility] ER on 12/07 with abdominal pain and distension. She had been (units unknown) (unknown) (unknown) (no date) (unknown) (unknown) right lower quadrant there are no peritoneal signs. The abdomen is mildly (units unknown) (unknown) (unknown) (no date) (unknown) (unknown) substance use type: does not use (units unknown) (unknown) (unknown) (no date) (unknown) (unknown) than a small-b owel obstruction. I suspect her ongoing diarrhea resulted in (units unknown) (unknown) (unknown) (no date) (unknown) (unknown) throat with at staff pharmacist hospital notes that the output from the NG tube has a bloody (units unknown) (unknown) (unknown) (no date) (unknown) (unknown) today; this ti me is exclusive of procedural time. (units unknown) (unknown) Result panel 218 (unknown) (no date) (unknown) (unknown) 0 /ul (unknown ) (unknown) (no date) (unknown) (unknown) 0.6 % (unknown ) (unknown) (no date) (unknown) (unknown) 10.4 g/dl (unknown ) (unknown) (no date) (unknown) (unknown) 12.8 % (unknown ) (unknown) (no date) (unknown) (unknown) 2.5 % (unknown ) (unknown) (no date) (unknown) (unknown) 200 /ul (unknown ) (unknown) (no date) (unknown) (unknown) 200 x10 3/ul (unknow n) (unknown) (no date) (unknown) (unknown) 25.5 % (unknown ) (unknown) (no date) (unknown) (unknown) 28.0 pg (unknown ) (unknown) (no date) (unknown) (unknown) 3.70 x10 6/ul (unknow n) (unknown) (no date) (unknown) (unknown) 31.2 % (unknown ) (unknown) (no date) (unknown) (unknown) 33.2 % (unknown ) (unknown) (no date) (unknown) (unknown) 400 /ul (unknown ) (unknown) (no date) (unknown) (unknown) 4600 /ul (unknown ) (unknown) (no date) (unknown) (unknown) 6.0 x10 3/ul (unknow n) (unknown) (no date) (unknown) (unknown) 7.0 % (unknown ) (unknown) (no date) (unknown) (unknown) 77.1 % (unknown ) (unknown) (no date) (unknown) (unknown) 800 /ul (unknown ) (unknown) (no date) (unknown) (unknown) 84.2 fl (unknown ) Result panel 219 (unknown) (no date) (unknown) (unknown) > 60 ml/min (unknown ) (unknown) (no date) (unknown) (unknown) > 60 ml/min (unknown ) (unknown) (no date) (unknown) (unknown) 0.60 mg/dl (unknown ) (unknown) (no date) (unknown) (unknown) 1.8 mg/dl (unknown ) (unknown) (no date) (unknown) (unknown) 10 mg/dl (unknown ) (unknown) (no date) (unknown) (unknown) 105 mmol/l (unknown ) (unknown) (no date) (unknown) (unknown) 138 mmol/l (unknown ) (unknown) (no date) (unknown) (unknown) 16.7 (units unknown) (unknown) (unknown) (no date) (unknown) (unknown) 25 mmol/l (unknown ) (unknown) (no date) (unknown) (unknown) 3.5 mmol/l (unknown ) (unknown) (no date) (unknown) (unknown) 7.8 mg/dl (unknown ) (unknown) (no date) (unknown) (unknown) 78 mg/dl (unknown ) (unknown) (no date) (unknown) (unknown) 78 mg/dl (unknown ) Result panel 220 (unknown) (no date) (unknown) (unknown) 0 /ul (unknown ) (unknown) (no date) (unknown) (unknown) 0.6 % (unknown ) (unknown) (no date) (unknown) (unknown) 1 (units unknown) (unknown) (unknown) (no date) (unknown) (unknown) 10.4 g/dl (unknown ) (unknown) (no date) (unknown) (unknown) 12.8 % (unknown ) (unknown) (no date) (unknown) (unknown) 2 (units unknown) (unknown) (unknown) (no date) (unknown) (unknown) 2.5 % (unknown ) (unknown) (no date) (unknown) (unknown) 200 /ul (unknown ) (unknown) (no date) (unknown) (unknown) 200 x10 3/ul (unknow n) (unknown) (no date) (unknown) (unknown) 25.5 % (unknown ) (unknown) (no date) (unknown) (unknown) 28.0 pg (unknown ) (unknown) (no date) (unknown) (unknown) 3.70 x10 6/ul (unknow n) (unknown) (no date) (unknown) (unknown) 31.2 % (unknown ) (unknown) (no date) (unknown) (unknown) 33.2 % (unknown ) (unknown) (no date) (unknown) (unknown) 400 /ul (unknown ) (unknown) (no date) (unknown) (unknown) 4600 /ul (unknown ) (unknown) (no date) (unknown) (unknown) 6.0 x10 3/ul (unknow n) (unknown) (no date) (unknown) (unknown) 7.0 % (unknown ) (unknown) (no date) (unknown) (unknown) 77.1 % (unknown ) (unknown) (no date) (unknown) (unknown) 800 /ul (unknown ) (unknown) (no date) (unknown) (unknown) 84.2 fl (unknown ) Result panel 221 (unknown) (no date) (unknown) (unknown) (no value) (units unknown) (unknown) (unknown) (no date) (unknown) (unknown) (past 8 hours): (uni ts unknown) (unknown) (unknown) (no date) (unknown) (unknown) 12/11/22 12/11/22 (u nits unknown) (unknown) (unknown) (no date) (unknown) (unknown) 12/11/22 07:06 (unit s unknown) (unknown) (unknown) (no date) (unknown) (unknown) 12/11/22 (units unknown) (unknown) (unknown) (no date) (unknown) (unknown) 05:00 12/11/22 (unit s unknown) (unknown) (unknown) (no date) (unknown) (unknown) 06:50 12/11/22 (unit s unknown) (unknown) (unknown) (no date) (unknown) (unknown) 07:06 07:06 (units unknown) (unknown) (unknown) (no date) (unknown) (unknown) 08:46 (units unknown) (unknown) (unknown) (no date) (unknown) (unknown) [id number] (units unknown) (unknown) (unknown) (no date) (unknown) (unknown) ?Ms. Castañeda is an 87-year-old woman who is status post laparoscopic assisted (units unknown) (unknown) (unknown) (no date) (unknown) (unknown) ABD: soft, min imal distention. Bowel sounds are scant but present. Minimal (units unknown) (unknown) (unknown) (no date) (unknown) (unknown) Age/Sex: 87 / F (uni ts unknown) (unknown) (unknown) (no date) (unknown) (unknown) Anisocytosis 2+ H (u nits unknown) (unknown) (unknown) (no date) (unknown) (unknown) Assessment + Plan (u nits unknown) (unknown) (unknown) (no date) (unknown) (unknown) BUN 10 (units unknown) (unknown) (unknown) (no date) (unknown) (unknown) BUN/Creatinine Ratio 16.7 (units unknown) (unknown) (unknown) (no date) (unknown) (unknown) Back pain (units unknown) (unknown) (unknown) (no date) (unknown) (unknown) Baso # (Auto) 0 (uni ts unknown) (unknown) (unknown) (no date) (unknown) (unknown) Baso % (Auto) 0.6 (u nits unknown) (unknown) (unknown) (no date) (unknown) (unknown) Blood Pressure 161/77 H 165/77 H (units unknown) (unknown) (unknown) (no date) (unknown) (unknown) CV: regular ra te and rhythm, no murmurs (units unknown) (unknown) (unknown) (no date) (unknown) (unknown) Calcium 7.8 L (units unknown) (unknown) (unknown) (no date) (unknown) (unknown) Carbon Dioxide 25 (u nits unknown) (unknown) (unknown) (no date) (unknown) (unknown) Cataract (units unknown) (unknown) (unknown) (no date) (unknown) (unknown) Chloride 105 (units unknown) (unknown) (unknown) (no date) (unknown) (unknown) Creatinine 0.60 (uni ts unknown) (unknown) (unknown) (no date) (unknown) (unknown) Critical Care time: (units unknown) (unknown) (unknown) (no date) (unknown) (unknown) : 4 Acct:[id number] (units unknown) (unknown) (unknown) (no date) (unknown) (unknown) Date of Servic e: 12/07/22 (units unknown) (unknown) (unknown) (no date) (unknown) (unknown) Deep Vein Thrombosis/Pulmonar y Embolism Present on Admission: No (units unknown) (unknown) (unknown) (no date) (unknown) (unknown) EXT: warm and well perfused with no edema (units unknown) (unknown) (unknown) (no date) (unknown) (unknown) Eos # (Auto) 200 (un its unknown) (unknown) (unknown) (no date) (unknown) (unknown) Eos % (Auto) 2.5 (un its unknown) (unknown) (unknown) (no date) (unknown) (unknown) Estimated GFR > 60 ( units unknown) (unknown) (unknown) (no date) (unknown) (unknown) Exam Narrative: (uni ts unknown) (unknown) (unknown) (no date) (unknown) (unknown) Exam (units unknown) (unknown) (unknown) (no date) (unknown) (unknown) Family History (units unknown) (unknown) (unknown) (no date) (unknown) (unknown) Father d Pedestrian crushed by rolling stock (units unknown) (unknown) (unknown) (no date) (unknown) (unknown) Finger amputat ion, traumatic (units unknown) (unknown) (unknown) (no date) (unknown) (unknown) GEN: appears t o be in distress from pain (units unknown) (unknown) (unknown) (no date) (unknown) (unknown) Glucose 78 L (units unknown) (unknown) (unknown) (no date) (unknown) (unknown) H/O prior abla tion treatment (units unknown) (unknown) (unknown) (no date) (unknown) (unknown) HEENT: moist m ucous membranes, PERRL, NG inplace and fluid typical of stomach (units unknown) (unknown) (unknown) (no date) (unknown) (unknown) Hct 31.2 L (units unknown) (unknown) (unknown) (no date) (unknown) (unknown) Hgb 10.4 L (units unknown) (unknown) (unknown) (no date) (unknown) (unknown) History of appendectomy (units unknown) (unknown) (unknown) (no date) (unknown) (unknown) History of radiofrequency ablation procedure for cardiac arrhythmia (units unknown) (unknown) (unknown) (no date) (unknown) (unknown) Hx of bilatera l cataract extraction (units unknown) (unknown) (unknown) (no date) (unknown) (unknown) Hyperlipemia (units unknown) (unknown) (unknown) (no date) (unknown) (unknown) Hypertension (units unknown) (unknown) (unknown) (no date) (unknown) (unknown) I spent a tota l of [] minutes of critical care time on this patient's care (units unknown) (unknown) (unknown) (no date) (unknown) (unknown) Interval history: (u nits unknown) (unknown) (unknown) (no date) (unknown) (unknown) [address] [address] (units unknown) (unknown) (unknown) (no date) (unknown) (unknown) Laboratory Res ults - last 24 hr (units unknown) (unknown) (unknown) (no date) (unknown) (unknown) Labs (units unknown) (unknown) (unknown) (no date) (unknown) (unknown) Labs: (units unknown) (unknown) (unknown) (no date) (unknown) (unknown) Lymph # (Auto) 800 L (units unknown) (unknown) (unknown) (no date) (unknown) (unknown) Lymph % (Auto) 12.8 L (units unknown) (unknown) (unknown) (no date) (unknown) (unknown) MCH 28.0 (units unknown) (unknown) (unknown) (no date) (unknown) (unknown) MCHC 33.2 (units unknown) (unknown) (unknown) (no date) (unknown) (unknown) MCV 84.2 (units unknown) (unknown) (unknown) (no date) (unknown) (unknown) Magnesium 1.8 (units unknown) (unknown) (unknown) (no date) (unknown) (unknown) [place] of c[place] (units unknown) (unknown) (unknown) (no date) (unknown) (unknown) Medical Histor y (Updated 12/10/22 @ 14:15 by Safia Champagne MD) (units unknown) (unknown) (unknown) (no date) (unknown) (unknown) Ferry # (Auto) 400 (u nits unknown) (unknown) (unknown) (no date) (unknown) (unknown) Ferry % (Auto) 7.0 (u nits unknown) (unknown) (unknown) (no date) (unknown) (unknown) Mother d Old age (units unknown) (unknown) (unknown) (no date) (unknown) (unknown) NECK: trachea midline, no JVD (units unknown) (unknown) (unknown) (no date) (unknown) (unknown) NEURO: awake, alert, oriented, no focal deficits (units unknown) (unknown) (unknown) (no date) (unknown) (unknown) Narrative (units unknown) (unknown) (unknown) (no date) (unknown) (unknown) Neut # (Auto) 4600 ( units unknown) (unknown) (unknown) (no date) (unknown) (unknown) Neut % (Auto) 77.1 H (units unknown) (unknown) (unknown) (no date) (unknown) (unknown) Objective (units unknown) (unknown) (unknown) (no date) (unknown) (unknown) Oxygen Deliver y Method Room Air (units unknown) (unknown) (unknown) (no date) (unknown) (unknown) Oxygen Flow Ra te 0 0 0 (units unknown) (unknown) (unknown) (no date) (unknown) (unknown) Oxygen Flow Rate 0 ( units unknown) (unknown) (unknown) (no date) (unknown) (unknown) PFSH (units unknown) (unknown) (unknown) (no date) (unknown) (unknown) PULM: clear bilaterally, no wheezes, rhonchi, rales (units unknown) (unknown) (unknown) (no date) (unknown) (unknown) PVC's (prematu re ventricular contractions) (units unknown) (unknown) (unknown) (no date) (unknown) (unknown) Patient: Patricia Castañeda MR#: [id number] (units unknown) (unknown) (unknown) (no date) (unknown) (unknown) Plt Count 200 (units unknown) (unknown) (unknown) (no date) (unknown) (unknown) Poikilocytosis 1+ H (units unknown) (unknown) (unknown) (no date) (unknown) (unknown) Polychromasia 1+ H ( units unknown) (unknown) (unknown) (no date) (unknown) (unknown) Potassium 3.5 (units unknown) (unknown) (unknown) (no date) (unknown) (unknown) Progress Note (units unknown) (unknown) (unknown) (no date) (unknown) (unknown) Provider: Taya Galicia MD (units unknown) (unknown) (unknown) (no date) (unknown) (unknown) Pulse Oximetry 94 95 96 (units unknown) (unknown) (unknown) (no date) (unknown) (unknown) Pulse Rate 88 80 (un its unknown) (unknown) (unknown) (no date) (unknown) (unknown) Quality (units unknown) (unknown) (unknown) (no date) (unknown) (unknown) RBC 3.70 L (units unknown) (unknown) (unknown) (no date) (unknown) (unknown) RBC Morphology Not Reportable (units unknown) (unknown) (unknown) (no date) (unknown) (unknown) RDW 25.5 H (units unknown) (unknown) (unknown) (no date) (unknown) (unknown) Respiratory Ra te 18 16 (units unknown) (unknown) (unknown) (no date) (unknown) (unknown) Signed By: (units unknown) (unknown) (unknown) (no date) (unknown) (unknown) Smoking Status : Former smoker (units unknown) (unknown) (unknown) (no date) (unknown) (unknown) Social History (units unknown) (unknown) (unknown) (no date) (unknown) (unknown) Sodium 138 (units unknown) (unknown) (unknown) (no date) (unknown) (unknown) Subjective (units unknown) (unknown) (unknown) (no date) (unknown) (unknown) Surgical Histo ry (units unknown) (unknown) (unknown) (no date) (unknown) (unknown) TIA (transient ischemic attack) (units unknown) (unknown) (unknown) (no date) (unknown) (unknown) Temperature 96 .2 F L (units unknown) (unknown) (unknown) (no date) (unknown) (unknown) Time Spent Wit h Patient (units unknown) (unknown) (unknown) (no date) (unknown) (unknown) VTE (units unknown) (unknown) (unknown) (no date) (unknown) (unknown) Vital Signs (units unknown) (unknown) (unknown) (no date) (unknown) (unknown) WBC 6.0 (units unknown) (unknown) (unknown) (no date) (unknown) (unknown) [Embedded Imag e Not Available] (units unknown) (unknown) (unknown) (no date) (unknown) (unknown) alcohol intake : current (units unknown) (unknown) (unknown) (no date) (unknown) (unknown) discomfort on palpation. (units unknown) (unknown) (unknown) (no date) (unknown) (unknown) fluid at this time ( units unknown) (unknown) (unknown) (no date) (unknown) (unknown) has cleared. T ube. Magic mouthwash is helping the throat irritation but only (units unknown) (unknown) (unknown) (no date) (unknown) (unknown) household memb ers: spouse (units unknown) (unknown) (unknown) (no date) (unknown) (unknown) lives independently: Yes (units unknown) (unknown) (unknown) (no date) (unknown) (unknown) marital status : (units unknown) (unknown) (unknown) (no date) (unknown) (unknown) minimally. Liz ient has had some gas passed per rectum this morning. (units unknown) (unknown) (unknown) (no date) (unknown) (unknown) right hemicole ctomy for colon cancer pT3 N0. Has a ileus with NG tube. With (units unknown) (unknown) (unknown) (no date) (unknown) (unknown) substance use type: does not use (units unknown) (unknown) (unknown) (no date) (unknown) (unknown) today; this ti me is exclusive of procedural time. (units unknown) (unknown) (unknown) (no date) (unknown) (unknown) treatment with IV Protonix 40 mg IV b.i.d. the bloody tinge to the NG drainage (units unknown) (unknown) Result panel 222 (unknown) (no date) (unknown) (unknown) (no value) (units unknown) (unknown) (unknown) (no date) (unknown) (unknown) (past 8 hours): (uni ts unknown) (unknown) (unknown) (no date) (unknown) (unknown) - Magic mouth wash prn every 4 hours. Magic mouthwash is helping somewhat. (units unknown) (unknown) (unknown) (no date) (unknown) (unknown) - restarted metoprolol yesterday (units unknown) (unknown) (unknown) (no date) (unknown) (unknown) -NG tube place d per surgery, failed CLD.. (units unknown) (unknown) (unknown) (no date) (unknown) (unknown) -appreciate ge neral surgery assistance. (units unknown) (unknown) (unknown) (no date) (unknown) (unknown) -beginning to pass gas and bowel sounds beginning to be present (units unknown) (unknown) (unknown) (no date) (unknown) (unknown) -drainage stom ach fluid currently with no bloody tinge (units unknown) (unknown) (unknown) (no date) (unknown) (unknown) -hold anti-dena telet medications for now (units unknown) (unknown) (unknown) (no date) (unknown) (unknown) -hold statin f or now (units unknown) (unknown) (unknown) (no date) (unknown) (unknown) -management an d follow up per surgery (units unknown) (unknown) (unknown) (no date) (unknown) (unknown) 12/11/22 12/11/22 (u nits unknown) (unknown) (unknown) (no date) (unknown) (unknown) 12/11/22 07:06 (unit s unknown) (unknown) (unknown) (no date) (unknown) (unknown) 12/11/22 (units unknown) (unknown) (unknown) (no date) (unknown) (unknown) 05:00 12/11/22 (unit s unknown) (unknown) (unknown) (no date) (unknown) (unknown) 06:50 12/11/22 (unit s unknown) (unknown) (unknown) (no date) (unknown) (unknown) 07:06 07:06 (units unknown) (unknown) (unknown) (no date) (unknown) (unknown) 08:46 (units unknown) (unknown) (unknown) (no date) (unknown) (unknown) 1. Possible sm all bowel obstruction or post op ileus (units unknown) (unknown) (unknown) (no date) (unknown) (unknown) [id number] (units unknown) (unknown) (unknown) (no date) (unknown) (unknown) 2. Colonic adenocarcinoma s/p lap hemicolectomy (units unknown) (unknown) (unknown) (no date) (unknown) (unknown) 4. TIA (units unknown) (unknown) (unknown) (no date) (unknown) (unknown) 5. HTN (units unknown) (unknown) (unknown) (no date) (unknown) (unknown) 6. HLD (units unknown) (unknown) (unknown) (no date) (unknown) (unknown) 7. Hypokalemia (unit s unknown) (unknown) (unknown) (no date) (unknown) (unknown) 8. Complaint o f irritated throat (units unknown) (unknown) (unknown) (no date) (unknown) (unknown) ?- likely due to volume losses. Pharmacy replacing. Potassium stable normal (units unknown) (unknown) (unknown) (no date) (unknown) (unknown) ?Ms. Castañeda is an 87-year-old woman who is status post laparoscopic assisted (units unknown) (unknown) (unknown) (no date) (unknown) (unknown) ABD: soft, min imal distention. Bowel sounds are scant but present. Minimal (units unknown) (unknown) (unknown) (no date) (unknown) (unknown) Age/Sex: 87 / F (uni ts unknown) (unknown) (unknown) (no date) (unknown) (unknown) Anisocytosis 2+ H (u nits unknown) (unknown) (unknown) (no date) (unknown) (unknown) Assessment + P ana narrative: (units unknown) (unknown) (unknown) (no date) (unknown) (unknown) Assessment + Plan (u nits unknown) (unknown) (unknown) (no date) (unknown) (unknown) BUN 10 (units unknown) (unknown) (unknown) (no date) (unknown) (unknown) BUN/Creatinine Ratio 16.7 (units unknown) (unknown) (unknown) (no date) (unknown) (unknown) Back pain (units unknown) (unknown) (unknown) (no date) (unknown) (unknown) Baso # (Auto) 0 (uni ts unknown) (unknown) (unknown) (no date) (unknown) (unknown) Baso % (Auto) 0.6 (u nits unknown) (unknown) (unknown) (no date) (unknown) (unknown) Blood Pressure 161/77 H 165/77 H (units unknown) (unknown) (unknown) (no date) (unknown) (unknown) CODE: Full (units unknown) (unknown) (unknown) (no date) (unknown) (unknown) CV: regular ra te and rhythm, no murmurs (units unknown) (unknown) (unknown) (no date) (unknown) (unknown) Calcium 7.8 L (units unknown) (unknown) (unknown) (no date) (unknown) (unknown) Carbon Dioxide 25 (u nits unknown) (unknown) (unknown) (no date) (unknown) (unknown) Cataract (units unknown) (unknown) (unknown) (no date) (unknown) (unknown) Chloride 105 (units unknown) (unknown) (unknown) (no date) (unknown) (unknown) Creatinine 0.60 (uni ts unknown) (unknown) (unknown) (no date) (unknown) (unknown) Critical Care time: (units unknown) (unknown) (unknown) (no date) (unknown) (unknown) : 4 Acct:[id number] (units unknown) (unknown) (unknown) (no date) (unknown) (unknown) Date of Servic e: 12/07/22 (units unknown) (unknown) (unknown) (no date) (unknown) (unknown) Deep Vein Thrombosis/Pulmonar y Embolism Present on Admission: No (units unknown) (unknown) (unknown) (no date) (unknown) (unknown) EXT: warm and well perfused with no edema (units unknown) (unknown) (unknown) (no date) (unknown) (unknown) Eos # (Auto) 200 (un its unknown) (unknown) (unknown) (no date) (unknown) (unknown) Eos % (Auto) 2.5 (un its unknown) (unknown) (unknown) (no date) (unknown) (unknown) Estimated GFR > 60 ( units unknown) (unknown) (unknown) (no date) (unknown) (unknown) Exam Narrative: (uni ts unknown) (unknown) (unknown) (no date) (unknown) (unknown) Exam (units unknown) (unknown) (unknown) (no date) (unknown) (unknown) Family History (units unknown) (unknown) (unknown) (no date) (unknown) (unknown) Father d Pedestrian crushed by rolling stock (units unknown) (unknown) (unknown) (no date) (unknown) (unknown) Finger amputat ion, traumatic (units unknown) (unknown) (unknown) (no date) (unknown) (unknown) Follow labs an d clinically. (units unknown) (unknown) (unknown) (no date) (unknown) (unknown) GEN: appears t o be in distress from pain (units unknown) (unknown) (unknown) (no date) (unknown) (unknown) Glucose 78 L (units unknown) (unknown) (unknown) (no date) (unknown) (unknown) H/O prior abla tion treatment (units unknown) (unknown) (unknown) (no date) (unknown) (unknown) HEENT: moist m ucous membranes, PERRL, NG inplace and fluid typical of stomach (units unknown) (unknown) (unknown) (no date) (unknown) (unknown) Hct 31.2 L (units unknown) (unknown) (unknown) (no date) (unknown) (unknown) Hgb 10.4 L (units unknown) (unknown) (unknown) (no date) (unknown) (unknown) History of appendectomy (units unknown) (unknown) (unknown) (no date) (unknown) (unknown) History of radiofrequency ablation procedure for cardiac arrhythmia (units unknown) (unknown) (unknown) (no date) (unknown) (unknown) Hx of bilatera l cataract extraction (units unknown) (unknown) (unknown) (no date) (unknown) (unknown) Hyperlipemia (units unknown) (unknown) (unknown) (no date) (unknown) (unknown) Hypertension (units unknown) (unknown) (unknown) (no date) (unknown) (unknown) I spent a tota l of [] minutes of critical care time on this patient's care (units unknown) (unknown) (unknown) (no date) (unknown) (unknown) Interval history: (u nits unknown) (unknown) (unknown) (no date) (unknown) (unknown) [address] [address] (units unknown) (unknown) (unknown) (no date) (unknown) (unknown) Laboratory Res ults - last 24 hr (units unknown) (unknown) (unknown) (no date) (unknown) (unknown) Labs (units unknown) (unknown) (unknown) (no date) (unknown) (unknown) Labs: (units unknown) (unknown) (unknown) (no date) (unknown) (unknown) Lymph # (Auto) 800 L (units unknown) (unknown) (unknown) (no date) (unknown) (unknown) Lymph % (Auto) 12.8 L (units unknown) (unknown) (unknown) (no date) (unknown) (unknown) MCH 28.0 (units unknown) (unknown) (unknown) (no date) (unknown) (unknown) MCHC 33.2 (units unknown) (unknown) (unknown) (no date) (unknown) (unknown) MCV 84.2 (units unknown) (unknown) (unknown) (no date) (unknown) (unknown) Magnesium 1.8 (units unknown) (unknown) (unknown) (no date) (unknown) (unknown) Mass of c[place]um (units unknown) (unknown) (unknown) (no date) (unknown) (unknown) Medical Histor y (Updated 12/10/22 @ 14:15 by Safia Champagne MD) (units unknown) (unknown) (unknown) (no date) (unknown) (unknown) Ferry # (Auto) 400 (u nits unknown) (unknown) (unknown) (no date) (unknown) (unknown) Ferry % (Auto) 7.0 (u nits unknown) (unknown) (unknown) (no date) (unknown) (unknown) Mother d Old age (units unknown) (unknown) (unknown) (no date) (unknown) (unknown) NECK: trachea midline, no JVD (units unknown) (unknown) (unknown) (no date) (unknown) (unknown) NEURO: awake, alert, oriented, no focal deficits (units unknown) (unknown) (unknown) (no date) (unknown) (unknown) Narrative (units unknown) (unknown) (unknown) (no date) (unknown) (unknown) Neut # (Auto) 4600 ( units unknown) (unknown) (unknown) (no date) (unknown) (unknown) Neut % (Auto) 77.1 H (units unknown) (unknown) (unknown) (no date) (unknown) (unknown) Objective (units unknown) (unknown) (unknown) (no date) (unknown) (unknown) Oxygen Deliver y Method Room Air (units unknown) (unknown) (unknown) (no date) (unknown) (unknown) Oxygen Flow Ra te 0 0 0 (units unknown) (unknown) (unknown) (no date) (unknown) (unknown) Oxygen Flow Rate 0 ( units unknown) (unknown) (unknown) (no date) (unknown) (unknown) PFSH (units unknown) (unknown) (unknown) (no date) (unknown) (unknown) PULM: clear bilaterally, no wheezes, rhonchi, rales (units unknown) (unknown) (unknown) (no date) (unknown) (unknown) PVC's (prematu re ventricular contractions) (units unknown) (unknown) (unknown) (no date) (unknown) (unknown) Patient: Patricia Castañeda MR#: [id number] (units unknown) (unknown) (unknown) (no date) (unknown) (unknown) Plt Count 200 (units unknown) (unknown) (unknown) (no date) (unknown) (unknown) Poikilocytosis 1+ H (units unknown) (unknown) (unknown) (no date) (unknown) (unknown) Polychromasia 1+ H ( units unknown) (unknown) (unknown) (no date) (unknown) (unknown) Potassium 3.5 (units unknown) (unknown) (unknown) (no date) (unknown) (unknown) Progress Note (units unknown) (unknown) (unknown) (no date) (unknown) (unknown) Provider: Taya Galicia MD (units unknown) (unknown) (unknown) (no date) (unknown) (unknown) Proxy: Ahmet Castañeda, yina (units unknown) (unknown) (unknown) (no date) (unknown) (unknown) Pulse Oximetry 94 95 96 (units unknown) (unknown) (unknown) (no date) (unknown) (unknown) Pulse Rate 88 80 (un its unknown) (unknown) (unknown) (no date) (unknown) (unknown) Quality (units unknown) (unknown) (unknown) (no date) (unknown) (unknown) RBC 3.70 L (units unknown) (unknown) (unknown) (no date) (unknown) (unknown) RBC Morphology Not Reportable (units unknown) (unknown) (unknown) (no date) (unknown) (unknown) RDW 25.5 H (units unknown) (unknown) (unknown) (no date) (unknown) (unknown) Respiratory Ra te 18 16 (units unknown) (unknown) (unknown) (no date) (unknown) (unknown) Signed By: (units unknown) (unknown) (unknown) (no date) (unknown) (unknown) Smoking Status : Former smoker (units unknown) (unknown) (unknown) (no date) (unknown) (unknown) Social History (units unknown) (unknown) (unknown) (no date) (unknown) (unknown) Sodium 138 (units unknown) (unknown) (unknown) (no date) (unknown) (unknown) Subjective (units unknown) (unknown) (unknown) (no date) (unknown) (unknown) Surgical Histo ry (units unknown) (unknown) (unknown) (no date) (unknown) (unknown) TIA (transient ischemic attack) (units unknown) (unknown) (unknown) (no date) (unknown) (unknown) Temperature 96 .2 F L (units unknown) (unknown) (unknown) (no date) (unknown) (unknown) Time Spent Wit h Patient (units unknown) (unknown) (unknown) (no date) (unknown) (unknown) VTE (units unknown) (unknown) (unknown) (no date) (unknown) (unknown) Vital Signs (units unknown) (unknown) (unknown) (no date) (unknown) (unknown) WBC 6.0 (units unknown) (unknown) (unknown) (no date) (unknown) (unknown) [Embedded Imag e Not Available] (units unknown) (unknown) (unknown) (no date) (unknown) (unknown) alcohol intake : current (units unknown) (unknown) (unknown) (no date) (unknown) (unknown) discomfort on palpation. (units unknown) (unknown) (unknown) (no date) (unknown) (unknown) fluid at this time ( units unknown) (unknown) (unknown) (no date) (unknown) (unknown) has cleared. T ube. Magic mouthwash is helping the throat irritation but only (units unknown) (unknown) (unknown) (no date) (unknown) (unknown) household memb ers: spouse (units unknown) (unknown) (unknown) (no date) (unknown) (unknown) lives independently: Yes (units unknown) (unknown) (unknown) (no date) (unknown) (unknown) marital status : (units unknown) (unknown) (unknown) (no date) (unknown) (unknown) minimally. Liz warner has had some gas passed per rectum this morning. (units unknown) (unknown) (unknown) (no date) (unknown) (unknown) right hemicole ctomy for colon cancer pT3 N0. Has a ileus with NG tube. With (units unknown) (unknown) (unknown) (no date) (unknown) (unknown) substance use type: does not use (units unknown) (unknown) (unknown) (no date) (unknown) (unknown) today. (units unknown) (unknown) (unknown) (no date) (unknown) (unknown) today; this ti me is exclusive of procedural time. (units unknown) (unknown) (unknown) (no date) (unknown) (unknown) treatment with IV Protonix 40 mg IV b.i.d. the bloody tinge to the NG drainage (units unknown) (unknown) Result panel 223 (unknown) (no date) (unknown) (unknown) (no value) (units unknown) (unknown) (unknown) (no date) (unknown) (unknown) (past 8 hours): (uni ts unknown) (unknown) (unknown) (no date) (unknown) (unknown) - Magic mouth wash prn every 4 hours. Magic mouthwash is helping somewhat. (units unknown) (unknown) (unknown) (no date) (unknown) (unknown) - restarted metoprolol yesterday (units unknown) (unknown) (unknown) (no date) (unknown) (unknown) -NG tube place d per surgery, failed CLD.. (units unknown) (unknown) (unknown) (no date) (unknown) (unknown) -appreciate ge neral surgery assistance. (units unknown) (unknown) (unknown) (no date) (unknown) (unknown) -beginning to pass gas and bowel sounds beginning to be present (units unknown) (unknown) (unknown) (no date) (unknown) (unknown) -drainage stom ach fluid currently with no bloody tinge (units unknown) (unknown) (unknown) (no date) (unknown) (unknown) -hold anti-dena telet medications for now (units unknown) (unknown) (unknown) (no date) (unknown) (unknown) -hold statin f or now (units unknown) (unknown) (unknown) (no date) (unknown) (unknown) -management an d follow up per surgery (units unknown) (unknown) (unknown) (no date) (unknown) (unknown) 12/11/22 12/11/22 (u nits unknown) (unknown) (unknown) (no date) (unknown) (unknown) 12/11/22 07:06 (unit s unknown) (unknown) (unknown) (no date) (unknown) (unknown) 12/11/22 1136 (units unknown) (unknown) (unknown) (no date) (unknown) (unknown) 12/11/22 (units unknown) (unknown) (unknown) (no date) (unknown) (unknown) 05:00 12/11/22 (unit s unknown) (unknown) (unknown) (no date) (unknown) (unknown) 06:50 12/11/22 (unit s unknown) (unknown) (unknown) (no date) (unknown) (unknown) 07:06 07:06 (units unknown) (unknown) (unknown) (no date) (unknown) (unknown) 08:46 (units unknown) (unknown) (unknown) (no date) (unknown) (unknown) 1. Possible sm all bowel obstruction or post op ileus (units unknown) (unknown) (unknown) (no date) (unknown) (unknown) [id number] (units unknown) (unknown) (unknown) (no date) (unknown) (unknown) 2. Colonic adenocarcinoma s/p lap hemicolectomy (units unknown) (unknown) (unknown) (no date) (unknown) (unknown) 4. TIA (units unknown) (unknown) (unknown) (no date) (unknown) (unknown) 5. HTN (units unknown) (unknown) (unknown) (no date) (unknown) (unknown) 6. HLD (units unknown) (unknown) (unknown) (no date) (unknown) (unknown) 7. Hypokalemia (unit s unknown) (unknown) (unknown) (no date) (unknown) (unknown) 8. Complaint o f irritated throat (units unknown) (unknown) (unknown) (no date) (unknown) (unknown) ?- likely due to volume losses. Pharmacy replacing. Potassium stable normal (units unknown) (unknown) (unknown) (no date) (unknown) (unknown) ?Ms. Castañeda is an 87-year-old woman who is status post laparoscopic assisted (units unknown) (unknown) (unknown) (no date) (unknown) (unknown) ABD: soft, min imal distention. Bowel sounds are scant but present. Minimal (units unknown) (unknown) (unknown) (no date) (unknown) (unknown) Age/Sex: 87 / F (uni ts unknown) (unknown) (unknown) (no date) (unknown) (unknown) Anisocytosis 2+ H (u nits unknown) (unknown) (unknown) (no date) (unknown) (unknown) Assessment + P ana narrative: (units unknown) (unknown) (unknown) (no date) (unknown) (unknown) Assessment + Plan (u nits unknown) (unknown) (unknown) (no date) (unknown) (unknown) BUN 10 (units unknown) (unknown) (unknown) (no date) (unknown) (unknown) BUN/Creatinine Ratio 16.7 (units unknown) (unknown) (unknown) (no date) (unknown) (unknown) Back pain (units unknown) (unknown) (unknown) (no date) (unknown) (unknown) Baso # (Auto) 0 (uni ts unknown) (unknown) (unknown) (no date) (unknown) (unknown) Baso % (Auto) 0.6 (u nits unknown) (unknown) (unknown) (no date) (unknown) (unknown) Blood Pressure 161/77 H 165/77 H (units unknown) (unknown) (unknown) (no date) (unknown) (unknown) CODE: Full (units unknown) (unknown) (unknown) (no date) (unknown) (unknown) CV: regular ra te and rhythm, no murmurs (units unknown) (unknown) (unknown) (no date) (unknown) (unknown) Calcium 7.8 L (units unknown) (unknown) (unknown) (no date) (unknown) (unknown) Carbon Dioxide 25 (u nits unknown) (unknown) (unknown) (no date) (unknown) (unknown) Cataract (units unknown) (unknown) (unknown) (no date) (unknown) (unknown) Chloride 105 (units unknown) (unknown) (unknown) (no date) (unknown) (unknown) Creatinine 0.60 (uni ts unknown) (unknown) (unknown) (no date) (unknown) (unknown) Critical Care time: (units unknown) (unknown) (unknown) (no date) (unknown) (unknown) : 4 Acct:[id number] (units unknown) (unknown) (unknown) (no date) (unknown) (unknown) Date of Servic e: 12/07/22 (units unknown) (unknown) (unknown) (no date) (unknown) (unknown) Deep Vein Thrombosis/Pulmonar y Embolism Present on Admission: No (units unknown) (unknown) (unknown) (no date) (unknown) (unknown) EXT: warm and well perfused with no edema (units unknown) (unknown) (unknown) (no date) (unknown) (unknown) Eos # (Auto) 200 (un its unknown) (unknown) (unknown) (no date) (unknown) (unknown) Eos % (Auto) 2.5 (un its unknown) (unknown) (unknown) (no date) (unknown) (unknown) Estimated GFR > 60 ( units unknown) (unknown) (unknown) (no date) (unknown) (unknown) Exam Narrative: (uni ts unknown) (unknown) (unknown) (no date) (unknown) (unknown) Exam (units unknown) (unknown) (unknown) (no date) (unknown) (unknown) Family History (units unknown) (unknown) (unknown) (no date) (unknown) (unknown) Father d Pedestrian crushed by rolling stock (units unknown) (unknown) (unknown) (no date) (unknown) (unknown) Finger amputat ion, traumatic (units unknown) (unknown) (unknown) (no date) (unknown) (unknown) Follow labs an d clinically. (units unknown) (unknown) (unknown) (no date) (unknown) (unknown) GEN: appears t o be in distress from pain (units unknown) (unknown) (unknown) (no date) (unknown) (unknown) Glucose 78 L (units unknown) (unknown) (unknown) (no date) (unknown) (unknown) H/O prior abla tion treatment (units unknown) (unknown) (unknown) (no date) (unknown) (unknown) HEENT: moist m ucous membranes, PERRL, NG inplace and fluid typical of stomach (units unknown) (unknown) (unknown) (no date) (unknown) (unknown) Hct 31.2 L (units unknown) (unknown) (unknown) (no date) (unknown) (unknown) Hgb 10.4 L (units unknown) (unknown) (unknown) (no date) (unknown) (unknown) History of appendectomy (units unknown) (unknown) (unknown) (no date) (unknown) (unknown) History of radiofrequency ablation procedure for cardiac arrhythmia (units unknown) (unknown) (unknown) (no date) (unknown) (unknown) Hx of bilatera l cataract extraction (units unknown) (unknown) (unknown) (no date) (unknown) (unknown) Hyperlipemia (units unknown) (unknown) (unknown) (no date) (unknown) (unknown) Hypertension (units unknown) (unknown) (unknown) (no date) (unknown) (unknown) I spent a tota l of [] minutes of critical care time on this patient's care (units unknown) (unknown) (unknown) (no date) (unknown) (unknown) Interval history: (u nits unknown) (unknown) (unknown) (no date) (unknown) (unknown) [facility] [address] [place] [id number] (units unknown) (unknown) (unknown) (no date) (unknown) (unknown) Laboratory Res ults - last 24 hr (units unknown) (unknown) (unknown) (no date) (unknown) (unknown) Labs (units unknown) (unknown) (unknown) (no date) (unknown) (unknown) Labs: (units unknown) (unknown) (unknown) (no date) (unknown) (unknown) Lymph # (Auto) 800 L (units unknown) (unknown) (unknown) (no date) (unknown) (unknown) Lymph % (Auto) 12.8 L (units unknown) (unknown) (unknown) (no date) (unknown) (unknown) MCH 28.0 (units unknown) (unknown) (unknown) (no date) (unknown) (unknown) MCHC 33.2 (units unknown) (unknown) (unknown) (no date) (unknown) (unknown) MCV 84.2 (units unknown) (unknown) (unknown) (no date) (unknown) (unknown) Magnesium 1.8 (units unknown) (unknown) (unknown) (no date) (unknown) (unknown) Mass of cecum (units unknown) (unknown) (unknown) (no date) (unknown) (unknown) Medical Histor y (Updated 12/10/22 @ 14:15 by Safia Champagne MD) (units unknown) (unknown) (unknown) (no date) (unknown) (unknown) Ferry # (Auto) 400 (u nits unknown) (unknown) (unknown) (no date) (unknown) (unknown) Ferry % (Auto) 7.0 (u nits unknown) (unknown) (unknown) (no date) (unknown) (unknown) Mother d Old age (units unknown) (unknown) (unknown) (no date) (unknown) (unknown) NECK: trachea midline, no JVD (units unknown) (unknown) (unknown) (no date) (unknown) (unknown) NEURO: awake, alert, oriented, no focal deficits (units unknown) (unknown) (unknown) (no date) (unknown) (unknown) Narrative (units unknown) (unknown) (unknown) (no date) (unknown) (unknown) Neut # (Auto) 4600 ( units unknown) (unknown) (unknown) (no date) (unknown) (unknown) Neut % (Auto) 77.1 H (units unknown) (unknown) (unknown) (no date) (unknown) (unknown) Objective (units unknown) (unknown) (unknown) (no date) (unknown) (unknown) Oxygen Deliver y Method Room Air (units unknown) (unknown) (unknown) (no date) (unknown) (unknown) Oxygen Flow Ra te 0 0 0 (units unknown) (unknown) (unknown) (no date) (unknown) (unknown) Oxygen Flow Rate 0 ( units unknown) (unknown) (unknown) (no date) (unknown) (unknown) PFSH (units unknown) (unknown) (unknown) (no date) (unknown) (unknown) PULM: clear bilaterally, no wheezes, rhonchi, rales (units unknown) (unknown) (unknown) (no date) (unknown) (unknown) PVC's (prematu re ventricular contractions) (units unknown) (unknown) (unknown) (no date) (unknown) (unknown) Patient: Patricia Castañeda MR#: [id number] (units unknown) (unknown) (unknown) (no date) (unknown) (unknown) Plt Count 200 (units unknown) (unknown) (unknown) (no date) (unknown) (unknown) Poikilocytosis 1+ H (units unknown) (unknown) (unknown) (no date) (unknown) (unknown) Polychromasia 1+ H ( units unknown) (unknown) (unknown) (no date) (unknown) (unknown) Potassium 3.5 (units unknown) (unknown) (unknown) (no date) (unknown) (unknown) Progress Note (units unknown) (unknown) (unknown) (no date) (unknown) (unknown) Provider: Taya Galicia MD (units unknown) (unknown) (unknown) (no date) (unknown) (unknown) Proxy: Ahmet Castañeda, (units unknown) (unknown) (unknown) (no date) (unknown) (unknown) Pulse Oximetry 94 95 96 (units unknown) (unknown) (unknown) (no date) (unknown) (unknown) Pulse Rate 88 80 (un its unknown) (unknown) (unknown) (no date) (unknown) (unknown) Quality (units unknown) (unknown) (unknown) (no date) (unknown) (unknown) RBC 3.70 L (units unknown) (unknown) (unknown) (no date) (unknown) (unknown) RBC Morphology Not Reportable (units unknown) (unknown) (unknown) (no date) (unknown) (unknown) RDW 25.5 H (units unknown) (unknown) (unknown) (no date) (unknown) (unknown) Respiratory Ra te 18 16 (units unknown) (unknown) (unknown) (no date) (unknown) (unknown) Signed By:<Electronically signed by Taya Galicia MD> (units unknown) (unknown) (unknown) (no date) (unknown) (unknown) Smoking Status : Former smoker (units unknown) (unknown) (unknown) (no date) (unknown) (unknown) Social History (units unknown) (unknown) (unknown) (no date) (unknown) (unknown) Sodium 138 (units unknown) (unknown) (unknown) (no date) (unknown) (unknown) Subjective (units unknown) (unknown) (unknown) (no date) (unknown) (unknown) Surgical Histo ry (units unknown) (unknown) (unknown) (no date) (unknown) (unknown) TIA (transient ischemic attack) (units unknown) (unknown) (unknown) (no date) (unknown) (unknown) Temperature 96 .2 F L (units unknown) (unknown) (unknown) (no date) (unknown) (unknown) Time Spent Wit h Patient (units unknown) (unknown) (unknown) (no date) (unknown) (unknown) VTE (units unknown) (unknown) (unknown) (no date) (unknown) (unknown) Vital Signs (units unknown) (unknown) (unknown) (no date) (unknown) (unknown) WBC 6.0 (units unknown) (unknown) (unknown) (no date) (unknown) (unknown) [Embedded Imag e Not Available] (units unknown) (unknown) (unknown) (no date) (unknown) (unknown) alcohol intake : current (units unknown) (unknown) (unknown) (no date) (unknown) (unknown) discomfort on palpation. (units unknown) (unknown) (unknown) (no date) (unknown) (unknown) fluid at this time ( units unknown) (unknown) (unknown) (no date) (unknown) (unknown) has cleared. T ube. Magic mouthwash is helping the throat irritation but only (units unknown) (unknown) (unknown) (no date) (unknown) (unknown) household memb ers: spouse (units unknown) (unknown) (unknown) (no date) (unknown) (unknown) lives independently: Yes (units unknown) (unknown) (unknown) (no date) (unknown) (unknown) marital status : (units unknown) (unknown) (unknown) (no date) (unknown) (unknown) minimally. Liz warner has had some gas passed per rectum this morning. (units unknown) (unknown) (unknown) (no date) (unknown) (unknown) right hemicole ctomy for colon cancer pT3 N0. Has a ileus with NG tube. With (units unknown) (unknown) (unknown) (no date) (unknown) (unknown) substance use type: does not use (units unknown) (unknown) (unknown) (no date) (unknown) (unknown) today. (units unknown) (unknown) (unknown) (no date) (unknown) (unknown) today; this ti me is exclusive of procedural time. (units unknown) (unknown) (unknown) (no date) (unknown) (unknown) treatment with IV Protonix 40 mg IV b.i.d. the bloody tinge to the NG drainage (units unknown) (unknown) Result panel 224 (unknown) (no date) (unknown) (unknown) (no value) (units unknown) (unknown) (unknown) (no date) (unknown) (unknown) (past 8 hours): (uni ts unknown) (unknown) (unknown) (no date) (unknown) (unknown) 12/11/22 12/11/22 (u nits unknown) (unknown) (unknown) (no date) (unknown) (unknown) 12/11/22 07:06 (unit s unknown) (unknown) (unknown) (no date) (unknown) (unknown) 12/11/22 (units unknown) (unknown) (unknown) (no date) (unknown) (unknown) 07:06 07:06 (units unknown) (unknown) (unknown) (no date) (unknown) (unknown) 08:46 12/11/22 (unit s unknown) (unknown) (unknown) (no date) (unknown) (unknown) 14:00 (units unknown) (unknown) (unknown) (no date) (unknown) (unknown) [id number] (units unknown) (unknown) (unknown) (no date) (unknown) (unknown) Abdomen is sof t and non distended. Appropriately tender around incision. [place] (units unknown) (unknown) (unknown) (no date) (unknown) (unknown) Age/Sex: 87 / F (uni ts unknown) (unknown) (unknown) (no date) (unknown) (unknown) Anisocytosis 2+ H (u nits unknown) (unknown) (unknown) (no date) (unknown) (unknown) Assessment + P ana narrative: (units unknown) (unknown) (unknown) (no date) (unknown) (unknown) Assessment + Plan (u nits unknown) (unknown) (unknown) (no date) (unknown) (unknown) BUN 10 (units unknown) (unknown) (unknown) (no date) (unknown) (unknown) BUN/Creatinine Ratio 16.7 (units unknown) (unknown) (unknown) (no date) (unknown) (unknown) Back pain (units unknown) (unknown) (unknown) (no date) (unknown) (unknown) Baso # (Auto) 0 (uni ts unknown) (unknown) (unknown) (no date) (unknown) (unknown) Baso % (Auto) 0.6 (u nits unknown) (unknown) (unknown) (no date) (unknown) (unknown) Blood Pressure 165/77 H 151/70 H (units unknown) (unknown) (unknown) (no date) (unknown) (unknown) Calcium 7.8 L (units unknown) (unknown) (unknown) (no date) (unknown) (unknown) Carbon Dioxide 25 (u nits unknown) (unknown) (unknown) (no date) (unknown) (unknown) Cataract (units unknown) (unknown) (unknown) (no date) (unknown) (unknown) Chloride 105 (units unknown) (unknown) (unknown) (no date) (unknown) (unknown) Creatinine 0.60 (uni ts unknown) (unknown) (unknown) (no date) (unknown) (unknown) Critical Care time: (units unknown) (unknown) (unknown) (no date) (unknown) (unknown) : 4 Acct:[id number] (units unknown) (unknown) (unknown) (no date) (unknown) (unknown) Date of Servic e: 12/07/22 (units unknown) (unknown) (unknown) (no date) (unknown) (unknown) Deep Vein Thrombosis/Pulmonar y Embolism Present on Admission: No (units unknown) (unknown) (unknown) (no date) (unknown) (unknown) Eos # (Auto) 200 (un its unknown) (unknown) (unknown) (no date) (unknown) (unknown) Eos % (Auto) 2.5 (un its unknown) (unknown) (unknown) (no date) (unknown) (unknown) Estimated GFR > 60 ( units unknown) (unknown) (unknown) (no date) (unknown) (unknown) Exam Narrative: (uni ts unknown) (unknown) (unknown) (no date) (unknown) (unknown) Exam (units unknown) (unknown) (unknown) (no date) (unknown) (unknown) Family History (units unknown) (unknown) (unknown) (no date) (unknown) (unknown) Father d Pedestrian crushed by rolling stock (units unknown) (unknown) (unknown) (no date) (unknown) (unknown) Finger amputat ion, traumatic (units unknown) (unknown) (unknown) (no date) (unknown) (unknown) Glucose 78 L (units unknown) (unknown) (unknown) (no date) (unknown) (unknown) H/O prior abla tion treatment (units unknown) (unknown) (unknown) (no date) (unknown) (unknown) Hct 31.2 L (units unknown) (unknown) (unknown) (no date) (unknown) (unknown) Hgb 10.4 L (units unknown) (unknown) (unknown) (no date) (unknown) (unknown) History of appendectomy (units unknown) (unknown) (unknown) (no date) (unknown) (unknown) History of radiofrequency ablation procedure for cardiac arrhythmia (units unknown) (unknown) (unknown) (no date) (unknown) (unknown) Hx of bilatera l cataract extraction (units unknown) (unknown) (unknown) (no date) (unknown) (unknown) Hyperlipemia (units unknown) (unknown) (unknown) (no date) (unknown) (unknown) Hypertension (units unknown) (unknown) (unknown) (no date) (unknown) (unknown) I spent a tota l of [] minutes of critical care time on this patient's care (units unknown) (unknown) (unknown) (no date) (unknown) (unknown) Interval history: (u nits unknown) (unknown) (unknown) (no date) (unknown) (unknown) [facility] [address] [place] [phone] (units unknown) (unknown) (unknown) (no date) (unknown) (unknown) Laboratory Res ults - last 24 hr (units unknown) (unknown) (unknown) (no date) (unknown) (unknown) Labs (units unknown) (unknown) (unknown) (no date) (unknown) (unknown) Labs: (units unknown) (unknown) (unknown) (no date) (unknown) (unknown) Lymph # (Auto) 800 L (units unknown) (unknown) (unknown) (no date) (unknown) (unknown) Lymph % (Auto) 12.8 L (units unknown) (unknown) (unknown) (no date) (unknown) (unknown) MCH 28.0 (units unknown) (unknown) (unknown) (no date) (unknown) (unknown) MCHC 33.2 (units unknown) (unknown) (unknown) (no date) (unknown) (unknown) MCV 84.2 (units unknown) (unknown) (unknown) (no date) (unknown) (unknown) Magnesium 1.8 (units unknown) (unknown) (unknown) (no date) (unknown) (unknown) Mass of c[place] (units unknown) (unknown) (unknown) (no date) (unknown) (unknown) Medical Histor y (Updated 12/10/22 @ 14:15 by Safia Champagne MD) (units unknown) (unknown) (unknown) (no date) (unknown) (unknown) Ferry # (Auto) 400 (u nits unknown) (unknown) (unknown) (no date) (unknown) (unknown) Ferry % (Auto) 7.0 (u nits unknown) (unknown) (unknown) (no date) (unknown) (unknown) Mother d Old age (units unknown) (unknown) (unknown) (no date) (unknown) (unknown) Narrative (units unknown) (unknown) (unknown) (no date) (unknown) (unknown) Neut # (Auto) 4600 ( units unknown) (unknown) (unknown) (no date) (unknown) (unknown) Neut % (Auto) 77.1 H (units unknown) (unknown) (unknown) (no date) (unknown) (unknown) Objective (units unknown) (unknown) (unknown) (no date) (unknown) (unknown) Oxygen Deliver y Method Room Air (units unknown) (unknown) (unknown) (no date) (unknown) (unknown) Oxygen Flow Ra te 0 0 (units unknown) (unknown) (unknown) (no date) (unknown) (unknown) Oxygen Flow Rate 0 ( units unknown) (unknown) (unknown) (no date) (unknown) (unknown) PFSH (units unknown) (unknown) (unknown) (no date) (unknown) (unknown) PVC's (prematu re ventricular contractions) (units unknown) (unknown) (unknown) (no date) (unknown) (unknown) Patient: Patricia Castañeda MR#: [id number] (units unknown) (unknown) (unknown) (no date) (unknown) (unknown) Plt Count 200 (units unknown) (unknown) (unknown) (no date) (unknown) (unknown) Poikilocytosis 1+ H (units unknown) (unknown) (unknown) (no date) (unknown) (unknown) Polychromasia 1+ H ( units unknown) (unknown) (unknown) (no date) (unknown) (unknown) Potassium 3.5 (units unknown) (unknown) (unknown) (no date) (unknown) (unknown) Progress Note (units unknown) (unknown) (unknown) (no date) (unknown) (unknown) Provider: Pretty Champagne (units unknown) (unknown) (unknown) (no date) (unknown) (unknown) Pulse Oximetry 96 96 (units unknown) (unknown) (unknown) (no date) (unknown) (unknown) Pulse Rate 80 81 (un its unknown) (unknown) (unknown) (no date) (unknown) (unknown) Quality (units unknown) (unknown) (unknown) (no date) (unknown) (unknown) RBC 3.70 L (units unknown) (unknown) (unknown) (no date) (unknown) (unknown) RBC Morphology Not Reportable (units unknown) (unknown) (unknown) (no date) (unknown) (unknown) RDW 25.5 H (units unknown) (unknown) (unknown) (no date) (unknown) (unknown) Respiratory Ra te 16 16 (units unknown) (unknown) (unknown) (no date) (unknown) (unknown) Signed By: (units unknown) (unknown) (unknown) (no date) (unknown) (unknown) Smoking Status : Former smoker (units unknown) (unknown) (unknown) (no date) (unknown) (unknown) Social History (units unknown) (unknown) (unknown) (no date) (unknown) (unknown) Sodium 138 (units unknown) (unknown) (unknown) (no date) (unknown) (unknown) Subjective (units unknown) (unknown) (unknown) (no date) (unknown) (unknown) Surgical Histo ry (units unknown) (unknown) (unknown) (no date) (unknown) (unknown) TIA (transient ischemic attack) (units unknown) (unknown) (unknown) (no date) (unknown) (unknown) Temperature 96 .2 F L 96.1 F L (units unknown) (unknown) (unknown) (no date) (unknown) (unknown) Time Spent Wit h Patient (units unknown) (unknown) (unknown) (no date) (unknown) (unknown) VTE (units unknown) (unknown) (unknown) (no date) (unknown) (unknown) Vital Signs (units unknown) (unknown) (unknown) (no date) (unknown) (unknown) WBC 6.0 (units unknown) (unknown) (unknown) (no date) (unknown) (unknown) [Embedded Imag e Not Available] (units unknown) (unknown) (unknown) (no date) (unknown) (unknown) alcohol intake : current (units unknown) (unknown) (unknown) (no date) (unknown) (unknown) awake, oriente d. supine in bed. NGT in place with green not bloody output (units unknown) (unknown) (unknown) (no date) (unknown) (unknown) feeling much b josef today. Abd pain improved. passed flatus a couple times last (units unknown) (unknown) (unknown) (no date) (unknown) (unknown) household memb ers: spouse (units unknown) (unknown) (unknown) (no date) (unknown) (unknown) in place and intact. (units unknown) (unknown) (unknown) (no date) (unknown) (unknown) lives independently: Yes (units unknown) (unknown) (unknown) (no date) (unknown) (unknown) marital status : (units unknown) (unknown) (unknown) (no date) (unknown) (unknown) night. (units unknown) (unknown) (unknown) (no date) (unknown) (unknown) substance use type: does not use (units unknown) (unknown) (unknown) (no date) (unknown) (unknown) today; this ti me is exclusive of procedural time. (units unknown) (unknown) (unknown) (no date) (unknown) (unknown) will try clamp trial today and (units unknown) (unknown) Result panel 225 (unknown) (no date) (unknown) (unknown) (no value) (units unknown) (unknown) (unknown) (no date) (unknown) (unknown) (past 8 hours): (uni ts unknown) (unknown) (unknown) (no date) (unknown) (unknown) 12/11/22 12/11/22 (u nits unknown) (unknown) (unknown) (no date) (unknown) (unknown) 12/11/22 07:06 (unit s unknown) (unknown) (unknown) (no date) (unknown) (unknown) 12/11/22 1514 (units unknown) (unknown) (unknown) (no date) (unknown) (unknown) 12/11/22 (units unknown) (unknown) (unknown) (no date) (unknown) (unknown) 07:06 07:06 (units unknown) (unknown) (unknown) (no date) (unknown) (unknown) 08:46 12/11/22 (unit s unknown) (unknown) (unknown) (no date) (unknown) (unknown) 14:00 (units unknown) (unknown) (unknown) (no date) (unknown) (unknown) [id number] (units unknown) (unknown) (unknown) (no date) (unknown) (unknown) Abdomen is sof t and non distended. Appropriately tender around incision. [place] (units unknown) (unknown) (unknown) (no date) (unknown) (unknown) Age/Sex: 87 / F (uni ts unknown) (unknown) (unknown) (no date) (unknown) (unknown) Anisocytosis 2+ H (u nits unknown) (unknown) (unknown) (no date) (unknown) (unknown) Assessment + P ana narrative: (units unknown) (unknown) (unknown) (no date) (unknown) (unknown) Assessment + Plan (u nits unknown) (unknown) (unknown) (no date) (unknown) (unknown) BUN 10 (units unknown) (unknown) (unknown) (no date) (unknown) (unknown) BUN/Creatinine Ratio 16.7 (units unknown) (unknown) (unknown) (no date) (unknown) (unknown) Back pain (units unknown) (unknown) (unknown) (no date) (unknown) (unknown) Baso # (Auto) 0 (uni ts unknown) (unknown) (unknown) (no date) (unknown) (unknown) Baso % (Auto) 0.6 (u nits unknown) (unknown) (unknown) (no date) (unknown) (unknown) Blood Pressure 165/77 H 151/70 H (units unknown) (unknown) (unknown) (no date) (unknown) (unknown) Calcium 7.8 L (units unknown) (unknown) (unknown) (no date) (unknown) (unknown) Carbon Dioxide 25 (u nits unknown) (unknown) (unknown) (no date) (unknown) (unknown) Cataract (units unknown) (unknown) (unknown) (no date) (unknown) (unknown) Chloride 105 (units unknown) (unknown) (unknown) (no date) (unknown) (unknown) Creatinine 0.60 (uni ts unknown) (unknown) (unknown) (no date) (unknown) (unknown) Critical Care time: (units unknown) (unknown) (unknown) (no date) (unknown) (unknown) : 4 Acct:[id number] (units unknown) (unknown) (unknown) (no date) (unknown) (unknown) Date of Servic e: 12/07/22 (units unknown) (unknown) (unknown) (no date) (unknown) (unknown) Deep Vein Thrombosis/Pulmonar y Embolism Present on Admission: No (units unknown) (unknown) (unknown) (no date) (unknown) (unknown) Eos # (Auto) 200 (un its unknown) (unknown) (unknown) (no date) (unknown) (unknown) Eos % (Auto) 2.5 (un its unknown) (unknown) (unknown) (no date) (unknown) (unknown) Estimated GFR > 60 ( units unknown) (unknown) (unknown) (no date) (unknown) (unknown) Exam Narrative: (uni ts unknown) (unknown) (unknown) (no date) (unknown) (unknown) Exam (units unknown) (unknown) (unknown) (no date) (unknown) (unknown) Family History (units unknown) (unknown) (unknown) (no date) (unknown) (unknown) Father d Pedestrian crushed by rolling stock (units unknown) (unknown) (unknown) (no date) (unknown) (unknown) Finger amputat ion, traumatic (units unknown) (unknown) (unknown) (no date) (unknown) (unknown) Glucose 78 L (units unknown) (unknown) (unknown) (no date) (unknown) (unknown) H/O prior abla tion treatment (units unknown) (unknown) (unknown) (no date) (unknown) (unknown) Hct 31.2 L (units unknown) (unknown) (unknown) (no date) (unknown) (unknown) Hgb 10.4 L (units unknown) (unknown) (unknown) (no date) (unknown) (unknown) History of appendectomy (units unknown) (unknown) (unknown) (no date) (unknown) (unknown) History of radiofrequency ablation procedure for cardiac arrhythmia (units unknown) (unknown) (unknown) (no date) (unknown) (unknown) Hx of bilatera l cataract extraction (units unknown) (unknown) (unknown) (no date) (unknown) (unknown) Hyperlipemia (units unknown) (unknown) (unknown) (no date) (unknown) (unknown) Hypertension (units unknown) (unknown) (unknown) (no date) (unknown) (unknown) I spent a tota l of [] minutes of critical care time on this patient's care (units unknown) (unknown) (unknown) (no date) (unknown) (unknown) Interval history: (u nits unknown) (unknown) (unknown) (no date) (unknown) (unknown) [facility] [address] [place] [id number] (units unknown) (unknown) (unknown) (no date) (unknown) (unknown) Laboratory Res ults - last 24 hr (units unknown) (unknown) (unknown) (no date) (unknown) (unknown) Labs (units unknown) (unknown) (unknown) (no date) (unknown) (unknown) Labs: (units unknown) (unknown) (unknown) (no date) (unknown) (unknown) Lymph # (Auto) 800 L (units unknown) (unknown) (unknown) (no date) (unknown) (unknown) Lymph % (Auto) 12.8 L (units unknown) (unknown) (unknown) (no date) (unknown) (unknown) MCH 28.0 (units unknown) (unknown) (unknown) (no date) (unknown) (unknown) MCHC 33.2 (units unknown) (unknown) (unknown) (no date) (unknown) (unknown) MCV 84.2 (units unknown) (unknown) (unknown) (no date) (unknown) (unknown) Magnesium 1.8 (units unknown) (unknown) (unknown) (no date) (unknown) (unknown) Mass of c[place]um (units unknown) (unknown) (unknown) (no date) (unknown) (unknown) Medical Histor y (Updated 12/10/22 @ 14:15 by Safia Champagne MD) (units unknown) (unknown) (unknown) (no date) (unknown) (unknown) Ferry # (Auto) 400 (u nits unknown) (unknown) (unknown) (no date) (unknown) (unknown) Ferry % (Auto) 7.0 (u nits unknown) (unknown) (unknown) (no date) (unknown) (unknown) Mother d Old age (units unknown) (unknown) (unknown) (no date) (unknown) (unknown) Narrative (units unknown) (unknown) (unknown) (no date) (unknown) (unknown) Neut # (Auto) 4600 ( units unknown) (unknown) (unknown) (no date) (unknown) (unknown) Neut % (Auto) 77.1 H (units unknown) (unknown) (unknown) (no date) (unknown) (unknown) Objective (units unknown) (unknown) (unknown) (no date) (unknown) (unknown) Oxygen Deliver y Method Room Air (units unknown) (unknown) (unknown) (no date) (unknown) (unknown) Oxygen Flow Ra te 0 0 (units unknown) (unknown) (unknown) (no date) (unknown) (unknown) Oxygen Flow Rate 0 ( units unknown) (unknown) (unknown) (no date) (unknown) (unknown) PFSH (units unknown) (unknown) (unknown) (no date) (unknown) (unknown) PVC's (prematu re ventricular contractions) (units unknown) (unknown) (unknown) (no date) (unknown) (unknown) Patient: Patricia Castañeda MR#: [id number] (units unknown) (unknown) (unknown) (no date) (unknown) (unknown) Plt Count 200 (units unknown) (unknown) (unknown) (no date) (unknown) (unknown) Poikilocytosis 1+ H (units unknown) (unknown) (unknown) (no date) (unknown) (unknown) Polychromasia 1+ H ( units unknown) (unknown) (unknown) (no date) (unknown) (unknown) Potassium 3.5 (units unknown) (unknown) (unknown) (no date) (unknown) (unknown) Progress Note (units unknown) (unknown) (unknown) (no date) (unknown) (unknown) Provider: Pretty Champagne (units unknown) (unknown) (unknown) (no date) (unknown) (unknown) Pulse Oximetry 96 96 (units unknown) (unknown) (unknown) (no date) (unknown) (unknown) Pulse Rate 80 81 (un its unknown) (unknown) (unknown) (no date) (unknown) (unknown) Quality (units unknown) (unknown) (unknown) (no date) (unknown) (unknown) RBC 3.70 L (units unknown) (unknown) (unknown) (no date) (unknown) (unknown) RBC Morphology Not Reportable (units unknown) (unknown) (unknown) (no date) (unknown) (unknown) RDW 25.5 H (units unknown) (unknown) (unknown) (no date) (unknown) (unknown) Respiratory Ra te 16 16 (units unknown) (unknown) (unknown) (no date) (unknown) (unknown) Signed By:<Electronically signed by Safia Champgane> (units unknown) (unknown) (unknown) (no date) (unknown) (unknown) Smoking Status : Former smoker (units unknown) (unknown) (unknown) (no date) (unknown) (unknown) Social History (units unknown) (unknown) (unknown) (no date) (unknown) (unknown) Sodium 138 (units unknown) (unknown) (unknown) (no date) (unknown) (unknown) Subjective (units unknown) (unknown) (unknown) (no date) (unknown) (unknown) Surgical Histo ry (units unknown) (unknown) (unknown) (no date) (unknown) (unknown) TIA (transient ischemic attack) (units unknown) (unknown) (unknown) (no date) (unknown) (unknown) Temperature 96 .2 F L 96.1 F L (units unknown) (unknown) (unknown) (no date) (unknown) (unknown) Time Spent Wit h Patient (units unknown) (unknown) (unknown) (no date) (unknown) (unknown) VTE (units unknown) (unknown) (unknown) (no date) (unknown) (unknown) Vital Signs (units unknown) (unknown) (unknown) (no date) (unknown) (unknown) WBC 6.0 (units unknown) (unknown) (unknown) (no date) (unknown) (unknown) [Embedded Imag e Not Available] (units unknown) (unknown) (unknown) (no date) (unknown) (unknown) alcohol intake : current (units unknown) (unknown) (unknown) (no date) (unknown) (unknown) awake, oriente d. supine in bed. NGT in place with green not bloody output (units unknown) (unknown) (unknown) (no date) (unknown) (unknown) clamped tube. check residual in 6 hours. [address] md. will remove prior to bed or (units unknown) (unknown) (unknown) (no date) (unknown) (unknown) feeling much b josef today. Abd pain improved. passed flatus a couple times last (units unknown) (unknown) (unknown) (no date) (unknown) (unknown) household memb ers: spouse (units unknown) (unknown) (unknown) (no date) (unknown) (unknown) in place and intact. (units unknown) (unknown) (unknown) (no date) (unknown) (unknown) lives independently: Yes (units unknown) (unknown) (unknown) (no date) (unknown) (unknown) marital status : (units unknown) (unknown) (unknown) (no date) (unknown) (unknown) night. (units unknown) (unknown) (unknown) (no date) (unknown) (unknown) prior to discharge. (units unknown) (unknown) (unknown) (no date) (unknown) (unknown) return to suct ion. (dont leave clamped overnight) may be able to remove hebert (units unknown) (unknown) (unknown) (no date) (unknown) (unknown) substance use type: does not use (units unknown) (unknown) (unknown) (no date) (unknown) (unknown) today; this ti me is exclusive of procedural time. (units unknown) (unknown) (unknown) (no date) (unknown) (unknown) will try clamp trial today and remove if does well tonight. adv to clears with (units unknown) (unknown) Result panel 226 (unknown) (no date) (unknown) (unknown) 0 /ul (unknown ) (unknown) (no date) (unknown) (unknown) 0.5 % (unknown ) (unknown) (no date) (unknown) (unknown) 10.2 g/dl (unknown ) (unknown) (no date) (unknown) (unknown) 11.2 % (unknown ) (unknown) (no date) (unknown) (unknown) 190 x10 3/ul (unknow n) (unknown) (no date) (unknown) (unknown) 200 /ul (unknown ) (unknown) (no date) (unknown) (unknown) 25.6 % (unknown ) (unknown) (no date) (unknown) (unknown) 27.8 pg (unknown ) (unknown) (no date) (unknown) (unknown) 3.5 % (unknown ) (unknown) (no date) (unknown) (unknown) 3.66 x10 6/ul (unknow n) (unknown) (no date) (unknown) (unknown) 30.4 % (unknown ) (unknown) (no date) (unknown) (unknown) 33.5 % (unknown ) (unknown) (no date) (unknown) (unknown) 400 /ul (unknown ) (unknown) (no date) (unknown) (unknown) 5500 /ul (unknown ) (unknown) (no date) (unknown) (unknown) 6.4 % (unknown ) (unknown) (no date) (unknown) (unknown) 7.0 x10 3/ul (unknow n) (unknown) (no date) (unknown) (unknown) 78.4 % (unknown ) (unknown) (no date) (unknown) (unknown) 800 /ul (unknown ) (unknown) (no date) (unknown) (unknown) 83.1 fl (unknown ) Result panel 227 (unknown) (no date) (unknown) (unknown) 0 /ul (unknown ) (unknown) (no date) (unknown) (unknown) 0.5 % (unknown ) (unknown) (no date) (unknown) (unknown) 1 (units unknown) (unknown) (unknown) (no date) (unknown) (unknown) 10.2 g/dl (unknown ) (unknown) (no date) (unknown) (unknown) 11.2 % (unknown ) (unknown) (no date) (unknown) (unknown) 190 x10 3/ul (unknow n) (unknown) (no date) (unknown) (unknown) 200 /ul (unknown ) (unknown) (no date) (unknown) (unknown) 25.6 % (unknown ) (unknown) (no date) (unknown) (unknown) 27.8 pg (unknown ) (unknown) (no date) (unknown) (unknown) 3.5 % (unknown ) (unknown) (no date) (unknown) (unknown) 3.66 x10 6/ul (unknow n) (unknown) (no date) (unknown) (unknown) 30.4 % (unknown ) (unknown) (no date) (unknown) (unknown) 33.5 % (unknown ) (unknown) (no date) (unknown) (unknown) 400 /ul (unknown ) (unknown) (no date) (unknown) (unknown) 5500 /ul (unknown ) (unknown) (no date) (unknown) (unknown) 6.4 % (unknown ) (unknown) (no date) (unknown) (unknown) 7.0 x10 3/ul (unknow n) (unknown) (no date) (unknown) (unknown) 78.4 % (unknown ) (unknown) (no date) (unknown) (unknown) 800 /ul (unknown ) (unknown) (no date) (unknown) (unknown) 83.1 fl (unknown ) Result panel 228 (unknown) (no date) (unknown) (unknown) > 60 ml/min (unknown ) (unknown) (no date) (unknown) (unknown) > 60 ml/min (unknown ) (unknown) (no date) (unknown) (unknown) 0.5 mg/dl (unknown ) (unknown) (no date) (unknown) (unknown) 0.55 mg/dl (unknown ) (unknown) (no date) (unknown) (unknown) 1.2 (units unknown) (unknown) (unknown) (no date) (unknown) (unknown) 10 mg/dl (unknown ) (unknown) (no date) (unknown) (unknown) 105 mmol/l (unknown ) (unknown) (no date) (unknown) (unknown) 137 mmol/l (unknown ) (unknown) (no date) (unknown) (unknown) 15 iu/l (unknown ) (unknown) (no date) (unknown) (unknown) 18.2 (units unknown) (unknown) (unknown) (no date) (unknown) (unknown) 2.5 g/dl (unknown ) (unknown) (no date) (unknown) (unknown) 2.9 g/dl (unknown ) (unknown) (no date) (unknown) (unknown) 20 iu/l (unknown ) (unknown) (no date) (unknown) (unknown) 24 mmol/l (unknown ) (unknown) (no date) (unknown) (unknown) 3.5 mmol/l (unknown ) (unknown) (no date) (unknown) (unknown) 5.4 g/dl (unknown ) (unknown) (no date) (unknown) (unknown) 51 u/l (unknown ) (unknown) (no date) (unknown) (unknown) 7.7 mg/dl (unknown ) (unknown) (no date) (unknown) (unknown) 87 mg/dl (unknown ) (unknown) (no date) (unknown) (unknown) 87 mg/dl (unknown ) Result panel 229 (unknown) (no date) (unknown) (unknown) (no value) (units unknown) (unknown) (unknown) (no date) (unknown) (unknown) (1) Ileus, postoperative: (units unknown) (unknown) (unknown) (no date) (unknown) (unknown) (past 8 hours): (uni ts unknown) (unknown) (unknown) (no date) (unknown) (unknown) -NPO until abdominal bloating improves (units unknown) (unknown) (unknown) (no date) (unknown) (unknown) -trial of Regl an to improve motility (units unknown) (unknown) (unknown) (no date) (unknown) (unknown) 01:00 12/12/22 (unit s unknown) (unknown) (unknown) (no date) (unknown) (unknown) 12/11/2212/1212/12/22 (units unknown) (unknown) (unknown) (no date) (unknown) (unknown) 12/12/22 06:22 (unit s unknown) (unknown) (unknown) (no date) (unknown) (unknown) 12/12/22 0832 (units unknown) (unknown) (unknown) (no date) (unknown) (unknown) 12/12/22 (units unknown) (unknown) (unknown) (no date) (unknown) (unknown) 04:27 (units unknown) (unknown) (unknown) (no date) (unknown) (unknown) 05:00 (units unknown) (unknown) (unknown) (no date) (unknown) (unknown) 07:06 06:22 06:22 (u nits unknown) (unknown) (unknown) (no date) (unknown) (unknown) [id number] (units unknown) (unknown) (unknown) (no date) (unknown) (unknown) 87-year-old wo man 1 week status post laparoscopic assisted right hemicolectomy (units unknown) (unknown) (unknown) (no date) (unknown) (unknown) ALT 15 (units unknown) (unknown) (unknown) (no date) (unknown) (unknown) AST 20 (units unknown) (unknown) (unknown) (no date) (unknown) (unknown) Age/Sex: 87 / F (uni ts unknown) (unknown) (unknown) (no date) (unknown) (unknown) Albumin 2.9 L (units unknown) (unknown) (unknown) (no date) (unknown) (unknown) Albumin/Globul in Ratio 1.2 (units unknown) (unknown) (unknown) (no date) (unknown) (unknown) Alkaline Phosphatase 51 (units unknown) (unknown) (unknown) (no date) (unknown) (unknown) Anisocytosis 2 + H 1+ H (units unknown) (unknown) (unknown) (no date) (unknown) (unknown) Assessment + Plan (u nits unknown) (unknown) (unknown) (no date) (unknown) (unknown) Assessment and plan (units unknown) (unknown) (unknown) (no date) (unknown) (unknown) BUN 10 (units unknown) (unknown) (unknown) (no date) (unknown) (unknown) BUN/Creatinine Ratio 18.2 (units unknown) (unknown) (unknown) (no date) (unknown) (unknown) Back pain (units unknown) (unknown) (unknown) (no date) (unknown) (unknown) Baso # (Auto) 0 (uni ts unknown) (unknown) (unknown) (no date) (unknown) (unknown) Baso % (Auto) 0.5 (u nits unknown) (unknown) (unknown) (no date) (unknown) (unknown) Blood Pressure 135/62 143/67 H (units unknown) (unknown) (unknown) (no date) (unknown) (unknown) Blood Pressure (unit s unknown) (unknown) (unknown) (no date) (unknown) (unknown) Calcium 7.7 L (units unknown) (unknown) (unknown) (no date) (unknown) (unknown) Carbon Dioxide 24 (u nits unknown) (unknown) (unknown) (no date) (unknown) (unknown) Cataract (units unknown) (unknown) (unknown) (no date) (unknown) (unknown) Chloride 105 (units unknown) (unknown) (unknown) (no date) (unknown) (unknown) Const (units unknown) (unknown) (unknown) (no date) (unknown) (unknown) Creatinine 0.55 (uni ts unknown) (unknown) (unknown) (no date) (unknown) (unknown) Critical Care time: (units unknown) (unknown) (unknown) (no date) (unknown) (unknown) : 4 Acct:[id number] (units unknown) (unknown) (unknown) (no date) (unknown) (unknown) Date Patient S een: 12/12/22 (units unknown) (unknown) (unknown) (no date) (unknown) (unknown) Date of Servic e: 12/07/22 (units unknown) (unknown) (unknown) (no date) (unknown) (unknown) Deep Vein Thrombosis/Pulmonar y Embolism Present on Admission: No (units unknown) (unknown) (unknown) (no date) (unknown) (unknown) Eos # (Auto) 200 (un its unknown) (unknown) (unknown) (no date) (unknown) (unknown) Eos % (Auto) 3.5 (un its unknown) (unknown) (unknown) (no date) (unknown) (unknown) Estimated GFR > 60 ( units unknown) (unknown) (unknown) (no date) (unknown) (unknown) Exam (units unknown) (unknown) (unknown) (no date) (unknown) (unknown) Family History (units unknown) (unknown) (unknown) (no date) (unknown) (unknown) Father d Pedestrian crushed by rolling stock (units unknown) (unknown) (unknown) (no date) (unknown) (unknown) Feeling much b josef today. She did pass some gas this morning. Her chief (units unknown) (unknown) (unknown) (no date) (unknown) (unknown) Finger amputat ion, traumatic (units unknown) (unknown) (unknown) (no date) (unknown) (unknown) General: No ac ted distress (units unknown) (unknown) (unknown) (no date) (unknown) (unknown) Globulin 2.5 (units unknown) (unknown) (unknown) (no date) (unknown) (unknown) Glucose 87 (units unknown) (unknown) (unknown) (no date) (unknown) (unknown) H/O prior abla tion treatment (units unknown) (unknown) (unknown) (no date) (unknown) (unknown) Hct 30.4 L (units unknown) (unknown) (unknown) (no date) (unknown) (unknown) Hgb 10.2 L (units unknown) (unknown) (unknown) (no date) (unknown) (unknown) History of appendectomy (units unknown) (unknown) (unknown) (no date) (unknown) (unknown) History of radiofrequency ablation procedure for cardiac arrhythmia (units unknown) (unknown) (unknown) (no date) (unknown) (unknown) Hx of bilatera l cataract extraction (units unknown) (unknown) (unknown) (no date) (unknown) (unknown) Hyperlipemia (units unknown) (unknown) (unknown) (no date) (unknown) (unknown) Hypertension (units unknown) (unknown) (unknown) (no date) (unknown) (unknown) I spent a tota l of [] minutes of critical care time on this patient's care (units unknown) (unknown) (unknown) (no date) (unknown) (unknown) Interval history: (u nits unknown) (unknown) (unknown) (no date) (unknown) (unknown) [address] [address] (units unknown) (unknown) (unknown) (no date) (unknown) (unknown) Laboratory Res ults - last 24 hr (units unknown) (unknown) (unknown) (no date) (unknown) (unknown) Laboratory doris dies and CT abdomen pelvis personally reviewed. She is without (units unknown) (unknown) (unknown) (no date) (unknown) (unknown) Labs (units unknown) (unknown) (unknown) (no date) (unknown) (unknown) Labs: (units unknown) (unknown) (unknown) (no date) (unknown) (unknown) Lymph # (Auto) 800 L (units unknown) (unknown) (unknown) (no date) (unknown) (unknown) Lymph % (Auto) 11.2 L (units unknown) (unknown) (unknown) (no date) (unknown) (unknown) MCH 27.8 (units unknown) (unknown) (unknown) (no date) (unknown) (unknown) MCHC 33.5 (units unknown) (unknown) (unknown) (no date) (unknown) (unknown) MCV 83.1 (units unknown) (unknown) (unknown) (no date) (unknown) (unknown) [place] (units unknown) (unknown) (unknown) (no date) (unknown) (unknown) Medical Histor y (Updated 12/10/22 @ 14:15 by Safia Champagne MD) (units unknown) (unknown) (unknown) (no date) (unknown) (unknown) Ferry # (Auto) 400 (u nits unknown) (unknown) (unknown) (no date) (unknown) (unknown) Ferry % (Auto) 6.4 (u nits unknown) (unknown) (unknown) (no date) (unknown) (unknown) Mother d Old age (units unknown) (unknown) (unknown) (no date) (unknown) (unknown) Neut # (Auto) 5500 ( units unknown) (unknown) (unknown) (no date) (unknown) (unknown) Neut % (Auto) 78.4 H (units unknown) (unknown) (unknown) (no date) (unknown) (unknown) Objective (units unknown) (unknown) (unknown) (no date) (unknown) (unknown) Out of bed and ambulate as able (units unknown) (unknown) (unknown) (no date) (unknown) (unknown) Oxygen Deliver y Method Room Air (units unknown) (unknown) (unknown) (no date) (unknown) (unknown) Oxygen Flow Ra te 0 0 (units unknown) (unknown) (unknown) (no date) (unknown) (unknown) Oxygen Flow Rate 0 ( units unknown) (unknown) (unknown) (no date) (unknown) (unknown) Oxygen Flow Rate (un its unknown) (unknown) (unknown) (no date) (unknown) (unknown) PFSH (units unknown) (unknown) (unknown) (no date) (unknown) (unknown) PVC's (prematu re ventricular contractions) (units unknown) (unknown) (unknown) (no date) (unknown) (unknown) Patient: Patricia Castañeda MR#: [id number] (units unknown) (unknown) (unknown) (no date) (unknown) (unknown) Plan (units unknown) (unknown) (unknown) (no date) (unknown) (unknown) Plt Count 190 (units unknown) (unknown) (unknown) (no date) (unknown) (unknown) Poikilocytosis 1+ H 1+ H (units unknown) (unknown) (unknown) (no date) (unknown) (unknown) Polychromasia 1+ H ( units unknown) (unknown) (unknown) (no date) (unknown) (unknown) Potassium 3.5 (units unknown) (unknown) (unknown) (no date) (unknown) (unknown) Problem details: (un its unknown) (unknown) (unknown) (no date) (unknown) (unknown) Progress Note (units unknown) (unknown) (unknown) (no date) (unknown) (unknown) Provider: Sumeet Cox MD (units unknown) (unknown) (unknown) (no date) (unknown) (unknown) Pulse Oximetry 96 96 96 (units unknown) (unknown) (unknown) (no date) (unknown) (unknown) Pulse Oximetry 96 (u nits unknown) (unknown) (unknown) (no date) (unknown) (unknown) Pulse Rate 64 75 (un its unknown) (unknown) (unknown) (no date) (unknown) (unknown) Pulse Rate (units unknown) (unknown) (unknown) (no date) (unknown) (unknown) Quality (units unknown) (unknown) (unknown) (no date) (unknown) (unknown) RBC 3.66 L (units unknown) (unknown) (unknown) (no date) (unknown) (unknown) RBC Morphology Not Reportable Not Reportable (units unknown) (unknown) (unknown) (no date) (unknown) (unknown) RDW 25.6 H (units unknown) (unknown) (unknown) (no date) (unknown) (unknown) Respiratory Rate 16 (units unknown) (unknown) (unknown) (no date) (unknown) (unknown) Respiratory Rate (un its unknown) (unknown) (unknown) (no date) (unknown) (unknown) Signed By:<Electronically signed by Sumeet Cox MD> (units unknown) (unknown) (unknown) (no date) (unknown) (unknown) Smoking Status : Former smoker (units unknown) (unknown) (unknown) (no date) (unknown) (unknown) Social History (units unknown) (unknown) (unknown) (no date) (unknown) (unknown) Sodium 137 (units unknown) (unknown) (unknown) (no date) (unknown) (unknown) Status: Acute (units unknown) (unknown) (unknown) (no date) (unknown) (unknown) Subjective (units unknown) (unknown) (unknown) (no date) (unknown) (unknown) Surgical Histo ry (units unknown) (unknown) (unknown) (no date) (unknown) (unknown) TIA (transient ischemic attack) (units unknown) (unknown) (unknown) (no date) (unknown) (unknown) Temperature 96 .8 F L 96.4 F L (units unknown) (unknown) (unknown) (no date) (unknown) (unknown) Temperature (units unknown) (unknown) (unknown) (no date) (unknown) (unknown) Time Patient S een: 08:32 (units unknown) (unknown) (unknown) (no date) (unknown) (unknown) Time Spent Wit h Patient (units unknown) (unknown) (unknown) (no date) (unknown) (unknown) Total Bilirubin 0.5 (units unknown) (unknown) (unknown) (no date) (unknown) (unknown) Total Protein 5.4 L (units unknown) (unknown) (unknown) (no date) (unknown) (unknown) VTE (units unknown) (unknown) (unknown) (no date) (unknown) (unknown) Vital Signs (units unknown) (unknown) (unknown) (no date) (unknown) (unknown) WBC 7.0 (units unknown) (unknown) (unknown) (no date) (unknown) (unknown) We will advanc e her diet full liquid and maybe even regular by james. (units unknown) (unknown) (unknown) (no date) (unknown) (unknown) [Embedded Imag e Not Available] (units unknown) (unknown) (unknown) (no date) (unknown) (unknown) abdominal absc ess. She does have dilated small bowel but she is having bowel (units unknown) (unknown) (unknown) (no date) (unknown) (unknown) alcohol intake : current (units unknown) (unknown) (unknown) (no date) (unknown) (unknown) complaint is t hat the broth is too salty. (units unknown) (unknown) (unknown) (no date) (unknown) (unknown) for colon canc er pT3 N0. She is readmitted to the hospital for a postoperative (units unknown) (unknown) (unknown) (no date) (unknown) (unknown) household memb ers: spouse (units unknown) (unknown) (unknown) (no date) (unknown) (unknown) hypokalemia wh ich contributed to her ileus. (units unknown) (unknown) (unknown) (no date) (unknown) (unknown) ileus. (units unknown) (unknown) (unknown) (no date) (unknown) (unknown) lives independently: Yes (units unknown) (unknown) (unknown) (no date) (unknown) (unknown) marital status : (units unknown) (unknown) (unknown) (no date) (unknown) (unknown) movements and this picture is consistent with postoperative ileus more likely (units unknown) (unknown) (unknown) (no date) (unknown) (unknown) peritonitis, n o leukocytosis and no evidence of anastomotic leak or intra (units unknown) (unknown) (unknown) (no date) (unknown) (unknown) substance use type: does not use (units unknown) (unknown) (unknown) (no date) (unknown) (unknown) than a small-b owel obstruction. I suspect her ongoing diarrhea resulted in (units unknown) (unknown) (unknown) (no date) (unknown) (unknown) today; this ti me is exclusive of procedural time. (units unknown) (unknown) Result panel 230 (unknown) (no date) (unknown) (unknown) (no value) (units unknown) (unknown) (unknown) (no date) (unknown) (unknown) (past 8 hours): (uni ts unknown) (unknown) (unknown) (no date) (unknown) (unknown) - Magic mouth wash prn every 4 hours.? Magic mouthwash is helping somewhat. (units unknown) (unknown) (unknown) (no date) (unknown) (unknown) - restarted metoprolol. Currently slightly high. Continue to follow. (units unknown) (unknown) (unknown) (no date) (unknown) (unknown) -NG tube place d per surgery, failed CLD. This has now been removed and patient (units unknown) (unknown) (unknown) (no date) (unknown) (unknown) -appreciate ge neral surgery assistance. (units unknown) (unknown) (unknown) (no date) (unknown) (unknown) -hold anti-dena telet medications for now. Can restart at appropriate time (units unknown) (unknown) (unknown) (no date) (unknown) (unknown) -hold statin f or now (units unknown) (unknown) (unknown) (no date) (unknown) (unknown) -management an d follow up per surgery (units unknown) (unknown) (unknown) (no date) (unknown) (unknown) 12/12/22 12/12/22 (u nits unknown) (unknown) (unknown) (no date) (unknown) (unknown) 12/12/22 06:22 (unit s unknown) (unknown) (unknown) (no date) (unknown) (unknown) 12/12/22 1119 (units unknown) (unknown) (unknown) (no date) (unknown) (unknown) 12/12/22 (units unknown) (unknown) (unknown) (no date) (unknown) (unknown) 04:27 12/12/22 (unit s unknown) (unknown) (unknown) (no date) (unknown) (unknown) 05:00 12/12/22 (unit s unknown) (unknown) (unknown) (no date) (unknown) (unknown) 06:22 06:22 (units unknown) (unknown) (unknown) (no date) (unknown) (unknown) 08:00 (units unknown) (unknown) (unknown) (no date) (unknown) (unknown) 09:00 (units unknown) (unknown) (unknown) (no date) (unknown) (unknown) 1. Possible sm all bowel obstruction or post op ileus (units unknown) (unknown) (unknown) (no date) (unknown) (unknown) [id number] (units unknown) (unknown) (unknown) (no date) (unknown) (unknown) 2. Colonic adenocarcinoma s/p lap hemicolectomy (units unknown) (unknown) (unknown) (no date) (unknown) (unknown) 4. TIA (units unknown) (unknown) (unknown) (no date) (unknown) (unknown) 5. HTN (units unknown) (unknown) (unknown) (no date) (unknown) (unknown) 6. HLD (units unknown) (unknown) (unknown) (no date) (unknown) (unknown) 7. Hypokalemia (unit s unknown) (unknown) (unknown) (no date) (unknown) (unknown) 8. Complaint o f irritated throat (units unknown) (unknown) (unknown) (no date) (unknown) (unknown) 9. Mobility. N eed to increase. PT to be initiated. (units unknown) (unknown) (unknown) (no date) (unknown) (unknown) ?- likely due to volume losses. Pharmacy replaced.? Potassium stable normal (units unknown) (unknown) (unknown) (no date) (unknown) (unknown) ABD: soft, min imal distention.? Bowel sounds are scant but present.? Minimal (units unknown) (unknown) (unknown) (no date) (unknown) (unknown) ALT 15 (units unknown) (unknown) (unknown) (no date) (unknown) (unknown) AST 20 (units unknown) (unknown) (unknown) (no date) (unknown) (unknown) Age/Sex: 87 / F (uni ts unknown) (unknown) (unknown) (no date) (unknown) (unknown) Albumin 2.9 L (units unknown) (unknown) (unknown) (no date) (unknown) (unknown) Albumin/Globul in Ratio 1.2 (units unknown) (unknown) (unknown) (no date) (unknown) (unknown) Alkaline Phosphatase 51 (units unknown) (unknown) (unknown) (no date) (unknown) (unknown) Anisocytosis 1+ H (u nits unknown) (unknown) (unknown) (no date) (unknown) (unknown) Assessment + P ana narrative: (units unknown) (unknown) (unknown) (no date) (unknown) (unknown) Assessment + Plan (u nits unknown) (unknown) (unknown) (no date) (unknown) (unknown) BUN 10 (units unknown) (unknown) (unknown) (no date) (unknown) (unknown) BUN/Creatinine Ratio 18.2 (units unknown) (unknown) (unknown) (no date) (unknown) (unknown) Back pain (units unknown) (unknown) (unknown) (no date) (unknown) (unknown) Baso # (Auto) 0 (uni ts unknown) (unknown) (unknown) (no date) (unknown) (unknown) Baso % (Auto) 0.5 (u nits unknown) (unknown) (unknown) (no date) (unknown) (unknown) Blood Pressure 143/67 H 147/61 H (units unknown) (unknown) (unknown) (no date) (unknown) (unknown) Blood Pressure (unit s unknown) (unknown) (unknown) (no date) (unknown) (unknown) CODE: Full (units unknown) (unknown) (unknown) (no date) (unknown) (unknown) CV: regular ra te and rhythm, no murmurs (units unknown) (unknown) (unknown) (no date) (unknown) (unknown) Calcium 7.7 L (units unknown) (unknown) (unknown) (no date) (unknown) (unknown) Carbon Dioxide 24 (u nits unknown) (unknown) (unknown) (no date) (unknown) (unknown) Cataract (units unknown) (unknown) (unknown) (no date) (unknown) (unknown) Chloride 105 (units unknown) (unknown) (unknown) (no date) (unknown) (unknown) Creatinine 0.55 (uni ts unknown) (unknown) (unknown) (no date) (unknown) (unknown) Critical Care time: (units unknown) (unknown) (unknown) (no date) (unknown) (unknown) : 4 Acct:[id number] (units unknown) (unknown) (unknown) (no date) (unknown) (unknown) Date of Servic e: 12/07/22 (units unknown) (unknown) (unknown) (no date) (unknown) (unknown) Deep Vein Thrombosis/Pulmonar y Embolism Present on Admission: No (units unknown) (unknown) (unknown) (no date) (unknown) (unknown) EXT: warm and well perfused with no edema (units unknown) (unknown) (unknown) (no date) (unknown) (unknown) Eos # (Auto) 200 (un its unknown) (unknown) (unknown) (no date) (unknown) (unknown) Eos % (Auto) 3.5 (un its unknown) (unknown) (unknown) (no date) (unknown) (unknown) Estimated GFR > 60 ( units unknown) (unknown) (unknown) (no date) (unknown) (unknown) Exam Narrative: (uni ts unknown) (unknown) (unknown) (no date) (unknown) (unknown) Exam (units unknown) (unknown) (unknown) (no date) (unknown) (unknown) Family History (units unknown) (unknown) (unknown) (no date) (unknown) (unknown) Father d Pedestrian crushed by rolling stock (units unknown) (unknown) (unknown) (no date) (unknown) (unknown) Finger amputat ion, traumatic (units unknown) (unknown) (unknown) (no date) (unknown) (unknown) Follow labs an d clinically. (units unknown) (unknown) (unknown) (no date) (unknown) (unknown) GEN: appears t o be in distress from pain (units unknown) (unknown) (unknown) (no date) (unknown) (unknown) Globulin 2.5 (units unknown) (unknown) (unknown) (no date) (unknown) (unknown) Glucose 87 (units unknown) (unknown) (unknown) (no date) (unknown) (unknown) H/O prior abla tion treatment (units unknown) (unknown) (unknown) (no date) (unknown) (unknown) HEENT: moist m ucous membranes, PERRL (units unknown) (unknown) (unknown) (no date) (unknown) (unknown) Hct 30.4 L (units unknown) (unknown) (unknown) (no date) (unknown) (unknown) Hgb 10.2 L (units unknown) (unknown) (unknown) (no date) (unknown) (unknown) History of appendectomy (units unknown) (unknown) (unknown) (no date) (unknown) (unknown) History of radiofrequency ablation procedure for cardiac arrhythmia (units unknown) (unknown) (unknown) (no date) (unknown) (unknown) Hx of bilatera l cataract extraction (units unknown) (unknown) (unknown) (no date) (unknown) (unknown) Hyperlipemia (units unknown) (unknown) (unknown) (no date) (unknown) (unknown) Hypertension (units unknown) (unknown) (unknown) (no date) (unknown) (unknown) I spent a tota l of [] minutes of critical care time on this patient's care (units unknown) (unknown) (unknown) (no date) (unknown) (unknown) Interval history: (u nits unknown) (unknown) (unknown) (no date) (unknown) (unknown) Semaj Abernathy [address] [address] (units unknown) (unknown) (unknown) (no date) (unknown) (unknown) Laboratory Res ults - last 24 hr (units unknown) (unknown) (unknown) (no date) (unknown) (unknown) Labs (units unknown) (unknown) (unknown) (no date) (unknown) (unknown) Labs: (units unknown) (unknown) (unknown) (no date) (unknown) (unknown) Lymph # (Auto) 800 L (units unknown) (unknown) (unknown) (no date) (unknown) (unknown) Lymph % (Auto) 11.2 L (units unknown) (unknown) (unknown) (no date) (unknown) (unknown) MCH 27.8 (units unknown) (unknown) (unknown) (no date) (unknown) (unknown) MCHC 33.5 (units unknown) (unknown) (unknown) (no date) (unknown) (unknown) MCV 83.1 (units unknown) (unknown) (unknown) (no date) (unknown) (unknown) [place] (units unknown) (unknown) (unknown) (no date) (unknown) (unknown) Medical Histor y (Updated 12/10/22 @ 14:15 by Safia Champagne MD) (units unknown) (unknown) (unknown) (no date) (unknown) (unknown) Ferry # (Auto) 400 (u nits unknown) (unknown) (unknown) (no date) (unknown) (unknown) Ferry % (Auto) 6.4 (u nits unknown) (unknown) (unknown) (no date) (unknown) (unknown) Mother d Old age (units unknown) (unknown) (unknown) (no date) (unknown) (unknown) NECK: trachea midline, no JVD (units unknown) (unknown) (unknown) (no date) (unknown) (unknown) NEURO: awake, alert, oriented, no focal deficits (units unknown) (unknown) (unknown) (no date) (unknown) (unknown) Narrative (units unknown) (unknown) (unknown) (no date) (unknown) (unknown) Neut # (Auto) 5500 ( units unknown) (unknown) (unknown) (no date) (unknown) (unknown) Neut % (Auto) 78.4 H (units unknown) (unknown) (unknown) (no date) (unknown) (unknown) Objective (units unknown) (unknown) (unknown) (no date) (unknown) (unknown) Oxygen Deliver y Method Room Air (units unknown) (unknown) (unknown) (no date) (unknown) (unknown) Oxygen Flow Ra te 0 0 (units unknown) (unknown) (unknown) (no date) (unknown) (unknown) Oxygen Flow Rate 0 ( units unknown) (unknown) (unknown) (no date) (unknown) (unknown) PFSH (units unknown) (unknown) (unknown) (no date) (unknown) (unknown) PULM: clear bilaterally, no wheezes, rhonchi, rales (units unknown) (unknown) (unknown) (no date) (unknown) (unknown) PVC's (prematu re ventricular contractions) (units unknown) (unknown) (unknown) (no date) (unknown) (unknown) Patient has thompson d her NG tube removed and is tolerating clear fluid diet. No new (units unknown) (unknown) (unknown) (no date) (unknown) (unknown) Patient: Patricia Castañeda MR#: [id number] (units unknown) (unknown) (unknown) (no date) (unknown) (unknown) Plt Count 190 (units unknown) (unknown) (unknown) (no date) (unknown) (unknown) Poikilocytosis 1+ H (units unknown) (unknown) (unknown) (no date) (unknown) (unknown) Potassium 3.5 (units unknown) (unknown) (unknown) (no date) (unknown) (unknown) Progress Note (units unknown) (unknown) (unknown) (no date) (unknown) (unknown) Provider: Taya Galicia MD (units unknown) (unknown) (unknown) (no date) (unknown) (unknown) Proxy: finesse [place] (units unknown) (unknown) (unknown) (no date) (unknown) (unknown) Pulse Oximetry 95 (u nits unknown) (unknown) (unknown) (no date) (unknown) (unknown) Pulse Oximetry 96 96 96 (units unknown) (unknown) (unknown) (no date) (unknown) (unknown) Pulse Rate 75 75 (un its unknown) (unknown) (unknown) (no date) (unknown) (unknown) Pulse Rate (units unknown) (unknown) (unknown) (no date) (unknown) (unknown) Quality (units unknown) (unknown) (unknown) (no date) (unknown) (unknown) RBC 3.66 L (units unknown) (unknown) (unknown) (no date) (unknown) (unknown) RBC Morphology Not Reportable (units unknown) (unknown) (unknown) (no date) (unknown) (unknown) RDW 25.6 H (units unknown) (unknown) (unknown) (no date) (unknown) (unknown) Respiratory Rate 16 (units unknown) (unknown) (unknown) (no date) (unknown) (unknown) Respiratory Rate (un its unknown) (unknown) (unknown) (no date) (unknown) (unknown) Signed By:<Electronically signed by Taya Galicia MD> (units unknown) (unknown) (unknown) (no date) (unknown) (unknown) Smoking Status : Former smoker (units unknown) (unknown) (unknown) (no date) (unknown) (unknown) Social History (units unknown) (unknown) (unknown) (no date) (unknown) (unknown) Sodium 137 (units unknown) (unknown) (unknown) (no date) (unknown) (unknown) Subjective (units unknown) (unknown) (unknown) (no date) (unknown) (unknown) Surgical Histo ry (units unknown) (unknown) (unknown) (no date) (unknown) (unknown) TIA (transient ischemic attack) (units unknown) (unknown) (unknown) (no date) (unknown) (unknown) Temperature 96 .4 F L 96.3 F L (units unknown) (unknown) (unknown) (no date) (unknown) (unknown) Temperature (units unknown) (unknown) (unknown) (no date) (unknown) (unknown) Time Spent Wit h Patient (units unknown) (unknown) (unknown) (no date) (unknown) (unknown) Total Bilirubin 0.5 (units unknown) (unknown) (unknown) (no date) (unknown) (unknown) Total Protein 5.4 L (units unknown) (unknown) (unknown) (no date) (unknown) (unknown) VTE (units unknown) (unknown) (unknown) (no date) (unknown) (unknown) Vital Signs (units unknown) (unknown) (unknown) (no date) (unknown) (unknown) WBC 7.0 (units unknown) (unknown) (unknown) (no date) (unknown) (unknown) [Embedded Imag e Not Available] (units unknown) (unknown) (unknown) (no date) (unknown) (unknown) alcohol intake : current (units unknown) (unknown) (unknown) (no date) (unknown) (unknown) complaints. (units unknown) (unknown) (unknown) (no date) (unknown) (unknown) discomfort on palpation. (units unknown) (unknown) (unknown) (no date) (unknown) (unknown) household memb ers: spouse (units unknown) (unknown) (unknown) (no date) (unknown) (unknown) is tolerating clear fluid diet. (units unknown) (unknown) (unknown) (no date) (unknown) (unknown) lives independently: Yes (units unknown) (unknown) (unknown) (no date) (unknown) (unknown) marital status : (units unknown) (unknown) (unknown) (no date) (unknown) (unknown) postoperative. (unit s unknown) (unknown) (unknown) (no date) (unknown) (unknown) substance use type: does not use (units unknown) (unknown) (unknown) (no date) (unknown) (unknown) today. (units unknown) (unknown) (unknown) (no date) (unknown) (unknown) today; this ti me is exclusive of procedural time. (units unknown) (unknown) Result panel 231 (unknown) (no date) (unknown) (unknown) 0 /ul (unknown ) (unknown) (no date) (unknown) (unknown) 0.9 % (unknown ) (unknown) (no date) (unknown) (unknown) 100 /ul (unknown ) (unknown) (no date) (unknown) (unknown) 15.9 % (unknown ) (unknown) (no date) (unknown) (unknown) 163 x10 3/ul (unknow n) (unknown) (no date) (unknown) (unknown) 24.3 % (unknown ) (unknown) (no date) (unknown) (unknown) 26.6 % (unknown ) (unknown) (no date) (unknown) (unknown) 28.0 pg (unknown ) (unknown) (no date) (unknown) (unknown) 2800 /ul (unknown ) (unknown) (no date) (unknown) (unknown) 3.19 x10 6/ul (unknow n) (unknown) (no date) (unknown) (unknown) 3.4 % (unknown ) (unknown) (no date) (unknown) (unknown) 300 /ul (unknown ) (unknown) (no date) (unknown) (unknown) 33.6 % (unknown ) (unknown) (no date) (unknown) (unknown) 4.0 x10 3/ul (unknow n) (unknown) (no date) (unknown) (unknown) 600 /ul (unknown ) (unknown) (no date) (unknown) (unknown) 71.3 % (unknown ) (unknown) (no date) (unknown) (unknown) 8.5 % (unknown ) (unknown) (no date) (unknown) (unknown) 8.9 g/dl (unknown ) (unknown) (no date) (unknown) (unknown) 83.3 fl (unknown ) Result panel 232 (unknown) (no date) (unknown) (unknown) 0 /ul (unknown ) (unknown) (no date) (unknown) (unknown) 0.9 % (unknown ) (unknown) (no date) (unknown) (unknown) 1 (units unknown) (unknown) (unknown) (no date) (unknown) (unknown) 100 /ul (unknown ) (unknown) (no date) (unknown) (unknown) 15.9 % (unknown ) (unknown) (no date) (unknown) (unknown) 163 x10 3/ul (unknow n) (unknown) (no date) (unknown) (unknown) 24.3 % (unknown ) (unknown) (no date) (unknown) (unknown) 26.6 % (unknown ) (unknown) (no date) (unknown) (unknown) 28.0 pg (unknown ) (unknown) (no date) (unknown) (unknown) 2800 /ul (unknown ) (unknown) (no date) (unknown) (unknown) 3.19 x10 6/ul (unknow n) (unknown) (no date) (unknown) (unknown) 3.4 % (unknown ) (unknown) (no date) (unknown) (unknown) 300 /ul (unknown ) (unknown) (no date) (unknown) (unknown) 33.6 % (unknown ) (unknown) (no date) (unknown) (unknown) 4.0 x10 3/ul (unknow n) (unknown) (no date) (unknown) (unknown) 600 /ul (unknown ) (unknown) (no date) (unknown) (unknown) 71.3 % (unknown ) (unknown) (no date) (unknown) (unknown) 8.5 % (unknown ) (unknown) (no date) (unknown) (unknown) 8.9 g/dl (unknown ) (unknown) (no date) (unknown) (unknown) 83.3 fl (unknown ) Result panel 233 (unknown) (no date) (unknown) (unknown) > 60 ml/min (unknown ) (unknown) (no date) (unknown) (unknown) > 60 ml/min (unknown ) (unknown) (no date) (unknown) (unknown) 0.46 mg/dl (unknown ) (unknown) (no date) (unknown) (unknown) 108 mmol/l (unknown ) (unknown) (no date) (unknown) (unknown) 137 mmol/l (unknown ) (unknown) (no date) (unknown) (unknown) 17.4 (units unknown) (unknown) (unknown) (no date) (unknown) (unknown) 2.9 mmol/l (unknown ) (unknown) (no date) (unknown) (unknown) 25 mmol/l (unknown ) (unknown) (no date) (unknown) (unknown) 7.0 mg/dl (unknown ) (unknown) (no date) (unknown) (unknown) 8 mg/dl (unknown ) (unknown) (no date) (unknown) (unknown) 98 mg/dl (unknown ) (unknown) (no date) (unknown) (unknown) 98 mg/dl (unknown ) Result panel 234 (unknown) (no date) (unknown) (unknown) (no value) (units unknown) (unknown) (unknown) (no date) (unknown) (unknown) (past 8 hours): (uni ts unknown) (unknown) (unknown) (no date) (unknown) (unknown) 12/07/22 21:19 (unit s unknown) (unknown) (unknown) (no date) (unknown) (unknown) 12/13/22 12/13/22 (u nits unknown) (unknown) (unknown) (no date) (unknown) (unknown) 12/13/22 06:35 (unit s unknown) (unknown) (unknown) (no date) (unknown) (unknown) 12/13/22 (units unknown) (unknown) (unknown) (no date) (unknown) (unknown) 05:00 12/13/22 (unit s unknown) (unknown) (unknown) (no date) (unknown) (unknown) 06:35 06:35 (units unknown) (unknown) (unknown) (no date) (unknown) (unknown) 08:00 12/13/22 (unit s unknown) (unknown) (unknown) (no date) (unknown) (unknown) 09:00 (units unknown) (unknown) (unknown) (no date) (unknown) (unknown) 1 tab PO DAILY (unit s unknown) (unknown) (unknown) (no date) (unknown) (unknown) 100 mg PO BID (units unknown) (unknown) (unknown) (no date) (unknown) (unknown) 100 mg PO DAILY (uni ts unknown) (unknown) (unknown) (no date) (unknown) (unknown) [id number] (units unknown) (unknown) (unknown) (no date) (unknown) (unknown) 2.9, creatinin e 0.59. BNP 2040. Lipase 119. CT abdomen was read as small bowel (units unknown) (unknown) (unknown) (no date) (unknown) (unknown) 25 mcg PO DAILY (uni ts unknown) (unknown) (unknown) (no date) (unknown) (unknown) 25 mg PO BID (units unknown) (unknown) (unknown) (no date) (unknown) (unknown) 250 mg PO DAILY (uni ts unknown) (unknown) (unknown) (no date) (unknown) (unknown) 40 mg PO QPM (units unknown) (unknown) (unknown) (no date) (unknown) (unknown) 500 mg PO DAILY (uni ts unknown) (unknown) (unknown) (no date) (unknown) (unknown) 80 mg PO BID-Q ID PRN (Reason: gas) (units unknown) (unknown) (unknown) (no date) (unknown) (unknown) Age/Sex: 87 / F (uni ts unknown) (unknown) (unknown) (no date) (unknown) (unknown) Patsy A Walchenb ach, RN ADVICE (units unknown) (unknown) (unknown) (no date) (unknown) (unknown) Anisocytosis 1+ H (u nits unknown) (unknown) (unknown) (no date) (unknown) (unknown) BUN 8 (units unknown) (unknown) (unknown) (no date) (unknown) (unknown) BUN/Creatinine Ratio 17.4 (units unknown) (unknown) (unknown) (no date) (unknown) (unknown) Back pain (units unknown) (unknown) (unknown) (no date) (unknown) (unknown) Baso # (Auto) 0 (uni ts unknown) (unknown) (unknown) (no date) (unknown) (unknown) Baso % (Auto) 0.9 (u nits unknown) (unknown) (unknown) (no date) (unknown) (unknown) Blood Pressure 141/71 H (units unknown) (unknown) (unknown) (no date) (unknown) (unknown) Calcium 7.0 L (units unknown) (unknown) (unknown) (no date) (unknown) (unknown) Carbon Dioxide 25 (u nits unknown) (unknown) (unknown) (no date) (unknown) (unknown) Cataract (units unknown) (unknown) (unknown) (no date) (unknown) (unknown) Chief complain t: bloated, shortness of breath, coughing up phlegm (units unknown) (unknown) (unknown) (no date) (unknown) (unknown) Chloride 108 H (unit s unknown) (unknown) (unknown) (no date) (unknown) (unknown) Creatinine 0.46 L (u nits unknown) (unknown) (unknown) (no date) (unknown) (unknown) : 4 Acct:[id number] (units unknown) (unknown) (unknown) (no date) (unknown) (unknown) Date Patient S een: 12/13/22 (units unknown) (unknown) (unknown) (no date) (unknown) (unknown) Date of Servic e: 12/07/22 (units unknown) (unknown) (unknown) (no date) (unknown) (unknown) Date of admission: ( units unknown) (unknown) (unknown) (no date) (unknown) (unknown) Deep Vein Thrombosis/Pulmonar y Embolism Present on Admission: No (units unknown) (unknown) (unknown) (no date) (unknown) (unknown) Discharge Data (unit s unknown) (unknown) (unknown) (no date) (unknown) (unknown) Discharge Plan (unit s unknown) (unknown) (unknown) (no date) (unknown) (unknown) Discharge Providers (units unknown) (unknown) (unknown) (no date) (unknown) (unknown) Discharge Summary (u nits unknown) (unknown) (unknown) (no date) (unknown) (unknown) Discharge orde rs + Medications (units unknown) (unknown) (unknown) (no date) (unknown) (unknown) Discharge provider: (units unknown) (unknown) (unknown) (no date) (unknown) (unknown) Eos # (Auto) 100 (un its unknown) (unknown) (unknown) (no date) (unknown) (unknown) Eos % (Auto) 3.4 (un its unknown) (unknown) (unknown) (no date) (unknown) (unknown) Estimated GFR > 60 ( units unknown) (unknown) (unknown) (no date) (unknown) (unknown) Exam (units unknown) (unknown) (unknown) (no date) (unknown) (unknown) Family History (units unknown) (unknown) (unknown) (no date) (unknown) (unknown) Father d Pedestrian crushed by rolling stock (units unknown) (unknown) (unknown) (no date) (unknown) (unknown) Finger amputat ion, traumatic (units unknown) (unknown) (unknown) (no date) (unknown) (unknown) Follow up/Referrals: (units unknown) (unknown) (unknown) (no date) (unknown) (unknown) Glucose 98 (units unknown) (unknown) (unknown) (no date) (unknown) (unknown) H/O prior abla tion treatment (units unknown) (unknown) (unknown) (no date) (unknown) (unknown) Hct 26.6 L (units unknown) (unknown) (unknown) (no date) (unknown) (unknown) Hgb 8.9 L (units unknown) (unknown) (unknown) (no date) (unknown) (unknown) History of Pre sent Illness (units unknown) (unknown) (unknown) (no date) (unknown) (unknown) History of appendectomy (units unknown) (unknown) (unknown) (no date) (unknown) (unknown) History of radiofrequency ablation procedure for cardiac arrhythmia (units unknown) (unknown) (unknown) (no date) (unknown) (unknown) Hx of bilatera l cataract extraction (units unknown) (unknown) (unknown) (no date) (unknown) (unknown) Hyperlipemia (units unknown) (unknown) (unknown) (no date) (unknown) (unknown) Hypertension (units unknown) (unknown) (unknown) (no date) (unknown) (unknown) In the ED work up was done, vitals notable for afebrile, heart rate in the 60s, (units unknown) (unknown) (unknown) (no date) (unknown) (unknown) [address] [address] (units unknown) (unknown) (unknown) (no date) (unknown) (unknown) Laboratory Res ults - last 24 hr (units unknown) (unknown) (unknown) (no date) (unknown) (unknown) Labs (units unknown) (unknown) (unknown) (no date) (unknown) (unknown) Labs: (units unknown) (unknown) (unknown) (no date) (unknown) (unknown) Lymph # (Auto) 600 L (units unknown) (unknown) (unknown) (no date) (unknown) (unknown) Lymph % (Auto) 15.9 L (units unknown) (unknown) (unknown) (no date) (unknown) (unknown) MCH 28.0 (units unknown) (unknown) (unknown) (no date) (unknown) (unknown) MCHC 33.6 (units unknown) (unknown) (unknown) (no date) (unknown) (unknown) MCV 83.3 (units unknown) (unknown) (unknown) (no date) (unknown) (unknown) [place] (units unknown) (unknown) (unknown) (no date) (unknown) (unknown) Medical Histor y (Updated 12/10/22 @ 14:15 by Safia Champagne MD) (units unknown) (unknown) (unknown) (no date) (unknown) (unknown) Ferry # (Auto) 300 (u nits unknown) (unknown) (unknown) (no date) (unknown) (unknown) Ferry % (Auto) 8.5 (u nits unknown) (unknown) (unknown) (no date) (unknown) (unknown) Mother d Old age (units unknown) (unknown) (unknown) (no date) (unknown) (unknown) Ms. Castañeda is a n 87W with PMH invasive colonic adenocarcinoma, moderately (units unknown) (unknown) (unknown) (no date) (unknown) (unknown) Narrative: (units unknown) (unknown) (unknown) (no date) (unknown) (unknown) Neut # (Auto) 2800 ( units unknown) (unknown) (unknown) (no date) (unknown) (unknown) Neut % (Auto) 71.3 ( units unknown) (unknown) (unknown) (no date) (unknown) (unknown) No Action (units unknown) (unknown) (unknown) (no date) (unknown) (unknown) Objective (units unknown) (unknown) (unknown) (no date) (unknown) (unknown) Oxygen Deliver y Method Room Air Room Air (units unknown) (unknown) (unknown) (no date) (unknown) (unknown) Oxygen Deliver y Method Room Air (units unknown) (unknown) (unknown) (no date) (unknown) (unknown) Oxygen Flow Ra te 0 0 0 (units unknown) (unknown) (unknown) (no date) (unknown) (unknown) Oxygen Flow Rate 0 ( units unknown) (unknown) (unknown) (no date) (unknown) (unknown) PFSH (units unknown) (unknown) (unknown) (no date) (unknown) (unknown) PVC's (prematu re ventricular contractions) (units unknown) (unknown) (unknown) (no date) (unknown) (unknown) Patient: Patricia Castañeda MR#: [id number] (units unknown) (unknown) (unknown) (no date) (unknown) (unknown) Plt Count 163 (units unknown) (unknown) (unknown) (no date) (unknown) (unknown) Poikilocytosis 1+ H (units unknown) (unknown) (unknown) (no date) (unknown) (unknown) Potassium 2.9 L (uni ts unknown) (unknown) (unknown) (no date) (unknown) (unknown) Prescriptions: (unit s unknown) (unknown) (unknown) (no date) (unknown) (unknown) Primary Care Provider: Patsy Baker (units unknown) (unknown) (unknown) (no date) (unknown) (unknown) Primary care physician: (units unknown) (unknown) (unknown) (no date) (unknown) (unknown) Provider (units unknown) (unknown) (unknown) (no date) (unknown) (unknown) Provider: Antoine Poole D.O. (units unknown) (unknown) (unknown) (no date) (unknown) (unknown) Pulse Oximetry 95 98 98 (units unknown) (unknown) (unknown) (no date) (unknown) (unknown) Pulse Rate 81 (units unknown) (unknown) (unknown) (no date) (unknown) (unknown) Quality (units unknown) (unknown) (unknown) (no date) (unknown) (unknown) RBC 3.19 L (units unknown) (unknown) (unknown) (no date) (unknown) (unknown) RBC Morphology Not Reportable (units unknown) (unknown) (unknown) (no date) (unknown) (unknown) RDW 24.3 H (units unknown) (unknown) (unknown) (no date) (unknown) (unknown) Respiratory Rate 16 (units unknown) (unknown) (unknown) (no date) (unknown) (unknown) Antoine Poole DO ( units unknown) (unknown) (unknown) (no date) (unknown) (unknown) Signed By: (units unknown) (unknown) (unknown) (no date) (unknown) (unknown) Smoking Status : Former smoker (units unknown) (unknown) (unknown) (no date) (unknown) (unknown) Social History (units unknown) (unknown) (unknown) (no date) (unknown) (unknown) Sodium 137 (units unknown) (unknown) (unknown) (no date) (unknown) (unknown) Surgical Histo ry (units unknown) (unknown) (unknown) (no date) (unknown) (unknown) TIA (transient ischemic attack) (units unknown) (unknown) (unknown) (no date) (unknown) (unknown) There was smal l amount of free fluid in the pelvis. She had noted right (units unknown) (unknown) (unknown) (no date) (unknown) (unknown) Time Patient S een: 10:30 (units unknown) (unknown) (unknown) (no date) (unknown) (unknown) VTE (units unknown) (unknown) (unknown) (no date) (unknown) (unknown) Vital Signs (units unknown) (unknown) (unknown) (no date) (unknown) (unknown) WBC 4.0 L (units unknown) (unknown) (unknown) (no date) (unknown) (unknown) Aviva Baker A, RN ADVICE [Primary Care Provider] (units unknown) (unknown) (unknown) (no date) (unknown) (unknown) [Embedded Imag e Not Available] (units unknown) (unknown) (unknown) (no date) (unknown) (unknown) alcohol intake : current (units unknown) (unknown) (unknown) (no date) (unknown) (unknown) ascorbic acid (vitamin C) 500 mg tablet (units unknown) (unknown) (unknown) (no date) (unknown) (unknown) blood pressure 170s/70s. Labs notable WBC 6.2, hgb 10.9, plts 150. Na 136, K (units unknown) (unknown) (unknown) (no date) (unknown) (unknown) catching her b reath due to abdominal distention. (units unknown) (unknown) (unknown) (no date) (unknown) (unknown) cholecalcifero l (vitamin D3) [Vitamin D3] 1,000 unit Tablet (units unknown) (unknown) (unknown) (no date) (unknown) (unknown) clopidogrel 75 mg tablet (units unknown) (unknown) (unknown) (no date) (unknown) (unknown) differentiated , she underwent right hemicolectomy on 11/30, TIA, HTN who presents (units unknown) (unknown) (unknown) (no date) (unknown) (unknown) gabapentin 100 mg Tablet (units unknown) (unknown) (unknown) (no date) (unknown) (unknown) had no vomitin g. She has had no fevers. She has had some difficulty fully (units unknown) (unknown) (unknown) (no date) (unknown) (unknown) hemicolectomy and ileocolic anastatmosis. CT chest showed moderate bilateral (units unknown) (unknown) (unknown) (no date) (unknown) (unknown) household memb ers: spouse (units unknown) (unknown) (unknown) (no date) (unknown) (unknown) lives independently: Yes (units unknown) (unknown) (unknown) (no date) (unknown) (unknown) magnesium 250 mg Tablet (units unknown) (unknown) (unknown) (no date) (unknown) (unknown) marital status : (units unknown) (unknown) (unknown) (no date) (unknown) (unknown) methocarbamol 500 mg Tablet (units unknown) (unknown) (unknown) (no date) (unknown) (unknown) metoprolol tar trate 25 mg tablet (units unknown) (unknown) (unknown) (no date) (unknown) (unknown) obstruction wi th proximal small bowel distended to 3.7cm with transition point. (units unknown) (unknown) (unknown) (no date) (unknown) (unknown) pleural effusi ons. General surgery did see her and recommended admission and (units unknown) (unknown) (unknown) (no date) (unknown) (unknown) riboflavin (vi tamin B2) 100 mg tablet (units unknown) (unknown) (unknown) (no date) (unknown) (unknown) rosuvastatin 4 0 mg tablet (units unknown) (unknown) (unknown) (no date) (unknown) (unknown) simethicone 80 mg Tablet (units unknown) (unknown) (unknown) (no date) (unknown) (unknown) substance use type: does not use (units unknown) (unknown) (unknown) (no date) (unknown) (unknown) symptomatic control. (units unknown) (unknown) (unknown) (no date) (unknown) (unknown) with abdominal pain. She has had watery bowel movements. No blood noted. She has (units unknown) (unknown) Result panel 235 (unknown) (no date) (unknown) (unknown) (no value) (units unknown) (unknown) (unknown) (no date) (unknown) (unknown) (1) Ileus, postoperative: (units unknown) (unknown) (unknown) (no date) (unknown) (unknown) (past 8 hours): (uni ts unknown) (unknown) (unknown) (no date) (unknown) (unknown) -NPO until abdominal bloating improves (units unknown) (unknown) (unknown) (no date) (unknown) (unknown) -trial of Regl an to improve motility (units unknown) (unknown) (unknown) (no date) (unknown) (unknown) 12/13/22 12/13/22 (u nits unknown) (unknown) (unknown) (no date) (unknown) (unknown) 12/13/22 06:35 (unit s unknown) (unknown) (unknown) (no date) (unknown) (unknown) 12/13/22 1132 (units unknown) (unknown) (unknown) (no date) (unknown) (unknown) 12/13/22 (units unknown) (unknown) (unknown) (no date) (unknown) (unknown) 05:00 12/13/22 (unit s unknown) (unknown) (unknown) (no date) (unknown) (unknown) 06:35 06:35 (units unknown) (unknown) (unknown) (no date) (unknown) (unknown) 08:00 12/13/22 (unit s unknown) (unknown) (unknown) (no date) (unknown) (unknown) 09:00 (units unknown) (unknown) (unknown) (no date) (unknown) (unknown) [id number] (units unknown) (unknown) (unknown) (no date) (unknown) (unknown) 87-year-old wo man 1 week status post laparoscopic assisted right hemicolectomy (units unknown) (unknown) (unknown) (no date) (unknown) (unknown) Age/Sex: 87 / F (uni ts unknown) (unknown) (unknown) (no date) (unknown) (unknown) Anisocytosis 1+ H (u nits unknown) (unknown) (unknown) (no date) (unknown) (unknown) Assessment + P ana narrative: (units unknown) (unknown) (unknown) (no date) (unknown) (unknown) Assessment + Plan (u nits unknown) (unknown) (unknown) (no date) (unknown) (unknown) Assessment and plan (units unknown) (unknown) (unknown) (no date) (unknown) (unknown) BUN 8 (units unknown) (unknown) (unknown) (no date) (unknown) (unknown) BUN/Creatinine Ratio 17.4 (units unknown) (unknown) (unknown) (no date) (unknown) (unknown) Back pain (units unknown) (unknown) (unknown) (no date) (unknown) (unknown) Baso # (Auto) 0 (uni ts unknown) (unknown) (unknown) (no date) (unknown) (unknown) Baso % (Auto) 0.9 (u nits unknown) (unknown) (unknown) (no date) (unknown) (unknown) Blood Pressure 141/71 H (units unknown) (unknown) (unknown) (no date) (unknown) (unknown) Calcium 7.0 L (units unknown) (unknown) (unknown) (no date) (unknown) (unknown) Carbon Dioxide 25 (u nits unknown) (unknown) (unknown) (no date) (unknown) (unknown) Cataract (units unknown) (unknown) (unknown) (no date) (unknown) (unknown) Chloride 108 H (unit s unknown) (unknown) (unknown) (no date) (unknown) (unknown) Creatinine 0.46 L (u nits unknown) (unknown) (unknown) (no date) (unknown) (unknown) Critical Care time: (units unknown) (unknown) (unknown) (no date) (unknown) (unknown) : 4 Acct:[id number] (units unknown) (unknown) (unknown) (no date) (unknown) (unknown) Date of Servic e: 12/07/22 (units unknown) (unknown) (unknown) (no date) (unknown) (unknown) Deep Vein Thrombosis/Pulmonar y Embolism Present on Admission: No (units unknown) (unknown) (unknown) (no date) (unknown) (unknown) Doing very wel l. Feeling much better. Tolerating regular food without pain or (units unknown) (unknown) (unknown) (no date) (unknown) (unknown) Eos # (Auto) 100 (un its unknown) (unknown) (unknown) (no date) (unknown) (unknown) Eos % (Auto) 3.4 (un its unknown) (unknown) (unknown) (no date) (unknown) (unknown) Estimated GFR > 60 ( units unknown) (unknown) (unknown) (no date) (unknown) (unknown) Exam Narrative: (uni ts unknown) (unknown) (unknown) (no date) (unknown) (unknown) Exam (units unknown) (unknown) (unknown) (no date) (unknown) (unknown) Family History (units unknown) (unknown) (unknown) (no date) (unknown) (unknown) Father d Pedestrian crushed by rolling stock (units unknown) (unknown) (unknown) (no date) (unknown) (unknown) Finger amputat ion, traumatic (units unknown) (unknown) (unknown) (no date) (unknown) (unknown) Glucose 98 (units unknown) (unknown) (unknown) (no date) (unknown) (unknown) H/O prior abla tion treatment (units unknown) (unknown) (unknown) (no date) (unknown) (unknown) Hct 26.6 L (units unknown) (unknown) (unknown) (no date) (unknown) (unknown) Hgb 8.9 L (units unknown) (unknown) (unknown) (no date) (unknown) (unknown) History of appendectomy (units unknown) (unknown) (unknown) (no date) (unknown) (unknown) History of radiofrequency ablation procedure for cardiac arrhythmia (units unknown) (unknown) (unknown) (no date) (unknown) (unknown) Hx of bilatera l cataract extraction (units unknown) (unknown) (unknown) (no date) (unknown) (unknown) Hyperlipemia (units unknown) (unknown) (unknown) (no date) (unknown) (unknown) Hypertension (units unknown) (unknown) (unknown) (no date) (unknown) (unknown) I spent a tota l of [] minutes of critical care time on this patient's care (units unknown) (unknown) (unknown) (no date) (unknown) (unknown) Interval history: (u nits unknown) (unknown) (unknown) (no date) (unknown) (unknown) [place] [id number] [place] [id number] (units unknown) (unknown) (unknown) (no date) (unknown) (unknown) Laboratory Res ults - last 24 hr (units unknown) (unknown) (unknown) (no date) (unknown) (unknown) Laboratory doris dies and CT abdomen pelvis personally reviewed. She is without (units unknown) (unknown) (unknown) (no date) (unknown) (unknown) Labs (units unknown) (unknown) (unknown) (no date) (unknown) (unknown) Labs: (units unknown) (unknown) (unknown) (no date) (unknown) (unknown) Looking well, seated on side of bed, snacking on pudding. (units unknown) (unknown) (unknown) (no date) (unknown) (unknown) Lymph # (Auto) 600 L (units unknown) (unknown) (unknown) (no date) (unknown) (unknown) Lymph % (Auto) 15.9 L (units unknown) (unknown) (unknown) (no date) (unknown) (unknown) MCH 28.0 (units unknown) (unknown) (unknown) (no date) (unknown) (unknown) MCHC 33.6 (units unknown) (unknown) (unknown) (no date) (unknown) (unknown) MCV 83.3 (units unknown) (unknown) (unknown) (no date) (unknown) (unknown) [place] (units unknown) (unknown) (unknown) (no date) (unknown) (unknown) Medical Histor y (Updated 12/10/22 @ 14:15 by Safia Champagne MD) (units unknown) (unknown) (unknown) (no date) (unknown) (unknown) already scheduled. (units unknown) (unknown) (unknown) (no date) (unknown) (unknown) [place] # (Auto) 300 (u nits unknown) (unknown) (unknown) (no date) (unknown) (unknown) [place] % (Auto) 8.5 (u nits unknown) (unknown) (unknown) (no date) (unknown) (unknown) Mother d Old age (units unknown) (unknown) (unknown) (no date) (unknown) (unknown) Narrative (units unknown) (unknown) (unknown) (no date) (unknown) (unknown) Neut # (Auto) 2800 ( units unknown) (unknown) (unknown) (no date) (unknown) (unknown) Neut % (Auto) 71.3 ( units unknown) (unknown) (unknown) (no date) (unknown) (unknown) Objective (units unknown) (unknown) (unknown) (no date) (unknown) (unknown) Out of bed and ambulate as able (units unknown) (unknown) (unknown) (no date) (unknown) (unknown) Oxygen Deliver y Method Room Air Room Air (units unknown) (unknown) (unknown) (no date) (unknown) (unknown) Oxygen Deliver y Method Room Air (units unknown) (unknown) (unknown) (no date) (unknown) (unknown) Oxygen Flow Ra te 0 0 0 (units unknown) (unknown) (unknown) (no date) (unknown) (unknown) Oxygen Flow Rate 0 ( units unknown) (unknown) (unknown) (no date) (unknown) (unknown) PFSH (units unknown) (unknown) (unknown) (no date) (unknown) (unknown) PVC's (prematu re ventricular contractions) (units unknown) (unknown) (unknown) (no date) (unknown) (unknown) Patient: Patricia Castañeda MR#: [id number] (units unknown) (unknown) (unknown) (no date) (unknown) (unknown) Plt Count 163 (units unknown) (unknown) (unknown) (no date) (unknown) (unknown) Poikilocytosis 1+ H (units unknown) (unknown) (unknown) (no date) (unknown) (unknown) Potassium 2.9 L (uni ts unknown) (unknown) (unknown) (no date) (unknown) (unknown) Problem details: (un its unknown) (unknown) (unknown) (no date) (unknown) (unknown) Progress Note (units unknown) (unknown) (unknown) (no date) (unknown) (unknown) Provider: Pretty Champagne (units unknown) (unknown) (unknown) (no date) (unknown) (unknown) Pulse Oximetry 95 98 98 (units unknown) (unknown) (unknown) (no date) (unknown) (unknown) Pulse Rate 81 (units unknown) (unknown) (unknown) (no date) (unknown) (unknown) Quality (units unknown) (unknown) (unknown) (no date) (unknown) (unknown) RBC 3.19 L (units unknown) (unknown) (unknown) (no date) (unknown) (unknown) RBC Morphology Not Reportable (units unknown) (unknown) (unknown) (no date) (unknown) (unknown) RDW 24.3 H (units unknown) (unknown) (unknown) (no date) (unknown) (unknown) Respiratory Rate 16 (units unknown) (unknown) (unknown) (no date) (unknown) (unknown) Signed By:<Electronically signed by Safia Champagne> (units unknown) (unknown) (unknown) (no date) (unknown) (unknown) Smoking Status : Former smoker (units unknown) (unknown) (unknown) (no date) (unknown) (unknown) Social History (units unknown) (unknown) (unknown) (no date) (unknown) (unknown) Sodium 137 (units unknown) (unknown) (unknown) (no date) (unknown) (unknown) Status: Acute (units unknown) (unknown) (unknown) (no date) (unknown) (unknown) Subjective (units unknown) (unknown) (unknown) (no date) (unknown) (unknown) Surgical Histo ry (units unknown) (unknown) (unknown) (no date) (unknown) (unknown) TIA (transient ischemic attack) (units unknown) (unknown) (unknown) (no date) (unknown) (unknown) Time Spent Wit h Patient (units unknown) (unknown) (unknown) (no date) (unknown) (unknown) VTE (units unknown) (unknown) (unknown) (no date) (unknown) (unknown) Vital Signs (units unknown) (unknown) (unknown) (no date) (unknown) (unknown) WBC 4.0 L (units unknown) (unknown) (unknown) (no date) (unknown) (unknown) Wounds, clean, dry intact with hebert in place. abdomen approp. tender around (units unknown) (unknown) (unknown) (no date) (unknown) (unknown) [Embedded Imag e Not Available] (units unknown) (unknown) (unknown) (no date) (unknown) (unknown) abdominal absc ess. She does have dilated small bowel but she is having bowel (units unknown) (unknown) (unknown) (no date) (unknown) (unknown) alcohol intake : current (units unknown) (unknown) (unknown) (no date) (unknown) (unknown) for colon canc er pT3 N0. She is readmitted to the hospital for a postoperative (units unknown) (unknown) (unknown) (no date) (unknown) (unknown) household memb ers: spouse (units unknown) (unknown) (unknown) (no date) (unknown) (unknown) hypokalemia wh ich contributed to her ileus. (units unknown) (unknown) (unknown) (no date) (unknown) (unknown) ileus resolved . Doing well. ok for discharge. hebert from midline and (units unknown) (unknown) (unknown) (no date) (unknown) (unknown) ileus. (units unknown) (unknown) (unknown) (no date) (unknown) (unknown) lives independently: Yes (units unknown) (unknown) (unknown) (no date) (unknown) (unknown) lparoscopic po rt sitesx3 removed. midline dressed with steri strips. f/u w (units unknown) (unknown) (unknown) (no date) (unknown) (unknown) marital status : (units unknown) (unknown) (unknown) (no date) (unknown) (unknown) midline wound but soft and non distended. (units unknown) (unknown) (unknown) (no date) (unknown) (unknown) movements and this picture is consistent with postoperative ileus more likely (units unknown) (unknown) (unknown) (no date) (unknown) (unknown) nausea. Passin g flatus and had a BM. Ready to go home today. (units unknown) (unknown) (unknown) (no date) (unknown) (unknown) peritonitis, n o leukocytosis and no evidence of anastomotic leak or intra (units unknown) (unknown) (unknown) (no date) (unknown) (unknown) substance use type: does not use (units unknown) (unknown) (unknown) (no date) (unknown) (unknown) than a small-b owel obstruction. I suspect her ongoing diarrhea resulted in (units unknown) (unknown) (unknown) (no date) (unknown) (unknown) today; this ti me is exclusive of procedural time. (units unknown) (unknown) Result panel 236 (unknown) (no date) (unknown) (unknown) (no value) (units unknown) (unknown) (unknown) (no date) (unknown) (unknown) (past 8 hours): (uni ts unknown) (unknown) (unknown) (no date) (unknown) (unknown) 12/07/22 21:19 (unit s unknown) (unknown) (unknown) (no date) (unknown) (unknown) 12/13/22 12/13/22 (u nits unknown) (unknown) (unknown) (no date) (unknown) (unknown) 12/13/22 06:35 (unit s unknown) (unknown) (unknown) (no date) (unknown) (unknown) 12/13/22 (units unknown) (unknown) (unknown) (no date) (unknown) (unknown) 05:00 12/13/22 (unit s unknown) (unknown) (unknown) (no date) (unknown) (unknown) 06:35 06:35 (units unknown) (unknown) (unknown) (no date) (unknown) (unknown) 08:00 12/13/22 (unit s unknown) (unknown) (unknown) (no date) (unknown) (unknown) 09:00 (units unknown) (unknown) (unknown) (no date) (unknown) (unknown) 1 tab PO DAILY (unit s unknown) (unknown) (unknown) (no date) (unknown) (unknown) 100 mg PO BID (units unknown) (unknown) (unknown) (no date) (unknown) (unknown) 100 mg PO DAILY (uni ts unknown) (unknown) (unknown) (no date) (unknown) (unknown) [id number] (units unknown) (unknown) (unknown) (no date) (unknown) (unknown) 2.9, creatinin e 0.59. BNP 2040. Lipase 119. CT abdomen was read as small bowel (units unknown) (unknown) (unknown) (no date) (unknown) (unknown) 25 mcg PO DAILY (uni ts unknown) (unknown) (unknown) (no date) (unknown) (unknown) 25 mg PO BID (units unknown) (unknown) (unknown) (no date) (unknown) (unknown) 250 mg PO DAILY (uni ts unknown) (unknown) (unknown) (no date) (unknown) (unknown) 40 mg PO QPM (units unknown) (unknown) (unknown) (no date) (unknown) (unknown) 500 mg PO DAILY (uni ts unknown) (unknown) (unknown) (no date) (unknown) (unknown) 80 mg PO BID-Q ID PRN (Reason: gas) (units unknown) (unknown) (unknown) (no date) (unknown) (unknown) Activity: As tolerated (units unknown) (unknown) (unknown) (no date) (unknown) (unknown) Age/Sex: 87 / F (uni ts unknown) (unknown) (unknown) (no date) (unknown) (unknown) Patsy A Walchenb ach, RN ADVICE (units unknown) (unknown) (unknown) (no date) (unknown) (unknown) Anisocytosis 1+ H (u nits unknown) (unknown) (unknown) (no date) (unknown) (unknown) BUN 8 (units unknown) (unknown) (unknown) (no date) (unknown) (unknown) BUN/Creatinine Ratio 17.4 (units unknown) (unknown) (unknown) (no date) (unknown) (unknown) Back pain (units unknown) (unknown) (unknown) (no date) (unknown) (unknown) Baso # (Auto) 0 (uni ts unknown) (unknown) (unknown) (no date) (unknown) (unknown) Baso % (Auto) 0.9 (u nits unknown) (unknown) (unknown) (no date) (unknown) (unknown) Blood Pressure 141/71 H (units unknown) (unknown) (unknown) (no date) (unknown) (unknown) Calcium 7.0 L (units unknown) (unknown) (unknown) (no date) (unknown) (unknown) Carbon Dioxide 25 (u nits unknown) (unknown) (unknown) (no date) (unknown) (unknown) Cataract (units unknown) (unknown) (unknown) (no date) (unknown) (unknown) Chief complain t: bloated, shortness of breath, coughing up phlegm (units unknown) (unknown) (unknown) (no date) (unknown) (unknown) Chloride 108 H (unit s unknown) (unknown) (unknown) (no date) (unknown) (unknown) Continued (units unknown) (unknown) (unknown) (no date) (unknown) (unknown) Creatinine 0.46 L (u nits unknown) (unknown) (unknown) (no date) (unknown) (unknown) : 4 Acct:[id number] (units unknown) (unknown) (unknown) (no date) (unknown) (unknown) Date Patient S een: 12/13/22 (units unknown) (unknown) (unknown) (no date) (unknown) (unknown) Date of Servic e: 12/07/22 (units unknown) (unknown) (unknown) (no date) (unknown) (unknown) Date of admission: ( units unknown) (unknown) (unknown) (no date) (unknown) (unknown) Deep Vein Thrombosis/Pulmonar y Embolism Present on Admission: No (units unknown) (unknown) (unknown) (no date) (unknown) (unknown) Diet/Activity/ Treat ments (units unknown) (unknown) (unknown) (no date) (unknown) (unknown) Diet: Diet as Tolerated (units unknown) (unknown) (unknown) (no date) (unknown) (unknown) Discharge Data (unit s unknown) (unknown) (unknown) (no date) (unknown) (unknown) Discharge Date : 12/13/22 (units unknown) (unknown) (unknown) (no date) (unknown) (unknown) Discharge Plan (unit s unknown) (unknown) (unknown) (no date) (unknown) (unknown) Discharge Providers (units unknown) (unknown) (unknown) (no date) (unknown) (unknown) Discharge Summary (u nits unknown) (unknown) (unknown) (no date) (unknown) (unknown) Discharge orde rs + Medications (units unknown) (unknown) (unknown) (no date) (unknown) (unknown) Discharge provider: (units unknown) (unknown) (unknown) (no date) (unknown) (unknown) Eos # (Auto) 100 (un its unknown) (unknown) (unknown) (no date) (unknown) (unknown) Eos % (Auto) 3.4 (un its unknown) (unknown) (unknown) (no date) (unknown) (unknown) Estimated GFR > 60 ( units unknown) (unknown) (unknown) (no date) (unknown) (unknown) Exam (units unknown) (unknown) (unknown) (no date) (unknown) (unknown) Family History (units unknown) (unknown) (unknown) (no date) (unknown) (unknown) Father d Pedestrian crushed by rolling stock (units unknown) (unknown) (unknown) (no date) (unknown) (unknown) Finger amputat ion, traumatic (units unknown) (unknown) (unknown) (no date) (unknown) (unknown) Follow up/Referrals: (units unknown) (unknown) (unknown) (no date) (unknown) (unknown) Glucose 98 (units unknown) (unknown) (unknown) (no date) (unknown) (unknown) H/O prior abla tion treatment (units unknown) (unknown) (unknown) (no date) (unknown) (unknown) Hct 26.6 L (units unknown) (unknown) (unknown) (no date) (unknown) (unknown) Hgb 8.9 L (units unknown) (unknown) (unknown) (no date) (unknown) (unknown) History of Pre sent Illness (units unknown) (unknown) (unknown) (no date) (unknown) (unknown) History of appendectomy (units unknown) (unknown) (unknown) (no date) (unknown) (unknown) History of radiofrequency ablation procedure for cardiac arrhythmia (units unknown) (unknown) (unknown) (no date) (unknown) (unknown) Hx of bilatera l cataract extraction (units unknown) (unknown) (unknown) (no date) (unknown) (unknown) Hyperlipemia (units unknown) (unknown) (unknown) (no date) (unknown) (unknown) Hypertension (units unknown) (unknown) (unknown) (no date) (unknown) (unknown) In the ED work up was done, vitals notable for afebrile, heart rate in the 60s, (units unknown) (unknown) (unknown) (no date) (unknown) (unknown) [address] [place] [address] (units unknown) (unknown) (unknown) (no date) (unknown) (unknown) Laboratory Res ults - last 24 hr (units unknown) (unknown) (unknown) (no date) (unknown) (unknown) Labs (units unknown) (unknown) (unknown) (no date) (unknown) (unknown) Labs: (units unknown) (unknown) (unknown) (no date) (unknown) (unknown) Lymph # (Auto) 600 L (units unknown) (unknown) (unknown) (no date) (unknown) (unknown) Lymph % (Auto) 15.9 L (units unknown) (unknown) (unknown) (no date) (unknown) (unknown) MCH 28.0 (units unknown) (unknown) (unknown) (no date) (unknown) (unknown) MCHC 33.6 (units unknown) (unknown) (unknown) (no date) (unknown) (unknown) MCV 83.3 (units unknown) (unknown) (unknown) (no date) (unknown) (unknown) [place] (units unknown) (unknown) (unknown) (no date) (unknown) (unknown) Medical Histor y (Updated 12/10/22 @ 14:15 by Safia Champagne MD) (units unknown) (unknown) (unknown) (no date) (unknown) (unknown) [place]erry # (Auto) 300 (u nits unknown) (unknown) (unknown) (no date) (unknown) (unknown) [place]erry % (Auto) 8.5 (u nits unknown) (unknown) (unknown) (no date) (unknown) (unknown) Mother d Old age (units unknown) (unknown) (unknown) (no date) (unknown) (unknown) Ms. Castañeda is a n 87W with PMH invasive colonic adenocarcinoma, moderately (units unknown) (unknown) (unknown) (no date) (unknown) (unknown) Narrative: (units unknown) (unknown) (unknown) (no date) (unknown) (unknown) Neut # (Auto) 2800 ( units unknown) (unknown) (unknown) (no date) (unknown) (unknown) Neut % (Auto) 71.3 ( units unknown) (unknown) (unknown) (no date) (unknown) (unknown) Objective (units unknown) (unknown) (unknown) (no date) (unknown) (unknown) Oxygen Deliver y Method Room Air Room Air (units unknown) (unknown) (unknown) (no date) (unknown) (unknown) Oxygen Deliver y Method Room Air (units unknown) (unknown) (unknown) (no date) (unknown) (unknown) Oxygen Flow Ra te 0 0 0 (units unknown) (unknown) (unknown) (no date) (unknown) (unknown) Oxygen Flow Rate 0 ( units unknown) (unknown) (unknown) (no date) (unknown) (unknown) PFSH (units unknown) (unknown) (unknown) (no date) (unknown) (unknown) PVC's (prematu re ventricular contractions) (units unknown) (unknown) (unknown) (no date) (unknown) (unknown) Patient Disposition: Home (units unknown) (unknown) (unknown) (no date) (unknown) (unknown) Patient: Patricia Castañeda MR#: [id number] (units unknown) (unknown) (unknown) (no date) (unknown) (unknown) Plt Count 163 (units unknown) (unknown) (unknown) (no date) (unknown) (unknown) Poikilocytosis 1+ H (units unknown) (unknown) (unknown) (no date) (unknown) (unknown) Potassium 2.9 L (uni ts unknown) (unknown) (unknown) (no date) (unknown) (unknown) Prescriptions: (unit s unknown) (unknown) (unknown) (no date) (unknown) (unknown) Primary Care Provider: Patsy Baker (units unknown) (unknown) (unknown) (no date) (unknown) (unknown) Primary care physician: (units unknown) (unknown) (unknown) (no date) (unknown) (unknown) Provider Flaquita villalta Comment: You were admitted to the hospital with a slowing of (units unknown) (unknown) (unknown) (no date) (unknown) (unknown) Provider (units unknown) (unknown) (unknown) (no date) (unknown) (unknown) Provider: Antoine Poole D.O. (units unknown) (unknown) (unknown) (no date) (unknown) (unknown) Pulse Oximetry 95 98 98 (units unknown) (unknown) (unknown) (no date) (unknown) (unknown) Pulse Rate 81 (units unknown) (unknown) (unknown) (no date) (unknown) (unknown) Quality (units unknown) (unknown) (unknown) (no date) (unknown) (unknown) RBC 3.19 L (units unknown) (unknown) (unknown) (no date) (unknown) (unknown) RBC Morphology Not Reportable (units unknown) (unknown) (unknown) (no date) (unknown) (unknown) RDW 24.3 H (units unknown) (unknown) (unknown) (no date) (unknown) (unknown) Respiratory Rate 16 (units unknown) (unknown) (unknown) (no date) (unknown) (unknown) Antoine Poole DO ( units unknown) (unknown) (unknown) (no date) (unknown) (unknown) Signed By: (units unknown) (unknown) (unknown) (no date) (unknown) (unknown) Smoking Status : Former smoker (units unknown) (unknown) (unknown) (no date) (unknown) (unknown) Social History (units unknown) (unknown) (unknown) (no date) (unknown) (unknown) Sodium 137 (units unknown) (unknown) (unknown) (no date) (unknown) (unknown) Stand Alone Fo oumou: Patient Portal/API, Stroke Signs + Symptoms (units unknown) (unknown) (unknown) (no date) (unknown) (unknown) Surgical Histo ry (units unknown) (unknown) (unknown) (no date) (unknown) (unknown) TIA (transient ischemic attack) (units unknown) (unknown) (unknown) (no date) (unknown) (unknown) There was smal l amount of free fluid in the pelvis. She had noted right (units unknown) (unknown) (unknown) (no date) (unknown) (unknown) Time Patient S een: 10:30 (units unknown) (unknown) (unknown) (no date) (unknown) (unknown) VTE (units unknown) (unknown) (unknown) (no date) (unknown) (unknown) Visit Report/Discharge Packet (units unknown) (unknown) (unknown) (no date) (unknown) (unknown) Vital Signs (units unknown) (unknown) (unknown) (no date) (unknown) (unknown) WBC 4.0 L (units unknown) (unknown) (unknown) (no date) (unknown) (unknown) Aviva Baker, RN ADVICE [Primary Care Provider] (units unknown) (unknown) (unknown) (no date) (unknown) (unknown) [Embedded Imag e Not Available] (units unknown) (unknown) (unknown) (no date) (unknown) (unknown) alcohol intake : current (units unknown) (unknown) (unknown) (no date) (unknown) (unknown) ascorbic acid (vitamin C) 500 mg tablet (units unknown) (unknown) (unknown) (no date) (unknown) (unknown) blood pressure 170s/70s. Labs notable WBC 6.2, hgb 10.9, plts 150. Na 136, K (units unknown) (unknown) (unknown) (no date) (unknown) (unknown) catching her b reath due to abdominal distention. (units unknown) (unknown) (unknown) (no date) (unknown) (unknown) cholecalcifero l (vitamin D3) [Vitamin D3] 1,000 unit Tablet (units unknown) (unknown) (unknown) (no date) (unknown) (unknown) clopidogrel 75 mg tablet (units unknown) (unknown) (unknown) (no date) (unknown) (unknown) differentiated , she underwent right hemicolectomy on 11/30, TIA, HTN who presents (units unknown) (unknown) (unknown) (no date) (unknown) (unknown) gabapentin 100 mg Tablet (units unknown) (unknown) (unknown) (no date) (unknown) (unknown) had no vomitin g. She has had no fevers. She has had some difficulty fully (units unknown) (unknown) (unknown) (no date) (unknown) (unknown) hemicolectomy and ileocolic anastatmosis. CT chest showed moderate bilateral (units unknown) (unknown) (unknown) (no date) (unknown) (unknown) household memb ers: spouse (units unknown) (unknown) (unknown) (no date) (unknown) (unknown) lives independently: Yes (units unknown) (unknown) (unknown) (no date) (unknown) (unknown) magnesium 250 mg Tablet (units unknown) (unknown) (unknown) (no date) (unknown) (unknown) marital status : (units unknown) (unknown) (unknown) (no date) (unknown) (unknown) medication kush nges recommended. You can call surgeon's office to see about (units unknown) (unknown) (unknown) (no date) (unknown) (unknown) methocarbamol 500 mg Tablet (units unknown) (unknown) (unknown) (no date) (unknown) (unknown) metoprolol tar trate 25 mg tablet (units unknown) (unknown) (unknown) (no date) (unknown) (unknown) obstruction wi th proximal small bowel distended to 3.7cm with transition point. (units unknown) (unknown) (unknown) (no date) (unknown) (unknown) pleural effusi ons. General surgery did see her and recommended admission and (units unknown) (unknown) (unknown) (no date) (unknown) (unknown) riboflavin (vi tamin B2) 100 mg tablet (units unknown) (unknown) (unknown) (no date) (unknown) (unknown) rosuvastatin 4 0 mg tablet (units unknown) (unknown) (unknown) (no date) (unknown) (unknown) simethicone 80 mg Tablet (units unknown) (unknown) (unknown) (no date) (unknown) (unknown) staple removal timing. (units unknown) (unknown) (unknown) (no date) (unknown) (unknown) substance use type: does not use (units unknown) (unknown) (unknown) (no date) (unknown) (unknown) symptomatic control. (units unknown) (unknown) (unknown) (no date) (unknown) (unknown) with abdominal pain. She has had watery bowel movements. No blood noted. She has (units unknown) (unknown) (unknown) (no date) (unknown) (unknown) your intestine s after surgery. This improved. Okay for discharge home, no (units unknown) (unknown) Result panel 237 (unknown) (no date) (unknown) (unknown) (no value) (units unknown) (unknown) (unknown) (no date) (unknown) (unknown) (past 8 hours): (uni ts unknown) (unknown) (unknown) (no date) (unknown) (unknown) 12/07/22 21:19 (unit s unknown) (unknown) (unknown) (no date) (unknown) (unknown) 12/13/22 12/13/22 (u nits unknown) (unknown) (unknown) (no date) (unknown) (unknown) 12/13/22 06:35 (unit s unknown) (unknown) (unknown) (no date) (unknown) (unknown) 12/13/22 (units unknown) (unknown) (unknown) (no date) (unknown) (unknown) 05:00 12/13/22 (unit s unknown) (unknown) (unknown) (no date) (unknown) (unknown) 06:35 06:35 (units unknown) (unknown) (unknown) (no date) (unknown) (unknown) 08:00 12/13/22 (unit s unknown) (unknown) (unknown) (no date) (unknown) (unknown) 09:00 (units unknown) (unknown) (unknown) (no date) (unknown) (unknown) 1 tab PO DAILY (unit s unknown) (unknown) (unknown) (no date) (unknown) (unknown) 1. Post operat renetta ileus. (units unknown) (unknown) (unknown) (no date) (unknown) (unknown) 100 mg PO BID (units unknown) (unknown) (unknown) (no date) (unknown) (unknown) 100 mg PO DAILY (uni ts unknown) (unknown) (unknown) (no date) (unknown) (unknown) [id number] (units unknown) (unknown) (unknown) (no date) (unknown) (unknown) 2. Colonic adenocarcinoma s/p lap hemicolectomy (units unknown) (unknown) (unknown) (no date) (unknown) (unknown) 2.9, creatinin e 0.59. BNP 2040. Lipase 119. CT abdomen was read as small bowel (units unknown) (unknown) (unknown) (no date) (unknown) (unknown) 25 mcg PO DAILY (uni ts unknown) (unknown) (unknown) (no date) (unknown) (unknown) 25 mg PO BID (units unknown) (unknown) (unknown) (no date) (unknown) (unknown) 250 mg PO DAILY (uni ts unknown) (unknown) (unknown) (no date) (unknown) (unknown) 3. TIA (units unknown) (unknown) (unknown) (no date) (unknown) (unknown) 4. HTN (units unknown) (unknown) (unknown) (no date) (unknown) (unknown) 40 mg PO QPM (units unknown) (unknown) (unknown) (no date) (unknown) (unknown) 5. HLD (units unknown) (unknown) (unknown) (no date) (unknown) (unknown) 500 mg PO DAILY (uni ts unknown) (unknown) (unknown) (no date) (unknown) (unknown) 6. Hypokalemia (unit s unknown) (unknown) (unknown) (no date) (unknown) (unknown) 80 mg PO BID-Q ID PRN (Reason: gas) (units unknown) (unknown) (unknown) (no date) (unknown) (unknown) ABD: S NT ND (units unknown) (unknown) (unknown) (no date) (unknown) (unknown) Activity: As tolerated (units unknown) (unknown) (unknown) (no date) (unknown) (unknown) Age/Sex: 87 / F (uni ts unknown) (unknown) (unknown) (no date) (unknown) (unknown) Patsy A Walchenb ach, RN ADVICE (units unknown) (unknown) (unknown) (no date) (unknown) (unknown) Anisocytosis 1+ H (u nits unknown) (unknown) (unknown) (no date) (unknown) (unknown) BUN 8 (units unknown) (unknown) (unknown) (no date) (unknown) (unknown) BUN/Creatinine Ratio 17.4 (units unknown) (unknown) (unknown) (no date) (unknown) (unknown) Back pain (units unknown) (unknown) (unknown) (no date) (unknown) (unknown) Baso # (Auto) 0 (uni ts unknown) (unknown) (unknown) (no date) (unknown) (unknown) Baso % (Auto) 0.9 (u nits unknown) (unknown) (unknown) (no date) (unknown) (unknown) Blood Pressure 141/71 H (units unknown) (unknown) (unknown) (no date) (unknown) (unknown) CV: regular ra te and rhythm, no murmurs (units unknown) (unknown) (unknown) (no date) (unknown) (unknown) Calcium 7.0 L (units unknown) (unknown) (unknown) (no date) (unknown) (unknown) Carbon Dioxide 25 (u nits unknown) (unknown) (unknown) (no date) (unknown) (unknown) Cataract (units unknown) (unknown) (unknown) (no date) (unknown) (unknown) Chief complain t: bloated, shortness of breath, coughing up phlegm (units unknown) (unknown) (unknown) (no date) (unknown) (unknown) Chloride 108 H (unit s unknown) (unknown) (unknown) (no date) (unknown) (unknown) Continued (units unknown) (unknown) (unknown) (no date) (unknown) (unknown) Creatinine 0.46 L (u nits unknown) (unknown) (unknown) (no date) (unknown) (unknown) : 4 Acct:[id number] (units unknown) (unknown) (unknown) (no date) (unknown) (unknown) Date Patient S een: 12/13/22 (units unknown) (unknown) (unknown) (no date) (unknown) (unknown) Date of Servic e: 12/07/22 (units unknown) (unknown) (unknown) (no date) (unknown) (unknown) Date of admission: ( units unknown) (unknown) (unknown) (no date) (unknown) (unknown) Deep Vein Thrombosis/Pulmonar y Embolism Present on Admission: No (units unknown) (unknown) (unknown) (no date) (unknown) (unknown) Diet/Activity/ Treat ments (units unknown) (unknown) (unknown) (no date) (unknown) (unknown) Diet: Diet as Tolerated (units unknown) (unknown) (unknown) (no date) (unknown) (unknown) Discharge Data (unit s unknown) (unknown) (unknown) (no date) (unknown) (unknown) Discharge Date : 12/13/22 (units unknown) (unknown) (unknown) (no date) (unknown) (unknown) Discharge Diagnosis: (units unknown) (unknown) (unknown) (no date) (unknown) (unknown) Discharge Plan (unit s unknown) (unknown) (unknown) (no date) (unknown) (unknown) Discharge Providers (units unknown) (unknown) (unknown) (no date) (unknown) (unknown) Discharge Summary (u nits unknown) (unknown) (unknown) (no date) (unknown) (unknown) Discharge orde rs + Medications (units unknown) (unknown) (unknown) (no date) (unknown) (unknown) Discharge provider: (units unknown) (unknown) (unknown) (no date) (unknown) (unknown) EXT: warm and well perfused with no edema (units unknown) (unknown) (unknown) (no date) (unknown) (unknown) Eos # (Auto) 100 (un its unknown) (unknown) (unknown) (no date) (unknown) (unknown) Eos % (Auto) 3.4 (un its unknown) (unknown) (unknown) (no date) (unknown) (unknown) Estimated GFR > 60 ( units unknown) (unknown) (unknown) (no date) (unknown) (unknown) Exam Narrative: (uni ts unknown) (unknown) (unknown) (no date) (unknown) (unknown) Exam (units unknown) (unknown) (unknown) (no date) (unknown) (unknown) Family History (units unknown) (unknown) (unknown) (no date) (unknown) (unknown) Father d Pedestrian crushed by rolling stock (units unknown) (unknown) (unknown) (no date) (unknown) (unknown) Finger amputat ion, traumatic (units unknown) (unknown) (unknown) (no date) (unknown) (unknown) Follow up/Referrals: (units unknown) (unknown) (unknown) (no date) (unknown) (unknown) GEN: appears t o be in distress from pain (units unknown) (unknown) (unknown) (no date) (unknown) (unknown) Glucose 98 (units unknown) (unknown) (unknown) (no date) (unknown) (unknown) H/O prior abla tion treatment (units unknown) (unknown) (unknown) (no date) (unknown) (unknown) HEENT: moist m ucous membranes, PERRL (units unknown) (unknown) (unknown) (no date) (unknown) (unknown) Hct 26.6 L (units unknown) (unknown) (unknown) (no date) (unknown) (unknown) Hgb 8.9 L (units unknown) (unknown) (unknown) (no date) (unknown) (unknown) History of Pre sent Illness (units unknown) (unknown) (unknown) (no date) (unknown) (unknown) History of appendectomy (units unknown) (unknown) (unknown) (no date) (unknown) (unknown) History of radiofrequency ablation procedure for cardiac arrhythmia (units unknown) (unknown) (unknown) (no date) (unknown) (unknown) Hospital Course (uni ts unknown) (unknown) (unknown) (no date) (unknown) (unknown) Hospital Course: (un its unknown) (unknown) (unknown) (no date) (unknown) (unknown) Hx of bilatera l cataract extraction (units unknown) (unknown) (unknown) (no date) (unknown) (unknown) Hyperlipemia (units unknown) (unknown) (unknown) (no date) (unknown) (unknown) Hypertension (units unknown) (unknown) (unknown) (no date) (unknown) (unknown) In the ED work up was done, vitals notable for afebrile, heart rate in the 60s, (units unknown) (unknown) (unknown) (no date) (unknown) (unknown) [address] [address] (units unknown) (unknown) (unknown) (no date) (unknown) (unknown) Laboratory Res ults - last 24 hr (units unknown) (unknown) (unknown) (no date) (unknown) (unknown) Labs (units unknown) (unknown) (unknown) (no date) (unknown) (unknown) Labs: (units unknown) (unknown) (unknown) (no date) (unknown) (unknown) Lymph # (Auto) 600 L (units unknown) (unknown) (unknown) (no date) (unknown) (unknown) Lymph % (Auto) 15.9 L (units unknown) (unknown) (unknown) (no date) (unknown) (unknown) MCH 28.0 (units unknown) (unknown) (unknown) (no date) (unknown) (unknown) MCHC 33.6 (units unknown) (unknown) (unknown) (no date) (unknown) (unknown) MCV 83.3 (units unknown) (unknown) (unknown) (no date) (unknown) (unknown) [place] (units unknown) (unknown) (unknown) (no date) (unknown) (unknown) Medical Histor y (Updated 12/10/22 @ 14:15 by Safia Champagne MD) (units unknown) (unknown) (unknown) (no date) (unknown) (unknown) [place]erry # (Auto) 300 (u nits unknown) (unknown) (unknown) (no date) (unknown) (unknown) [place] % (Auto) 8.5 (u nits unknown) (unknown) (unknown) (no date) (unknown) (unknown) Mother d Old age (units unknown) (unknown) (unknown) (no date) (unknown) (unknown) Ms. Castañeda is a n 87W with PMH invasive colonic adenocarcinoma, moderately (units unknown) (unknown) (unknown) (no date) (unknown) (unknown) NECK: trachea midline, no JVD (units unknown) (unknown) (unknown) (no date) (unknown) (unknown) NEURO: awake, alert, oriented, no focal deficits (units unknown) (unknown) (unknown) (no date) (unknown) (unknown) Narrative (units unknown) (unknown) (unknown) (no date) (unknown) (unknown) Narrative: (units unknown) (unknown) (unknown) (no date) (unknown) (unknown) Neut # (Auto) 2800 ( units unknown) (unknown) (unknown) (no date) (unknown) (unknown) Neut % (Auto) 71.3 ( units unknown) (unknown) (unknown) (no date) (unknown) (unknown) Objective (units unknown) (unknown) (unknown) (no date) (unknown) (unknown) Oxygen Deliver y Method Room Air Room Air (units unknown) (unknown) (unknown) (no date) (unknown) (unknown) Oxygen Deliver y Method Room Air (units unknown) (unknown) (unknown) (no date) (unknown) (unknown) Oxygen Flow Ra te 0 0 0 (units unknown) (unknown) (unknown) (no date) (unknown) (unknown) Oxygen Flow Rate 0 ( units unknown) (unknown) (unknown) (no date) (unknown) (unknown) PFSH (units unknown) (unknown) (unknown) (no date) (unknown) (unknown) PULM: clear bilaterally, no wheezes, rhonchi, rales (units unknown) (unknown) (unknown) (no date) (unknown) (unknown) PVC's (prematu re ventricular contractions) (units unknown) (unknown) (unknown) (no date) (unknown) (unknown) Patient Disposition: Home (units unknown) (unknown) (unknown) (no date) (unknown) (unknown) Patient: Patricia Castañeda MR#: [id number] (units unknown) (unknown) (unknown) (no date) (unknown) (unknown) Plt Count 163 (units unknown) (unknown) (unknown) (no date) (unknown) (unknown) Poikilocytosis 1+ H (units unknown) (unknown) (unknown) (no date) (unknown) (unknown) Potassium 2.9 L (uni ts unknown) (unknown) (unknown) (no date) (unknown) (unknown) Prescriptions: (unit s unknown) (unknown) (unknown) (no date) (unknown) (unknown) Primary Care Provider: Patsy Baker (units unknown) (unknown) (unknown) (no date) (unknown) (unknown) Primary care physician: (units unknown) (unknown) (unknown) (no date) (unknown) (unknown) Provider Flaquita villalta Comment: You were admitted to the hospital with a slowing of (units unknown) (unknown) (unknown) (no date) (unknown) (unknown) Provider (units unknown) (unknown) (unknown) (no date) (unknown) (unknown) Provider: Antoine Poole D.O. (units unknown) (unknown) (unknown) (no date) (unknown) (unknown) Pulse Oximetry 95 98 98 (units unknown) (unknown) (unknown) (no date) (unknown) (unknown) Pulse Rate 81 (units unknown) (unknown) (unknown) (no date) (unknown) (unknown) Quality (units unknown) (unknown) (unknown) (no date) (unknown) (unknown) RBC 3.19 L (units unknown) (unknown) (unknown) (no date) (unknown) (unknown) RBC Morphology Not Reportable (units unknown) (unknown) (unknown) (no date) (unknown) (unknown) RDW 24.3 H (units unknown) (unknown) (unknown) (no date) (unknown) (unknown) Respiratory Rate 16 (units unknown) (unknown) (unknown) (no date) (unknown) (unknown) Antoine Poole DO ( units unknown) (unknown) (unknown) (no date) (unknown) (unknown) She was resume d on her home medications and once tolerating regular diet she was (units unknown) (unknown) (unknown) (no date) (unknown) (unknown) Signed By: (units unknown) (unknown) (unknown) (no date) (unknown) (unknown) Smoking Status : Former smoker (units unknown) (unknown) (unknown) (no date) (unknown) (unknown) Social History (units unknown) (unknown) (unknown) (no date) (unknown) (unknown) Sodium 137 (units unknown) (unknown) (unknown) (no date) (unknown) (unknown) Stand Alone Fo oumou: Patient Portal/API, Stroke Signs + Symptoms (units unknown) (unknown) (unknown) (no date) (unknown) (unknown) Summary (units unknown) (unknown) (unknown) (no date) (unknown) (unknown) Surgical Histo ry (units unknown) (unknown) (unknown) (no date) (unknown) (unknown) TIA (transient ischemic attack) (units unknown) (unknown) (unknown) (no date) (unknown) (unknown) There was smal l amount of free fluid in the pelvis. She had noted right (units unknown) (unknown) (unknown) (no date) (unknown) (unknown) This is an 87 year old female admitted after recent hemicolectomy with post-op (units unknown) (unknown) (unknown) (no date) (unknown) (unknown) Time Patient S een: 10:30 (units unknown) (unknown) (unknown) (no date) (unknown) (unknown) Time Spent wit h Patient (units unknown) (unknown) (unknown) (no date) (unknown) (unknown) Time spent: Le ss than 30 minutes (units unknown) (unknown) (unknown) (no date) (unknown) (unknown) VTE (units unknown) (unknown) (unknown) (no date) (unknown) (unknown) Visit Report/Discharge Packet (units unknown) (unknown) (unknown) (no date) (unknown) (unknown) Vital Signs (units unknown) (unknown) (unknown) (no date) (unknown) (unknown) WBC 4.0 L (units unknown) (unknown) (unknown) (no date) (unknown) (unknown) Aviva Baker, RN ADVICE [Primary Care Provider] (units unknown) (unknown) (unknown) (no date) (unknown) (unknown) [Embedded Imag e Not Available] (units unknown) (unknown) (unknown) (no date) (unknown) (unknown) after initial failure to tolerate clear liquids. She had return of bowel (units unknown) (unknown) (unknown) (no date) (unknown) (unknown) alcohol intake : current (units unknown) (unknown) (unknown) (no date) (unknown) (unknown) ascorbic acid (vitamin C) 500 mg tablet (units unknown) (unknown) (unknown) (no date) (unknown) (unknown) blood pressure 170s/70s. Labs notable WBC 6.2, hgb 10.9, plts 150. Na 136, K (units unknown) (unknown) (unknown) (no date) (unknown) (unknown) catching her b reath due to abdominal distention. (units unknown) (unknown) (unknown) (no date) (unknown) (unknown) cholecalcifero l (vitamin D3) [Vitamin D3] 1,000 unit Tablet (units unknown) (unknown) (unknown) (no date) (unknown) (unknown) clopidogrel 75 mg tablet (units unknown) (unknown) (unknown) (no date) (unknown) (unknown) differentiated , she underwent right hemicolectomy on 11/30, TIA, HTN who presents (units unknown) (unknown) (unknown) (no date) (unknown) (unknown) discharge, she will follow up with her surgeon as previously scheduled. (units unknown) (unknown) (unknown) (no date) (unknown) (unknown) discharged grey e. [place] were removed by general surgery on the day of (units unknown) (unknown) (unknown) (no date) (unknown) (unknown) function a few days later, NG tube was removed and her diet was slowly advanced. (units unknown) (unknown) (unknown) (no date) (unknown) (unknown) gabapentin 100 mg Tablet (units unknown) (unknown) (unknown) (no date) (unknown) (unknown) had no vomitin g. She has had no fevers. She has had some difficulty fully (units unknown) (unknown) (unknown) (no date) (unknown) (unknown) hemicolectomy and ileocolic anastatmosis. CT chest showed moderate bilateral (units unknown) (unknown) (unknown) (no date) (unknown) (unknown) household memb ers: spouse (units unknown) (unknown) (unknown) (no date) (unknown) (unknown) ileus. She had slow recovery of bowel function, and required NG tube placement (units unknown) (unknown) (unknown) (no date) (unknown) (unknown) lives independently: Yes (units unknown) (unknown) (unknown) (no date) (unknown) (unknown) magnesium 250 mg Tablet (units unknown) (unknown) (unknown) (no date) (unknown) (unknown) marital status : (units unknown) (unknown) (unknown) (no date) (unknown) (unknown) medication kush nges recommended. You can call surgeon's office to see about (units unknown) (unknown) (unknown) (no date) (unknown) (unknown) methocarbamol 500 mg Tablet (units unknown) (unknown) (unknown) (no date) (unknown) (unknown) metoprolol tar trate 25 mg tablet (units unknown) (unknown) (unknown) (no date) (unknown) (unknown) obstruction wi th proximal small bowel distended to 3.7cm with transition point. (units unknown) (unknown) (unknown) (no date) (unknown) (unknown) pleural effusi ons. General surgery did see her and recommended admission and (units unknown) (unknown) (unknown) (no date) (unknown) (unknown) riboflavin (vi tamin B2) 100 mg tablet (units unknown) (unknown) (unknown) (no date) (unknown) (unknown) rosuvastatin 4 0 mg tablet (units unknown) (unknown) (unknown) (no date) (unknown) (unknown) simethicone 80 mg Tablet (units unknown) (unknown) (unknown) (no date) (unknown) (unknown) staple removal timing. (units unknown) (unknown) (unknown) (no date) (unknown) (unknown) substance use type: does not use (units unknown) (unknown) (unknown) (no date) (unknown) (unknown) symptomatic control. (units unknown) (unknown) (unknown) (no date) (unknown) (unknown) with abdominal pain. She has had watery bowel movements. No blood noted. She has (units unknown) (unknown) (unknown) (no date) (unknown) (unknown) your intestine s after surgery. This improved. Okay for discharge home, no (units unknown) (unknown) Result panel 238 (unknown) (no date) (unknown) (unknown) (no value) (units unknown) (unknown) (unknown) (no date) (unknown) (unknown) (past 8 hours): (uni ts unknown) (unknown) (unknown) (no date) (unknown) (unknown) 12/07/22 21:19 (unit s unknown) (unknown) (unknown) (no date) (unknown) (unknown) 12/13/22 12/13/22 (u nits unknown) (unknown) (unknown) (no date) (unknown) (unknown) 12/13/22 06:35 (unit s unknown) (unknown) (unknown) (no date) (unknown) (unknown) 12/13/22 1545 (units unknown) (unknown) (unknown) (no date) (unknown) (unknown) 12/13/22 (units unknown) (unknown) (unknown) (no date) (unknown) (unknown) 05:00 12/13/22 (unit s unknown) (unknown) (unknown) (no date) (unknown) (unknown) 06:35 06:35 (units unknown) (unknown) (unknown) (no date) (unknown) (unknown) 08:00 12/13/22 (unit s unknown) (unknown) (unknown) (no date) (unknown) (unknown) 09:00 (units unknown) (unknown) (unknown) (no date) (unknown) (unknown) 1 tab PO DAILY (unit s unknown) (unknown) (unknown) (no date) (unknown) (unknown) 1. Post operat renetta ileus. (units unknown) (unknown) (unknown) (no date) (unknown) (unknown) 100 mg PO BID (units unknown) (unknown) (unknown) (no date) (unknown) (unknown) 100 mg PO DAILY (uni ts unknown) (unknown) (unknown) (no date) (unknown) (unknown) [id number] (units unknown) (unknown) (unknown) (no date) (unknown) (unknown) 2. Colonic adenocarcinoma s/p lap hemicolectomy (units unknown) (unknown) (unknown) (no date) (unknown) (unknown) 2.9, creatinin e 0.59. BNP 2040. Lipase 119. CT abdomen was read as small bowel (units unknown) (unknown) (unknown) (no date) (unknown) (unknown) 25 mcg PO DAILY (uni ts unknown) (unknown) (unknown) (no date) (unknown) (unknown) 25 mg PO BID (units unknown) (unknown) (unknown) (no date) (unknown) (unknown) 250 mg PO DAILY (uni ts unknown) (unknown) (unknown) (no date) (unknown) (unknown) 3. TIA (units unknown) (unknown) (unknown) (no date) (unknown) (unknown) 4. HTN (units unknown) (unknown) (unknown) (no date) (unknown) (unknown) 40 mg PO QPM (units unknown) (unknown) (unknown) (no date) (unknown) (unknown) 5. HLD (units unknown) (unknown) (unknown) (no date) (unknown) (unknown) 500 mg PO DAILY (uni ts unknown) (unknown) (unknown) (no date) (unknown) (unknown) 6. Hypokalemia (unit s unknown) (unknown) (unknown) (no date) (unknown) (unknown) 7. Upper GI Bleeding. (units unknown) (unknown) (unknown) (no date) (unknown) (unknown) 80 mg PO BID-Q ID PRN (Reason: gas) (units unknown) (unknown) (unknown) (no date) (unknown) (unknown) ABD: S NT ND (units unknown) (unknown) (unknown) (no date) (unknown) (unknown) Activity: As tolerated (units unknown) (unknown) (unknown) (no date) (unknown) (unknown) Age/Sex: 87 / F (uni ts unknown) (unknown) (unknown) (no date) (unknown) (unknown) Patsy A Walchenb ach, RN ADVICE (units unknown) (unknown) (unknown) (no date) (unknown) (unknown) Anisocytosis 1+ H (u nits unknown) (unknown) (unknown) (no date) (unknown) (unknown) BUN 8 (units unknown) (unknown) (unknown) (no date) (unknown) (unknown) BUN/Creatinine Ratio 17.4 (units unknown) (unknown) (unknown) (no date) (unknown) (unknown) Back pain (units unknown) (unknown) (unknown) (no date) (unknown) (unknown) Baso # (Auto) 0 (uni ts unknown) (unknown) (unknown) (no date) (unknown) (unknown) Baso % (Auto) 0.9 (u nits unknown) (unknown) (unknown) (no date) (unknown) (unknown) Blood Pressure 141/71 H (units unknown) (unknown) (unknown) (no date) (unknown) (unknown) CV: regular ra te and rhythm, no murmurs (units unknown) (unknown) (unknown) (no date) (unknown) (unknown) Calcium 7.0 L (units unknown) (unknown) (unknown) (no date) (unknown) (unknown) Carbon Dioxide 25 (u nits unknown) (unknown) (unknown) (no date) (unknown) (unknown) Cataract (units unknown) (unknown) (unknown) (no date) (unknown) (unknown) Chief complain t: bloated, shortness of breath, coughing up phlegm (units unknown) (unknown) (unknown) (no date) (unknown) (unknown) Chloride 108 H (unit s unknown) (unknown) (unknown) (no date) (unknown) (unknown) Continued (units unknown) (unknown) (unknown) (no date) (unknown) (unknown) Creatinine 0.46 L (u nits unknown) (unknown) (unknown) (no date) (unknown) (unknown) : 4 Acct:[id number] (units unknown) (unknown) (unknown) (no date) (unknown) (unknown) Date Patient S een: 12/13/22 (units unknown) (unknown) (unknown) (no date) (unknown) (unknown) Date of Servic e: 12/07/22 (units unknown) (unknown) (unknown) (no date) (unknown) (unknown) Date of admission: ( units unknown) (unknown) (unknown) (no date) (unknown) (unknown) Deep Vein Thrombosis/Pulmonar y Embolism Present on Admission: No (units unknown) (unknown) (unknown) (no date) (unknown) (unknown) Diet/Activity/ Treat ments (units unknown) (unknown) (unknown) (no date) (unknown) (unknown) Diet: Diet as Tolerated (units unknown) (unknown) (unknown) (no date) (unknown) (unknown) Discharge Data (unit s unknown) (unknown) (unknown) (no date) (unknown) (unknown) Discharge Date : 12/13/22 (units unknown) (unknown) (unknown) (no date) (unknown) (unknown) Discharge Diagnosis: (units unknown) (unknown) (unknown) (no date) (unknown) (unknown) Discharge Plan (unit s unknown) (unknown) (unknown) (no date) (unknown) (unknown) Discharge Providers (units unknown) (unknown) (unknown) (no date) (unknown) (unknown) Discharge Summary (u nits unknown) (unknown) (unknown) (no date) (unknown) (unknown) Discharge orde rs + Medications (units unknown) (unknown) (unknown) (no date) (unknown) (unknown) Discharge provider: (units unknown) (unknown) (unknown) (no date) (unknown) (unknown) EXT: warm and well perfused with no edema (units unknown) (unknown) (unknown) (no date) (unknown) (unknown) Eos # (Auto) 100 (un its unknown) (unknown) (unknown) (no date) (unknown) (unknown) Eos % (Auto) 3.4 (un its unknown) (unknown) (unknown) (no date) (unknown) (unknown) Estimated GFR > 60 ( units unknown) (unknown) (unknown) (no date) (unknown) (unknown) Exam Narrative: (uni ts unknown) (unknown) (unknown) (no date) (unknown) (unknown) Exam (units unknown) (unknown) (unknown) (no date) (unknown) (unknown) Family History (units unknown) (unknown) (unknown) (no date) (unknown) (unknown) Father d Pedestrian crushed by rolling stock (units unknown) (unknown) (unknown) (no date) (unknown) (unknown) Finger amputat ion, traumatic (units unknown) (unknown) (unknown) (no date) (unknown) (unknown) Follow up/Referrals: (units unknown) (unknown) (unknown) (no date) (unknown) (unknown) GEN: appears t o be in distress from pain (units unknown) (unknown) (unknown) (no date) (unknown) (unknown) Glucose 98 (units unknown) (unknown) (unknown) (no date) (unknown) (unknown) H/O prior abla tion treatment (units unknown) (unknown) (unknown) (no date) (unknown) (unknown) HEENT: moist m ucous membranes, PERRL (units unknown) (unknown) (unknown) (no date) (unknown) (unknown) Hct 26.6 L (units unknown) (unknown) (unknown) (no date) (unknown) (unknown) Hgb 8.9 L (units unknown) (unknown) (unknown) (no date) (unknown) (unknown) History of Pre sent Illness (units unknown) (unknown) (unknown) (no date) (unknown) (unknown) History of appendectomy (units unknown) (unknown) (unknown) (no date) (unknown) (unknown) History of radiofrequency ablation procedure for cardiac arrhythmia (units unknown) (unknown) (unknown) (no date) (unknown) (unknown) Hospital Course (uni ts unknown) (unknown) (unknown) (no date) (unknown) (unknown) Hospital Course: (un its unknown) (unknown) (unknown) (no date) (unknown) (unknown) Hx of bilatera l cataract extraction (units unknown) (unknown) (unknown) (no date) (unknown) (unknown) Hyperlipemia (units unknown) (unknown) (unknown) (no date) (unknown) (unknown) Hypertension (units unknown) (unknown) (unknown) (no date) (unknown) (unknown) In the ED work up was done, vitals notable for afebrile, heart rate in the 60s, (units unknown) (unknown) (unknown) (no date) (unknown) (unknown) [facility] [address] [place] [id number] (units unknown) (unknown) (unknown) (no date) (unknown) (unknown) Laboratory Res ults - last 24 hr (units unknown) (unknown) (unknown) (no date) (unknown) (unknown) Labs (units unknown) (unknown) (unknown) (no date) (unknown) (unknown) Labs: (units unknown) (unknown) (unknown) (no date) (unknown) (unknown) Lymph # (Auto) 600 L (units unknown) (unknown) (unknown) (no date) (unknown) (unknown) Lymph % (Auto) 15.9 L (units unknown) (unknown) (unknown) (no date) (unknown) (unknown) MCH 28.0 (units unknown) (unknown) (unknown) (no date) (unknown) (unknown) MCHC 33.6 (units unknown) (unknown) (unknown) (no date) (unknown) (unknown) MCV 83.3 (units unknown) (unknown) (unknown) (no date) (unknown) (unknown) [place] (units unknown) (unknown) (unknown) (no date) (unknown) (unknown) Medical Histor y (Updated 12/10/22 @ 14:15 by Safia Champagne MD) (units unknown) (unknown) (unknown) (no date) (unknown) (unknown) [place] # (Auto) 300 (u nits unknown) (unknown) (unknown) (no date) (unknown) (unknown) [place] % (Auto) 8.5 (u nits unknown) (unknown) (unknown) (no date) (unknown) (unknown) Mother d Old age (units unknown) (unknown) (unknown) (no date) (unknown) (unknown) Ms. Castañeda is a n 87W with PMH invasive colonic adenocarcinoma, moderately (units unknown) (unknown) (unknown) (no date) (unknown) (unknown) NECK: trachea midline, no JVD (units unknown) (unknown) (unknown) (no date) (unknown) (unknown) NEURO: awake, alert, oriented, no focal deficits (units unknown) (unknown) (unknown) (no date) (unknown) (unknown) Narrative (units unknown) (unknown) (unknown) (no date) (unknown) (unknown) Narrative: (units unknown) (unknown) (unknown) (no date) (unknown) (unknown) Neut # (Auto) 2800 ( units unknown) (unknown) (unknown) (no date) (unknown) (unknown) Neut % (Auto) 71.3 ( units unknown) (unknown) (unknown) (no date) (unknown) (unknown) Objective (units unknown) (unknown) (unknown) (no date) (unknown) (unknown) Oxygen Deliver y Method Room Air Room Air (units unknown) (unknown) (unknown) (no date) (unknown) (unknown) Oxygen Deliver y Method Room Air (units unknown) (unknown) (unknown) (no date) (unknown) (unknown) Oxygen Flow Ra te 0 0 0 (units unknown) (unknown) (unknown) (no date) (unknown) (unknown) Oxygen Flow Rate 0 ( units unknown) (unknown) (unknown) (no date) (unknown) (unknown) PFSH (units unknown) (unknown) (unknown) (no date) (unknown) (unknown) PULM: clear bilaterally, no wheezes, rhonchi, rales (units unknown) (unknown) (unknown) (no date) (unknown) (unknown) PVC's (prematu re ventricular contractions) (units unknown) (unknown) (unknown) (no date) (unknown) (unknown) Patient Disposition: Home (units unknown) (unknown) (unknown) (no date) (unknown) (unknown) Patient: Patricia Castañeda MR#: [id number] (units unknown) (unknown) (unknown) (no date) (unknown) (unknown) Plt Count 163 (units unknown) (unknown) (unknown) (no date) (unknown) (unknown) Poikilocytosis 1+ H (units unknown) (unknown) (unknown) (no date) (unknown) (unknown) Potassium 2.9 L (uni ts unknown) (unknown) (unknown) (no date) (unknown) (unknown) Prescriptions: (unit s unknown) (unknown) (unknown) (no date) (unknown) (unknown) Primary Care Provider: Patsy Baker (units unknown) (unknown) (unknown) (no date) (unknown) (unknown) Primary care physician: (units unknown) (unknown) (unknown) (no date) (unknown) (unknown) Provider Disch arge Comment: You were admitted to the hospital with a slowing of (units unknown) (unknown) (unknown) (no date) (unknown) (unknown) Provider (units unknown) (unknown) (unknown) (no date) (unknown) (unknown) Provider: Antoine Poole D.O. (units unknown) (unknown) (unknown) (no date) (unknown) (unknown) Pulse Oximetry 95 98 98 (units unknown) (unknown) (unknown) (no date) (unknown) (unknown) Pulse Rate 81 (units unknown) (unknown) (unknown) (no date) (unknown) (unknown) Quality (units unknown) (unknown) (unknown) (no date) (unknown) (unknown) RBC 3.19 L (units unknown) (unknown) (unknown) (no date) (unknown) (unknown) RBC Morphology Not Reportable (units unknown) (unknown) (unknown) (no date) (unknown) (unknown) RDW 24.3 H (units unknown) (unknown) (unknown) (no date) (unknown) (unknown) Respiratory Rate 16 (units unknown) (unknown) (unknown) (no date) (unknown) (unknown) Antoine Poole DO ( units unknown) (unknown) (unknown) (no date) (unknown) (unknown) She was resume d on her home medications and once tolerating regular diet she was (units unknown) (unknown) (unknown) (no date) (unknown) (unknown) Signed By:<Electronically signed by Antoine Poole D.O.> (units unknown) (unknown) (unknown) (no date) (unknown) (unknown) Smoking Status : Former smoker (units unknown) (unknown) (unknown) (no date) (unknown) (unknown) Social History (units unknown) (unknown) (unknown) (no date) (unknown) (unknown) Sodium 137 (units unknown) (unknown) (unknown) (no date) (unknown) (unknown) Stand Alone Fo oumou: Patient Portal/API, Stroke Signs + Symptoms (units unknown) (unknown) (unknown) (no date) (unknown) (unknown) Summary (units unknown) (unknown) (unknown) (no date) (unknown) (unknown) Surgical Histo ry (units unknown) (unknown) (unknown) (no date) (unknown) (unknown) TIA (transient ischemic attack) (units unknown) (unknown) (unknown) (no date) (unknown) (unknown) There was smal l amount of free fluid in the pelvis. She had noted right (units unknown) (unknown) (unknown) (no date) (unknown) (unknown) This is an 87 year old female admitted after recent hemicolectomy with post-op (units unknown) (unknown) (unknown) (no date) (unknown) (unknown) Time Patient S een: 10:30 (units unknown) (unknown) (unknown) (no date) (unknown) (unknown) Time Spent wit h Patient (units unknown) (unknown) (unknown) (no date) (unknown) (unknown) Time spent: Le ss than 30 minutes (units unknown) (unknown) (unknown) (no date) (unknown) (unknown) VTE (units unknown) (unknown) (unknown) (no date) (unknown) (unknown) Visit Report/Discharge Packet (units unknown) (unknown) (unknown) (no date) (unknown) (unknown) Vital Signs (units unknown) (unknown) (unknown) (no date) (unknown) (unknown) WBC 4.0 L (units unknown) (unknown) (unknown) (no date) (unknown) (unknown) Aviva Baker, RN ADVICE [Primary Care Provider] (units unknown) (unknown) (unknown) (no date) (unknown) (unknown) [Embedded Imag e Not Available] (units unknown) (unknown) (unknown) (no date) (unknown) (unknown) after initial failure to tolerate clear liquids. She had return of bowel (units unknown) (unknown) (unknown) (no date) (unknown) (unknown) alcohol intake : current (units unknown) (unknown) (unknown) (no date) (unknown) (unknown) are recommende d at the time of discharge. (units unknown) (unknown) (unknown) (no date) (unknown) (unknown) ascorbic acid (vitamin C) 500 mg tablet (units unknown) (unknown) (unknown) (no date) (unknown) (unknown) blood pressure 170s/70s. Labs notable WBC 6.2, hgb 10.9, plts 150. Na 136, K (units unknown) (unknown) (unknown) (no date) (unknown) (unknown) catching her b reath due to abdominal distention. (units unknown) (unknown) (unknown) (no date) (unknown) (unknown) cholecalcifero l (vitamin D3) [Vitamin D3] 1,000 unit Tablet (units unknown) (unknown) (unknown) (no date) (unknown) (unknown) clopidogrel 75 mg tablet (units unknown) (unknown) (unknown) (no date) (unknown) (unknown) differentiated , she underwent right hemicolectomy on 11/30, TIA, HTN who presents (units unknown) (unknown) (unknown) (no date) (unknown) (unknown) discharge, she will follow up with her surgeon as previously scheduled. Course (units unknown) (unknown) (unknown) (no date) (unknown) (unknown) discharged grey e. Hebert were removed by general surgery on the day of (units unknown) (unknown) (unknown) (no date) (unknown) (unknown) function a few days later, NG tube was removed and her diet was slowly advanced. (units unknown) (unknown) (unknown) (no date) (unknown) (unknown) gabapentin 100 mg Tablet (units unknown) (unknown) (unknown) (no date) (unknown) (unknown) had no vomitin g. She has had no fevers. She has had some difficulty fully (units unknown) (unknown) (unknown) (no date) (unknown) (unknown) hemicolectomy and ileocolic anastatmosis. CT chest showed moderate bilateral (units unknown) (unknown) (unknown) (no date) (unknown) (unknown) household memb ers: spouse (units unknown) (unknown) (unknown) (no date) (unknown) (unknown) ileus. She had slow recovery of bowel function, and required NG tube placement (units unknown) (unknown) (unknown) (no date) (unknown) (unknown) lives independently: Yes (units unknown) (unknown) (unknown) (no date) (unknown) (unknown) magnesium 250 mg Tablet (units unknown) (unknown) (unknown) (no date) (unknown) (unknown) marital status : (units unknown) (unknown) (unknown) (no date) (unknown) (unknown) medication kush nges recommended. You can call surgeon's office to see about (units unknown) (unknown) (unknown) (no date) (unknown) (unknown) methocarbamol 500 mg Tablet (units unknown) (unknown) (unknown) (no date) (unknown) (unknown) metoprolol tar trate 25 mg tablet (units unknown) (unknown) (unknown) (no date) (unknown) (unknown) obstruction wi th proximal small bowel distended to 3.7cm with transition point. (units unknown) (unknown) (unknown) (no date) (unknown) (unknown) pleural effusi ons. General surgery did see her and recommended admission and (units unknown) (unknown) (unknown) (no date) (unknown) (unknown) riboflavin (vi tamin B2) 100 mg tablet (units unknown) (unknown) (unknown) (no date) (unknown) (unknown) rosuvastatin 4 0 mg tablet (units unknown) (unknown) (unknown) (no date) (unknown) (unknown) simethicone 80 mg Tablet (units unknown) (unknown) (unknown) (no date) (unknown) (unknown) staple removal timing. (units unknown) (unknown) (unknown) (no date) (unknown) (unknown) started empiri martin but was not recommended on discharge. No medication changes (units unknown) (unknown) (unknown) (no date) (unknown) (unknown) substance use type: does not use (units unknown) (unknown) (unknown) (no date) (unknown) (unknown) symptomatic control. (units unknown) (unknown) (unknown) (no date) (unknown) (unknown) was complicate d by GI bleeding, probably from tube irritation, protonix had been (units unknown) (unknown) (unknown) (no date) (unknown) (unknown) with abdominal pain. She has had watery bowel movements. No blood noted. She has (units unknown) (unknown) (unknown) (no date) (unknown) (unknown) your intestine s after surgery. This improved. Okay for discharge home, no (units unknown) (unknown) Result panel 239 (unknown) (no date) (unknown) (unknown) (no value) (units unknown) (unknown) (unknown) (no date) (unknown) (unknown) (past 8 hours): (uni ts unknown) (unknown) (unknown) (no date) (unknown) (unknown) 11/30/22 10:32 (unit s unknown) (unknown) (unknown) (no date) (unknown) (unknown) 11/30/22 16:03 (unit s unknown) (unknown) (unknown) (no date) (unknown) (unknown) 12/03/22 05:28 (unit s unknown) (unknown) (unknown) (no date) (unknown) (unknown) 12/05/22 11:14 (unit s unknown) (unknown) (unknown) (no date) (unknown) (unknown) 12/16/22 0918 (units unknown) (unknown) (unknown) (no date) (unknown) (unknown) 1 tab PO DAILY (unit s unknown) (unknown) (unknown) (no date) (unknown) (unknown) 100 mg PO BID (units unknown) (unknown) (unknown) (no date) (unknown) (unknown) 100 mg PO DAILY (uni ts unknown) (unknown) (unknown) (no date) (unknown) (unknown) [id number] (units unknown) (unknown) (unknown) (no date) (unknown) (unknown) 2022. Please s ee the operative note for details. She was in the hospital for (units unknown) (unknown) (unknown) (no date) (unknown) (unknown) 25 mcg PO DAILY (uni ts unknown) (unknown) (unknown) (no date) (unknown) (unknown) 25 mg PO BID (units unknown) (unknown) (unknown) (no date) (unknown) (unknown) 250 mg PO DAILY (uni ts unknown) (unknown) (unknown) (no date) (unknown) (unknown) 40 mg PO QPM (units unknown) (unknown) (unknown) (no date) (unknown) (unknown) 500 mg PO DAILY (uni ts unknown) (unknown) (unknown) (no date) (unknown) (unknown) 80 mg PO BID-Q ID PRN (Reason: gas) (units unknown) (unknown) (unknown) (no date) (unknown) (unknown) Age/Sex: 87 / F (uni ts unknown) (unknown) (unknown) (no date) (unknown) (unknown) Patsy A Walraina ach, RN ADVICE (units unknown) (unknown) (unknown) (no date) (unknown) (unknown) Back pain (units unknown) (unknown) (unknown) (no date) (unknown) (unknown) Cataract (units unknown) (unknown) (unknown) (no date) (unknown) (unknown) Chief complain t: Colectomy (units unknown) (unknown) (unknown) (no date) (unknown) (unknown) Comment: (units unknown) (unknown) (unknown) (no date) (unknown) (unknown) Consult to Discharge Planning Routine (units unknown) (unknown) (unknown) (no date) (unknown) (unknown) Consult to [facility] Health Routine (units unknown) (unknown) (unknown) (no date) (unknown) (unknown) Consult to Occupational Therapy Evaluate + Treat (units unknown) (unknown) (unknown) (no date) (unknown) (unknown) Consult to Phy sical Therapy Evaluate + Treat (units unknown) (unknown) (unknown) (no date) (unknown) (unknown) Consults: (units unknown) (unknown) (unknown) (no date) (unknown) (unknown) Continued (units unknown) (unknown) (unknown) (no date) (unknown) (unknown) : 4 Acct:[id number] (units unknown) (unknown) (unknown) (no date) (unknown) (unknown) Date of Servic e: 11/30/22 (units unknown) (unknown) (unknown) (no date) (unknown) (unknown) Date of admission: ( units unknown) (unknown) (unknown) (no date) (unknown) (unknown) Discharge Data (unit s unknown) (unknown) (unknown) (no date) (unknown) (unknown) Discharge Date : 12/05/22 (units unknown) (unknown) (unknown) (no date) (unknown) (unknown) Discharge Diagnosis: (units unknown) (unknown) (unknown) (no date) (unknown) (unknown) Discharge Plan (unit s unknown) (unknown) (unknown) (no date) (unknown) (unknown) Discharge Providers (units unknown) (unknown) (unknown) (no date) (unknown) (unknown) Discharge Summary (u nits unknown) (unknown) (unknown) (no date) (unknown) (unknown) Discharge orde rs + Medications (units unknown) (unknown) (unknown) (no date) (unknown) (unknown) Discharge provider: (units unknown) (unknown) (unknown) (no date) (unknown) (unknown) Exam (units unknown) (unknown) (unknown) (no date) (unknown) (unknown) Family History (units unknown) (unknown) (unknown) (no date) (unknown) (unknown) Father d Pedestrian crushed by rolling stock (units unknown) (unknown) (unknown) (no date) (unknown) (unknown) Finger amputat ion, traumatic (units unknown) (unknown) (unknown) (no date) (unknown) (unknown) Follow up/Referrals: (units unknown) (unknown) (unknown) (no date) (unknown) (unknown) Fraction of Inspired Oxygen 28 (units unknown) (unknown) (unknown) (no date) (unknown) (unknown) H/O prior abla tion treatment (units unknown) (unknown) (unknown) (no date) (unknown) (unknown) History of Pre sent Illness (units unknown) (unknown) (unknown) (no date) (unknown) (unknown) History of appendectomy (units unknown) (unknown) (unknown) (no date) (unknown) (unknown) History of radiofrequency ablation procedure for cardiac arrhythmia (units unknown) (unknown) (unknown) (no date) (unknown) (unknown) Hospital Course (uni ts unknown) (unknown) (unknown) (no date) (unknown) (unknown) Hospital Course: (un its unknown) (unknown) (unknown) (no date) (unknown) (unknown) Hx of bilatera l cataract extraction (units unknown) (unknown) (unknown) (no date) (unknown) (unknown) Hyperlipemia (units unknown) (unknown) (unknown) (no date) (unknown) (unknown) Hypertension (units unknown) (unknown) (unknown) (no date) (unknown) (unknown) [address] [address] (units unknown) (unknown) (unknown) (no date) (unknown) (unknown) Labs (units unknown) (unknown) (unknown) (no date) (unknown) (unknown) Sumeet Cox MD ( units unknown) (unknown) (unknown) (no date) (unknown) (unknown) [place] (units unknown) (unknown) (unknown) (no date) (unknown) (unknown) Medical Histor y (Updated 12/10/22 @ 14:15 by Safia Champagne MD) (units unknown) (unknown) (unknown) (no date) (unknown) (unknown) Mother d Old age (units unknown) (unknown) (unknown) (no date) (unknown) (unknown) No Action (units unknown) (unknown) (unknown) (no date) (unknown) (unknown) Nursing Discha rge Comment: return to ER/call 911 if you have the following (units unknown) (unknown) (unknown) (no date) (unknown) (unknown) Objective (units unknown) (unknown) (unknown) (no date) (unknown) (unknown) Oxygen Deliver y Method Room Air (units unknown) (unknown) (unknown) (no date) (unknown) (unknown) Oxygen Flow Rate 1 ( units unknown) (unknown) (unknown) (no date) (unknown) (unknown) PFSH (units unknown) (unknown) (unknown) (no date) (unknown) (unknown) PVC's (prematu re ventricular contractions) (units unknown) (unknown) (unknown) (no date) (unknown) (unknown) Patient Disposition: Home Health Service (units unknown) (unknown) (unknown) (no date) (unknown) (unknown) Patient: Patricia Castañeda MR#: [id number] (units unknown) (unknown) (unknown) (no date) (unknown) (unknown) Physician Instructions: Evaluate and Treat (units unknown) (unknown) (unknown) (no date) (unknown) (unknown) Physician Instructions: Evaluate and treat (units unknown) (unknown) (unknown) (no date) (unknown) (unknown) Prescriptions: (unit s unknown) (unknown) (unknown) (no date) (unknown) (unknown) Primary Care Provider: Patsy Baker (units unknown) (unknown) (unknown) (no date) (unknown) (unknown) Primary care physician: (units unknown) (unknown) (unknown) (no date) (unknown) (unknown) Provider Disch arge Comment: No lifting greater than 20 lb for 2 weeks. 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 (units unknown) (unknown) (unknown) (no date) (unknown) (unknown) SaO2/FiO2 Ratio 339 (units unknown) (unknown) (unknown) (no date) (unknown) (unknown) Signed By:<Electronically signed by Sumeet Cox MD> (units unknown) (unknown) (unknown) (no date) (unknown) (unknown) Smoking Status : Former smoker (units unknown) (unknown) (unknown) (no date) (unknown) (unknown) Social History (units unknown) (unknown) (unknown) (no date) (unknown) (unknown) Stand Alone Fo oumou: Patient Portal/API, Stroke Signs + Symptoms (units unknown) (unknown) (unknown) (no date) (unknown) (unknown) Summary (units unknown) (unknown) (unknown) (no date) (unknown) (unknown) Surgical Histo ry (units unknown) (unknown) (unknown) (no date) (unknown) (unknown) TIA (transient ischemic attack) (units unknown) (unknown) (unknown) (no date) (unknown) (unknown) The patient underwent surgery by Dr. Oliver for colon cancer on November 30, (units unknown) (unknown) (unknown) (no date) (unknown) (unknown) Visit Report/Discharge Packet (units unknown) (unknown) (unknown) (no date) (unknown) (unknown) Vital Signs (units unknown) (unknown) (unknown) (no date) (unknown) (unknown) Aviva Baker, RN ADVICE [Primary Care Provider] (units unknown) (unknown) (unknown) (no date) (unknown) (unknown) [Embedded Imag e Not Available] (units unknown) (unknown) (unknown) (no date) (unknown) (unknown) alcohol intake : current (units unknown) (unknown) (unknown) (no date) (unknown) (unknown) and her finesse rosario felt ready to go on December 05, 2022 asked to be discharged. (units unknown) (unknown) (unknown) (no date) (unknown) (unknown) ascorbic acid (vitamin C) 500 mg tablet (units unknown) (unknown) (unknown) (no date) (unknown) (unknown) check under th e bandage tonight for any moisture or maceration of your skin. (units unknown) (unknown) (unknown) (no date) (unknown) (unknown) cholecalcifero l (vitamin D3) [Vitamin D3] 1,000 unit Tablet (units unknown) (unknown) (unknown) (no date) (unknown) (unknown) clopidogrel 75 mg tablet (units unknown) (unknown) (unknown) (no date) (unknown) (unknown) colon cancer (units unknown) (unknown) (unknown) (no date) (unknown) (unknown) drainage or bl ood coming from abdominal incision. (units unknown) (unknown) (unknown) (no date) (unknown) (unknown) gabapentin 100 mg Tablet (units unknown) (unknown) (unknown) (no date) (unknown) (unknown) getting bumped by your clothing. (units unknown) (unknown) (unknown) (no date) (unknown) (unknown) have a great evening, and take good care of yourself! thanks again ( : (units unknown) (unknown) (unknown) (no date) (unknown) (unknown) household memb ers: spouse (units unknown) (unknown) (unknown) (no date) (unknown) (unknown) i covered your midline abdominal incision today as to prevent the hebert from (units unknown) (unknown) (unknown) (no date) (unknown) (unknown) it was a pleas ure to meet you this morning, and to be your nurse. i hope you (units unknown) (unknown) (unknown) (no date) (unknown) (unknown) keep track of your bowel movements and it is a good idea to monitor your b/p and (units unknown) (unknown) (unknown) (no date) (unknown) (unknown) lives independently: Yes (units unknown) (unknown) (unknown) (no date) (unknown) (unknown) magnesium 250 mg Tablet (units unknown) (unknown) (unknown) (no date) (unknown) (unknown) marital status : (units unknown) (unknown) (unknown) (no date) (unknown) (unknown) medications, i ce or changing position. shortness of breath, fever > 101.9F, and (units unknown) (unknown) (unknown) (no date) (unknown) (unknown) methocarbamol 500 mg Tablet (units unknown) (unknown) (unknown) (no date) (unknown) (unknown) metoprolol tar trate 25 mg tablet (units unknown) (unknown) (unknown) (no date) (unknown) (unknown) next appt w/ PCP. (u nits unknown) (unknown) (unknown) (no date) (unknown) (unknown) pulse twice da roro and keep a log - and bring to your follow up appt or to your (units unknown) (unknown) (unknown) (no date) (unknown) (unknown) riboflavin (vi tamin B2) 100 mg tablet (units unknown) (unknown) (unknown) (no date) (unknown) (unknown) rosuvastatin 4 0 mg tablet (units unknown) (unknown) (unknown) (no date) (unknown) (unknown) several days a fter surgery. She had a gradual return of bowel function. She (units unknown) (unknown) (unknown) (no date) (unknown) (unknown) simethicone 80 mg Tablet (units unknown) (unknown) (unknown) (no date) (unknown) (unknown) substance use type: does not use (units unknown) (unknown) (unknown) (no date) (unknown) (unknown) symptoms: incr eased pain/discomfort (>8/10 pain scale) not relieved by pain (units unknown) (unknown) (unknown) (no date) (unknown) (unknown) you can leave your incision/hebert open to air, or keep covered, but please (units unknown) (unknown) Result panel 240 (unknown) (no date) (unknown) (unknown) (no value) (units unknown) (unknown) (unknown) (no date) (unknown) (unknown) 12/22/22 (units unknown) (unknown) (unknown) (no date) (unknown) (unknown) 12/22/22] (units unknown) (unknown) (unknown) (no date) (unknown) (unknown) 11:26) (units unknown) (unknown) (unknown) (no date) (unknown) (unknown) 11:29 (units unknown) (unknown) (unknown) (no date) (unknown) (unknown) [id number] (units unknown) (unknown) (unknown) (no date) (unknown) (unknown) Age/Sex: 87 / F Date of Service: (units unknown) (unknown) (unknown) (no date) (unknown) (unknown) Allergies (units unknown) (unknown) (unknown) (no date) (unknown) (unknown) [place] [id number] (units unknown) (unknown) (unknown) (no date) (unknown) (unknown) Attending Dr: Presley Oliver MD (units unknown) (unknown) (unknown) (no date) (unknown) (unknown) BMI 28.3 (units unknown) (unknown) (unknown) (no date) (unknown) (unknown) Back pain (units unknown) (unknown) (unknown) (no date) (unknown) (unknown) Cataract (units unknown) (unknown) (unknown) (no date) (unknown) (unknown) Confirmed 12/22/22] (units unknown) (unknown) (unknown) (no date) (unknown) (unknown) DAILY 05/24/18 [History Confirmed 12/22/22] (units unknown) (unknown) (unknown) (no date) (unknown) (unknown) : 4 Acct:[id number] (units unknown) (unknown) (unknown) (no date) (unknown) (unknown) Dept at . (units unknown) (unknown) (unknown) (no date) (unknown) (unknown) Documented By: Presley Oliver MD 12/22/22 1126 (units unknown) (unknown) (unknown) (no date) (unknown) (unknown) Draft (units unknown) (unknown) (unknown) (no date) (unknown) (unknown) Family History (units unknown) (unknown) (unknown) (no date) (unknown) (unknown) Father d Pedestrian crushed by rolling stock (units unknown) (unknown) (unknown) (no date) (unknown) (unknown) Finger amputat ion, traumatic (units unknown) (unknown) (unknown) (no date) (unknown) (unknown) H/O prior abla tion treatment (units unknown) (unknown) (unknown) (no date) (unknown) (unknown) Height 5 ft 4 in (un its unknown) (unknown) (unknown) (no date) (unknown) (unknown) History of appendectomy (units unknown) (unknown) (unknown) (no date) (unknown) (unknown) History of radiofrequency ablation procedure for cardiac arrhythmia (units unknown) (unknown) (unknown) (no date) (unknown) (unknown) Hx of bilatera l cataract extraction (units unknown) (unknown) (unknown) (no date) (unknown) (unknown) Hyperlipemia (units unknown) (unknown) (unknown) (no date) (unknown) (unknown) Hypertension (units unknown) (unknown) (unknown) (no date) (unknown) (unknown) Intake (units unknown) (unknown) (unknown) (no date) (unknown) (unknown) [facility] (uni ts unknown) (unknown) (unknown) (no date) (unknown) (unknown) Loc: [facility] (units unknown) (unknown) (unknown) (no date) (unknown) (unknown) [place] (units unknown) (unknown) (unknown) (no date) (unknown) (unknown) Medical Histor y (units unknown) (unknown) (unknown) (no date) (unknown) (unknown) Medications (units unknown) (unknown) (unknown) (no date) (unknown) (unknown) Mother d Old age (units unknown) (unknown) (unknown) (no date) (unknown) (unknown) Nausea (units unknown) (unknown) (unknown) (no date) (unknown) (unknown) Opioids - Morp selena Analogues Adverse Reaction (Verified 12/22/22 11:26) (units unknown) (unknown) (unknown) (no date) (unknown) (unknown) Oxygen Deliver y Method room air (units unknown) (unknown) (unknown) (no date) (unknown) (unknown) PFSH (units unknown) (unknown) (unknown) (no date) (unknown) (unknown) PVC's (prematu re ventricular contractions) (units unknown) (unknown) (unknown) (no date) (unknown) (unknown) Patient: Patricia Castañeda MR#: [id number] (units unknown) (unknown) (unknown) (no date) (unknown) (unknown) Pulse 72 (units unknown) (unknown) (unknown) (no date) (unknown) (unknown) Pulse Oximetry (%) 96 (units unknown) (unknown) (unknown) (no date) (unknown) (unknown) Pulse Source Monitor (units unknown) (unknown) (unknown) (no date) (unknown) (unknown) Reason For Visit (un its unknown) (unknown) (unknown) (no date) (unknown) (unknown) Signed By: (units unknown) (unknown) (unknown) (no date) (unknown) (unknown) Smoking Status : Former smoker (units unknown) (unknown) (unknown) (no date) (unknown) (unknown) Social History (units unknown) (unknown) (unknown) (no date) (unknown) (unknown) Surgery Office Visit (units unknown) (unknown) (unknown) (no date) (unknown) (unknown) Surgical Histo ry (units unknown) (unknown) (unknown) (no date) (unknown) (unknown) TIA (transient ischemic attack) (units unknown) (unknown) (unknown) (no date) (unknown) (unknown) Temp 97.4 F L (units unknown) (unknown) (unknown) (no date) (unknown) (unknown) Temp Source Temporal Artery Scan (units unknown) (unknown) (unknown) (no date) (unknown) (unknown) This note may have been all or partially generated using voice recognition (units unknown) (unknown) (unknown) (no date) (unknown) (unknown) Tobacco Status (unit s unknown) (unknown) (unknown) (no date) (unknown) (unknown) Visit Reasons: PO Hemicolectomy (units unknown) (unknown) (unknown) (no date) (unknown) (unknown) Vitals (units unknown) (unknown) (unknown) (no date) (unknown) (unknown) Weight 165 lb (units unknown) (unknown) (unknown) (no date) (unknown) (unknown) alcohol intake : current (units unknown) (unknown) (unknown) (no date) (unknown) (unknown) amoxicillin [F rom Augmentin] Adverse Reaction (Severe, Verified 12/22/22 11:26) (units unknown) (unknown) (unknown) (no date) (unknown) (unknown) ascorbic acid (vitamin C) 500 mg tablet 500 mg PO DAILY 11/10/22 [History (units unknown) (unknown) (unknown) (no date) (unknown) (unknown) cholecalcifero l (vitamin D3) 25 mcg (1,000 unit) tablet (Vitamin D3) 25 mcg PO (units unknown) (unknown) (unknown) (no date) (unknown) (unknown) clavulanic aci d [From Augmentin] Adverse Reaction (Severe, Verified 12/22/22 (units unknown) (unknown) (unknown) (no date) (unknown) (unknown) clopidogrel 75 mg tablet 1 tab PO DAILY 05/24/18 [History Confirmed 12/22/22] (units unknown) (unknown) (unknown) (no date) (unknown) (unknown) gabapentin 100 mg tablet 100 mg PO BID 11/07/22 [History Confirmed 12/22/22] (units unknown) (unknown) (unknown) (no date) (unknown) (unknown) have occurred. If there are any questions, please contact the Medical Records (units unknown) (unknown) (unknown) (no date) (unknown) (unknown) household memb ers: spouse (units unknown) (unknown) (unknown) (no date) (unknown) (unknown) lives independently: Yes (units unknown) (unknown) (unknown) (no date) (unknown) (unknown) magnesium 250 mg tablet 250 mg PO DAILY 11/07/22 [History Confirmed 12/22/22] (units unknown) (unknown) (unknown) (no date) (unknown) (unknown) marital status : (units unknown) (unknown) (unknown) (no date) (unknown) (unknown) may occur. Occasional wrong-word or 'sound-alike' substitutions may have (units unknown) (unknown) (unknown) (no date) (unknown) (unknown) methocarbamol 500 mg tablet 500 mg PO DAILY 11/07/22 [History Confirmed (units unknown) (unknown) (unknown) (no date) (unknown) (unknown) metoprolol tar trate 25 mg tablet 25 mg PO BID 05/24/18 [History Confirmed (units unknown) (unknown) (unknown) (no date) (unknown) (unknown) occurred due t o the inherent limitations of voice recognition software. Please (units unknown) (unknown) (unknown) (no date) (unknown) (unknown) read the note carefully and recognize, using context, where these substitutions (units unknown) (unknown) (unknown) (no date) (unknown) (unknown) riboflavin (vi tamin B2) 100 mg tablet 100 mg PO DAILY 11/10/22 [History (units unknown) (unknown) (unknown) (no date) (unknown) (unknown) rosuvastatin 4 0 mg tablet 40 mg PO QPM 11/01/18 [History Confirmed 12/22/22] (units unknown) (unknown) (unknown) (no date) (unknown) (unknown) simethicone 80 mg tablet 80 mg PO BID-QID PRN gas 12/07/22 [History Confirmed (units unknown) (unknown) (unknown) (no date) (unknown) (unknown) software. Alth ough every effort is made to edit content, supervisor brine errors (units unknown) (unknown) (unknown) (no date) (unknown) (unknown) substance use type: does not use (units unknown) (unknown) Result panel 241 (unknown) (no date) (unknown) (unknown) (no value) (units unknown) (unknown) (unknown) (no date) (unknown) (unknown) 12/22/22 (units unknown) (unknown) (unknown) (no date) (unknown) (unknown) 12/22/22] (units unknown) (unknown) (unknown) (no date) (unknown) (unknown) 11:26) (units unknown) (unknown) (unknown) (no date) (unknown) (unknown) 11:29 (units unknown) (unknown) (unknown) (no date) (unknown) (unknown) [id number] (units unknown) (unknown) (unknown) (no date) (unknown) (unknown) Age/Sex: 87 / F Date of Service: (units unknown) (unknown) (unknown) (no date) (unknown) (unknown) Allergies (units unknown) (unknown) (unknown) (no date) (unknown) (unknown) [place] [id number] (units unknown) (unknown) (unknown) (no date) (unknown) (unknown) Attending Dr: Presley Oliver MD (units unknown) (unknown) (unknown) (no date) (unknown) (unknown) BMI 28.3 (units unknown) (unknown) (unknown) (no date) (unknown) (unknown) Back pain (units unknown) (unknown) (unknown) (no date) (unknown) (unknown) Cataract (units unknown) (unknown) (unknown) (no date) (unknown) (unknown) Confirmed 12/22/22] (units unknown) (unknown) (unknown) (no date) (unknown) (unknown) DAILY 05/24/18 [History Confirmed 12/22/22] (units unknown) (unknown) (unknown) (no date) (unknown) (unknown) : 4 Acct:[id number] (units unknown) (unknown) (unknown) (no date) (unknown) (unknown) Dept at . (units unknown) (unknown) (unknown) (no date) (unknown) (unknown) Documented By: Presley Oliver MD 12/22/22 1126 (units unknown) (unknown) (unknown) (no date) (unknown) (unknown) Draft (units unknown) (unknown) (unknown) (no date) (unknown) (unknown) Family History (units unknown) (unknown) (unknown) (no date) (unknown) (unknown) Father d Pedestrian crushed by rolling stock (units unknown) (unknown) (unknown) (no date) (unknown) (unknown) Finger amputat ion, traumatic (units unknown) (unknown) (unknown) (no date) (unknown) (unknown) H/O prior abla tion treatment (units unknown) (unknown) (unknown) (no date) (unknown) (unknown) Height 5 ft 4 in (un its unknown) (unknown) (unknown) (no date) (unknown) (unknown) History of appendectomy (units unknown) (unknown) (unknown) (no date) (unknown) (unknown) History of radiofrequency ablation procedure for cardiac arrhythmia (units unknown) (unknown) (unknown) (no date) (unknown) (unknown) Hx of bilatera l cataract extraction (units unknown) (unknown) (unknown) (no date) (unknown) (unknown) Hyperlipemia (units unknown) (unknown) (unknown) (no date) (unknown) (unknown) Hypertension (units unknown) (unknown) (unknown) (no date) (unknown) (unknown) Intake (units unknown) (unknown) (unknown) (no date) (unknown) (unknown) [facility] (uni ts unknown) (unknown) (unknown) (no date) (unknown) (unknown) Loc: [facility] (units unknown) (unknown) (unknown) (no date) (unknown) (unknown) [place] (units unknown) (unknown) (unknown) (no date) (unknown) (unknown) Medical Histor y (units unknown) (unknown) (unknown) (no date) (unknown) (unknown) Medications (units unknown) (unknown) (unknown) (no date) (unknown) (unknown) Mother d Old age (units unknown) (unknown) (unknown) (no date) (unknown) (unknown) Nausea (units unknown) (unknown) (unknown) (no date) (unknown) (unknown) Opioids - Morp selena Analogues Adverse Reaction (Verified 12/22/22 11:26) (units unknown) (unknown) (unknown) (no date) (unknown) (unknown) Oxygen Deliver y Method room air (units unknown) (unknown) (unknown) (no date) (unknown) (unknown) PFSH (units unknown) (unknown) (unknown) (no date) (unknown) (unknown) PVC's (prematu re ventricular contractions) (units unknown) (unknown) (unknown) (no date) (unknown) (unknown) Patient: Patricia Castañeda MR#: [id number] (units unknown) (unknown) (unknown) (no date) (unknown) (unknown) Pulse 72 (units unknown) (unknown) (unknown) (no date) (unknown) (unknown) Pulse Oximetry (%) 96 (units unknown) (unknown) (unknown) (no date) (unknown) (unknown) Pulse Source Monitor (units unknown) (unknown) (unknown) (no date) (unknown) (unknown) Reason For Visit (un its unknown) (unknown) (unknown) (no date) (unknown) (unknown) Signed By: (units unknown) (unknown) (unknown) (no date) (unknown) (unknown) Smoking Status : Former smoker (units unknown) (unknown) (unknown) (no date) (unknown) (unknown) Social History (units unknown) (unknown) (unknown) (no date) (unknown) (unknown) Surgery Office Visit (units unknown) (unknown) (unknown) (no date) (unknown) (unknown) Surgical Histo ry (units unknown) (unknown) (unknown) (no date) (unknown) (unknown) TIA (transient ischemic attack) (units unknown) (unknown) (unknown) (no date) (unknown) (unknown) Temp 97.4 F L (units unknown) (unknown) (unknown) (no date) (unknown) (unknown) Temp Source Temporal Artery Scan (units unknown) (unknown) (unknown) (no date) (unknown) (unknown) This note may have been all or partially generated using voice recognition (units unknown) (unknown) (unknown) (no date) (unknown) (unknown) Tobacco Status (unit s unknown) (unknown) (unknown) (no date) (unknown) (unknown) Visit Reasons: PO Hemicolectomy (units unknown) (unknown) (unknown) (no date) (unknown) (unknown) Vitals (units unknown) (unknown) (unknown) (no date) (unknown) (unknown) Weight 165 lb (units unknown) (unknown) (unknown) (no date) (unknown) (unknown) alcohol intake : current (units unknown) (unknown) (unknown) (no date) (unknown) (unknown) amoxicillin [F rom Augmentin] Adverse Reaction (Severe, Verified 12/22/22 11:26) (units unknown) (unknown) (unknown) (no date) (unknown) (unknown) ascorbic acid (vitamin C) 500 mg tablet 500 mg PO DAILY 11/10/22 [History (units unknown) (unknown) (unknown) (no date) (unknown) (unknown) cholecalcifero l (vitamin D3) 25 mcg (1,000 unit) tablet (Vitamin D3) 25 mcg PO (units unknown) (unknown) (unknown) (no date) (unknown) (unknown) clavulanic aci d [From Augmentin] Adverse Reaction (Severe, Verified 12/22/22 (units unknown) (unknown) (unknown) (no date) (unknown) (unknown) clopidogrel 75 mg tablet 1 tab PO DAILY 05/24/18 [History Confirmed 12/22/22] (units unknown) (unknown) (unknown) (no date) (unknown) (unknown) gabapentin 100 mg tablet 100 mg PO BID 11/07/22 [History Confirmed 12/22/22] (units unknown) (unknown) (unknown) (no date) (unknown) (unknown) have occurred. If there are any questions, please contact the Medical Records (units unknown) (unknown) (unknown) (no date) (unknown) (unknown) household memb ers: spouse (units unknown) (unknown) (unknown) (no date) (unknown) (unknown) lives independently: Yes (units unknown) (unknown) (unknown) (no date) (unknown) (unknown) magnesium 250 mg tablet 250 mg PO DAILY 11/07/22 [History Confirmed 12/22/22] (units unknown) (unknown) (unknown) (no date) (unknown) (unknown) marital status : (units unknown) (unknown) (unknown) (no date) (unknown) (unknown) may occur. Occasional wrong-word or 'sound-alike' substitutions may have (units unknown) (unknown) (unknown) (no date) (unknown) (unknown) methocarbamol 500 mg tablet 500 mg PO DAILY 11/07/22 [History Confirmed (units unknown) (unknown) (unknown) (no date) (unknown) (unknown) metoprolol tar trate 25 mg tablet 25 mg PO BID 05/24/18 [History Confirmed (units unknown) (unknown) (unknown) (no date) (unknown) (unknown) occurred due t o the inherent limitations of voice recognition software. Please (units unknown) (unknown) (unknown) (no date) (unknown) (unknown) read the note carefully and recognize, using context, where these substitutions (units unknown) (unknown) (unknown) (no date) (unknown) (unknown) riboflavin (vi tamin B2) 100 mg tablet 100 mg PO DAILY 11/10/22 [History (units unknown) (unknown) (unknown) (no date) (unknown) (unknown) rosuvastatin 4 0 mg tablet 40 mg PO QPM 11/01/18 [History Confirmed 12/22/22] (units unknown) (unknown) (unknown) (no date) (unknown) (unknown) simethicone 80 mg tablet 80 mg PO BID-QID PRN gas 12/07/22 [History Confirmed (units unknown) (unknown) (unknown) (no date) (unknown) (unknown) software. Alth ough every effort is made to edit content, supervisor brine errors (units unknown) (unknown) (unknown) (no date) (unknown) (unknown) substance use type: does not use (units unknown) (unknown) Result panel 242 (unknown) (no date) (unknown) (unknown) (no value) (units unknown) (unknown) (unknown) (no date) (unknown) (unknown) 12/22/22 (units unknown) (unknown) (unknown) (no date) (unknown) (unknown) 12/22/22] (units unknown) (unknown) (unknown) (no date) (unknown) (unknown) 11:26) (units unknown) (unknown) (unknown) (no date) (unknown) (unknown) 11:29 (units unknown) (unknown) (unknown) (no date) (unknown) (unknown) [id number] (units unknown) (unknown) (unknown) (no date) (unknown) (unknown) Age/Sex: 87 / F Date of Service: (units unknown) (unknown) (unknown) (no date) (unknown) (unknown) Allergies (units unknown) (unknown) (unknown) (no date) (unknown) (unknown) YULIA Mccoy [id number] (units unknown) (unknown) (unknown) (no date) (unknown) (unknown) Attending Dr: Presley Oliver MD (units unknown) (unknown) (unknown) (no date) (unknown) (unknown) BMI 28.3 (units unknown) (unknown) (unknown) (no date) (unknown) (unknown) Back pain (units unknown) (unknown) (unknown) (no date) (unknown) (unknown) Cataract (units unknown) (unknown) (unknown) (no date) (unknown) (unknown) Confirmed 12/22/22] (units unknown) (unknown) (unknown) (no date) (unknown) (unknown) DAILY 05/24/18 [History Confirmed 12/22/22] (units unknown) (unknown) (unknown) (no date) (unknown) (unknown) : 4 Acct:[id number] (units unknown) (unknown) (unknown) (no date) (unknown) (unknown) Dept at . (units unknown) (unknown) (unknown) (no date) (unknown) (unknown) Documented By: Presley Oliver MD 12/22/22 1126 (units unknown) (unknown) (unknown) (no date) (unknown) (unknown) Draft (units unknown) (unknown) (unknown) (no date) (unknown) (unknown) Family History (units unknown) (unknown) (unknown) (no date) (unknown) (unknown) Father d Pedestrian crushed by rolling stock (units unknown) (unknown) (unknown) (no date) (unknown) (unknown) Finger amputat ion, traumatic (units unknown) (unknown) (unknown) (no date) (unknown) (unknown) H/O prior abla tion treatment (units unknown) (unknown) (unknown) (no date) (unknown) (unknown) Height 5 ft 4 in (un its unknown) (unknown) (unknown) (no date) (unknown) (unknown) History of appendectomy (units unknown) (unknown) (unknown) (no date) (unknown) (unknown) History of radiofrequency ablation procedure for cardiac arrhythmia (units unknown) (unknown) (unknown) (no date) (unknown) (unknown) Hx of bilatera l cataract extraction (units unknown) (unknown) (unknown) (no date) (unknown) (unknown) Hyperlipemia (units unknown) (unknown) (unknown) (no date) (unknown) (unknown) Hypertension (units unknown) (unknown) (unknown) (no date) (unknown) (unknown) Intake (units unknown) (unknown) (unknown) (no date) (unknown) (unknown) [facility] (uni ts unknown) (unknown) (unknown) (no date) (unknown) (unknown) Loc: [facility] (units unknown) (unknown) (unknown) (no date) (unknown) (unknown) [place] (units unknown) (unknown) (unknown) (no date) (unknown) (unknown) Medical Histor y (units unknown) (unknown) (unknown) (no date) (unknown) (unknown) Medications (units unknown) (unknown) (unknown) (no date) (unknown) (unknown) Mother d Old age (units unknown) (unknown) (unknown) (no date) (unknown) (unknown) Nausea (units unknown) (unknown) (unknown) (no date) (unknown) (unknown) Opioids - Morp selena Analogues Adverse Reaction (Verified 12/22/22 11:26) (units unknown) (unknown) (unknown) (no date) (unknown) (unknown) Oxygen Deliver y Method room air (units unknown) (unknown) (unknown) (no date) (unknown) (unknown) PFSH (units unknown) (unknown) (unknown) (no date) (unknown) (unknown) PVC's (prematu re ventricular contractions) (units unknown) (unknown) (unknown) (no date) (unknown) (unknown) Patient: Patricia Castañeda MR#: [id number] (units unknown) (unknown) (unknown) (no date) (unknown) (unknown) Pulse 72 (units unknown) (unknown) (unknown) (no date) (unknown) (unknown) Pulse Oximetry (%) 96 (units unknown) (unknown) (unknown) (no date) (unknown) (unknown) Pulse Source Monitor (units unknown) (unknown) (unknown) (no date) (unknown) (unknown) Reason For Visit (un its unknown) (unknown) (unknown) (no date) (unknown) (unknown) Signed By: (units unknown) (unknown) (unknown) (no date) (unknown) (unknown) Smoking Status : Former smoker (units unknown) (unknown) (unknown) (no date) (unknown) (unknown) Social History (units unknown) (unknown) (unknown) (no date) (unknown) (unknown) Surgery Office Visit (units unknown) (unknown) (unknown) (no date) (unknown) (unknown) Surgical Histo ry (units unknown) (unknown) (unknown) (no date) (unknown) (unknown) TIA (transient ischemic attack) (units unknown) (unknown) (unknown) (no date) (unknown) (unknown) Temp 97.4 F L (units unknown) (unknown) (unknown) (no date) (unknown) (unknown) Temp Source Temporal Artery Scan (units unknown) (unknown) (unknown) (no date) (unknown) (unknown) This note may have been all or partially generated using voice recognition (units unknown) (unknown) (unknown) (no date) (unknown) (unknown) Tobacco Status (unit s unknown) (unknown) (unknown) (no date) (unknown) (unknown) Visit Reasons: PO Hemicolectomy (units unknown) (unknown) (unknown) (no date) (unknown) (unknown) Vitals (units unknown) (unknown) (unknown) (no date) (unknown) (unknown) Weight 165 lb (units unknown) (unknown) (unknown) (no date) (unknown) (unknown) alcohol intake : current (units unknown) (unknown) (unknown) (no date) (unknown) (unknown) amoxicillin [F rom Augmentin] Adverse Reaction (Severe, Verified 12/22/22 11:26) (units unknown) (unknown) (unknown) (no date) (unknown) (unknown) ascorbic acid (vitamin C) 500 mg tablet 500 mg PO DAILY 11/10/22 [History (units unknown) (unknown) (unknown) (no date) (unknown) (unknown) cholecalcifero l (vitamin D3) 25 mcg (1,000 unit) tablet (Vitamin D3) 25 mcg PO (units unknown) (unknown) (unknown) (no date) (unknown) (unknown) clavulanic aci d [From Augmentin] Adverse Reaction (Severe, Verified 12/22/22 (units unknown) (unknown) (unknown) (no date) (unknown) (unknown) clopidogrel 75 mg tablet 1 tab PO DAILY 05/24/18 [History Confirmed 12/22/22] (units unknown) (unknown) (unknown) (no date) (unknown) (unknown) gabapentin 100 mg tablet 100 mg PO BID 11/07/22 [History Confirmed 12/22/22] (units unknown) (unknown) (unknown) (no date) (unknown) (unknown) have occurred. If there are any questions, please contact the Medical Records (units unknown) (unknown) (unknown) (no date) (unknown) (unknown) household memb ers: spouse (units unknown) (unknown) (unknown) (no date) (unknown) (unknown) lives independently: Yes (units unknown) (unknown) (unknown) (no date) (unknown) (unknown) magnesium 250 mg tablet 250 mg PO DAILY 11/07/22 [History Confirmed 12/22/22] (units unknown) (unknown) (unknown) (no date) (unknown) (unknown) marital status : (units unknown) (unknown) (unknown) (no date) (unknown) (unknown) may occur. Occasional wrong-word or 'sound-alike' substitutions may have (units unknown) (unknown) (unknown) (no date) (unknown) (unknown) methocarbamol 500 mg tablet 500 mg PO DAILY 11/07/22 [History Confirmed (units unknown) (unknown) (unknown) (no date) (unknown) (unknown) metoprolol tar trate 25 mg tablet 25 mg PO BID 05/24/18 [History Confirmed (units unknown) (unknown) (unknown) (no date) (unknown) (unknown) occurred due t o the inherent limitations of voice recognition software. Please (units unknown) (unknown) (unknown) (no date) (unknown) (unknown) read the note carefully and recognize, using context, where these substitutions (units unknown) (unknown) (unknown) (no date) (unknown) (unknown) riboflavin (vi tamin B2) 100 mg tablet 100 mg PO DAILY 11/10/22 [History (units unknown) (unknown) (unknown) (no date) (unknown) (unknown) rosuvastatin 4 0 mg tablet 40 mg PO QPM 11/01/18 [History Confirmed 12/22/22] (units unknown) (unknown) (unknown) (no date) (unknown) (unknown) simethicone 80 mg tablet 80 mg PO BID-QID PRN gas 12/07/22 [History Confirmed (units unknown) (unknown) (unknown) (no date) (unknown) (unknown) software. [facility] [place] every effort is made to edit content, supervisor brine errors (units unknown) (unknown) (unknown) (no date) (unknown) (unknown) substance use type: does not use (units unknown) (unknown) Result panel 243 (unknown) (no date) (unknown) (unknown) (no value) (units unknown) (unknown) (unknown) (no date) (unknown) (unknown) 12/22/22 (units unknown) (unknown) (unknown) (no date) (unknown) (unknown) 12/22/22] (units unknown) (unknown) (unknown) (no date) (unknown) (unknown) 11:26) (units unknown) (unknown) (unknown) (no date) (unknown) (unknown) 11:29 (units unknown) (unknown) (unknown) (no date) (unknown) (unknown) [id number] (units unknown) (unknown) (unknown) (no date) (unknown) (unknown) 87-year-old wo man status post laparoscopic assisted right hemicolectomy for (units unknown) (unknown) (unknown) (no date) (unknown) (unknown) Age/Sex: 87 / F Date of Service: (units unknown) (unknown) (unknown) (no date) (unknown) (unknown) Allergies (units unknown) (unknown) (unknown) (no date) (unknown) (unknown) YULIA Mccoy [id number] (units unknown) (unknown) (unknown) (no date) (unknown) (unknown) Attending Dr: Presley Oliver MD (units unknown) (unknown) (unknown) (no date) (unknown) (unknown) BMI 28.3 (units unknown) (unknown) (unknown) (no date) (unknown) (unknown) Back pain (units unknown) (unknown) (unknown) (no date) (unknown) (unknown) Cataract (units unknown) (unknown) (unknown) (no date) (unknown) (unknown) Chief Complaint (uni ts unknown) (unknown) (unknown) (no date) (unknown) (unknown) Chief Complain t: Colon cancer follow-up (units unknown) (unknown) (unknown) (no date) (unknown) (unknown) Confirmed 12/22/22] (units unknown) (unknown) (unknown) (no date) (unknown) (unknown) DAILY 05/24/18 [History Confirmed 12/22/22] (units unknown) (unknown) (unknown) (no date) (unknown) (unknown) : 4 Acct:[id number] (units unknown) (unknown) (unknown) (no date) (unknown) (unknown) Dept at . (units unknown) (unknown) (unknown) (no date) (unknown) (unknown) Details: (units unknown) (unknown) (unknown) (no date) (unknown) (unknown) Documented By: Presley Oliver MD 12/22/22 1126 (units unknown) (unknown) (unknown) (no date) (unknown) (unknown) Draft (units unknown) (unknown) (unknown) (no date) (unknown) (unknown) Family History (units unknown) (unknown) (unknown) (no date) (unknown) (unknown) Father d Pedestrian crushed by rolling stock (units unknown) (unknown) (unknown) (no date) (unknown) (unknown) Finger amputat ion, traumatic (units unknown) (unknown) (unknown) (no date) (unknown) (unknown) H/O prior abla tion treatment (units unknown) (unknown) (unknown) (no date) (unknown) (unknown) HPI (units unknown) (unknown) (unknown) (no date) (unknown) (unknown) Height 5 ft 4 in (un its unknown) (unknown) (unknown) (no date) (unknown) (unknown) History of appendectomy (units unknown) (unknown) (unknown) (no date) (unknown) (unknown) History of radiofrequency ablation procedure for cardiac arrhythmia (units unknown) (unknown) (unknown) (no date) (unknown) (unknown) Hx of bilatera l cataract extraction (units unknown) (unknown) (unknown) (no date) (unknown) (unknown) Hyperlipemia (units unknown) (unknown) (unknown) (no date) (unknown) (unknown) Hypertension (units unknown) (unknown) (unknown) (no date) (unknown) (unknown) Intake (units unknown) (unknown) (unknown) (no date) (unknown) (unknown) [facility] (uni ts unknown) (unknown) (unknown) (no date) (unknown) (unknown) Loc: [facility] (units unknown) (unknown) (unknown) (no date) (unknown) (unknown) [place] (units unknown) (unknown) (unknown) (no date) (unknown) (unknown) Medical Histor y (units unknown) (unknown) (unknown) (no date) (unknown) (unknown) Medications (units unknown) (unknown) (unknown) (no date) (unknown) (unknown) Mother d Old age (units unknown) (unknown) (unknown) (no date) (unknown) (unknown) Nausea (units unknown) (unknown) (unknown) (no date) (unknown) (unknown) Opioids - [place]p [place] Analogues Adverse Reaction (Verified 12/22/22 11:26) (units unknown) (unknown) (unknown) (no date) (unknown) (unknown) Oxygen Deliver y Method room air (units unknown) (unknown) (unknown) (no date) (unknown) (unknown) PFSH (units unknown) (unknown) (unknown) (no date) (unknown) (unknown) PVC's (prematu re ventricular contractions) (units unknown) (unknown) (unknown) (no date) (unknown) (unknown) Patient: Patricia Castañeda MR#: [id number] (units unknown) (unknown) (unknown) (no date) (unknown) (unknown) Pulse 72 (units unknown) (unknown) (unknown) (no date) (unknown) (unknown) Pulse Oximetry (%) 96 (units unknown) (unknown) (unknown) (no date) (unknown) (unknown) Pulse Source Monitor (units unknown) (unknown) (unknown) (no date) (unknown) (unknown) Reason For Visit (un its unknown) (unknown) (unknown) (no date) (unknown) (unknown) Signed By: (units unknown) (unknown) (unknown) (no date) (unknown) (unknown) Smoking Status : Former smoker (units unknown) (unknown) (unknown) (no date) (unknown) (unknown) Social History (units unknown) (unknown) (unknown) (no date) (unknown) (unknown) Surgery Office Visit (units unknown) (unknown) (unknown) (no date) (unknown) (unknown) Surgical Histo ry (units unknown) (unknown) (unknown) (no date) (unknown) (unknown) TIA (transient ischemic attack) (units unknown) (unknown) (unknown) (no date) (unknown) (unknown) Temp 97.4 F L (units unknown) (unknown) (unknown) (no date) (unknown) (unknown) Temp Source Temporal Artery Scan (units unknown) (unknown) (unknown) (no date) (unknown) (unknown) This note may have been all or partially generated using voice recognition (units unknown) (unknown) (unknown) (no date) (unknown) (unknown) Tobacco Status (unit s unknown) (unknown) (unknown) (no date) (unknown) (unknown) Visit Reasons: PO Hemicolectomy (units unknown) (unknown) (unknown) (no date) (unknown) (unknown) Vitals (units unknown) (unknown) (unknown) (no date) (unknown) (unknown) Weight 165 lb (units unknown) (unknown) (unknown) (no date) (unknown) (unknown) alcohol intake : current (units unknown) (unknown) (unknown) (no date) (unknown) (unknown) amoxicillin [F rom Augmentin] Adverse Reaction (Severe, Verified 12/22/22 11:26) (units unknown) (unknown) (unknown) (no date) (unknown) (unknown) ascorbic acid (vitamin C) 500 mg tablet 500 mg PO DAILY 11/10/22 [History (units unknown) (unknown) (unknown) (no date) (unknown) (unknown) cholecalcifero l (vitamin D3) 25 mcg (1,000 unit) tablet (Vitamin D3) 25 mcg PO (units unknown) (unknown) (unknown) (no date) (unknown) (unknown) clavulanic aci d [From Augmentin] Adverse Reaction (Severe, Verified 12/22/22 (units unknown) (unknown) (unknown) (no date) (unknown) (unknown) clopidogrel 75 mg tablet 1 tab PO DAILY 05/24/18 [History Confirmed 12/22/22] (units unknown) (unknown) (unknown) (no date) (unknown) (unknown) colon cancer (units unknown) (unknown) (unknown) (no date) (unknown) (unknown) gabapentin 100 mg tablet 100 mg PO BID 11/07/22 [History Confirmed 12/22/22] (units unknown) (unknown) (unknown) (no date) (unknown) (unknown) have occurred. If there are any questions, please contact the Medical Records (units unknown) (unknown) (unknown) (no date) (unknown) (unknown) household memb ers: spouse (units unknown) (unknown) (unknown) (no date) (unknown) (unknown) lives independently: Yes (units unknown) (unknown) (unknown) (no date) (unknown) (unknown) magnesium 250 mg tablet 250 mg PO DAILY 11/07/22 [History Confirmed 12/22/22] (units unknown) (unknown) (unknown) (no date) (unknown) (unknown) marital status : (units unknown) (unknown) (unknown) (no date) (unknown) (unknown) may occur. Occasional wrong-word or 'sound-alike' substitutions may have (units unknown) (unknown) (unknown) (no date) (unknown) (unknown) methocarbamol 500 mg tablet 500 mg PO DAILY 11/07/22 [History Confirmed (units unknown) (unknown) (unknown) (no date) (unknown) (unknown) metoprolol tar trate 25 mg tablet 25 mg PO BID 05/24/18 [History Confirmed (units unknown) (unknown) (unknown) (no date) (unknown) (unknown) occurred due t o the inherent limitations of voice recognition software. Please (units unknown) (unknown) (unknown) (no date) (unknown) (unknown) read the note carefully and recognize, using context, where these substitutions (units unknown) (unknown) (unknown) (no date) (unknown) (unknown) riboflavin (vi tamin B2) 100 mg tablet 100 mg PO DAILY 11/10/22 [History (units unknown) (unknown) (unknown) (no date) (unknown) (unknown) rosuvastatin 4 0 mg tablet 40 mg PO QPM 11/01/18 [History Confirmed 12/22/22] (units unknown) (unknown) (unknown) (no date) (unknown) (unknown) simethicone 80 mg tablet 80 mg PO BID-QID PRN gas 12/07/22 [History Confirmed (units unknown) (unknown) (unknown) (no date) (unknown) (unknown) software. Alth ough every effort is made to edit content, supervisor brine errors (units unknown) (unknown) (unknown) (no date) (unknown) (unknown) substance use type: does not use (units unknown) (unknown) Result panel 244 (unknown) (no date) (unknown) (unknown) (no value) (units unknown) (unknown) (unknown) (no date) (unknown) (unknown) (1) Colon cancer: (u nits unknown) (unknown) (unknown) (no date) (unknown) (unknown) 12/22/22 1700 (units unknown) (unknown) (unknown) (no date) (unknown) (unknown) 12/22/22 (units unknown) (unknown) (unknown) (no date) (unknown) (unknown) 12/22/22] (units unknown) (unknown) (unknown) (no date) (unknown) (unknown) 11:26) (units unknown) (unknown) (unknown) (no date) (unknown) (unknown) 11:29 (units unknown) (unknown) (unknown) (no date) (unknown) (unknown) [id number] (units unknown) (unknown) (unknown) (no date) (unknown) (unknown) 2022 for cancer,[id number] (units unknown) (unknown) (unknown) (no date) (unknown) (unknown) 2022 for cancer. She is overall doing well tolerating a diet having normal (units unknown) (unknown) (unknown) (no date) (unknown) (unknown) 87-year-old wo man status post laparoscopic assisted right hemicolectomy November (units unknown) (unknown) (unknown) (no date) (unknown) (unknown) Abdomen midlin e incision clean dry intact. Healing well (units unknown) (unknown) (unknown) (no date) (unknown) (unknown) Age/Sex: 87 / F Date of Service: (units unknown) (unknown) (unknown) (no date) (unknown) (unknown) Allergies (units unknown) (unknown) (unknown) (no date) (unknown) (unknown) [place] [id number] (units unknown) (unknown) (unknown) (no date) (unknown) (unknown) Assessment + Plan (u nits unknown) (unknown) (unknown) (no date) (unknown) (unknown) Attending Dr: Presley Oliver MD (units unknown) (unknown) (unknown) (no date) (unknown) (unknown) BMI 28.3 (units unknown) (unknown) (unknown) (no date) (unknown) (unknown) Back pain (units unknown) (unknown) (unknown) (no date) (unknown) (unknown) Cataract (units unknown) (unknown) (unknown) (no date) (unknown) (unknown) Chief Complaint (uni ts unknown) (unknown) (unknown) (no date) (unknown) (unknown) Chief Complain t: Colon cancer follow-up (units unknown) (unknown) (unknown) (no date) (unknown) (unknown) Colon location : ascending Qualified Code(s): C18.2 - Malignant neoplasm (units unknown) (unknown) (unknown) (no date) (unknown) (unknown) Confirmed 12/22/22] (units unknown) (unknown) (unknown) (no date) (unknown) (unknown) DAILY 05/24/18 [History Confirmed 12/22/22] (units unknown) (unknown) (unknown) (no date) (unknown) (unknown) : 4 Acct:[id number] (units unknown) (unknown) (unknown) (no date) (unknown) (unknown) Dept at . (units unknown) (unknown) (unknown) (no date) (unknown) (unknown) Details: (units unknown) (unknown) (unknown) (no date) (unknown) (unknown) Documented By: Presley Oliver MD 12/22/22 1126 (units unknown) (unknown) (unknown) (no date) (unknown) (unknown) Exam Narrative (unit s unknown) (unknown) (unknown) (no date) (unknown) (unknown) Exam Narrative: (uni ts unknown) (unknown) (unknown) (no date) (unknown) (unknown) Exam (units unknown) (unknown) (unknown) (no date) (unknown) (unknown) Family History (units unknown) (unknown) (unknown) (no date) (unknown) (unknown) Father d Pedestrian crushed by rolling stock (units unknown) (unknown) (unknown) (no date) (unknown) (unknown) Finger amputat ion, traumatic (units unknown) (unknown) (unknown) (no date) (unknown) (unknown) General elderl y woman alert oriented no acute distress (units unknown) (unknown) (unknown) (no date) (unknown) (unknown) H/O prior abla tion treatment (units unknown) (unknown) (unknown) (no date) (unknown) (unknown) HPI (units unknown) (unknown) (unknown) (no date) (unknown) (unknown) Height 5 ft 4 in (un its unknown) (unknown) (unknown) (no date) (unknown) (unknown) History of appendectomy (units unknown) (unknown) (unknown) (no date) (unknown) (unknown) History of radiofrequency ablation procedure for cardiac arrhythmia (units unknown) (unknown) (unknown) (no date) (unknown) (unknown) Hx of bilatera l cataract extraction (units unknown) (unknown) (unknown) (no date) (unknown) (unknown) Hyperlipemia (units unknown) (unknown) (unknown) (no date) (unknown) (unknown) Hypertension (units unknown) (unknown) (unknown) (no date) (unknown) (unknown) Intake (units unknown) (unknown) (unknown) (no date) (unknown) (unknown) [facility] (uni ts unknown) (unknown) (unknown) (no date) (unknown) (unknown) Loc: [facility] (units unknown) (unknown) (unknown) (no date) (unknown) (unknown) [place] (units unknown) (unknown) (unknown) (no date) (unknown) (unknown) Medical Histor y (units unknown) (unknown) (unknown) (no date) (unknown) (unknown) Medications (units unknown) (unknown) (unknown) (no date) (unknown) (unknown) Mother d Old age (units unknown) (unknown) (unknown) (no date) (unknown) (unknown) Nausea (units unknown) (unknown) (unknown) (no date) (unknown) (unknown) Opioids - [place]p [place] Analogues Adverse Reaction (Verified 12/22/22 11:26) (units unknown) (unknown) (unknown) (no date) (unknown) (unknown) Oxygen Deliver y Method room air (units unknown) (unknown) (unknown) (no date) (unknown) (unknown) PFSH (units unknown) (unknown) (unknown) (no date) (unknown) (unknown) PVC's (prematu re ventricular contractions) (units unknown) (unknown) (unknown) (no date) (unknown) (unknown) Pathology (units unknown) (unknown) (unknown) (no date) (unknown) (unknown) Patient: Patricia Castañeda MR#: [id number] (units unknown) (unknown) (unknown) (no date) (unknown) (unknown) Plan (units unknown) (unknown) (unknown) (no date) (unknown) (unknown) Pulse 72 (units unknown) (unknown) (unknown) (no date) (unknown) (unknown) Pulse Oximetry (%) 96 (units unknown) (unknown) (unknown) (no date) (unknown) (unknown) Pulse Source Monitor (units unknown) (unknown) (unknown) (no date) (unknown) (unknown) Qualifiers: (units unknown) (unknown) (unknown) (no date) (unknown) (unknown) Reason For Visit (un its unknown) (unknown) (unknown) (no date) (unknown) (unknown) She is recover ing from the operation well. No acute surgical concerns. There (units unknown) (unknown) (unknown) (no date) (unknown) (unknown) Signed By: <Electronically signed by Presley Oliver MD> (units unknown) (unknown) (unknown) (no date) (unknown) (unknown) Signed (units unknown) (unknown) (unknown) (no date) (unknown) (unknown) Smoking Status : Former smoker (units unknown) (unknown) (unknown) (no date) (unknown) (unknown) Social History (units unknown) (unknown) (unknown) (no date) (unknown) (unknown) Status: Acute (units unknown) (unknown) (unknown) (no date) (unknown) (unknown) Surgery Office Visit (units unknown) (unknown) (unknown) (no date) (unknown) (unknown) Surgical Histo ry (units unknown) (unknown) (unknown) (no date) (unknown) (unknown) TIA (transient ischemic attack) (units unknown) (unknown) (unknown) (no date) (unknown) (unknown) Temp 97.4 F L (units unknown) (unknown) (unknown) (no date) (unknown) (unknown) Temp Source Temporal Artery Scan (units unknown) (unknown) (unknown) (no date) (unknown) (unknown) This note may have been all or partially generated using voice recognition (units unknown) (unknown) (unknown) (no date) (unknown) (unknown) Tobacco Status (unit s unknown) (unknown) (unknown) (no date) (unknown) (unknown) Visit Reasons: PO Hemicolectomy (units unknown) (unknown) (unknown) (no date) (unknown) (unknown) Vitals (units unknown) (unknown) (unknown) (no date) (unknown) (unknown) Weight 165 lb (units unknown) (unknown) (unknown) (no date) (unknown) (unknown) active disease surveillance and she will require colonoscopy in 1 year. She (units unknown) (unknown) (unknown) (no date) (unknown) (unknown) alcohol intake : current (units unknown) (unknown) (unknown) (no date) (unknown) (unknown) amoxicillin [F rom Augmentin] Adverse Reaction (Severe, Verified 12/22/22 11:26) (units unknown) (unknown) (unknown) (no date) (unknown) (unknown) ascorbic acid (vitamin C) 500 mg tablet 500 mg PO DAILY 11/10/22 [History (units unknown) (unknown) (unknown) (no date) (unknown) (unknown) bowel function no wound drainage or fever. Her pain is well controlled with (units unknown) (unknown) (unknown) (no date) (unknown) (unknown) cholecalcifero l (vitamin D3) 25 mcg (1,000 unit) tablet (Vitamin D3) 25 mcg PO (units unknown) (unknown) (unknown) (no date) (unknown) (unknown) clavulanic aci d [From Augmentin] Adverse Reaction (Severe, Verified 12/22/22 (units unknown) (unknown) (unknown) (no date) (unknown) (unknown) clopidogrel 75 mg tablet 1 tab PO DAILY 05/24/18 [History Confirmed 12/22/22] (units unknown) (unknown) (unknown) (no date) (unknown) (unknown) gabapentin 100 mg tablet 100 mg PO BID 11/07/22 [History Confirmed 12/22/22] (units unknown) (unknown) (unknown) (no date) (unknown) (unknown) has local dise ase and that there is no indication for adjuvant therapy, as her (units unknown) (unknown) (unknown) (no date) (unknown) (unknown) have occurred. If there are any questions, please contact the Medical Records (units unknown) (unknown) (unknown) (no date) (unknown) (unknown) household memb ers: spouse (units unknown) (unknown) (unknown) (no date) (unknown) (unknown) is no evidence of wound infection and her bowels are functioning normally. We (units unknown) (unknown) (unknown) (no date) (unknown) (unknown) lives independently: Yes (units unknown) (unknown) (unknown) (no date) (unknown) (unknown) magnesium 250 mg tablet 250 mg PO DAILY 11/07/22 [History Confirmed 12/22/22] (units unknown) (unknown) (unknown) (no date) (unknown) (unknown) marital status : (units unknown) (unknown) (unknown) (no date) (unknown) (unknown) may occur. Occasional wrong-word or 'sound-alike' substitutions may have (units unknown) (unknown) (unknown) (no date) (unknown) (unknown) methocarbamol 500 mg tablet 500 mg PO DAILY 11/07/22 [History Confirmed (units unknown) (unknown) (unknown) (no date) (unknown) (unknown) metoprolol tar trate 25 mg tablet 25 mg PO BID 05/24/18 [History Confirmed (units unknown) (unknown) (unknown) (no date) (unknown) (unknown) nodes are nega tive and her disease is without high-risk features.. We discussed (units unknown) (unknown) (unknown) (no date) (unknown) (unknown) occurred due t o the inherent limitations of voice recognition software. Please (units unknown) (unknown) (unknown) (no date) (unknown) (unknown) of ascending colon ( units unknown) (unknown) (unknown) (no date) (unknown) (unknown) aawd-kxx-nckze er medication. (units unknown) (unknown) (unknown) (no date) (unknown) (unknown) pT3N0 (0/12 no pat) moderately differentiated without lymphovascular invasion. (units unknown) (unknown) (unknown) (no date) (unknown) (unknown) read the note carefully and recognize, using context, where these substitutions (units unknown) (unknown) (unknown) (no date) (unknown) (unknown) reviewed her pathology together with her . I explained to her that she (units unknown) (unknown) (unknown) (no date) (unknown) (unknown) riboflavin (vi tamin B2) 100 mg tablet 100 mg PO DAILY 11/10/22 [History (units unknown) (unknown) (unknown) (no date) (unknown) (unknown) rosuvastatin 4 0 mg tablet 40 mg PO QPM 11/01/18 [History Confirmed 12/22/22] (units unknown) (unknown) (unknown) (no date) (unknown) (unknown) simethicone 80 mg tablet 80 mg PO BID-QID PRN gas 12/07/22 [History Confirmed (units unknown) (unknown) (unknown) (no date) (unknown) (unknown) software. Alth ough every effort is made to edit content, supervisor brine errors (units unknown) (unknown) (unknown) (no date) (unknown) (unknown) substance use type: does not use (units unknown) (unknown) (unknown) (no date) (unknown) (unknown) will follow up in 3 weeks' time for re-evaluation. (units unknown) (unknown) Result panel 245 (unknown) (no date) (unknown) (unknown) (no value) (units unknown) (unknown) (unknown) (no date) (unknown) (unknown) 01/26/23 (units unknown) (unknown) (unknown) (no date) (unknown) (unknown) 01/26/23] (units unknown) (unknown) (unknown) (no date) (unknown) (unknown) 11:09 (units unknown) (unknown) (unknown) (no date) (unknown) (unknown) 11:09) (units unknown) (unknown) (unknown) (no date) (unknown) (unknown) [id number] (units unknown) (unknown) (unknown) (no date) (unknown) (unknown) Age/Sex: 87 / F Date of Service: (units unknown) (unknown) (unknown) (no date) (unknown) (unknown) Allergies (units unknown) (unknown) (unknown) (no date) (unknown) (unknown) YULIA Mccoy [id number] (units unknown) (unknown) (unknown) (no date) (unknown) (unknown) Attending Dr: Presley Oliver MD (units unknown) (unknown) (unknown) (no date) (unknown) (unknown) BMI 26.1 (units unknown) (unknown) (unknown) (no date) (unknown) (unknown) Back pain (units unknown) (unknown) (unknown) (no date) (unknown) (unknown) Cataract (units unknown) (unknown) (unknown) (no date) (unknown) (unknown) Confirmed 01/26/23] (units unknown) (unknown) (unknown) (no date) (unknown) (unknown) DAILY 05/24/18 [History Confirmed 01/26/23] (units unknown) (unknown) (unknown) (no date) (unknown) (unknown) : 4 Acct:[id number] (units unknown) (unknown) (unknown) (no date) (unknown) (unknown) Dept at . (units unknown) (unknown) (unknown) (no date) (unknown) (unknown) Documented By: Presley Oliver MD 01/26/23 1109 (units unknown) (unknown) (unknown) (no date) (unknown) (unknown) Draft (units unknown) (unknown) (unknown) (no date) (unknown) (unknown) Family History (units unknown) (unknown) (unknown) (no date) (unknown) (unknown) Father d Pedestrian crushed by rolling stock (units unknown) (unknown) (unknown) (no date) (unknown) (unknown) Finger amputat ion, traumatic (units unknown) (unknown) (unknown) (no date) (unknown) (unknown) H/O prior abla tion treatment (units unknown) (unknown) (unknown) (no date) (unknown) (unknown) Height 5 ft 4 in (un its unknown) (unknown) (unknown) (no date) (unknown) (unknown) History of appendectomy (units unknown) (unknown) (unknown) (no date) (unknown) (unknown) History of radiofrequency ablation procedure for cardiac arrhythmia (units unknown) (unknown) (unknown) (no date) (unknown) (unknown) Hx of bilatera l cataract extraction (units unknown) (unknown) (unknown) (no date) (unknown) (unknown) Hyperlipemia (units unknown) (unknown) (unknown) (no date) (unknown) (unknown) Hypertension (units unknown) (unknown) (unknown) (no date) (unknown) (unknown) Intake (units unknown) (unknown) (unknown) (no date) (unknown) (unknown) [facility] (uni ts unknown) (unknown) (unknown) (no date) (unknown) (unknown) Loc: [facility] (units unknown) (unknown) (unknown) (no date) (unknown) (unknown) [place] (units unknown) (unknown) (unknown) (no date) (unknown) (unknown) Medical Histor y (units unknown) (unknown) (unknown) (no date) (unknown) (unknown) Medications (units unknown) (unknown) (unknown) (no date) (unknown) (unknown) Mother d Old age (units unknown) (unknown) (unknown) (no date) (unknown) (unknown) Nausea (units unknown) (unknown) (unknown) (no date) (unknown) (unknown) Opioids - Morp selena Analogues Adverse Reaction (Verified 01/26/23 11:09) (units unknown) (unknown) (unknown) (no date) (unknown) (unknown) Oxygen Deliver y Method room air (units unknown) (unknown) (unknown) (no date) (unknown) (unknown) PFSH (units unknown) (unknown) (unknown) (no date) (unknown) (unknown) PVC's (prematu re ventricular contractions) (units unknown) (unknown) (unknown) (no date) (unknown) (unknown) Patient: Patricia Castañeda MR#: [id number] (units unknown) (unknown) (unknown) (no date) (unknown) (unknown) Pulse 63 (units unknown) (unknown) (unknown) (no date) (unknown) (unknown) Pulse Oximetry (%) 63 L (units unknown) (unknown) (unknown) (no date) (unknown) (unknown) Pulse Source Monitor (units unknown) (unknown) (unknown) (no date) (unknown) (unknown) Reason For Visit (un its unknown) (unknown) (unknown) (no date) (unknown) (unknown) Signed By: (units unknown) (unknown) (unknown) (no date) (unknown) (unknown) Smoking Status : Former smoker (units unknown) (unknown) (unknown) (no date) (unknown) (unknown) Social History (units unknown) (unknown) (unknown) (no date) (unknown) (unknown) Surgery Office Visit (units unknown) (unknown) (unknown) (no date) (unknown) (unknown) Surgical Histo ry (units unknown) (unknown) (unknown) (no date) (unknown) (unknown) TIA (transient ischemic attack) (units unknown) (unknown) (unknown) (no date) (unknown) (unknown) Temp 97.8 F (units unknown) (unknown) (unknown) (no date) (unknown) (unknown) Temp Source Temporal Artery Scan (units unknown) (unknown) (unknown) (no date) (unknown) (unknown) This note may have been all or partially generated using voice recognition (units unknown) (unknown) (unknown) (no date) (unknown) (unknown) Tobacco Status (unit s unknown) (unknown) (unknown) (no date) (unknown) (unknown) Visit Reasons: PO (u nits unknown) (unknown) (unknown) (no date) (unknown) (unknown) Vitals (units unknown) (unknown) (unknown) (no date) (unknown) (unknown) Weight 152 lb (units unknown) (unknown) (unknown) (no date) (unknown) (unknown) alcohol intake : current (units unknown) (unknown) (unknown) (no date) (unknown) (unknown) amoxicillin [F rom Augmentin] Adverse Reaction (Severe, Verified 01/26/23 11:09) (units unknown) (unknown) (unknown) (no date) (unknown) (unknown) ascorbic acid (vitamin C) 500 mg tablet 500 mg PO DAILY 11/10/22 [History (units unknown) (unknown) (unknown) (no date) (unknown) (unknown) cholecalcifero l (vitamin D3) 25 mcg (1,000 unit) tablet (Vitamin D3) 25 mcg PO (units unknown) (unknown) (unknown) (no date) (unknown) (unknown) clavulanic aci d [From Augmentin] Adverse Reaction (Severe, Verified 01/26/23 (units unknown) (unknown) (unknown) (no date) (unknown) (unknown) clopidogrel 75 mg tablet 1 tab PO DAILY 05/24/18 [History Confirmed 01/26/23] (units unknown) (unknown) (unknown) (no date) (unknown) (unknown) gabapentin 100 mg tablet 100 mg PO BID 11/07/22 [History Confirmed 01/26/23] (units unknown) (unknown) (unknown) (no date) (unknown) (unknown) have occurred. If there are any questions, please contact the Medical Records (units unknown) (unknown) (unknown) (no date) (unknown) (unknown) household memb ers: spouse (units unknown) (unknown) (unknown) (no date) (unknown) (unknown) lives independently: Yes (units unknown) (unknown) (unknown) (no date) (unknown) (unknown) magnesium 250 mg tablet 250 mg PO DAILY 11/07/22 [History Confirmed 01/26/23] (units unknown) (unknown) (unknown) (no date) (unknown) (unknown) marital status : (units unknown) (unknown) (unknown) (no date) (unknown) (unknown) may occur. Occasional wrong-word or 'sound-alike' substitutions may have (units unknown) (unknown) (unknown) (no date) (unknown) (unknown) methocarbamol 500 mg tablet 500 mg PO DAILY 11/07/22 [History Confirmed (units unknown) (unknown) (unknown) (no date) (unknown) (unknown) metoprolol tar trate 25 mg tablet 25 mg PO BID 05/24/18 [History Confirmed (units unknown) (unknown) (unknown) (no date) (unknown) (unknown) occurred due t o the inherent limitations of voice recognition software. Please (units unknown) (unknown) (unknown) (no date) (unknown) (unknown) read the note carefully and recognize, using context, where these substitutions (units unknown) (unknown) (unknown) (no date) (unknown) (unknown) riboflavin (vi tamin B2) 100 mg tablet 100 mg PO DAILY 11/10/22 [History (units unknown) (unknown) (unknown) (no date) (unknown) (unknown) rosuvastatin 4 0 mg tablet 40 mg PO QPM 11/01/18 [History Confirmed 01/26/23] (units unknown) (unknown) (unknown) (no date) (unknown) (unknown) simethicone 80 mg tablet 80 mg PO BID-QID PRN gas 12/07/22 [History Confirmed (units unknown) (unknown) (unknown) (no date) (unknown) (unknown) software. Alth ough every effort is made to edit content, supervisor brine errors (units unknown) (unknown) (unknown) (no date) (unknown) (unknown) substance use type: does not use (units unknown) (unknown) Result panel 246 (unknown) (no date) (unknown) (unknown) (no value) (units unknown) (unknown) (unknown) (no date) (unknown) (unknown) 01/26/23 (units unknown) (unknown) (unknown) (no date) (unknown) (unknown) 01/26/23] (units unknown) (unknown) (unknown) (no date) (unknown) (unknown) 11:09 (units unknown) (unknown) (unknown) (no date) (unknown) (unknown) 11:09) (units unknown) (unknown) (unknown) (no date) (unknown) (unknown) [id number] (units unknown) (unknown) (unknown) (no date) (unknown) (unknown) Age/Sex: 87 / F Date of Service: (units unknown) (unknown) (unknown) (no date) (unknown) (unknown) Allergies (units unknown) (unknown) (unknown) (no date) (unknown) (unknown) [place] [address] (units unknown) (unknown) (unknown) (no date) (unknown) (unknown) Attending Dr: Presley Oliver MD (units unknown) (unknown) (unknown) (no date) (unknown) (unknown) BMI 26.1 (units unknown) (unknown) (unknown) (no date) (unknown) (unknown) Back pain (units unknown) (unknown) (unknown) (no date) (unknown) (unknown) Cataract (units unknown) (unknown) (unknown) (no date) (unknown) (unknown) Chief Complaint (uni ts unknown) (unknown) (unknown) (no date) (unknown) (unknown) Chief Complain t: Colon cancer follow-up (units unknown) (unknown) (unknown) (no date) (unknown) (unknown) Confirmed 01/26/23] (units unknown) (unknown) (unknown) (no date) (unknown) (unknown) DAILY 05/24/18 [History Confirmed 01/26/23] (units unknown) (unknown) (unknown) (no date) (unknown) (unknown) : 4 Acct:[id number] (units unknown) (unknown) (unknown) (no date) (unknown) (unknown) Dept at . (units unknown) (unknown) (unknown) (no date) (unknown) (unknown) Details: (units unknown) (unknown) (unknown) (no date) (unknown) (unknown) Documented By: Presley Oliver MD 01/26/23 1109 (units unknown) (unknown) (unknown) (no date) (unknown) (unknown) Draft (units unknown) (unknown) (unknown) (no date) (unknown) (unknown) Family History (units unknown) (unknown) (unknown) (no date) (unknown) (unknown) Father d Pedestrian crushed by rolling stock (units unknown) (unknown) (unknown) (no date) (unknown) (unknown) Finger amputat ion, traumatic (units unknown) (unknown) (unknown) (no date) (unknown) (unknown) H/O prior abla tion treatment (units unknown) (unknown) (unknown) (no date) (unknown) (unknown) HPI (units unknown) (unknown) (unknown) (no date) (unknown) (unknown) Height 5 ft 4 in (un its unknown) (unknown) (unknown) (no date) (unknown) (unknown) History of appendectomy (units unknown) (unknown) (unknown) (no date) (unknown) (unknown) History of radiofrequency ablation procedure for cardiac arrhythmia (units unknown) (unknown) (unknown) (no date) (unknown) (unknown) Hx of bilatera l cataract extraction (units unknown) (unknown) (unknown) (no date) (unknown) (unknown) Hyperlipemia (units unknown) (unknown) (unknown) (no date) (unknown) (unknown) Hypertension (units unknown) (unknown) (unknown) (no date) (unknown) (unknown) Intake (units unknown) (unknown) (unknown) (no date) (unknown) (unknown) [facility] (uni ts unknown) (unknown) (unknown) (no date) (unknown) (unknown) Loc: [facility] (units unknown) (unknown) (unknown) (no date) (unknown) (unknown) [place] (units unknown) (unknown) (unknown) (no date) (unknown) (unknown) Medical Histor y (units unknown) (unknown) (unknown) (no date) (unknown) (unknown) Medications (units unknown) (unknown) (unknown) (no date) (unknown) (unknown) Mother d Old age (units unknown) (unknown) (unknown) (no date) (unknown) (unknown) Ms. Castañeda is a 87-year-old woman status post laparoscopic assisted right (units unknown) (unknown) (unknown) (no date) (unknown) (unknown) Nausea (units unknown) (unknown) (unknown) (no date) (unknown) (unknown) Opioids - Morp selena Analogues Adverse Reaction (Verified 01/26/23 11:09) (units unknown) (unknown) (unknown) (no date) (unknown) (unknown) Oxygen Deliver y Method room air (units unknown) (unknown) (unknown) (no date) (unknown) (unknown) PFSH (units unknown) (unknown) (unknown) (no date) (unknown) (unknown) PVC's (prematu re ventricular contractions) (units unknown) (unknown) (unknown) (no date) (unknown) (unknown) Pathology (units unknown) (unknown) (unknown) (no date) (unknown) (unknown) Patient: Patricia Castañeda MR#: [id number] (units unknown) (unknown) (unknown) (no date) (unknown) (unknown) Pulse 63 (units unknown) (unknown) (unknown) (no date) (unknown) (unknown) Pulse Oximetry (%) 63 L (units unknown) (unknown) (unknown) (no date) (unknown) (unknown) Pulse Source Monitor (units unknown) (unknown) (unknown) (no date) (unknown) (unknown) Reason For Visit (un its unknown) (unknown) (unknown) (no date) (unknown) (unknown) Signed By: (units unknown) (unknown) (unknown) (no date) (unknown) (unknown) Smoking Status : Former smoker (units unknown) (unknown) (unknown) (no date) (unknown) (unknown) Social History (units unknown) (unknown) (unknown) (no date) (unknown) (unknown) Surgery Office Visit (units unknown) (unknown) (unknown) (no date) (unknown) (unknown) Surgical Histo ry (units unknown) (unknown) (unknown) (no date) (unknown) (unknown) TIA (transient ischemic attack) (units unknown) (unknown) (unknown) (no date) (unknown) (unknown) Temp 97.8 F (units unknown) (unknown) (unknown) (no date) (unknown) (unknown) Temp Source Temporal Artery Scan (units unknown) (unknown) (unknown) (no date) (unknown) (unknown) This note may have been all or partially generated using voice recognition (units unknown) (unknown) (unknown) (no date) (unknown) (unknown) Tobacco Status (unit s unknown) (unknown) (unknown) (no date) (unknown) (unknown) Visit Reasons: PO (u nits unknown) (unknown) (unknown) (no date) (unknown) (unknown) Vitals (units unknown) (unknown) (unknown) (no date) (unknown) (unknown) Weight 152 lb (units unknown) (unknown) (unknown) (no date) (unknown) (unknown) alcohol intake : current (units unknown) (unknown) (unknown) (no date) (unknown) (unknown) amoxicillin [F rom Augmentin] Adverse Reaction (Severe, Verified 01/26/23 11:09) (units unknown) (unknown) (unknown) (no date) (unknown) (unknown) ascorbic acid (vitamin C) 500 mg tablet 500 mg PO DAILY 11/10/22 [History (units unknown) (unknown) (unknown) (no date) (unknown) (unknown) cholecalcifero l (vitamin D3) 25 mcg (1,000 unit) tablet (Vitamin D3) 25 mcg PO (units unknown) (unknown) (unknown) (no date) (unknown) (unknown) clavulanic aci d [From Augmentin] Adverse Reaction (Severe, Verified 01/26/23 (units unknown) (unknown) (unknown) (no date) (unknown) (unknown) clopidogrel 75 mg tablet 1 tab PO DAILY 05/24/18 [History Confirmed 01/26/23] (units unknown) (unknown) (unknown) (no date) (unknown) (unknown) doing well tolerating a diet having normal bowel function no wound drainage or (units unknown) (unknown) (unknown) (no date) (unknown) (unknown) fever. Her shirlene n is well controlled with ibtm-noi-jrqojxh medication. (units unknown) (unknown) (unknown) (no date) (unknown) (unknown) gabapentin 100 mg tablet 100 mg PO BID 11/07/22 [History Confirmed 01/26/23] (units unknown) (unknown) (unknown) (no date) (unknown) (unknown) have occurred. If there are any questions, please contact the Medical Records (units unknown) (unknown) (unknown) (no date) (unknown) (unknown) hemicolectomy November 30, 2022 for colonic adenocarcinoma. She is overall (units unknown) (unknown) (unknown) (no date) (unknown) (unknown) household memb ers: spouse (units unknown) (unknown) (unknown) (no date) (unknown) (unknown) lives independently: Yes (units unknown) (unknown) (unknown) (no date) (unknown) (unknown) magnesium 250 mg tablet 250 mg PO DAILY 11/07/22 [History Confirmed 01/26/23] (units unknown) (unknown) (unknown) (no date) (unknown) (unknown) marital status : (units unknown) (unknown) (unknown) (no date) (unknown) (unknown) may occur. Occasional wrong-word or 'sound-alike' substitutions may have (units unknown) (unknown) (unknown) (no date) (unknown) (unknown) methocarbamol 500 mg tablet 500 mg PO DAILY 11/07/22 [History Confirmed (units unknown) (unknown) (unknown) (no date) (unknown) (unknown) metoprolol tar trate 25 mg tablet 25 mg PO BID 05/24/18 [History Confirmed (units unknown) (unknown) (unknown) (no date) (unknown) (unknown) occurred due t o the inherent limitations of voice recognition software. Please (units unknown) (unknown) (unknown) (no date) (unknown) (unknown) pT3N0 (0/12 no pat) moderately differentiated without lymphovascular invasion. (units unknown) (unknown) (unknown) (no date) (unknown) (unknown) read the note carefully and recognize, using context, where these substitutions (units unknown) (unknown) (unknown) (no date) (unknown) (unknown) riboflavin (vi tamin B2) 100 mg tablet 100 mg PO DAILY 11/10/22 [History (units unknown) (unknown) (unknown) (no date) (unknown) (unknown) rosuvastatin 4 0 mg tablet 40 mg PO QPM 11/01/18 [History Confirmed 01/26/23] (units unknown) (unknown) (unknown) (no date) (unknown) (unknown) simethicone 80 mg tablet 80 mg PO BID-QID PRN gas 12/07/22 [History Confirmed (units unknown) (unknown) (unknown) (no date) (unknown) (unknown) software. [facility] [place] every effort is made to edit content, supervisor brine errors (units unknown) (unknown) (unknown) (no date) (unknown) (unknown) substance use type: does not use (units unknown) (unknown) Result panel 247 (unknown) (no date) (unknown) (unknown) (no value) (units unknown) (unknown) (unknown) (no date) (unknown) (unknown) (1) Colon cancer: (u nits unknown) (unknown) (unknown) (no date) (unknown) (unknown) -6 month follow-up ( units unknown) (unknown) (unknown) (no date) (unknown) (unknown) -CEA at 6 months (un its unknown) (unknown) (unknown) (no date) (unknown) (unknown) -colonoscopy a nd CT abdomen pelvis at 1 year (units unknown) (unknown) (unknown) (no date) (unknown) (unknown) 01/26/23 (units unknown) (unknown) (unknown) (no date) (unknown) (unknown) 01/26/23] (units unknown) (unknown) (unknown) (no date) (unknown) (unknown) 01/29/23 1045 (units unknown) (unknown) (unknown) (no date) (unknown) (unknown) 11:09 (units unknown) (unknown) (unknown) (no date) (unknown) (unknown) 11:09) (units unknown) (unknown) (unknown) (no date) (unknown) (unknown) [id number] (units unknown) (unknown) (unknown) (no date) (unknown) (unknown) 87-year-old wo man 2 months status post laparoscopic assisted right hemicolectomy (units unknown) (unknown) (unknown) (no date) (unknown) (unknown) Abdomen midlin e incision is well healed (units unknown) (unknown) (unknown) (no date) (unknown) (unknown) Age/Sex: 87 / F Date of Service: (units unknown) (unknown) (unknown) (no date) (unknown) (unknown) Allergies (units unknown) (unknown) (unknown) (no date) (unknown) (unknown) YULIA Mccoy [id number] (units unknown) (unknown) (unknown) (no date) (unknown) (unknown) Assessment + Plan (u nits unknown) (unknown) (unknown) (no date) (unknown) (unknown) Attending Dr: Presley Oliver MD (units unknown) (unknown) (unknown) (no date) (unknown) (unknown) BMI 26.1 (units unknown) (unknown) (unknown) (no date) (unknown) (unknown) Back pain (units unknown) (unknown) (unknown) (no date) (unknown) (unknown) Cataract (units unknown) (unknown) (unknown) (no date) (unknown) (unknown) Chief Complaint (uni ts unknown) (unknown) (unknown) (no date) (unknown) (unknown) Chief Complain t: Colon cancer follow-up (units unknown) (unknown) (unknown) (no date) (unknown) (unknown) Colon location : ascending Qualified Code(s): C18.2 - Malignant neoplasm (units unknown) (unknown) (unknown) (no date) (unknown) (unknown) Confirmed 01/26/23] (units unknown) (unknown) (unknown) (no date) (unknown) (unknown) DAILY 05/24/18 [History Confirmed 01/26/23] (units unknown) (unknown) (unknown) (no date) (unknown) (unknown) : 4 Acct:[id number] (units unknown) (unknown) (unknown) (no date) (unknown) (unknown) Dept at . (units unknown) (unknown) (unknown) (no date) (unknown) (unknown) Details: (units unknown) (unknown) (unknown) (no date) (unknown) (unknown) Documented By: Presley Oliver MD 01/26/23 1109 (units unknown) (unknown) (unknown) (no date) (unknown) (unknown) Exam Narrative (unit s unknown) (unknown) (unknown) (no date) (unknown) (unknown) Exam Narrative: (uni ts unknown) (unknown) (unknown) (no date) (unknown) (unknown) Exam (units unknown) (unknown) (unknown) (no date) (unknown) (unknown) Family History (units unknown) (unknown) (unknown) (no date) (unknown) (unknown) Father d Pedestrian crushed by rolling stock (units unknown) (unknown) (unknown) (no date) (unknown) (unknown) November 30 023 for colonic adenocarcinoma, pT3N0 (units unknown) (unknown) (unknown) (no date) (unknown) (unknown) Finger amputat ion, traumatic (units unknown) (unknown) (unknown) (no date) (unknown) (unknown) General elderl y woman alert oriented no acute distress (units unknown) (unknown) (unknown) (no date) (unknown) (unknown) H/O prior abla tion treatment (units unknown) (unknown) (unknown) (no date) (unknown) (unknown) HPI (units unknown) (unknown) (unknown) (no date) (unknown) (unknown) Height 5 ft 4 in (un its unknown) (unknown) (unknown) (no date) (unknown) (unknown) History of appendectomy (units unknown) (unknown) (unknown) (no date) (unknown) (unknown) History of radiofrequency ablation procedure for cardiac arrhythmia (units unknown) (unknown) (unknown) (no date) (unknown) (unknown) Hx of bilatera l cataract extraction (units unknown) (unknown) (unknown) (no date) (unknown) (unknown) Hyperlipemia (units unknown) (unknown) (unknown) (no date) (unknown) (unknown) Hypertension (units unknown) (unknown) (unknown) (no date) (unknown) (unknown) Intake (units unknown) (unknown) (unknown) (no date) (unknown) (unknown) [facility] (uni ts unknown) (unknown) (unknown) (no date) (unknown) (unknown) Loc: [facility] (units unknown) (unknown) (unknown) (no date) (unknown) (unknown) Mass of c[place]um (units unknown) (unknown) (unknown) (no date) (unknown) (unknown) Medical Histor y (units unknown) (unknown) (unknown) (no date) (unknown) (unknown) Medications (units unknown) (unknown) (unknown) (no date) (unknown) (unknown) Mother d Old age (units unknown) (unknown) (unknown) (no date) (unknown) (unknown) Ms. Castañeda is a 87-year-old woman 2 moths, status post laparoscopic assisted (units unknown) (unknown) (unknown) (no date) (unknown) (unknown) Nausea (units unknown) (unknown) (unknown) (no date) (unknown) (unknown) Oncology at th is time. We discussed disease surveillance including the routine (units unknown) (unknown) (unknown) (no date) (unknown) (unknown) Opioids - Morp selena Analogues Adverse Reaction (Verified 01/26/23 11:09) (units unknown) (unknown) (unknown) (no date) (unknown) (unknown) Oxygen Deliver y Method room air (units unknown) (unknown) (unknown) (no date) (unknown) (unknown) PFSH (units unknown) (unknown) (unknown) (no date) (unknown) (unknown) PVC's (prematu re ventricular contractions) (units unknown) (unknown) (unknown) (no date) (unknown) (unknown) Pathology (units unknown) (unknown) (unknown) (no date) (unknown) (unknown) Patient: Patricia Castañeda MR#: [id number] (units unknown) (unknown) (unknown) (no date) (unknown) (unknown) Plan (units unknown) (unknown) (unknown) (no date) (unknown) (unknown) Pulse 63 (units unknown) (unknown) (unknown) (no date) (unknown) (unknown) Pulse Oximetry (%) 63 L (units unknown) (unknown) (unknown) (no date) (unknown) (unknown) Pulse Source Monitor (units unknown) (unknown) (unknown) (no date) (unknown) (unknown) Qualifiers: (units unknown) (unknown) (unknown) (no date) (unknown) (unknown) Reason For Visit (un its unknown) (unknown) (unknown) (no date) (unknown) (unknown) She has recove red well from surgery. I reviewed her pathology once again with (units unknown) (unknown) (unknown) (no date) (unknown) (unknown) Signed By: <Electronically signed by Presley Oliver MD> (units unknown) (unknown) (unknown) (no date) (unknown) (unknown) Signed (units unknown) (unknown) (unknown) (no date) (unknown) (unknown) Smoking Status : Former smoker (units unknown) (unknown) (unknown) (no date) (unknown) (unknown) Social History (units unknown) (unknown) (unknown) (no date) (unknown) (unknown) Status: Acute (units unknown) (unknown) (unknown) (no date) (unknown) (unknown) Surgery Office Visit (units unknown) (unknown) (unknown) (no date) (unknown) (unknown) Surgical Histo ry (units unknown) (unknown) (unknown) (no date) (unknown) (unknown) TIA (transient ischemic attack) (units unknown) (unknown) (unknown) (no date) (unknown) (unknown) Temp 97.8 F (units unknown) (unknown) (unknown) (no date) (unknown) (unknown) Temp Source Temporal Artery Scan (units unknown) (unknown) (unknown) (no date) (unknown) (unknown) This note may have been all or partially generated using voice recognition (units unknown) (unknown) (unknown) (no date) (unknown) (unknown) Time Coding Mi nutes Spent: (must be on same date of service/appointment ) (units unknown) (unknown) (unknown) (no date) (unknown) (unknown) Time Spent (units unknown) (unknown) (unknown) (no date) (unknown) (unknown) Tobacco Status (unit s unknown) (unknown) (unknown) (no date) (unknown) (unknown) Total Time: 25 (unit s unknown) (unknown) (unknown) (no date) (unknown) (unknown) Visit Reasons: PO (u nits unknown) (unknown) (unknown) (no date) (unknown) (unknown) Vitals (units unknown) (unknown) (unknown) (no date) (unknown) (unknown) Weight 152 lb (units unknown) (unknown) (unknown) (no date) (unknown) (unknown) alcohol intake : current (units unknown) (unknown) (unknown) (no date) (unknown) (unknown) amoxicillin [F rom Augmentin] Adverse Reaction (Severe, Verified 01/26/23 11:09) (units unknown) (unknown) (unknown) (no date) (unknown) (unknown) appropriately resected and there is no evidence of residual disease. There is (units unknown) (unknown) (unknown) (no date) (unknown) (unknown) ascorbic acid (vitamin C) 500 mg tablet 500 mg PO DAILY 11/10/22 [History (units unknown) (unknown) (unknown) (no date) (unknown) (unknown) been answered and she is in agreement with this plan. (units unknown) (unknown) (unknown) (no date) (unknown) (unknown) cholecalcifero l (vitamin D3) 25 mcg (1,000 unit) tablet (Vitamin D3) 25 mcg PO (units unknown) (unknown) (unknown) (no date) (unknown) (unknown) clavulanic aci d [From Augmentin] Adverse Reaction (Severe, Verified 01/26/23 (units unknown) (unknown) (unknown) (no date) (unknown) (unknown) clopidogrel 75 mg tablet 1 tab PO DAILY 05/24/18 [History Confirmed 01/26/23] (units unknown) (unknown) (unknown) (no date) (unknown) (unknown) drainage or fe joe. Her pain is well controlled with odzo-rin-iqcmihg (units unknown) (unknown) (unknown) (no date) (unknown) (unknown) gabapentin 100 mg tablet 100 mg PO BID 11/07/22 [History Confirmed 01/26/23] (units unknown) (unknown) (unknown) (no date) (unknown) (unknown) have occurred. If there are any questions, please contact the Medical Records (units unknown) (unknown) (unknown) (no date) (unknown) (unknown) household memb ers: spouse (units unknown) (unknown) (unknown) (no date) (unknown) (unknown) lives independently: Yes (units unknown) (unknown) (unknown) (no date) (unknown) (unknown) magnesium 250 mg tablet 250 mg PO DAILY 11/07/22 [History Confirmed 01/26/23] (units unknown) (unknown) (unknown) (no date) (unknown) (unknown) marital status : (units unknown) (unknown) (unknown) (no date) (unknown) (unknown) may occur. Occasional wrong-word or 'sound-alike' substitutions may have (units unknown) (unknown) (unknown) (no date) (unknown) (unknown) measurement of CEA, CT and colonoscopy. Her and her 's questions have (units unknown) (unknown) (unknown) (no date) (unknown) (unknown) medications. S he and her are without surgical concerns. (units unknown) (unknown) (unknown) (no date) (unknown) (unknown) methocarbamol 500 mg tablet 500 mg PO DAILY 11/07/22 [History Confirmed (units unknown) (unknown) (unknown) (no date) (unknown) (unknown) metoprolol tar trate 25 mg tablet 25 mg PO BID 05/24/18 [History Confirmed (units unknown) (unknown) (unknown) (no date) (unknown) (unknown) no indication for adjuvant therapy and there was no need to refer her to (units unknown) (unknown) (unknown) (no date) (unknown) (unknown) occurred due t o the inherent limitations of voice recognition software. Please (units unknown) (unknown) (unknown) (no date) (unknown) (unknown) of ascending colon ( units unknown) (unknown) (unknown) (no date) (unknown) (unknown) overall doing well tolerating a diet having normal bowel function no wound (units unknown) (unknown) (unknown) (no date) (unknown) (unknown) pT3N0 (0/12 no pat) moderately differentiated without lymphovascular invasion. 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 She is (units unknown) (unknown) (unknown) (no date) (unknown) (unknown) rosuvastatin 4 0 mg tablet 40 mg PO QPM 11/01/18 [History Confirmed 01/26/23] (units unknown) (unknown) (unknown) (no date) (unknown) (unknown) simethicone 80 mg tablet 80 mg PO BID-QID PRN gas 12/07/22 [History Confirmed (units unknown) (unknown) (unknown) (no date) (unknown) (unknown) software. Alth ough every effort is made to edit content, supervisor brine errors (units unknown) (unknown) (unknown) (no date) (unknown) (unknown) substance use type: does not use (units unknown) (unknown) (unknown) (no date) (unknown) (unknown) the patient an d her . I explained that she is local disease and it was (units unknown) (unknown) Social History date description facility 2022-12-22 00:00 Ex-smoker (finding) [facility] 2023-01-26 00:00 Ex-smoker (finding) [facility] Vital Signs date measurement value units 2022-12-12 00:00 temperature_metric 36.56 C 2022-12-12 00:00 temperature_standard 97.8 F 2022-12-13 00:00 BP_diastolic 71 mmHg 2022-12-13 00:00 BP_systolic 141 mmHg 2022-12-13 00:00 heart_rate 81 /min 2022-12-13 00:00 o2_saturation 98 % 2022-12-13 00:00 respiration_rate 16 /min 2022-12-22 00:00 BMI 28.3 kg/m2 2022-12-22 00:00 heart_rate 72 /min 2022-12-22 00:00 height_metric 162.56 cm 2022-12-22 00:00 height_standard 64 in 2022-12-22 00:00 o2_saturation 96 % 2022-12-22 00:00 temperature_metric 36.33 C 2022-12-22 00:00 temperature_standard 97.4 F 2022-12-22 00:00 weight_metric 74.84 kg 2022-12-22 00:00 weight_standard 164.99 lb 2023-01-26 00:00 BMI 26.1 kg/m2 2023-01-26 00:00 heart_rate 63 /min 2023-01-26 00:00 height_metric 162.56 cm 2023-01-26 00:00 height_standard 64 in 2023-01-26 00:00 o2_saturation 63 % 2023-01-26 00:00 temperature_metric 36.56 C 2023-01-26 00:00 temperature_standard 97.8 F 2023-01-26 00:00 weight_metric 68.94 kg 2023-01-26 00:00 weight_standard 151.99 lb
[2023-03-09 14:06] LABS: INR 1.1 (0.8-1.2); PT - PROTHROMBIN TIME 12.6 secs (9.9-12.6)
[2023-03-09 14:09] LABS: BASOPHILS % (AUTO) 0.9 %; EOSINOPHILS # (AUTO) 0.1 10^3/uL (0.0-0.7); EOSINOPHILS % (AUTO) 3.3 %; HCT - HEMATOCRIT 40.7 % (37.0-47.0); LYMPHOCYTES # (AUTO) 1.2 10^3/uL (1.5-3.5); MEAN CORPUSCULAR HEMOGLOBIN 28.5 pg (27.0-31.0); MEAN CORPUSCULAR HGB CONC 31.9 g/dL (32.0-36.0); MEAN CORPUSCULAR VOLUME 89.3 fL (81.0-99.0); MEAN PLATELET VOLUME 11.2 fL (7.9-10.8); MONOCYTES # (AUTO) 0.4 10^3/uL (0.0-1.0); MONOCYTES % (AUTO) 9.1 %; NEUTROPHILS # (AUTO) 2.6 10^3/uL (1.5-6.6); NEUTROPHILS % (AUTO) 59.5 %; PLT - PLATELET COUNT 167 10^3/uL (130-450); RED BLOOD COUNT 4.56 10^6/uL (4.20-5.40); RED CELL DISTRIBUTION WIDTH 15.1 % (12.0-15.0); WHITE BLOOD COUNT 4.3 x10^3/uL (4.8-10.8)
[2023-03-09 14:11] LABS: ALBUMIN 3.6 g/dL (3.2-5.5); ALBUMIN/GLOBULIN RATIO 1.1 (1.0-2.2); BILIRUBIN,TOTAL 0.7 mg/dL (0.2-1.0); CALCIUM 8.8 mg/dL (8.5-10.3); CREATININE 0.8 mg/dL (0.4-1.0); POTASSIUM 4.3 mmol/L (3.5-5.0); TOTAL PROTEIN 6.8 g/dL (6.7-8.2)
--- NOTE | 2023-03-09 14:13 | ED Physician Documentation ---
History of Present Illness - Stated complaint Stated Complaint: FEMALE GI - Chief complaint Chief Complaint: Abd Pain - Additonal information Additional information: 87-year-old female presents emergency department for evaluation of reported melena. States that yesterday and today she felt that she had black tarry school stools. She describes them as the color of her pants which are light stevens today. Patient does take Plavix. The patient underwent a colonoscopy in late October 2022. 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 It was biopsied and it was negative for malignancy. She subsequently underwent a bowel resection and reanastomosis at [facility] in late November for this. She has recovered without any pain or recurrent symptoms. Patient denies fatigue, chest pain or shortness of air. She is known to have iron deficiency anemia for which she does take iron. 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 - Past Surgical History Past Surgical History: Yes General: Appendectomy, Other Cardiovascular: Cardiac catheterization, Other HEENT: Cataracts - Present Medications Home Medications: Ambulatory Orders Medication Instructions Recorded Confirmed Metoprolol Tartrate [Lopressor] 25 mg PO BID 01/12/15 01/05/23 Rosuvastatin Calcium 40 mg PO QPM 11/07/18 01/05/23 Clopidogrel [Plavix] 75 mg ORAL DAILY 09/11/20 01/05/23 traMADol [Ultram] 50 mg PO Q6H PRN #14 tablet 12/07/21 01/05/23 Cholecalciferol (Vitamin D3) 1,000 mcg PO DAILY 03/10/22 01/05/23 [Vitamin D3] Magnesium 250 mg PO DAILY 03/10/22 01/05/23 Gabapentin [Neurontin] 100 mg PO BID 09/27/22 01/05/23 methocarbamoL [Methocarbamol] 500 mg PO DAILY 09/27/22 01/05/23 - Allergies Allergies/Adverse Reactions: Allergies Allergy/AdvReac Type Severity Reaction Status Date / Time amoxicillin [From Augmentin] Allergy Unknown Verified 03/09/23 13:35 clavulanic acid Allergy Unknown Verified 03/09/23 13:35 [From Augmentin] cyanocobalamin (vitamin B12) Allergy Rash Verified 03/09/23 13:35 oxycodone Allergy Nausea Verified 03/09/23 13:35 - Social History Does the pt smoke?: No Smoking Status: Never smoker Does the pt drink ETOH?: No Does the pt have substance abuse?: No - Immunizations Immunizations are current?: Yes - POLST Patient has POLST: No PD ED PE NORMAL - General General: Alert and oriented X 3, No acute distress - HEENT HEENT: PERRL - Neck Neck: Supple, no meningeal sign, No adenopathy - Cardiac Cardiac: RRR, No murmur - Respiratory Respiratory: No respiratory distress - Abdomen Abdomen: Normal bowel sounds, Soft, Non tender (No abdominal tenderness was elicited with light or deep palpation or even percussion.) - Female Female : 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 Digital rectal exam revealed soft brown stool in the vault with no evidence of melena or hematochezia) - Back Back: No CVA TTP - Derm Derm: Warm and dry - Extremities Extremities: No deformity - Neuro Neuro: Alert and oriented X 3 Eye Opening: Spontaneous Motor: Obeys Commands Verbal: Oriented GCS Score: 15 Results - Vitals Vitals: Vital Signs - 24 hr 03/09/23 03/09/23 03/09/23 13:31 13:43 14:40 Temperature 36 C L Heart Rate 57 L Respiratory 16 17 17 Rate Blood Pressure 132/73 H O2 Saturation 98 Oxygen O2 Source Room air - Labs Labs: Microbiology 03/09/23 13:40 Occult Blood - Final Stool Laboratory Tests 03/09/23 03/09/23 03/09/23 13:54 13:54 13:54 WBC 4.3 L RBC 4.56 Hgb 13.0 Hct 40.7 MCV 89.3 MCH 28.5 MCHC 31.9 L RDW 15.1 H Plt Count 167 MPV 11.2 H Neut # (Auto) 2.6 Lymph # (Auto) 1.2 L [place] # (Auto) 0.4 Eos # (Auto) 0.1 Baso # (Auto) 0.0 Absolute Nucleated RBC 0.00 Nucleated RBC % 0.0 PT 12.6 INR 1.1 Sodium 140 Potassium 4.3 Chloride 107 Carbon Dioxide 28 Anion Gap 5.0 L BUN 21 H Creatinine 0.8 Estimated GFR (MDRD) 68 L Glucose 93 Calcium 8.8 Total Bilirubin 0.7 AST 16 ALT 11 Alkaline Phosphatase 49 Total Protein 6.8 Albumin 3.6 Globulin 3.2 Albumin/Globulin Ratio 1.1 Lipase 37 PD Medical Decision Making - ED course Complexity details: reviewed results, re-evaluated patient, considered differential, d/w patient ED course: 87-year-old female presents emergency department for evaluation of what she reports as melena or dark tarry stools that she noted yesterday and this morning. She is on Plavix. She does have a history of colon resection secondary to a mass in November 2021. This was nonmalignant. Here in the emergency department her vital signs are without fever, tachycardia or hypotension. I did obtain a CBC, electrolytes urine and stool guaiac. Per my interpretation no acute worrisome findings. Specifically her hemoglobin today is 13 which is a rise from previous values. Her stool guaiac was negative. I did do a chaperoned rectal exam and there was brown soft stool in the rectal vault but no obvious findings to suggest melena or hematochezia. On exam she also had no abdominal tenderness elicited given the normal labs and negative stool guaiac I deferred advanced imaging. Patient does desire to be discharged home. She is encouraged close follow-up with her PCP. We discussed the usual emergent return precautions for worsening symptoms Departure - Departure Disposition: 01 Home, Self Care Clinical Impression: Encounter for medical screening examination Condition: Stable Record reviewed to determine appropriate education?: Yes Comments: Patricia arana came to the emergency department today because she stated that you have had black or tarry stools. When I did a rectal exam that your stool was a normal brown color. We also sent it to the lab to check for occult or difficult to see blood. There was no blood seen in your stool. It is not clear what the cause of your concerns was though it could be related to eating darker leafy greens like spinach. Continue close follow-up with your primary care doctors. If at any point you have worsening symptoms or have a return of concerning melena please return to the ER
== END 2023-03-09 14:45 | disposition home or self-care (01) ==
LOC: ED 13:28
DX: Z71.1 Person with feared health complaint in whom no diagnosis is made (principal)
CPT/HCPCS: 36415; 80053; 82272; 83690; 85025; 85610; 99283

== ENCOUNTER 2023-11-17 15:34 | Emergency (ER) | payer MEDICARE, OTHER ==
[2023-11-17] MEDS ORDERED: iohexoL-300 100 ML VIAL ONE (15:54)
[2023-11-17 15:57] LABS: BASOPHILS % (AUTO) 0.5 %; EOSINOPHILS # (AUTO) 0.2 10^3/uL (0.0-0.7); EOSINOPHILS % (AUTO) 2.8 %; HCT - HEMATOCRIT 43.2 % (37.0-47.0); HGB - HEMOGLOBIN 13.9 g/dL (12.0-16.0); LYMPHOCYTES # (AUTO) 1.5 10^3/uL (1.5-3.5); LYMPHOCYTES % (AUTO) 25.6 %; MEAN CORPUSCULAR HEMOGLOBIN 30.2 pg (27.0-31.0); MEAN CORPUSCULAR HGB CONC 32.2 g/dL (32.0-36.0); MEAN CORPUSCULAR VOLUME 93.9 fL (81.0-99.0); MEAN PLATELET VOLUME 11.3 fL (7.9-10.8); MONOCYTES # (AUTO) 0.5 10^3/uL (0.0-1.0); MONOCYTES % (AUTO) 8.5 %; NEUTROPHILS # (AUTO) 3.6 10^3/uL (1.5-6.6); NEUTROPHILS % (AUTO) 62.4 %; PLT - PLATELET COUNT 142 10^3/uL (130-450); RED CELL DISTRIBUTION WIDTH 13.6 % (12.0-15.0); WHITE BLOOD COUNT 5.8 x10^3/uL (4.8-10.8)
--- NOTE | 2023-11-17 16:06 | ED Physician Documentation ---
PD HPI FOCAL NEURO - Stated complaint Stated Complaint: SLURRED SPEECH/ARM PX/CONFUSED - Chief complaint Chief Complaint: Neuro - History obtained from History obtained from: Family - Additional information Additional information: Patient is an 88-year-old female with a history of prior TIAs, complex migraines presenting for evaluation of difficulty with speech starting at 315. Per the she was speaking normally prior to this and all the sudden had stuttering where she was not able to articulate or answer any questions. She does have a history of this happening in the past and neurology thought it could be related to complex migraines. She is on Plavix. He states that prior episodes have not lasted this long however which is what concerned him. She has not been ill recently.No reported head injury. On review of records through care everywhere, patient appears to have had a similar episode in August 2023 where she was seen at [facility]. Telestroke from [facility] evaluated the patient. At that time given resolution of symptoms and history of many such transient events they did not recommend thrombolytics. They also recommended evaluation with urine analysis and treatment of migraine and to continue on her Plavix and statin and follow-up with her PCP for better blood pressure control. From [facility] Neurology note in 2020: According to Dr. Mei's last note, on 07/22/2018, the patient developed acute aphasia. At this time, she was on Plavix. Symptoms lasted 7-8 minutes. Patient's called 911 as he thought she was having a stroke. By the time she was seen in the emergency department, she was back to normal. There is noted that she had been seen previously on 05/24/2018 for headache and visual changes. MRI at that time was normal. CT of the head was normal. EKG was without atrial fibrillation. After a short admission for observation, the patient was discharged on aspirin and Plavix. During that stay, the patient also had an MRA of the neck and MRI of the brain, we did not have these results. Echocardiogram was done and results are pending at the time of discharge. 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 The patient was seen in the emergency department on 11/01/2018 for numbness in the right hand, shaking in her right foot and inability to produce words. At that time, she was on aspirin and Plavix. CT of the head was normal. CTA of the head and the neck was without any stenosis. Labs are unremarkable. By the time she was evaluated, her NHISS score was 0. She was discharged home. The patient followed up with her primary care provider on 11/07/2018. 2 week zio patch was without any atrial fibrillation. They recommended that she continue on aspirin and Plavix for 3 months. The patient had a third episode of aphasia for 7 minutes on 11/07/2018. It remitted after a few minutes. Electronic inside contractor sales returned as normal. EKG return is normal. She had more episodes at the end of 2019. MRI of the brain and MRA both returned without any clinically significant findings. 14 day inside contractor sales returned as normal. In total, patient has now had a total of 8 events, 3 occurring on 07/22/2018, 11/01/2018, 11/07/2018, 2 additional events in -09/2020 and 3 further events in 11/2020. All of these events were associated with aphasia (except for the events in 11/2020 which were not) with or without numbness and tingling in an upper extremity and one event was associated with shaking of the right upper extremity. 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 : None HEENT: Other Psych: Depression Musculoskeletal: Osteoporosis, Other Derm: None - Past Surgical History Past Surgical History: Yes General: Appendectomy, Other Cardiovascular: Cardiac catheterization, Other HEENT: Cataracts - Present Medications Home Medications: Ambulatory Orders Medication Instructions Recorded Confirmed Metoprolol Tartrate [Lopressor] 25 mg PO BID 01/12/15 10/24/23 Rosuvastatin Calcium 40 mg PO QPM 11/07/18 10/24/23 Clopidogrel [Plavix] 75 mg ORAL DAILY 09/11/20 10/24/23 traMADol [Ultram] 50 mg PO Q6H PRN #14 tablet 12/07/21 10/24/23 Cholecalciferol (Vitamin D3) 1,000 mcg PO DAILY 03/10/22 10/24/23 [Vitamin D3] Magnesium 250 mg PO DAILY 03/10/22 10/24/23 Gabapentin [Neurontin] 100 mg PO BID 09/27/22 10/24/23 methocarbamoL [Methocarbamol] 500 mg PO DAILY 09/27/22 10/24/23 - Allergies Allergies/Adverse Reactions: Allergies Allergy/AdvReac Type Severity Reaction Status Date / Time amoxicillin [From Augmentin] Allergy Unknown Verified 11/17/23 15:39 clavulanic acid Allergy Unknown Verified 11/17/23 15:39 [From Augmentin] cyanocobalamin (vitamin B12) Allergy Rash Verified 11/17/23 15:39 oxycodone Allergy Nausea Verified 11/17/23 15:39 - Social History Does the pt smoke?: No Smoking Status: Never smoker Does the pt drink ETOH?: No Does the pt have substance abuse?: No - Immunizations Immunizations are current?: Yes - POLST Patient has POLST: No PD ED PE NORMAL - General General: Well developed/nourished. No: Alert and oriented X 3 (Alert, unable to answer orientation questions due to abnormal speech) - HEENT HEENT: Atraumatic, PERRL, Moist mucous membranes, Pharynx benign - Neck Neck: Supple, no meningeal sign - Cardiac Cardiac: RRR, Strong equal pulses - Respiratory Respiratory: No respiratory distress, Clear bilaterally - Abdomen Abdomen: Soft, Non tender - Derm Derm: Warm and dry - Neuro Neuro: No motor deficit. No: Alert and oriented X 3 (Alert, unable to answer orientation questions due to abnormal speech), Normal speech (Stuttering speech) NIHSS - Level of Consciousness Level of consciousness: (0) Alert, Keenly responsive LOC Questions: (0) Answers both Q's correct LOC Commands: (0) Performs both correctly - Gaze Best Gaze: (0) Normal - Visual Visual: (0) No loss - Facial Palsy Facial Palsy: (0) Normal, symmetrical movement - Motor Arms (both separate) Motor Arm (right): (0) No drift Motor Arm (left): (0) No drift - Motor Legs (both separate) Motor Leg (right): (0) No drift Motor Leg (left): (0) No drift - Limb Ataxia Limb Ataxia: (0) Absent - Sensory Sensory: (0) Normal - Best Language Best Language: (2) Severe aphasia (Stuttering speech) - Dysarthria Dysarthria: (0) Normal - Extinction and Inattention (formally neg Extinction and inattention: (0) No abnormality - Total Score/Results Total Score/Result: 2 Results - Vitals Vitals: Vital Signs - 24 hr 11/17/23 11/17/23 11/17/23 15:39 16:13 16:53 Temperature 36.8 C Heart Rate 66 60 65 Respiratory 16 12 13 Rate Blood Pressure 183/80 H 170/131 H 177/77 H O2 Saturation 99 100 100 11/17/23 17:41 Temperature Heart Rate 58 L Respiratory 16 Rate Blood Pressure 188/76 H O2 Saturation 99 Oxygen O2 Source Room air - EKG (time done) 1609 EKG releavant findings:: EKG personally interpreted by author of this note. Relevant findings are: Rate 62, normal sinus rhythm, no STEMI, QTc 447 - Labs Labs: Laboratory Tests 11/17/23 11/17/23 11/17/23 15:45 15:45 15:45 WBC 5.8 RBC 4.60 Hgb 13.9 Hct 43.2 MCV 93.9 MCH 30.2 MCHC 32.2 RDW 13.6 Plt Count 142 MPV 11.3 H Neut # (Auto) 3.6 Lymph # (Auto) 1.5 [place] # (Auto) 0.5 Eos # (Auto) 0.2 Baso # (Auto) 0.0 Absolute Nucleated RBC 0.00 Nucleated RBC % 0.0 PT 12.3 INR 1.1 Sodium 140 Potassium 4.1 Chloride 107 Carbon Dioxide 28 Anion Gap 5.0 L BUN 21 H Creatinine 0.8 Estimated GFR (MDRD) 68 L Glucose 97 POC Whole Bld Glucose Calcium 9.3 Total Bilirubin 0.6 AST 14 ALT 11 Alkaline Phosphatase 56 Total Protein 6.7 Albumin 4.1 Globulin 2.6 Albumin/Globulin Ratio 1.6 Lipase 22 Urine Color Urine Clarity Urine pH Ur Specific [place] Urine Protein Urine Glucose (UA) Urine Ketones Urine Occult Blood Urine Nitrite Urine Bilirubin Urine Urobilinogen Ur Leukocyte Esterase Ur Microscopic Review Urine Culture Comments 11/17/23 11/17/23 15:47 16:51 WBC RBC Hgb Hct MCV MCH MCHC RDW Plt Count MPV Neut # (Auto) Lymph # (Auto) [place] # (Auto) Eos # (Auto) Baso # (Auto) Absolute Nucleated RBC Nucleated RBC % PT INR Sodium Potassium Chloride Carbon Dioxide Anion Gap BUN Creatinine Estimated GFR (MDRD) Glucose POC Whole Bld Glucose 96 Calcium Total Bilirubin AST ALT Alkaline Phosphatase Total Protein Albumin Globulin Albumin/Globulin Ratio Lipase Urine Color YELLOW Urine Clarity CLEAR Urine pH 6.5 Ur Specific [place] 1.015 Urine Protein NEGATIVE Urine Glucose (UA) NEGATIVE Urine Ketones NEGATIVE Urine Occult Blood TRACE-INTA Urine Nitrite NEGATIVE Urine Bilirubin NEGATIVE Urine Urobilinogen 0.2 (NORMAL) Ur Leukocyte Esterase NEGATIVE Ur Microscopic Review NOT INDICATED Urine Culture Comments NOT INDICATED PD Medical Decision Making - ED course Complexity details: reviewed results, re-evaluated patient, d/w patient, d/w family ED course: Patient is an 88-year-old female presenting for evaluation of difficulties with speech that started just a short time prior to arrival. Code stroke initiated on arrival. Patient has difficulty with articulating but otherwise has no deficits. Has a history of these episodes in the past. Has had multiple episodes on review of the records Including to outpatient neurology. Due to the frequency of the episodes and the number it is felt that these are likely complex migraines. CT head and angio head and neck were obtained and reviewed without any significant findings. Telestroke also evaluated the patient and agreed that if patient is getting better here as she was upon his evaluation that would be reasonable to let her go home given her history of the symptoms. Patient symptoms quickly improved without any intervention here. Patient and would like to go home. She has been ambulating. No other deficits were noted. No signs of infection. She does not appear to be altered. Labs including CBC and chemistries are unrevealing. EKG is normal sinus rhythm. She is already on Plavix. Instructed to continue with her home medications. They are advised on concerning symptoms to return for. 1643 - D/W Telestroke - He has seen the patient. He agrees that this sounds like it could be complex migraines Patient and family as symptoms are rapidly improving and patient has had numerous episodes similar to this. Family would not want TNK at this time. Family would like to consider magnesium as this has helped in the past but would like to go home as her speech is improving. 1732 - Speech is back to normal. Patient has ambulated to the bedside commode without any difficulty. Patient and would like to go home. Departure - Departure Disposition: 01 Home, Self Care Clinical Impression: Speech abnormality, Hypertension Condition: Stable Instructions: ED Hypertension Conf Out Of Control Comments: He had another episode of difficulties with speech today. Our testing does not show any abnormalities in your blood tests or on your CAT scans. You have had a number of these episodes in the past and they could be related to complex migraines as your neurologist has stated. I would recommend close follow-up with your primary care doctor regarding your symptoms today as well as for your blood pressure. Please continue with your medications as prescribed. Return to the ER with any worsening. Forms: PCP List Discharge Date/Time: 11/17/23 17:43
[2023-11-17] MEDS: iohexoL-300 100 ML VIAL IVP ONE (16:12)
[2023-11-17 16:14] LABS: ALBUMIN 4.1 g/dL (3.2-5.5); ALBUMIN/GLOBULIN RATIO 1.6 (1.0-2.2); BILIRUBIN,TOTAL 0.6 mg/dL (0.2-1.0); CALCIUM 9.3 mg/dL (8.5-10.3); CREATININE 0.8 mg/dL (0.6-1.3); POTASSIUM 4.1 mmol/L (3.5-4.5); TOTAL PROTEIN 6.7 g/dL (6.4-8.9)
[2023-11-17 16:16] LABS: INR 1.1 (0.8-1.2); PT - PROTHROMBIN TIME 12.3 secs (9.9-12.6)
--- NOTE | 2023-11-17 16:19 | CT Report ---
PROCEDURE: Head W/O Stroke Protocol INDICATIONS: abnormal speech TECHNIQUE: Noncontrast 4.5 mm thick angled axial sections acquired from the foramen magnum to the vertex, with c oronal reformats. For radiation dose reduction, the following was used: automated exposure control, adjustment of mA and/or kV according to patient size. COMPARISON: CTA head and neck 11/17/2023, CT head 09/11/2020, MR brain 09/12/2020 FINDINGS: Image quality: Excellent. The ventricular system and cortical sulci demonstrate atrophy, consistent for patient's stated age. There are areas of hypodensity in the periventricular and subcortical white matter. There is no acut e intra or extra-axial fluid collection. No acute hemorrhage, mass lesion or midline shift. Brainst em is unremarkable. Globes are symmetrical. Sinuses are aerated. Osseous structures are intact. IMPRESSION: 1. No acute intracranial process. 2. Moderate atrophy and chronic microvascular ischemic changes. This study fulfills neurological imaging criteria for inclusion or exclusion of acute stroke therapie s based on available published neurological imaging guidelines. Reviewed by: Lexis Evangelista MD on 11/17/2023 4:18 PM PST Approved by: Lexis Evangelista MD on 11/17/2023 4:18 PM PST Station ID: [id number]
[2023-11-17] MEDS: SODIUM CHLORIDE 0.9% 1,000 ML IV STA (16:25)
--- NOTE | 2023-11-17 16:27 | CT Report ---
PROCEDURE: Angio Head/Neck INDICATIONS: abnormal speech TECHNIQUE: After the administration of intravenous contrast, 1 mm thick sections acquired from the aortic arch t hrough the [place]. 3-dimensional dqsjasu-gpbxxfcqp-eefrixrxak (MIP) and/or volume renderin g reformats were acquired of the central intracranial vasculature and neck separately. For radiation dose reduction, the following was used: automated exposure control, adjustment of mA and/or kV acco rding to patient size. COMPARISON: CT head 11/17/2023, CTA head and neck 09/11/2020, MR brain 09/12/2020 FINDINGS: Image quality: Diagnostic. HEAD CT: Please see separately dictated CT head report of 11/17/[address] ANGIOGRAPHY: Anterior circulation: Intracranial internal carotid arteries are normal in size and flow. The flow within the paired anterior cerebral arteries is normal and symmetric. The flow within the middle cer ebral arteries is normal and symmetric. The anterior communicating artery is seen. No aneurysms are seen. Posterior circulation: Visualized portions of the vertebral arteries demonstrate normal caliber, and join to form a normal appearing basilar artery. Flow within the posterior cerebral arteries is norm al and symmetric. No aneurysms are seen. NECK CT ANGIOGRAPHY: Carotid system: The great vessels demonstrate a conventional anatomy as they arise from the aortic a rch. The origins of the common carotid arteries appear patent. The common carotid arteries demonstr ate normal caliber and courses. The bifurcation regions are both widely patent. The internal caroti d arteries demonstrate normal calibers and courses. Posterior circulation: The origins of the vertebral arteries both appear widely patent. The more ugarte perior extracranial portions of both vertebral arteries also demonstrate normal courses and calibers. They join to form a normal appearing basilar artery. Soft tissues: Visualized neck soft tissues demonstrate no suspicious abnormalities. Bones: No suspicious bony lesions. Visualized cervical spine appears normally aligned. IMPRESSION: No areas of hemodynamically significant stenosis, vascular occlusion or aneurysmal dilation within th e anterior circulation. No areas of hemodynamically significant stenosis, vascular occlusion or aneurysmal dilation within th e posterior circulation. There are no areas of hemodynamically significant stenosis, vascular occlusion or aneurysmal dilation within the neck vasculature. The estimate of stenosis included in the report of the imaging study was calculated using the NASCET method Reviewed by: Lexis Evangelista MD on 11/17/2023 4:26 PM PST Approved by: Lexis Evangelista MD on 11/17/2023 4:26 PM PST Station ID: [id number]
[2023-11-17 17:00] LABS: BILIRUBIN,URINE NEGATIVE (NEGATIVE); GLUCOSE, URINE (UA) NEGATIVE (NEGATIVE); KETONES,URINE (UA) NEGATIVE (NEGATIVE); LEUKOCYTE ESTERASE, URINE NEGATIVE (NEGATIVE); NITRITE,URINE NEGATIVE (NEGATIVE); OCCULT BLOOD,URINE TRACE-INTA (NEGATIVE); PH,URINE 6.5 PH (5.0-7.5); PROTEIN,URINE NEGATIVE (NEGATIVE); UROBILINOGEN,URINE 0.2 (NORMAL) E.U./dL (NORMAL)
[2023-11-17 17:01] LABS: CLARITY,URINE CLEAR (CLEAR)
[2023-11-17 17:47] VITALS: BP 188/76; O2SAT 99
== END 2023-11-17 17:43 | disposition home or self-care (01) ==
LOC: ED 15:34
DX: R47.81 Slurred speech (principal); R29.702 NIHSS score 2; I10 Essential (primary) hypertension
CPT/HCPCS: 36415; 70450; 70496; 70498; 80053; 81003; 83690; 85025; 85610; 93005; 99284; Q9967; 81001; 87086

== ENCOUNTER 2024-01-26 09:19 | Outpatient (CLI) | payer MEDICARE, OTHER ==
[2024-01-26 12:08] LABS: BASOPHILS % (AUTO) 0.9 %; EOSINOPHILS # (AUTO) 0.2 10^3/uL (0.0-0.7); EOSINOPHILS % (AUTO) 3.5 %; HCT - HEMATOCRIT 42.5 % (37.0-47.0); HGB - HEMOGLOBIN 13.6 g/dL (12.0-16.0); LYMPHOCYTES # (AUTO) 1.5 10^3/uL (1.5-3.5); LYMPHOCYTES % (AUTO) 33.6 %; MEAN CORPUSCULAR HEMOGLOBIN 30.1 pg (27.0-31.0); MEAN PLATELET VOLUME 12.2 fL (7.9-10.8); MONOCYTES # (AUTO) 0.4 10^3/uL (0.0-1.0); MONOCYTES % (AUTO) 8.6 %; NEUTROPHILS # (AUTO) 2.4 10^3/uL (1.5-6.6); NEUTROPHILS % (AUTO) 53.2 %; PLT - PLATELET COUNT 127 10^3/uL (130-450); RED BLOOD COUNT 4.52 10^6/uL (4.20-5.40); RED CELL DISTRIBUTION WIDTH 13.1 % (12.0-15.0); WHITE BLOOD COUNT 4.6 x10^3/uL (4.8-10.8)
== END 2024-01-26 09:20 | disposition home or self-care (01) ==
LOC: LAB.N 09:19
PROVIDERS: ATTEND Nurse Practitioner Family
DX: I11.9 Hypertensive heart disease without heart failure (principal); E78.5 Hyperlipidemia, unspecified
CPT/HCPCS: 36415; 85025